=== PATIENT | female | born 1990 | race Caucasian/White ===

== ENCOUNTER 2018-02-28 08:10 | Emergency (ER) | payer OTHER, MEDICAID, SELFPAY ==
[2018-02-28 08:14] VITALS: BP 97/56; PULSE 78; RESP 12; TEMP 37.2; O2SAT 97; BMI 42.6
--- NOTE | 2018-02-28 08:31 | ED.VISSUMM ---
- ER Visit Summary Date of Service: 02/28/18 Chief Complaint: Accidental ingestion of the wrong medications History of Present Illness: The patient is a 28 F history of Down syndrome and correction of tetralogy of flow. Patient lives in a shelter. This morning was accidentally given medications that were supposed to be given to another resident. Patient herself denies any complaints. The medication she were given include levothyroxine, baby aspirin, ramipril, metoprolol, Spironolactone and Dilantin. She was given 1 pill of each. Physical Examination: Young patient in no distress. Initial blood pressure is 97/56 heart rate 78 she is afebrile. She is in no distress she is sitting up in bed. She is answering questions. She is following commands. I did see the list of her normal blood pressures and they run between the mid 90s-120 normally for a systolic blood pressure. She does not seem lightheaded or dizzy. Due to her Down syndrome she answers yes to all questions. There is a caregiver with her from the shelter. HEENT exam unremarkable. Typical Down's features. Moist mucous membranes. Neck nontender. Lungs clear to auscultation bilaterally. Heart regular rhythm no murmur rate about 80. Chest wall nontender. Well-healed sternotomy scar. Abdomen soft. Nontender. Normal bowel sounds. No peritoneal signs. Patient is moving all 4 extremities. No edema. Neurologically she is awake. She is alert. She follows commands. She has no focal motor deficits. Test Results: None Emergency Department Course and Treatment: Due to the ingestion of 2 blood pressure medications and her pressure being below 100 currently she will be placed on a cardiac surgeon. We will watch her blood pressure. She will be treated with a liter of normal saline. Patient doing well on repeat exam at 09:48 a.m. Treatment Plan: Watch patient closely today. Reevaluate blood pressures. Disposition: discharge Impression: Accidental ingestion of the wrong medications This note was generated with [employer] dictation software. It may contain incorrect words, spelling, and punctuation that were not noted in review of the chart prior to signing ED Disposition - Plan for ED Patient: Chief Complaint: Poisoning Referrals: Shaheen Veliz MD [Primary Care Provider] -
--- NOTE | 2018-02-28 08:35 | ED.DCSUM_ITS ---
- ER Visit Summary Date of Service: 02/28/18 Chief Complaint: Accidental ingestion of the wrong medications History of Present Illness: The patient is a 28 F history of Down syndrome and correction of tetralogy of flow. Patient lives in a long-term. This morning was accidentally given medications that were supposed to be given to another resident. Patient herself denies any complaints. The medication she were given include levothyroxine, baby aspirin, ramipril, metoprolol, Spironolactone and Dilantin. She was given 1 pill of each. Physical Examination: Young patient in no distress. Initial blood pressure is 97/56 heart rate 78 she is afebrile. She is in no distress she is sitting up in bed. She is answering questions. She is following commands. I did see the list of her normal blood pressures and they run between the mid 90s-120 normally for a systolic blood pressure. She does not seem lightheaded or dizzy. Due to her Down syndrome she answers yes to all questions. There is a caregiver with her from the long-term. HEENT exam unremarkable. Typical Down's features. Moist mucous membranes. Neck nontender. Lungs clear to auscultation bilaterally. Heart regular rhythm no murmur rate about 80. Chest wall nontender. Well-healed sternotomy scar. Abdomen soft. Nontender. Normal bowel sounds. No peritoneal signs. Patient is moving all 4 extremities. No edema. Neurologically she is awake. She is alert. She follows commands. She has no focal motor deficits. Test Results: None Emergency Department Course and Treatment: Due to the ingestion of 2 blood pressure medications and her pressure being below 100 currently she will be placed on a surveillance system monitor. We will watch her blood pressure. She will be treated with a liter of normal saline. Patient doing well on repeat exam at 09:48 a.m. Treatment Plan: Watch patient closely today. Reevaluate blood pressures. Disposition: discharge Impression: Accidental ingestion of the wrong medications This note was generated with [employer] dictation software. It may contain incorrect words, spelling, and punctuation that were not noted in review of the chart p rior to signing ED Disposition - Plan for ED Patient: Chief Complaint: Poisoning Referrals: Shaheen Veliz MD [Primary Care Provider] -
[2018-02-28] MEDS: 0.9% Normal Saline 1,000 ML 1000 ML IV (08:40)
[2018-02-28 08:41] VITALS: BP 114/74; PULSE 81; RESP 14; O2SAT 98
[2018-02-28 09:23] VITALS: BP 101/80; PULSE 80; RESP 17; O2SAT 97
--- NOTE | 2018-02-28 10:01 | ED.DEP ---
ED Disposition - Plan for ED Patient: Disposition: Home or Assisted Living Chief Complaint: Poisoning Referrals: Shaheen Veliz MD [Primary Care Provider] - As Needed Additional Instructions: Recheck blood pressures throughout the day. Plenty of fluids and rest.
[2018-02-28 10:05] VITALS: BP 105/74; PULSE 70; RESP 15
[2018-02-28 10:38] VITALS: BP 104/57; PULSE 67; RESP 18; O2SAT 97
== END 2018-02-28 10:40 | disposition home or self-care (01) ==
PROVIDERS: Emergency Provider Emergency Medicine; Family Provider Family Medicine; PCP Family Medicine
DX: T38.1X1A Poisoning by thyroid hormones and substitutes, accidental (unintentional), initial encounter (principal); T39.011A Poisoning by aspirin, accidental (unintentional), initial encounter; T46.4X1A Poisoning by angiotensin-converting-enzyme inhibitors, accidental (unintentional), initial encounter; T44.7X1A Poisoning by beta-adrenoreceptor antagonists, accidental (unintentional), initial encounter; T50.0X1A Poisoning by mineralocorticoids and their antagonists, accidental (unintentional), initial encounter; T42.0X1A Poisoning by hydantoin derivatives, accidental (unintentional), initial encounter; Q90.9 Down syndrome, unspecified; K21.9 Gastro-esophageal reflux disease without esophagitis; R56.9 Unspecified convulsions; Z79.899 Other long term (current) drug therapy; Y92.199 Unspecified place in other specified residential institution as the place of occurrence of the external cause
CPT/HCPCS: 96360; 99284; J7030; A4216

== ENCOUNTER → 2018-09-06 | Outpatient (CLI) | payer OTHER, MEDICAID, SELFPAY | END | disposition home or self-care (01) | LOC: LABSPEC 16:59 | PROVIDERS: Family Provider Family Medicine; PCP Family Medicine; Referring Provider Family Medicine; Visit Provider Family Medicine | DX: R39.9 Unspecified symptoms and signs involving the genitourinary system (principal) | CPT/HCPCS: 87086; 87088; 87186 ==

== ENCOUNTER → 2018-09-19 | Outpatient (CLI) | payer OTHER, MEDICAID, SELFPAY ==
[2018-09-11 14:09] VITALS: BMI 42.6
== END | disposition home or self-care (01) ==
LOC: LABSPEC 15:52
PROVIDERS: Family Provider Family Medicine; PCP Family Medicine; Referring Provider Family Medicine; Visit Provider Family Medicine
DX: N39.0 Urinary tract infection, site not specified (principal)
CPT/HCPCS: 87086; 87088

== ENCOUNTER 2018-10-13 07:22 | Day surgery (SDC) | payer OTHER, MEDICAID, SELFPAY ==
[2018-09-11 14:09] VITALS: BMI 42.6
--- NOTE | 2018-10-03 13:41 | PCM.HP.BLA ---
History and Physical Date of Admission: 10/13/18 Pre-Op History and Physical ? HPI: The patient is a 28 year old female presenting for pre-operative visit. She is scheduled for?exam under anesthesia, Wil removal, Kisha or kindly for IUD insertion, and Pap smear, for?cervical cancer screening, menstrual disorder, exam done under anesthesia due to trisomy?21 and patient??with limited cooperation and severe anxiety?with exams on?10/13/18. ??Procedure discussed along with risks, benefits and complications. ?Other alternatives discussed for management. Consent form signed??Yes.?? ? 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 ?Morbid obesity. ? ? CURRENT?MEDICATIONS No current outpatient medications on file. ? No current facility-administered medications for this visit.? ? ALLERGIES:?Patient has no allergy information on record. ? PERSONAL HISTORY:? SOCIAL?HISTORY Social History ??Socioeconomic History ?Marital status: Unknown ?Spouse name: Not on file ?Number of children: Not on file ?Years of education: Not on file ?Highest education level: Not on file ??Social Needs ?Financial resource strain: Not on file ?Food insecurity - worry: Not on file ?Food insecurity - inability: Not on file ?Transportation needs - medical: Not on file ?Transportation needs - non-medical: Not on file ??Occupational History ?Not on file ??Tobacco Use ?Smoking status: Not on file ??Substance and Sexual Activity ?Alcohol use: Not on file ?Drug use: Not on file ?Sexual activity: Not on file ??Other Topics ?Concerns: ?Not on file ??Social History Narrative ?Not on file ? FAMILY HISTORY:? FAMILY?HISTORY No family history on file. ? REVIEW OF SYMPTOMS: GENERAL: denies fevers or chills ENDOCRINOLOGY: has not been on steroids Cardiology : denies palpitations or chest pain Respiratory: denies SOB or cough Hematology: denies history of prolonged bleeding or easy bruising or VTE Allergy: Denies history of personal or family history of allergy to anesthesia ? ? PHYSICAL EXAMINATION: ? VITALS:?There were no vitals taken for this visit. ? GENERAL:??The patient is well nourished, well hydrated in no acute distress. ?, easily agitated NECK:?Supple. No lynphadenopathy, normal thyroid, no thyromegaly. LUNGS:?Clear to auscultation bilaterally. no wheezes, rhonchi or rales HEART:?Regular rate and rhythm, ?and murmer noted GENITALIA:?defered due to patient distress w/ exams ? IMPRESSION:?menstrual disorder, trisomy 21, need for cervical cancer screening, anxiety with medical procedures, contraceptive management ? PLAN:???The risks/benefits/alternatives and personal involved for the planned?Kisha?removal and Kisha or Kyleena?reinsertion, Pap smear, and examination under anesthesia?were reviewed with the patient. Her questions were answered to her satisfaction and she desires to proceed. ?Consent was signed. ?I reviewed with her postop instructions and expectations. ? ? I have reviewed and updated past medical and surgical history, medications and allergies? this history and physical was completed in my office 09/27/18
[2018-10-13 07:51] VITALS: BP 111/65; PULSE 74; RESP 18; TEMP 36.4; O2SAT 96; BMI 56.4
[2018-10-13] MEDS: Acetaminophen 500 MG Tablet 1000 MG PO (08:04)
[2018-10-13 08:05] LABS: Hematocrit 45.3 % (37-47); Hemoglobin 15.2 g/dl (12.0-15.0); Mean Corp Hgb Conc 33.6 g/gl (32-36); Mean Corpuscular Hgb 32.8 pg (27.0-32.0); Mean Corpuscular Volume 97.8 fL (81-99); Mean Platelet Vol. 9.8 fl (6.2-12.0); Platelet Count 153 K/mm3 (150-450); RBC Distribution Width CV 13.8 % (11.6-14.6); RBC Distribution Width SD 48.8 fl (35.1-43.9); Red Blood Count 4.63 M/mm3 (4.2-5.4); White Blood Count 4.2 K/mm3 (4.4-11.0)
[2018-10-13 08:08] LABS: Scan Indicated on CBC? Y/N NO
[2018-10-13] MEDS: Ketorolac 30 MG/ML Syringe IV (08:08)
[2018-10-13 08:23] LABS: Internal QC Validated? YES +Cl - CLEAR BKGD; Pregnancy, Serum, hCG Quali. NEGATIVE Negative
[2018-10-13 08:31] LABS: Anion Gap 9 (5-15); BUN 13 mg/dL (7-18); BUN/Creat Ratio 13.1 RATIO (10-20); Calcium,Total 7.8 mg/dL (8.5-10.1); Chloride 113 mmol/L (98-107); EST Glomerular Filtration Rate 71 mL/min (>60); Est Glom Filt Rate - Afr Amer 86 mL/min (>60); Estimated Creatinine Clearance 159.21 ml/min; Glucose 101 mg/dL (74-106); Potassium 3.9 mmol/L (3.5-5.1); Sodium Level 144 mmol/L (136-145)
--- NOTE | 2018-10-13 09:41 | DCINST_ITS ---
Discharge Diet: No Restrictions Discharge Activity: Return to Normal Activity, May Shower, May Take a Tub Bath - in 2 weeks. Call your doctor if your incision/area has: Continuous Slow Oozing, Sudden Increased Bleeding, Foul Smelling Discharge Call your doctor if you observe: Fever of 101 or Higher, Using more than one pad per hour, - - some spotting for up to 3 months is common Allergies/Adverse Reactions: Allergies adhesive tape Adverse Reaction (Intermediate, Verified 10/11/18 14:10) Skin redness Medications to take at Discharge Citalopram [Celexa] 40 mg PO DAILY 07/29/15 Lorazepam [Ativan] 0.5 mg PO BID 07/29/15 Pantoprazole Sodium [Protonix] 20 mg PO DAILY 07/29/15 Risperidone [Risperdal] 1 mg PO BID 07/29/15 Topiramate [Topamax] 125 mg PO BID 07/29/15 Melatonin 3 mg PO QHS PRN 02/28/18 Lorazepam [Ativan] 1 mg PO 1600 10/11/18 Primary Care Physician: Shaheen Veliz MD [Primary Care Provider] - Test Results: Test results from this visit will be discussed in further detail at your follow- up appointment, if applicable. Please Follow Up With: Pricilla Burgos MD - [phone] When: as needed only
--- NOTE | 2018-10-13 09:43 | OP.PCM_ITS ---
Report of Operation Date of Procedure: 10/13/18 Pre-Operative Diagnosis: IUD removal and reinsertion, need for pap, anxiety and inability to tolerate exams in the office Post-Operative Diagnosis: same Surgery/Procedure Performed:: Exam under anesthesia, Kisha IUD removal and Kisha IUD insertion social service liaison: None Type of Anesthesia:: MAC Special Medications: None Specimen's removed: Pap smear Drains: None Estimated Blood Loss (mL): 10 Fluids Replaced: 700 Description of Procedure: The patient was taken the operating room where she was placed in dorsolithotomy position. When MAC anesthesia was adequate, a breast exam was done. The breasts were symmetrical, no masses or nodularity noted. No axillary lymphadenopathy. Speculum was then placed in the vagina and the cervix was identified and a Pap smear collected. The uterus did not feel enlarged and there were no adnexal masses noted, but the exam was limited by habitus. The vagina showed normal rugae, physiological discharge and the IUD strings were noted. The cervix was very flat. The cervix was prepped with Betadine. The IUD strings were grasped with a ring forcep and IUD was removed easily and was confirmed to be intact. The cervix was then grasped with a single-tooth tenaculum the uterus sounded to 9 cm. The Kisha IUD was then placed in the usual sterile fashion without difficulty and the strings were trimmed to 2 cm. The instruments were all removed from the vagina. A vaginal sweep was completed by me. Grafts/Implants Used: Kisha IUD lot [id number] exp 05/06/2020 - Complications none - Admit VTE Documentation VTE Present on Admission: No VTE Mechan Device Prophylaxis: SCD's VTE Pharm Prophylaxis ordered?: No Reason prophylaxis not ordered:: Procedure Not Indicated
[2018-10-13 09:53] VITALS: BP 111/65; BP 91/67; PULSE 62; RESP 16; TEMP 36.1; O2SAT 98
[2018-10-13 10:00] VITALS: BP 111/65; BP 83/37; PULSE 60; RESP 16; O2SAT 99
[2018-10-13 10:09] VITALS: BP 111/65; BP 93/68; PULSE 59; RESP 16; O2SAT 94
[2018-10-13 10:15] VITALS: BP 111/65; BP 95/59; PULSE 62; RESP 16; TEMP 36.1; O2SAT 96
[2018-10-13 10:45] VITALS: BP 111/65
[2018-10-21 12:19] LABS: HPV Reflexed? YES, CHARGE PATIENT
== END 2018-10-13 10:46 | disposition home or self-care (01) ==
LOC: SDC 07:24 → AC 07:26
PROVIDERS: Family Provider Family Medicine; PCP Family Medicine; Referring Provider Obstetrics & Gynecology; Visit Provider Obstetrics & Gynecology
PROC: (CPT 58120; principal; 2018-10-13 08:45)
DX: Z30.432 Encounter for removal of intrauterine contraceptive device (principal); Q90.9 Down syndrome, unspecified; F41.9 Anxiety disorder, unspecified; K21.9 Gastro-esophageal reflux disease without esophagitis; F32.9 Major depressive disorder, single episode, unspecified; R56.9 Unspecified convulsions; E66.01 Morbid (severe) obesity due to excess calories; Z68.42 Body mass index [BMI] 45.0-49.9, adult; Z79.899 Other long term (current) drug therapy
CPT/HCPCS: 58300; 58301; 36415; 80048; 84703; 85027; 87624; 88175; J7120; G0145; J2405

== ENCOUNTER → 2018-12-30 | Outpatient (CLI) | payer OTHER, MEDICAID, SELFPAY ==
--- NOTE | 2018-12-30 15:20 | RAD_ITS ---
STUDY: X-RAY CHEST REASON FOR EXAM: Female, 28 years old. Follow-up pneumonia. TECHNIQUE: Frontal and lateral views of the chest. COMPARISON: None. FINDINGS: Moderate lung volumes. Bilateral poorly defined hazy density in the mid and lower lung armijo bilaterally. The appearance suggests congestion/pulmonary edema. Multifocal pneumonia is also possible. Cannot exclude trace pleural effusions. There is mild cardiac enlargement. Normal mediastinum and suresh. Normal visualized pulmonary arteries. Normal visualized aortic arch and descending thoracic aorta. Normal visualized thoracic spine. Normal visualized ribs, clavicles, and shoulders. There is no demonstrated abnormality of the visualized soft tissue structures of the upper abdomen. RAD/Chest PA and Lateral IMPRESSION: Bilateral poorly defined hazy density in the mid and lower lung armijo bilaterally. Findings consistent with congestion/pulmonary edema and/or multifocal pneumonia. Electronically Signed: Joseph Juarez MD at 16:08 EDT , Service support ,
[2018-12-30 15:24] LABS: Hematocrit 40.8 % (37-47); Hemoglobin 13.4 g/dL (12.0-15.0); Mean Corp Hgb Conc 32.8 g/dL (32-36); Mean Corpuscular Hgb 32.3 pg (27.0-32.0); Mean Corpuscular Volume 98.3 fL (81-99); Mean Platelet Vol. 10.2 fl (6.2-12.0); Platelet Count 166 K/mm3 (150-450); RBC Distribution Width CV 13.3 % (11.6-14.6); RBC Distribution Width SD 48.6 fl (35.1-43.9); Red Blood Count 4.15 M/mm3 (4.2-5.4); White Blood Count 7.7 K/mm3 (4.4-11.0)
[2018-12-30 15:42] LABS: Bacteria 0 SEEN /hpf (None Seen); Mucous, Urine 0 SEEN /hpf (<or=2+); Red Blood Cells-Urine 0 SEEN /hpf (0-5)
[2018-12-30 15:52] LABS: ALB/GLOB Ratio 0.6 RATIO (0.9-2.4); AST(SGOT) 13 U/L (15-37); Alanine Aminotransfer ALT/SGPT 15 U/L (13-56); Albumin, Serum 2.6 g/dL (3.2-5.0); Alkaline Phosphatase 90 U/L (45-117); Anion Gap 7 (5-15); BUN 16 mg/dL (7-18); BUN/Creat Ratio 14.8 RATIO (10-20); Calcium,Total 8.1 mg/dL (8.5-10.1); Chloride 111 mmol/L (98-107); Creatinine, Serum 1.08 mg/dL (0.55-1.02); EST Glomerular Filtration Rate 65 mL/min (>60); Est Glom Filt Rate - Afr Amer 78 mL/min (>60); Globulin 4.4 g/dL (2.2-4.2); Glucose 120 mg/dL (74-106); Potassium 3.7 mmol/L (3.5-5.1); Sodium Level 141 mmol/L (136-145)
[2018-12-30 16:40] LABS: Color, Urine Yellow (Yellow); Glucose, Dipstick Normal (Normal); Ketone-Dipstick Negative (Negative); Leukocyte Esterase-Dipstick 25 /ul (Negative); Nitrite-Dipstick Negative (Negative); Occult Blood-Urine 50 /ul (Negative); Protein-Dipstick Negative (Negative); Urine Bilirubin Dipstick Negative (Negative); Urine Clarity Clear (Clear); Urine Urobilinogen Normal (Normal)
[2018-12-30 17:06] LABS: Squamous Epithelial Cells - UA 0-5 SEEN /hpf (5-10); White Blood Cells 0-5 SEEN /hpf (0-5)
== END | disposition home or self-care (01) ==
LOC: LAB 14:47
PROVIDERS: Family Provider Family Medicine; PCP Family Medicine; Referring Provider Psychiatry & Neurology Neurology; Visit Provider Psychiatry & Neurology Neurology
DX: J18.9 Pneumonia, unspecified organism (principal)
CPT/HCPCS: 36415; 71046; 80053; 81001; 85027

== ENCOUNTER 2019-04-08 02:07 | Emergency (ER) | payer OTHER, MEDICAID, SELFPAY ==
[2019-04-08 02:08] VITALS: BP 144/81; PULSE 84; RESP 22; TEMP 36.5; O2SAT 98; BMI 57.8
--- NOTE | 2019-04-08 03:19 | ED.DCSUM_ITS ---
History of Present Illness Chief Complaint: Dental Narrative: Patient presenting for evaluation due to concern for possible dental pain. Patient has a history of Down syndrome. Patient apparently has been rubbing the left side of her face over the course of about the last 2 to 3 days. She was having difficulty with sleeping tonight, was up and crying and rubbing her face, so mom was concerned so brought her in for further evaluation. Patient does have a dentist appointment coming up on Wednesday. She has not had any fevers or constitutional symptoms. Patient actually was empirically started on amoxicillin yesterday for the possibility of a dental infection. Patient is not complaining of any ear pain or throat pain. No difficulty with swallowing. She was given Tylenol prior to arrival and had improvement of her pain. Past Medical History - Allergies and Home Meds Allergies/Adverse Reactions: Allergies adhesive tape Adverse Reaction (Intermediate, Verified 04/08/19 02:12) Skin redness Primary Care Physician: Rafy Oh MD [Primary Care Provider] - Past Medical History: - - Down syndrome, history of open heart surgery Smoking Status: Never smoker Review of Systems ROS: Unable to Obtain - Difficult to obtain secondary to the patient's developmental delay, but through mother is otherwise negative All systems negative except as indicated General: Denies: Chills, Fever, Sweats Eyes: Denies: Visual changes - bilaterally, Diplopia ENT: Reports: - - Dental pain Cardiovascular: Denies: Chest pain, Palpitations Respiratory: Denies: Dyspnea, Cough, Dyspnea on exertion Gastrointestinal: Denies: Abdominal pain, Nausea, Vomiting, Diarrhea, Melena, Hematochezia Genitourinary: Denies: Dysuria, Hematuria, Frequency Musculoskeletal: Denies: Back pain, Extremity Pain Skin: Denies: Rash, Wounds Neurological: Denies: Headache, Weakness, Numbness Physical Exam Vital Signs/Narrative: Vital Signs Temp Pulse Resp BP Pulse Ox 04/08/19 02:08 97.7 F L 84 22 H 144/81 H 98 Inital Vital Signs reviewed: Yes General: Well nourished, Well developed Head: Normocephalic, Atraumatic ENT: TM's clear, - - Dental exam shows reasonably good dentition. Patient does have some evidence that she grinds her teeth. No evidence of focal abscess or dental caries. No evidence of trismus. Soft sublingual space. No evidence of salivary gland swelling. Mouth/Throat: Normal inspection lips/gums, Normal oral mucosa Neck: Supple, No lymphadenopathy, Nontender, No JVD Cardiovascular: Regular rate, Regular rhythm, No murmurs Respiratory: No distress, CTA bilaterally, Chest nontender Abdomen: Soft, Nontender, Nondistended, Normal bowel sounds Extremities: Nontender, No edema Skin: Normal color, No rash Neurological: Alert Psychological: Normal affect Diagnostic/Tx/Re-eval - Medical Decision Making Patient presented due to possible dental pain. I was not able to identify a specific nidus for the patient's pain, but she does not seem to have any significant infectious etiology at this point. I did recommend that she keep h er dental follow-up and continue Tylenol and ibuprofen for pain control and finish the course of amoxicillin. ED Disposition - Plan for ED Patient: Disposition: Home or Assisted Living Diagnosis: Pain, dental Instructions: Dental Pain Referrals: Rafy Oh MD [Primary Care Provider] -
== END 2019-04-08 03:21 | disposition home or self-care (01) ==
PROVIDERS: Emergency Provider Emergency Medicine; Family Provider Family Medicine; PCP Family Medicine
DX: K08.89 Other specified disorders of teeth and supporting structures (principal); Q90.9 Down syndrome, unspecified; Z79.899 Other long term (current) drug therapy
CPT/HCPCS: 99282

== ENCOUNTER → 2019-04-21 10:31 | Outpatient (CLI) | payer OTHER, MEDICAID, SELFPAY ==
[2019-04-08 02:08] VITALS: BMI 57.8
[2019-04-21 13:03] LABS: Vitamin D,25 Hydroxy 8.5 ng/mL (29.95-100.01)
[2019-04-21 13:46] LABS: Anion Gap 5 (5-15); BUN 21 mg/dL (7-18); BUN/Creat Ratio 19.8 RATIO (10-20); Calcium,Total 8.5 mg/dL (8.5-10.1); Chloride 111 mmol/L (98-107); Cholesterol 191 mg/dL (200); Creatinine, Serum 1.06 mg/dL (0.55-1.02); EST Glomerular Filtration Rate 66 mL/min (>60); Est Glom Filt Rate - Afr Amer 80 mL/min (>60); Glucose 86 mg/dL (74-106); High Density Lipoprotein 44 mg/dL; Potassium 4.2 mmol/L (3.5-5.1); Sodium Level 142 mmol/L (136-145); Thyroid Stim Hormone (TSH) 2.52 uIU/mL (0.358-3.74); Triglycerides 279 mg/dL; Very Low Density Lipoprotein 56 mg/dL (5-40)
== END ==
PROVIDERS: PCP Family Medicine; Referring Provider Family Medicine; Visit Provider Family Medicine
DX: Z00.00 Encounter for general adult medical examination without abnormal findings (principal)
CPT/HCPCS: 36415; 80048; 80061; 82306; 84443

== ENCOUNTER 2019-04-24 13:51 | Emergency (ER) | payer OTHER, MEDICAID, SELFPAY ==
[2019-04-24 13:53] VITALS: BP 112/58; PULSE 74; RESP 16; TEMP 36.1; O2SAT 97; BMI 48.3
--- NOTE | 2019-04-24 15:18 | CT_ITS ---
STUDY: CT ABDOMEN AND PELVIS WITHOUT CONTRAST REASON FOR EXAM: Female, 29 years old. RECTAL BLEEDING X SEVERAL DAYS. Best images-patient Down syndrome RADIATION DOSAGE (If Supplied By Facility): CTDIvol = ( 19.44 ) mGy, DLP = ( 1857.40 ) mGycm TECHNIQUE: Transaxial images were obtained from the dome of the diaphragm to the symphysis pubis without oral contrast, and without intravenous contrast. Sagittal and coronal images were reconstructed. Individualized dose optimization techniques were used for this CT. COMPARISON: None. FINDINGS: The visualized lung bases are unremarkable. The visualized portions of the heart are within normal limits. Normal liver. Normal gallbladder and extrahepatic biliary system. Normal spleen. Normal pancreas. Normal bilateral adrenal glands. There is mild right pelviectasis. The stone is not definitively seen along the course of ureter. Normal left kidney. Normal visualized stomach. Normal small intestine. There is moderate stool in the colon. The appendix is visualized and appears normal. Normal abdominal aorta. Normal inferior vena cava. Normal retroperitoneum. Normal urinary bladder. There is an IUD within the uterus. Disposition appears to be in the far anterior aspect of the uterus allowing for the metallic artifact. The uterus appears septated image #100 axial views. The IUD appears to be in the mid of that septation. There is a small umbilical hernia containing fat. Normal osseous structures. CT/Abdomen/Pelvis W IV Cont ONLY IMPRESSION: There is an IUD in place. 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 The IUD appears to be fairly anteriorly located within the fundus or midline of this septation. Recommend dedicated pelvic ultrasound for further evaluation and establish location of the IUD. Nonspecific bowel gas pattern with mild to moderate constipation. There is a substantial amount of motion artifact. Mild right pelviectasis. No visualized stone along the course the right ureter. Electronically Signed: Hilda Cleveland MD at 16:45 EST Tel , Service support ,
--- NOTE | 2019-04-24 15:19 | ED.DCSUM_ITS ---
History of Present Illness Chief Complaint: GI Bleed Informant: Patient - Abdominal Pain/Flank Pain Onset: Days - 3-4 Timing: Intermittent Quality: - - blood in stool/toilet Location: - - unk if any pain; none that has been obvious Current Severity: Moderate Maximum Severity: Moderate Worsened by: Nothing Relieved by: Nothing - Nausea/Vomiting/Emesis GI Symptom: Negative for: Nausea, Vomiting - Diarrhea/Melena/Hematochezia GI Symptom: Hematochezia. Negative for: Diarrhea, Melena Associated Symptoms: Negative for: Dysuria, Frequency, Hematuria, Urgency Narrative: Family and household aide help with the history as the patient has Down syndrome and history is extremely limited from her. She has had blood in the toilet with bowel movements only for the past 3 or 4 days. No indication that she has had any other symptoms or discomfort, no syncope or fevers, never had this before, no history of any bowel issues or bowel surgeries. - Past Medical History (1) Down syndrome Status: Chronic (2) Seizure disorder Status: Chronic Past Medical History - Allergies and Home Meds Allergies/Adverse Reactions: Allergies adhesive tape Adverse Reaction (Intermediate, Verified 04/24/19 15:12) Skin redness Primary Care Physician: Rafy Oh MD [Primary Care Provider] - Surgical History: tonsillectomy, - - Cardiac surgeries Lives: With Family Smoking Status: Never smoker Review of Systems ROS: Unable to Obtain General: Denies: Fever ENT: Denies: Rhinorrhea Respiratory: Denies: Cough Gastrointestinal: Reports: Hematochezia. Denies: Vomiting Musculoskeletal: Denies: Swelling, Extremity Pain Skin: Denies: Rash Physical Exam Vital Signs/Narrative: Vital Signs Temp Pulse Resp BP Pulse Ox 04/24/19 13:53 97.0 F L 74 16 112/58 L 97 Inital Vital Signs reviewed: Yes General: Well nourished, Well developed, Obese, No Acute Distress - Smiling, nontoxic Head: Normocephalic, Atraumatic Eyes: Perrl, EOMI ENT: Moist mucous membranes, No rhinorrhea Neck: Supple, Nontender Cardiovascular: Regular rate, Regular rhythm, No murmurs Respiratory: No distress, CTA bilaterally, Chest nontender Abdomen: Soft, Nontender, Nondistended, Normal bowel sounds, No masses Rectal: Nontender, - - No visible or palpable hemorrhoids on ERIK. No gross blood, trace yellow-brown stool present, non-melanotic. No palpable masses/abscess. Perianal area normal-appearing. Back: Nontender, Normal Inspection. Negative for: CVA tenderness Extremities: Nontender, No edema Skin: Normal color, No rash Neurological: Alert, Cranial nerves II-XII grossly intact, Normal Strength, Normal Sensation, - - At baseline mental status per family Psychological: Normal affect, Normal Mood Diagnostic/Tx/Re-eval Impressions Abdomen/Pelvis CT 04/24/19 15:18 IMPRESSION: There is an IUD in place. 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 The IUD appears to be fairly anteriorly located within the fundus or midline of this septation. Recommend dedicated pelvic ultrasound for further evaluation and establish location of the IUD. Nonspecific bowel gas pattern with mild to moderate constipation. There is a substantial amount of motion artifact. Mild right pelviectasis. No visualized stone along the course the right ureter. Electronically Signed: Hilda Cleveland MD at 16:45 EST Tel , Service support , 04/24/19 15:18 Abdomen/Pelvis W IV Cont ONLY [CT] Stat Laboratory Results 04/24/19 04/24/19 12:40 12:40 WBC 5.2 RBC 4.73 Hgb 14.8 Hct 46.3 MCV 97.9 MCH 31.3 MCHC 32.0 RDW Std Deviation 45.7 H RDW Coeff of William 12.7 Plt Count 162 MPV 9.6 Immature Gran % (Auto) 0.200 Neut % (Auto) 55.7 Lymph % (Auto) 32.0 [place] % (Auto) 9.1 Eos % (Auto) 1.6 Baso % (Auto) 1.4 H Absolute Neuts (auto) 2.9 Absolute Lymphs (auto) 1.65 Nucleated RBC % 0 Sodium 140 Potassium 4.1 Chloride 111 H Carbon Dioxide 26.0 Anion Gap 3 L BUN 21 H Creatinine 1.02 Estim Creat Clear Calc 65.52 Est GFR (MDRD) Af Amer 83 Est GFR (MDRD) Non-Af 69 BUN/Creatinine Ratio 20.6 H Glucose 93 Calcium 8.4 L Total Bilirubin 0.30 AST 16 ALT 27 Alkaline Phosphatase 111 Total Protein 7.1 Albumin 3.1 L Globulin 4.0 Albumin/Globulin Ratio 0.8 L - Medical Decision Making On reevaluation patient is doing well, laughing, playing with a cell phone. Her exam is very benign. Her CT does not show any problem with her colon, but as I discussed with family, it is possible to have a normal CT and have abnormal findings on colonoscopy or sigmoidoscopy, which would be the next recommended test. I will give her a prescription for rectal Proctofoam HC for the possibility of internal hemorrhoids to use in the meantime until she can follow- up. Blood counts are stable. Do not suspect this is upper GI bleeding. Discussed with family they are comfortable with this plan. ED Disposition - Plan for ED Patient: Disposition: Home or Assisted Living Diagnosis: Rectal bleeding Instructions: RECTAL BLEED, Stable Prescriptions: Hydrocortisone/Pramoxine [Proctofoam-Hc Foam] 10 gm TN DAILY PRN #1 foam PRN Reason: Rectal Discomfort Transmission Status: Pending to [id number] Additional Instructions: Use Proctofoam as able with applicator, inserted just into the anus, for at least 1 week to see if it makes a difference, as this will treat internal hemorrhoids if present, which cannot be ruled out in the emergency department easily.
[2019-04-24] MEDS: 0.9% Normal Saline 1,000 ML 1000 ML IV (15:44)
[2019-04-24 15:54] LABS: Absolute Lymphocyte Count 1.65 X10^3/uL (0.83-4.51); Absolute Neutrophil Count 2.9 X10^3/uL (2.0-7.7); Basophil# 0.07 X10^3/uL; Basophil% 1.4 % (0-1); Eosinophil# 0.08 X10^3/uL; Eosinophils% 1.6 % (0-5); Hematocrit 46.3 % (37-47); Hemoglobin 14.8 g/dL (12.0-15.0); Lymphocyte # 1.65 X10^3/ul (4.0); Mean Corpuscular Hgb 31.3 pg (27.0-32.0); Mean Corpuscular Volume 97.9 fL (81-99); Mean Platelet Vol. 9.6 fl (6.2-12.0); Monocyte# 0.47 X10^3/uL; Monocyte% 9.1 % (0-10); NRBC Flagged by Analyzer 0 % (0-5); Neutrophil # 2.88 X10^3/uL (2.7-7.7); Neutrophil % 55.7 % (47-70); Platelet Count 162 K/mm3 (150-450); RBC Distribution Width CV 12.7 % (11.6-14.6); RBC Distribution Width SD 45.7 fl (35.1-43.9); Red Blood Count 4.73 M/mm3 (4.2-5.4); White Blood Count 5.2 K/mm3 (4.4-11.0)
[2019-04-24 16:17] LABS: ALB/GLOB Ratio 0.8 RATIO (0.9-2.4); AST(SGOT) 16 U/L (15-37); Alanine Aminotransfer ALT/SGPT 27 U/L (13-56); Albumin, Serum 3.1 g/dL (3.2-5.0); Alkaline Phosphatase 111 U/L (45-117); Anion Gap 3 (5-15); BUN 21 mg/dL (7-18); BUN/Creat Ratio 20.6 RATIO (10-20); Calcium,Total 8.4 mg/dL (8.5-10.1); Chloride 111 mmol/L (98-107); Creatinine, Serum 1.02 mg/dL (0.55-1.02); EST Glomerular Filtration Rate 69 mL/min (>60); Est Glom Filt Rate - Afr Amer 83 mL/min (>60); Estimated Creatinine Clearance 65.52 ml/min; Glucose 93 mg/dL (74-106); Potassium 4.1 mmol/L (3.5-5.1); Protein, Total 7.1 g/dL (6.4-8.2); Sodium Level 140 mmol/L (136-145)
[2019-04-24 17:28] VITALS: BP 118/74; PULSE 79; RESP 16
[2019-04-24 18:07] VITALS: BP 116/87; PULSE 77; RESP 17; O2SAT 95
[2019-05-08 16:06] LABS: Mucous, Urine 0 SEEN /hpf (<or=2+)
[2019-05-08 17:21] LABS: Color, Urine Yellow (Yellow); Glucose, Dipstick Normal (Normal); Ketone-Dipstick Negative (Negative); Leukocyte Esterase-Dipstick 25 /ul (Negative); Nitrite-Dipstick Positive (Negative); Occult Blood-Urine Negative /ul (Negative); Protein-Dipstick Negative (Negative); Specific Gravity, Urine 1.015 (1.002-1.030); Urine Bilirubin Dipstick Negative (Negative); Urine Clarity Cloudy (Clear); Urine Urobilinogen Normal (Normal)
[2019-05-08 17:52] LABS: White Blood Cells 25-50 SEEN /hpf (0-5)
[2019-05-08 17:53] LABS: Bacteria 4+ /hpf (None Seen); Red Blood Cells-Urine 0 SEEN /hpf (0-5); Squamous Epithelial Cells - UA 5-10 SEEN /hpf (5-10)
== END 2019-04-24 18:08 | disposition home or self-care (01) ==
PROVIDERS: Emergency Provider Emergency Medicine; PCP Family Medicine
DX: K62.5 Hemorrhage of anus and rectum (principal); Q90.9 Down syndrome, unspecified; G40.909 Epilepsy, unspecified, not intractable, without status epilepticus; E66.9 Obesity, unspecified; Z68.42 Body mass index [BMI] 45.0-49.9, adult
CPT/HCPCS: 74177; 80053; 81001; 85025; 87086; 87088; 87186; 96360; 99284; J7030; Q9967

== ENCOUNTER 2019-05-13 12:25 | Emergency (ER) | payer OTHER, MEDICAID, SELFPAY ==
[2019-05-13 12:25] VITALS: BP 125/64; PULSE 75; RESP 18; TEMP 36.4; O2SAT 95; BMI 52.4
--- NOTE | 2019-05-13 13:06 | ED.VIS.GEN ---
History of Present Illness Chief Complaint: Cellulitis Informant: Patient, - - Caregiver Onset: Today Context: Sudden Onset Timing: Continuous Quality: Pain and redness Location: Left elbow Current Severity: Mild Maximum Severity: Mild Worsened by: Unknown Relieved by: Nothing Associated Symptoms: No associated symptoms per caregiver Narrative: Patient is a 29-year-old female who is cognitively impaired and brought to the emergency department because of complaint of elbow pain. They noted redness. There is been no documented fever. She is had no shaking chills. She is not diabetic. She is now on no immunosuppressive meds. There is no history of rheumatic fever or heart murmur. Prior similar symptoms: No Recent Illness/Hospitalization: No - Past Medical History (1) Encounter for IUD insertion Status: Acute (2) Menorrhagia Status: Acute (3) Down syndrome Status: Chronic (4) Seizure disorder Status: Chronic Past Medical History - Allergies and Home Meds Allergies/Adverse Reactions: Allergies adhesive tape Adverse Reaction (Intermediate, Verified 05/13/19 12:27) Skin redness Primary Care Physician: Rafy Oh MD [Primary Care Provider] - Prior records reviewed: Yes Surgical History: tonsillectomy, - - Cardiac surgeries Lives: - - [facility] Smoking Status: Never smoker Alcohol: None Drugs: None Review of Systems General: Denies: Chills, Fever Cardiovascular: Denies: Chest pain, Palpitations Respiratory: Denies: Dyspnea Gastrointestinal: Denies: Nausea, Vomiting Musculoskeletal: Reports: Extremity Pain. Denies: Myalgias, Arthralgias, Neck pain, Back pain, Swelling Skin: Reports: Rash, Abrasions. Denies: Abscess, Wounds Neurological: Denies: Weakness, Parasthesia, Numbness Endocrine: Denies: Polyuria, Polydipsia Hematologic: Denies: Easy bruising, Easy bleeding Allergy: Denies: Uticaria, Swelling of the mouth, Swelling of the tongue Physical Exam Vital Signs/Narrative: Vital Signs Temp Pulse Resp BP Pulse Ox 05/13/19 12:25 97.5 F L 75 18 125/64 H 95 Inital Vital Signs reviewed: Yes General: Well nourished, Well developed, Obese, No Acute Distress Head: Normocephalic, Atraumatic Eyes: Perrl, EOMI. Negative for: Pale conjunctiva, Scleral icterus ENT: Moist mucous membranes, No rhinorrhea Neck: Supple, Nontender, No lymphadenopathy, No JVD Cardiovascular: Regular rate, Regular rhythm, No murmurs, Normal S1, Normal S2 Respiratory: No distress, CTA bilaterally, Chest nontender Rectal: Deferred Extremities: Nontender, No edema, - - There is evidence of cellulitis left elbow approximately 3 cm and diameter. There is no fluctuance or induration. There is no lymphangitis. There is no axillary lymphadenopathy.. Negative for: Tenderness Skin: Normal color, Rash Neurological: Alert, Cranial nerves II-XII grossly intact, Normal Strength, Normal Sensation, Normal DTR. Negative for: Oriented x3 Diagnostic/Tx/Re-eval - Medical Decision Making She has cellulitis of left elbow. Since her vitals are normal will treat with cephalexin and Bactrim since there is no history of antibiotic allergies. ED Disposition - Plan for ED Patient: Disposition: Home or Assisted Living Diagnosis: Cellulitis of left elbow Instructions: Cellulitis Prescriptions: Smz/Tmp Ds [Bactrim Ds] 1 tab PO BID #14 tab Transmission Status: Pending to [facility] Cephalexin [Keflex] 500 mg PO 4X/DAY #28 cap Transmission Status: Pending to [facility] Referrals: Rafy Oh MD [Primary Care Provider] - 2 Days for wound check
[2019-05-13] MEDS: Smz/Tmp Ds Tablet 1 TABLET PO (13:49)
[2019-05-13] MEDS: Cephalexin 250 MG Capsule 500 MG PO (13:49)
== END 2019-05-13 13:50 | disposition home or self-care (01) ==
PROVIDERS: Emergency Provider Emergency Medicine; PCP Family Medicine
DX: L03.114 Cellulitis of left upper limb (principal); Q90.9 Down syndrome, unspecified; G40.909 Epilepsy, unspecified, not intractable, without status epilepticus; E66.9 Obesity, unspecified; Z79.899 Other long term (current) drug therapy
CPT/HCPCS: 99283

== ENCOUNTER 2019-05-25 15:44 | Emergency (ER) | payer OTHER, MEDICAID, SELFPAY ==
[2019-05-25 15:46] VITALS: BP 130/77; PULSE 65; RESP 16; TEMP 36.2; O2SAT 98; BMI 56.8
--- NOTE | 2019-05-25 16:07 | ED.VIS.GI ---
History of Present Illness Chief Complaint: GI Bleed Informant: Patient, Family - Abdominal Pain/Flank Pain Onset: Weeks - 2+ Timing: Intermittent Quality: - - blood in toilet Location: - - rectal. no indication of pain Current Severity: Mild Maximum Severity: Mild Worsened by: - - unk Relieved by: - - unk - Nausea/Vomiting/Emesis GI Symptom: Negative for: Vomiting - Diarrhea/Melena/Hematochezia GI Symptom: Hematochezia. Negative for: Diarrhea, Melena Associated Symptoms: Negative for: Dysuria, Frequency, Urgency Narrative: Patient with Down's syndrome who is unable to provide history. Mother and nursing home staff accompany the patient to provide history. Yesterday and today they have seen blood in the toilet. Sometimes with stool and other times without. She was seen here in the ER on April 24 of this year, 1 month ago, by myself for the same thing. We prescribed Proctofoam HC. It sounds like they decided not to use it although they had it filled, their doctor told them to hold off. She does not seem to be in any pain. She had some elbow cellulitis that she was on antibiotics for in addition to a urinary infection, her antibiotics ended 1 or 2 days ago and she seemed to be better with regards to those issues. No recent fevers. Patient has given family/staff no indication about any of this, they just a saw it in the toilet. She has an IUD in her uterus. She gets pelvic exams every 3 years, but needs to be sedated for them. - Past Medical History (1) Down syndrome Status: Chronic (2) Seizure disorder Status: Chronic Past Medical History - Allergies and Home Meds Allergies/Adverse Reactions: Allergies adhesive tape Adverse Reaction (Intermediate, Verified 05/25/19 15:48) Skin redness Primary Care Physician: Rafy Oh MD [Primary Care Provider] - Surgical History: tonsillectomy, - - Cardiac surgeries Lives: - - senior living Smoking Status: Never smoker Review of Systems ROS: Unable to Obtain Physical Exam Vital Signs/Narrative: Vital Signs Temp Pulse Resp BP Pulse Ox 05/25/19 15:46 97.2 F L 65 16 130/77 H 98 Inital Vital Signs reviewed: Yes General: Well nourished, Well developed, Obese, No Acute Distress - Well-appearing Head: Normocephalic, Atraumatic Eyes: Perrl, EOMI ENT: Moist mucous membranes, No rhinorrhea Neck: Supple, Nontender Cardiovascular: Regular rate, Regular rhythm, No murmurs. Negative for: Tachycardia Respiratory: No distress, CTA bilaterally, Chest nontender Abdomen: Soft, Nontender, Nondistended, Normal bowel sounds Rectal: Nontender - No visible or palpable hemorrhoids, lesions, or abscess. There is one small skin tag posteriorly about the anus that mom thinks is chronic and unchanged. There is no evidence that this has recently had any bleeding. There is no specimen on digital rectal exam or blood. Back: Nontender, Normal Inspection. Negative for: CVA tenderness Extremities: Nontender, No edema Skin: Normal color, No Trauma, Rash - Resolving nontender erythema or ecchymosis right elbow area Neurological: Alert, Cranial nerves II-XII grossly intact, Normal Strength, Normal Sensation, Normal Gait Psychological: Normal affect, Normal Mood Diagnostic/Tx/Re-eval Laboratory Tests 05/25/19 05/25/19 Range/Units 16:14 16:14 WBC 4.5 (4.4-11.0) K/mm3 RBC 4.74 (4.2-5.4) M/mm3 Hgb 15.3 H (12.0-15.0) g/dL Hct 46.9 (37-47) % MCV 98.9 (81-99) fL MCH 32.3 H (27.0-32.0) pg MCHC 32.6 (32-36) g/dL RDW Std Deviation 47.2 H (35.1-43.9) fl RDW Coeff of William 13.0 (11.6-14.6) % Plt Count 170 (150-450) K/mm3 MPV 9.2 (6.2-12.0) fl Immature Gran % (Auto) 0.200 (0.0-0.9) % Neut % (Auto) 58.6 (47-70) % Lymph % (Auto) 30.9 (19-41) % Travis % (Auto) 7.8 (0-10) % Eos % (Auto) 1.6 (0-5) % Baso % (Auto) 0.9 (0-1) % Absolute Neuts (auto) 2.6 (2.0-7.7) X10^3/uL Absolute Lymphs (auto) 1.38 (0.83-4.51) X10^3/uL Nucleated RBC % 0 (0-5) % Sodium 141 (136-145) mmol/L Potassium 3.8 (3.5-5.1) mmol/L Chloride 113 H (98-107) mmol/L Carbon Dioxide 24.0 (21.0-32.0) mmol/L Anion Gap 4 L (5-15) BUN 19 H (7-18) mg/dL Creatinine 1.20 H (0.55-1.02) mg/dL Estim Creat Clear Calc 132.51 ml/min Est GFR (MDRD) Af Amer 69 (>60) mL/min Est GFR (MDRD) Non-Af 57 L (>60) mL/min BUN/Creatinine Ratio 15.8 (10-20) RATIO Glucose 87 (74-106) mg/dL Calcium 8.6 (8.5-10.1) mg/dL - Medical Decision Making Rectal and blood work is unremarkable. We performed a CT scan a month ago when she was here for this so imaging I do not think needs to be repeated for any reason right now. I discussed with mom and nursing home staff about the possibility of this being vaginal in etiology but since she is not having any active bleeding right now, and has history of Down's and would not cooperate for a exam, it would be difficult to tell without sedating her. Mom does not want to have her sedated and examined now and is comfortable following up for something like that. I discussed with her PCP Dr. Oh who prefers to have the patient follow-up in the office for further evaluation and discussion with family, rather than try the Proctofoam yet. I think all of this is reasonable patient is discharged in stable condition. ED Disposition - Plan for ED Patient: Disposition: Home or Assisted Living Diagnosis: Rectal bleeding Instructions: RECTAL BLEED, Stable Referrals: Rafy Oh MD [Primary Care Provider] - As soon as possible
[2019-05-25 16:24] VITALS: RESP 16
[2019-05-25 16:32] LABS: Absolute Lymphocyte Count 1.38 X10^3/uL (0.83-4.51); Absolute Neutrophil Count 2.6 X10^3/uL (2.0-7.7); Basophil# 0.04 X10^3/uL; Basophil% 0.9 % (0-1); Eosinophil# 0.07 X10^3/uL; Eosinophils% 1.6 % (0-5); Hematocrit 46.9 % (37-47); Hemoglobin 15.3 g/dL (12.0-15.0); Lymphocyte # 1.38 X10^3/ul (4.0); Lymphocyte % 30.9 % (19-41); Mean Corp Hgb Conc 32.6 g/dL (32-36); Mean Corpuscular Hgb 32.3 pg (27.0-32.0); Mean Corpuscular Volume 98.9 fL (81-99); Mean Platelet Vol. 9.2 fl (6.2-12.0); Monocyte# 0.35 X10^3/uL; Monocyte% 7.8 % (0-10); NRBC Flagged by Analyzer 0 % (0-5); Neutrophil # 2.62 X10^3/uL (2.7-7.7); Neutrophil % 58.6 % (47-70); Platelet Count 170 K/mm3 (150-450); RBC Distribution Width SD 47.2 fl (35.1-43.9); Red Blood Count 4.74 M/mm3 (4.2-5.4); White Blood Count 4.5 K/mm3 (4.4-11.0)
[2019-05-25 16:35] LABS: Anion Gap 4 (5-15); BUN 19 mg/dL (7-18); BUN/Creat Ratio 15.8 RATIO (10-20); Calcium,Total 8.6 mg/dL (8.5-10.1); Chloride 113 mmol/L (98-107); EST Glomerular Filtration Rate 57 mL/min (>60); Est Glom Filt Rate - Afr Amer 69 mL/min (>60); Estimated Creatinine Clearance 132.51 ml/min; Glucose 87 mg/dL (74-106); Potassium 3.8 mmol/L (3.5-5.1); Sodium Level 141 mmol/L (136-145)
[2019-05-25 16:51] VITALS: RESP 18
== END 2019-05-25 16:52 | disposition home or self-care (01) ==
PROVIDERS: Emergency Provider Emergency Medicine; PCP Family Medicine
DX: K62.5 Hemorrhage of anus and rectum (principal); Q90.9 Down syndrome, unspecified; G40.909 Epilepsy, unspecified, not intractable, without status epilepticus; Z79.899 Other long term (current) drug therapy; E66.9 Obesity, unspecified
CPT/HCPCS: 80048; 85025; 99282

== ENCOUNTER → 2019-06-19 13:09 | Outpatient (CLI) | payer OTHER, MEDICAID, SELFPAY ==
[2019-05-25 15:46] VITALS: BMI 56.8
== END ==
PROVIDERS: PCP Family Medicine; Referring Provider Family Medicine; Visit Provider Family Medicine
DX: N39.0 Urinary tract infection, site not specified (principal)
CPT/HCPCS: 87086; 87088; 87186

== ENCOUNTER → 2020-08-19 15:49 | Outpatient (CLI) | payer OTHER, MEDICAID, SELFPAY ==
[2020-04-21 13:13] VITALS: BMI 55.1
[2020-08-19 18:21] LABS: Vitamin D,25 Hydroxy 36.6 ng/mL
[2020-08-19 18:37] LABS: ALB/GLOB Ratio 0.7 RATIO (0.9-2.4); AST(SGOT) 19 U/L (15-37); Alanine Aminotransfer ALT/SGPT 25 U/L (13-56); Albumin, Serum 3.2 g/dL (3.2-5.0); Alkaline Phosphatase 113 U/L (45-117); Anion Gap 4 (5-15); BUN 21 mg/dL (7-18); BUN/Creat Ratio 18.8 RATIO (10-20); Calcium,Total 8.6 mg/dL (8.5-10.1); Chloride 108 mmol/L (98-107); Cholesterol 173 mg/dL (200); Creatinine, Serum 1.12 mg/dL (0.55-1.02); EST Glomerular Filtration Rate 61 mL/min (>60); Est Glom Filt Rate - Afr Amer 74 mL/min (>60); Globulin 4.3 g/dL (2.2-4.2); Glucose 90 mg/dL (74-106); High Density Lipoprotein 45 mg/dL; Potassium 4.1 mmol/L (3.5-5.1); Protein, Total 7.5 g/dL (6.4-8.2); Sodium Level 139 mmol/L (136-145); Thyroid Stim Hormone (TSH) 2.73 uIU/mL (0.358-3.74); Triglycerides 169 mg/dL; Very Low Density Lipoprotein 34 mg/dL (5-40)
== END ==
PROVIDERS: PCP Family Medicine; Visit Provider Family Medicine
DX: Z00.00 Encounter for general adult medical examination without abnormal findings (principal)
CPT/HCPCS: 36415; 80053; 80061; 82306; 84443

== ENCOUNTER 2020-10-28 15:17 | Emergency (ER) | payer OTHER, MEDICAID, SELFPAY ==
[2020-04-21 13:13] VITALS: BMI 55.1
[2020-10-28 15:18] VITALS: BP 103/68; PULSE 65; RESP 18; TEMP 37.3; O2SAT 93; BMI 57.4
[2020-10-28 16:48] VITALS: BP 108/75; PULSE 71; RESP 18; TEMP 37.1; O2SAT 96
--- NOTE | 2020-10-28 17:44 | RAD_ITS ---
INDICATION: cough and fever EXAMINATION/TECHNIQUE: X-RAY - XR Chest 1 View COMPARISON: None. FINDINGS: Bilateral interstitial and airspace opacities. The cardiomediastinal silhouette is unremarkable. No pleural effusion or pneumothorax. No acute osseous abnormalities. RAD/Chest 1 View (Portable) IMPRESSION: Bilateral interstitial and airspace opacities may represent edema and/or infection. Electronically Signed: Quan Cortez MD at 18:43 EDT Tel , Service support ,
--- NOTE | 2020-10-28 19:21 | EDS_ITS ---
HPI History of Present Illness Chief Complaint: General Illness Informant: legal guardian Narrative Narrative: 30-year-old female from skilled nursing presents with cough for 5 weeks and fever over the weekend. He is she has been experiencing some posttussive emesis today. They have been controlling fever with Tylenol. No diarrhea. No significant rhinorrhea earache or sore throat. PFSH PFS Medical History Down syndrome Fallot tetralogy GERD (gastroesophageal reflux disease) Heart disease Seizures Home Medications citalopram 40 mg PO DAILY 07/29/15 [History Last Taken 10/13/18] lorazepam 0.5 mg PO BID 07/29/15 [History Last Taken 10/13/18] risperidone 0.5 mg PO BID 07/29/15 [History Last Taken 10/13/18] topiramate 25 mg PO BID 07/29/15 [History Last Taken 10/13/18] melatonin 3 mg PO QHS PRN 02/28/18 [History Last Taken 02/27/18 5 MG] omeprazole 20 mg PO DAILY 04/08/19 [History Last Taken Unknown] multivitamin 1 tab PO DAILY 04/21/20 [History Last Taken Unknown] albuterol sulfate [Ventolin HFA] 2 puff INHALATION Q4H PRN PRN #1 inhaler 10/28/20 [Rx Last Taken Unknown] doxycycline monohydrate 100 mg PO BID #20 capsule 10/28/20 [Rx Last Taken Unknown] Allergy/AdvReac Type Severity Reaction Status Date / Time adhesive tape AdvReac Intermediate Skin Verified 04/21/20 13:14 redness Social History Smoking Status: Never smoker alcohol intake: never ROS ROS ED Constitutional Constitutional ED: Reports fever(s); Denies chills or weight loss Eyes Eyes: Denies change in vision or diplopia ENT ENT ED: Denies ear pain, rhinorrhea or sore throat Cardiovascular Cardiovascular: Denies chest pain, orthopnea, palpitations or racing heartbeat Respiratory/Chest Respiratory/Chest: Reports cough; Denies dyspnea or orthopnea Gastrointestinal Gastrointestinal: Denies abdominal pain, diarrhea, nausea or vomiting Genitourinary Genitourinary ED: Denies dysuria, hematuria or urinary frequency Musculoskeletal Musculoskeletal: Denies arthralgias or myalgias Integumentary Denies abscess or rash Neurologic Neurologic: Denies headache(s) or weakness Psychiatric Psychiatric: Denies anxiety, depression, suicidal ideation or suicidal thoughts Endocrine Endocrinology: Denies polydipsia, polyphagia or polyuria Allergic/Immunologic Allergic/Immunologic ED: Denies mouth swelling, tongue swelling or urticaria EXAM Physical Exam Narrative Exam Narrative: Patient sitting up in the bed clinically appears well Const Vital Signs: 10/28/20 15:18 10/28/20 16:48 10/28/20 16:53 Temperature 99.2 F H 98.8 F Temperature Source Temporal Oral Pulse Rate 65 71 Respiratory Rate 18 18 Respiratory Effort Normal Non-Labored Respiratory Pattern Normal Blood Pressure 103/68 108/75 Blood Pressure Mean 79 86 Pulse Ox 93 96 Oxygen Delivery Method Room Air CPAP Positive well nourished and well developed General Appearance ED: well developed HEENT Reports normocephalic, head/scalp atraumatic and moist mucous membranes Eyes PERRL and EOMs intact bilaterally Neck no lymphadenopathy, supple and no JVD Resp normal respiratory effort Auscultation: rhonchi Cardio regular rate, regular rhythm and no murmurs GI normal to inspection, nondistended, normoactive bowel sounds and non-tender Palpation: soft Back/Spine no CVA tenderness and normal ROM Extremity normal to inspection General Extremety ED: Negative for edema General Extremity: Negative for edema Neuro CN's II-XII intact bilaterally Sensorium / Orientation: alert Motor Exam: strength 5/5 throughout Psych mental status grossly normal Mood & Affect: Negative for depressed or tearful Skin no rashes or lesions noted and no wounds MDM MDM MDM Narrative Medical decision making narrative: Covid and influenza swabs were negative. Chest x-ray was obtained demonstrated bilateral airspace opacities. It is reasonable to start her on doxycycline Radiography Diagnostic Testing: Radiology Impression Chest X-Ray 10/28/20 17:44 IMPRESSION: Bilateral interstitial and airspace opacities may represent edema and/or infection. Electronically Signed: Quan Cortez MD at 18:43 EDT Tel , Service support , Discharge Plan Triage Chief Complaint: General Illness ED Provider: Chris Chavez Dx/Rx/DC Orders Clinical Impression: Pneumonia Instructions: ED Pneumonia (Adult) Prescriptions: New doxycycline monohydrate 100 MG capsule 100 mg PO BID Qty: 20 RF: 0 albuterol sulfate [Ventolin HFA] 1 INHALER inhaler 2 puff inhalation Q4H PRN PRN (Reason: Wheezing) Qty: 1 RF: 0 No Action multivitamin [One Daily Multivitamin] Tablet 1 tab PO DAILY RF: 0 risperidone 4 MG tablet 0.5 mg PO BID RF: 0 citalopram 20 MG tablet 40 mg PO DAILY RF: 0 lorazepam 0.5 MG tablet 0.5 mg PO BID RF: 0 topiramate 100 MG tablet 25 mg PO BID RF: 0 melatonin 5 MG tablet 3 mg PO QHS PRN (Reason: Sleep) RF: 0 omeprazole 20 MG capsule 20 mg PO DAILY RF: 0 Primary Care Provider: Rafy Oh Referrals: Rafy Oh MD [Primary Care Provider] - 1 Week if not improving Disposition Disposition: Home, Self Care
[2020-10-28 19:34] VITALS: BP 113/74; PULSE 64; PULSE 66; RESP 16; O2SAT 94; O2SAT 96
[2020-10-28] MEDS: Acetaminophen 500 MG Tablet 1000 MG PO (19:47)
[2020-10-28] MEDS: Doxycycline 100 MG CAPSULE PO (19:48)
== END 2020-10-28 19:51 | disposition home or self-care (01) ==
PROVIDERS: Emergency Provider Emergency Medicine; PCP Family Medicine
DX: J18.9 Pneumonia, unspecified organism (principal); Q90.9 Down syndrome, unspecified; K21.9 Gastro-esophageal reflux disease without esophagitis; R56.9 Unspecified convulsions; I51.9 Heart disease, unspecified; Z79.899 Other long term (current) drug therapy
CPT/HCPCS: 71045; 87426; 87804; 99283

== ENCOUNTER → 2020-11-21 08:47 | Outpatient (CLI) | payer OTHER, MEDICAID, SELFPAY ==
[2020-10-28 15:18] VITALS: BMI 57.4
[2020-11-21 09:12] LABS: Absolute Neutrophil Count 1.9 X10^3/uL (2.0-7.7); Basophil# 0.04 X10^3/uL; Basophil% 1.1 % (0-1); Eosinophil# 0.09 X10^3/uL; Eosinophils% 2.4 % (0-5); Hemoglobin 15.4 g/dL (12.0-15.0); Lymphocyte % 37.4 % (19-41); Mean Corp Hgb Conc 32.1 g/dL (32-36); Mean Corpuscular Hgb 31.6 pg (27.0-32.0); Mean Corpuscular Volume 98.4 fL (81-99); Mean Platelet Vol. 9.7 fl (6.2-12.0); Monocyte# 0.33 X10^3/uL; Monocyte% 8.8 % (0-10); NRBC Flagged by Analyzer 0 % (0-5); Neutrophil # 1.86 X10^3/uL (2.7-7.7); Neutrophil % 49.8 % (47-70); Platelet Count 185 K/mm3 (150-450); RBC Distribution Width CV 12.3 % (11.6-14.6); RBC Distribution Width SD 44.4 fl (35.1-43.9); Red Blood Count 4.88 M/mm3 (4.2-5.4); White Blood Count 3.7 K/mm3 (4.4-11.0)
[2020-11-21 09:48] LABS: ALB/GLOB Ratio 0.7 RATIO (0.9-2.4); AST(SGOT) 23 U/L (15-37); Alanine Aminotransfer ALT/SGPT 27 U/L (13-56); Albumin, Serum 2.8 g/dL (3.2-5.0); Alkaline Phosphatase 90 U/L (45-117); Anion Gap 5 (5-15); BUN 16 mg/dL (7-18); BUN/Creat Ratio 13.3 RATIO (10-20); Calcium,Total 8.8 mg/dL (8.5-10.1); Chloride 110 mmol/L (98-107); EST Glomerular Filtration Rate 57 mL/min (>60); Est Glom Filt Rate - Afr Amer 68 mL/min (>60); Globulin 4.2 g/dL (2.2-4.2); Glucose 133 mg/dL (74-106); Potassium 4.2 mmol/L (3.5-5.1); Sodium Level 141 mmol/L (136-145)
[2020-11-25 20:31] LABS: Topiramate 16.3 ug/mL (2.0-25.0)
== END ==
PROVIDERS: PCP Family Medicine; Referring Provider Psychiatry & Neurology Clinical Neurophysiology; Visit Provider Psychiatry & Neurology Clinical Neurophysiology
DX: G40.109 Localization-related (focal) (partial) symptomatic epilepsy and epileptic syndromes with simple partial seizures, not intractable, without status epilepticus (principal)
CPT/HCPCS: 36415; 80053; 80201; 85025

== ENCOUNTER → 2020-12-26 09:04 | Outpatient (CLI) | payer OTHER, MEDICAID, SELFPAY ==
[2020-12-26 09:06] LABS: Bacteria 0 SEEN /hpf (None Seen); Mucous, Urine 0 SEEN /hpf (<or=2+); Red Blood Cells-Urine 0 SEEN /hpf (0-5); Squamous Epithelial Cells - UA 0 SEEN /hpf (5-10)
[2020-12-26 09:57] LABS: Color, Urine Yellow (Yellow); Glucose, Dipstick Normal (Normal); Ketone-Dipstick Negative (Negative); Leukocyte Esterase-Dipstick 500 /ul (Negative); Nitrite-Dipstick Negative (Negative); Occult Blood-Urine Negative /ul (Negative); Protein-Dipstick Negative (Negative); Urine Bilirubin Dipstick Negative (Negative); Urine Clarity Sl. Cloudy (Clear); Urine Urobilinogen Normal (Normal)
[2020-12-26 10:05] LABS: Amorphous Sediment 1+; White Blood Cells 5-10 SEEN /hpf (0-5)
== END ==
PROVIDERS: PCP Family Medicine; Referring Provider Family Medicine; Visit Provider Family Medicine
DX: R30.0 Dysuria (principal)
CPT/HCPCS: 81001; 87086; 87088

== ENCOUNTER → 2020-12-27 18:20 | Outpatient (CLI) | payer OTHER, MEDICAID, SELFPAY | PROVIDERS: PCP Family Medicine; Referring Provider Physician Assistant Surgical; Visit Provider Physician Assistant Surgical | DX: Z20.822 Contact with and (suspected) exposure to COVID-19 (principal) | CPT/HCPCS: 87635; U0005; U0003 ==

== ENCOUNTER 2021-04-16 12:08 | Outpatient (CLI) | payer OTHER, MEDICAID, SELFPAY | END 2021-04-16 23:59 | disposition short-term general hospital (02) | LOC: LABSPEC 12:10 | PROVIDERS: PCP Family Medicine; Referring Provider Physician Assistant; Visit Provider Physician Assistant | DX: Z11.52 Encounter for screening for COVID-19 (principal) | CPT/HCPCS: 87635; U0003; U0005 ==

== ENCOUNTER 2021-05-05 14:08 | Outpatient (CLI) | payer OTHER, MEDICAID, SELFPAY | END 2021-05-05 23:59 | disposition short-term general hospital (02) | LOC: LABSPEC 14:09 | PROVIDERS: PCP Family Medicine; Visit Provider Physician Assistant Surgical | DX: Z20.822 Contact with and (suspected) exposure to COVID-19 (principal) | CPT/HCPCS: 87635; U0003; U0005 ==

== ENCOUNTER → 2022-01-08 | Outpatient (CLI) | payer OTHER, MEDICAID, SELFPAY ==
[2022-01-08 16:22] LABS: Mucous, Urine 0 SEEN /hpf (<or=2+)
[2022-01-08 16:33] LABS: Color, Urine Straw (Yellow); Glucose, Dipstick Normal (Normal); Ketone-Dipstick Negative (Negative); Leukocyte Esterase-Dipstick 25 /ul (Negative); Nitrite-Dipstick Negative (Negative); Occult Blood-Urine Negative /ul (Negative); Protein-Dipstick Negative (Negative); Urine Bilirubin Dipstick Negative (Negative); Urine Clarity Clear (Clear); Urine Urobilinogen Normal (Normal)
[2022-01-08 17:40] LABS: Bacteria RARE /hpf (None Seen); Red Blood Cells-Urine 0-5 SEEN /hpf (0-5); Squamous Epithelial Cells - UA 0-5 SEEN /hpf (5-10); White Blood Cells 0-5 SEEN /hpf (0-5)
== END | disposition home or self-care (01) ==
LOC: LAB 01-09 10:48
PROVIDERS: PCP Family Medicine; Visit Provider Obstetrics & Gynecology
DX: R30.0 Dysuria (principal)
CPT/HCPCS: 81001; 87086; 87088

== ENCOUNTER → 2022-10-01 | Outpatient (CLI) | payer OTHER, MEDICAID, SELFPAY ==
[2022-10-01 13:05] LABS: Anion Gap 4 (5-15); BUN 23 mg/dL (7-18); BUN/Creat Ratio 20.9 RATIO (10-20); Calcium,Total 8.2 mg/dL (8.5-10.1); Chloride 109 mmol/L (98-107); Cholesterol 180 mg/dL (200); EST Glomerular Filtration Rate 62 mL/min (>60); Est Glom Filt Rate - Afr Amer 75 mL/min (>60); Glucose 92 mg/dL (74-106); High Density Lipoprotein 47 mg/dL; Potassium 4.1 mmol/L (3.5-5.1); Sodium Level 140 mmol/L (136-145); Thyroid Stim Hormone (TSH) 2.03 uIU/mL (0.358-3.74); Triglycerides 145 mg/dL; Very Low Density Lipoprotein 29 mg/dL (5-40)
[2022-10-01 17:09] LABS: Vitamin D,25 Hydroxy 57.9 ng/mL
== END | disposition home or self-care (01) ==
LOC: MFPLAB 11:19
PROVIDERS: PCP Family Medicine; Visit Provider Family Medicine
DX: Z00.00 Encounter for general adult medical examination without abnormal findings (principal)
CPT/HCPCS: 36415; 80048; 80061; 82306; 84443

== ENCOUNTER 2023-04-22 15:28 | Emergency (ER) | payer OTHER, MEDICAID, SELFPAY ==
[2023-04-22 15:30] VITALS: BP 109/81; PULSE 74; RESP 18; TEMP 35.8; O2SAT 100
--- NOTE | 2023-04-22 16:13 | ED.RN ---
called mother, Juanjose to inform that pt is in ED.
[2023-04-22 16:26] VITALS: BMI 59.4
--- NOTE | 2023-04-22 16:40 | EX.ED.DYSGE1 ---
HPI History of Present Illness Chief Complaint: General Illness Informant: patient and legal guardian Narrative Narrative: Patient presents with decreased p.o. intake. For the last 2 or 3 days she has not been eating as much. She is still been drinking. Today did she did not eat or drink as much. But then we found out that patient was given a Coke with a straw and drank that just fine. No known pain. No known fevers or cough. There are 3 or so other residents at her fdc. They all had a viral type illness 1 or 2 weeks ago. No specific symptom but they were all under the weather. No known influenza or COVID going around. There has been no vomiting. No diarrhea. No coughing. She also may be was just a little sleepy or than normal but evidently she does sometimes fall asleep during workshop and other events normally. History and review of symptoms are significantly limited. Patient has significant Down syndrome and is generally nonverbal. But she does understand things pretty well. [facility] Medical History Down syndrome Fallot tetralogy GERD (gastroesophageal reflux disease) Heart disease Lab test negative for COVID-19 virus Seizures Home Medications citalopram 20 mg tablet 40 mg PO DAILY 07/29/15 [History Last Taken 10/13/18] lorazepam 0.5 mg tablet 0.5 mg PO BID 07/29/15 [History Last Taken 10/13/18] risperidone 4 mg tablet 0.5 mg PO BID 07/29/15 [History Last Taken 10/13/18] topiramate 100 mg tablet 150 mg PO BID 07/29/15 [History Last Taken 10/13/18] melatonin 5 mg tablet 3 mg PO QHS PRN Sleep 02/28/18 [History Last Taken 02/27/18 5 MG] omeprazole 20 mg capsule,delayed release 20 mg PO DAILY 04/08/19 [History Last Taken Unknown] multivitamin (One Daily Multivitamin tablet) 1 tab PO DAILY 04/21/20 [History Last Taken Unknown] acetaminophen 500 mg tablet (Tylenol Extra Strength) 1,000 mg (2 x 500 mg) PO Q6H PRN fever or pain #60 tabs 10/28/20 [Rx Last Taken Unknown] albuterol sulfate 90 mcg/actuation aerosol inhaler (Ventolin HFA) 2 puff inhalation Q4H PRN PRN Wheezing ##1 10/28/20 [Rx Last Taken Unknown] ondansetron HCl 4 mg tablet (Zofran) 4 mg PO Q8H PRN nausea and vomiting #9 tabs 03/08/21 [Rx Last Taken Unknown] ammonium lactate 12 % topical cream 1 applic topical QHS 04/22/23 [History Last Taken Unknown] cholecalciferol (vitamin D3) 50 mcg (2,000 unit) tablet 50 mcg PO DAILY 04/22/23 [History Last Taken Unknown] lorazepam 1 mg tablet 1 mg PO DAILY 04/22/23 [History Last Taken Unknown] paliperidone 3 mg tablet,extended release 24 hr 12 mg PO Q24H 04/22/23 [History Last Taken Unknown] trazodone 100 mg tablet 100 mg PO QHS 04/22/23 [History Last Taken Unknown] valacyclovir 1 gram tablet 2,000 mg PO BID 04/22/23 [History Last Taken Unknown] Allergy/AdvReac Type Severity Reaction Status Date / Time adhesive tape AdvReac Intermediate Skin Verified 04/22/23 15:29 redness Social History Smoking Status: Never smoker alcohol intake: never ROS ROS ED ROS Narrative Limited review of systems as the patient generally is nonverbal. Constitutional Constitutional ED: Denies chills or fever(s) ENT ENT ED: Denies rhinorrhea Respiratory/Chest Respiratory/Chest: Denies cough Gastrointestinal Gastrointestinal: Denies diarrhea or vomiting Genitourinary Genitourinary ED: Reports other Details: No reported change in urine output. Integumentary Denies rash Hematologic/Lymphatic Hematologic/Lymphatic: Denies easy bleeding, easy bruising or lymphadenopathy Allergic/Immunologic Allergic/Immunologic ED: Denies urticaria EXAM Physical Exam Narrative Exam Narrative: CONSTITUTIONAL: Patient is nontoxic in appearance. The patient looks comfortable. Work of breathing looks normal. She is smiling and pleasant. She reaches out to hold her hand. HEENT: No notable trauma. Mucous membranes are still moist. None of her teeth appear to be tender when tapped with a tongue blade. I have trouble seeing her tonsils due to anatomy. No indication of discomfort with swallowing. No sinus tenderness. EYES: No conjunctival injection. No proptosis. NECK:No JVD. No stridor. No lymphadenopathy is felt but she does have a full neck. CARDIOVASCULAR: Regular rate. Regular rhythm. No notable murmur. No JVD. She is not tachycardic. RESPIRATORY: No respiratory distress. Breathing is unlabored. No wheezes. No coughing while I am in the room. Saturations are normal at 100% on room air showing no hypoxia. GASTROINTESTINAL: Not distended. Bowel sounds are normal. No tenderness. No guarding. No rebound. No palpable mass. No bruit is heard. I can press in all areas with no indication of discomfort or change in her demeanor. GENITOURINARY: No tenderness over the bladder. No CVA tenderness on either side. MUSCULOSKELETAL: Atraumatic. No peripheral edema. No cord. No tenderness along the deep venous system. No asymmetry. No distended veins. NEUROLOGICAL: Patient is alert and appropriate. No focal deficit noted. SKIN: No noted rashes. No diaphoresis. PSYCHIATRIC: Patient is calm. Mood is appropriate. Const Vital Signs: 04/22/23 15:30 04/22/23 16:27 Temperature 96.4 F L Temperature Source Temporal Pulse Rate 74 Respiratory Rate 18 Respiratory Effort Normal Non-Labored Respiratory Pattern Normal Blood Pressure 109/81 H Blood Pressure Mean 90 Pulse Ox 100 Oxygen Delivery Method Room Air MDM MDM MDM Narrative Medical decision making narrative: Patient's CBC is normal other than a mild nonspecific elevation of the hemoglobin. White count and platelets are normal. Patient's electrolytes show no marked abnormalities. Creatinine is slightly up at 1.22. Patient's liver function test are normal. Patient's glucose is normal. Patient's COVID is negative. Patient's influenza A is negative. Patient's influenza B is negative. Patient's RSV is negative. Patient's rapid strep is negative. I think the patient can go back with her fdc. They can ensure to encourage p.o. intake. She may have a viral illness like some of the other people where she is just not eating and drinking as much. There is no indication that she is at risk at this time. I did explain that this needs to be watched closely and if she is not drinking for longer it may end up that she comes in the hospital. But at this point there is no need for admission. There is no pain or exam findings that would indicate further need for imaging. Lab Data Labs: Laboratory Results - last 24 hr 04/22/23 16:55 WBC 6.3 RBC 5.16 Hgb 16.9 H Hct 50.8 H MCV 98.4 MCH 32.8 H MCHC 33.3 RDW Std Deviation 47.6 H RDW Coeff of William 13.1 Plt Count 171 MPV 10.6 Immature Gran % (Auto) 0.300 Neut % (Auto) 54.5 Lymph % (Auto) 36.4 [place] % (Auto) 6.9 Eos % (Auto) 0.8 Baso % (Auto) 1.1 H Absolute Neuts (auto) 3.4 Absolute Lymphs (auto) 2.28 Nucleated RBC % 0 Sodium 139 Potassium 3.9 Chloride 109 H Carbon Dioxide 24.0 Anion Gap 6 BUN 16 Creatinine 1.22 H Estim Creat Clear Calc 79.51 Est GFR (MDRD) Af Amer 66 Est GFR (MDRD) Non-Af 55 L BUN/Creatinine Ratio 13.1 Glucose 98 Calcium 9.0 Total Bilirubin 0.40 AST 26 ALT 23 Alkaline Phosphatase 89 Total Protein 7.5 Albumin 3.3 Globulin 4.2 Albumin/Globulin Ratio 0.8 L Discharge Plan Triage Chief Complaint: General Illness ED Provider: Martin Mcpherson Dx/Rx/DC Orders Clinical Impression: Decreased oral intake Instructions: Dehydration Prescriptions: No Action multivitamin [One Daily Multivitamin] Tablet 1 tab PO DAILY ondansetron HCl [Zofran] 4 mg tablet 4 mg PO Q8H PRN (Reason: nausea and vomiting) Qty: 9 0RF risperidone 4 MG tablet 0.5 mg PO BID citalopram 20 MG tablet 40 mg PO DAILY lorazepam 0.5 MG tablet 0.5 mg PO BID Patient Comments: QAM & QHS topiramate 100 MG tablet 150 mg PO BID melatonin 5 MG tablet 3 mg PO QHS PRN (Reason: Sleep) omeprazole 20 MG capsule 20 mg PO DAILY albuterol sulfate [Ventolin HFA] 1 INHALER inhaler 2 puff inhalation Q4H PRN PRN (Reason: Wheezing) Qty: 1 0RF Rx Instructions: Dispense with spacer acetaminophen [Tylenol Extra Strength] 500 mg tablet 1,000 mg PO Q6H PRN (Reason: fever or pain) Qty: 60 0RF Rx Instructions: Do not exceed 4000 mg/day ammonium lactate 12 % cream 1 applic TOPICAL QHS lorazepam 1 mg tablet 1 mg PO DAILY Rx Instructions: 3pm paliperidone 3 mg tablet extended release 24hr 12 mg PO Q24H trazodone 100 mg tablet 100 mg PO QHS cholecalciferol (vitamin D3) 50 mcg (2,000 unit) tablet 50 mcg PO DAILY valacyclovir 1 gram tablet 2,000 mg PO BID Primary Care Provider: Rafy Oh Referrals: Rafy Oh MD [Primary Care Provider] - 3-5 Days if not improving Disposition Disposition: Home, Self Care Capacity Legal Print Press Operator Reflex Medical hold order details:: IF a medical hold is selected below, a suggested order for a MEDICAL HOLD will reflex upon signing the document. Next of kin: [place] law dictates a PRIORITY LIST for identifying legal decision-maker/legal next of kin in the following order (LNOK): 1st: The patient?s legal guardian, if any 2nd: The patient's spouse (if status is questionable, consult Risk Management) 3rd: The patient?s adult child(aneesh) (majority, if multiple children) 4th: The patient?s parents 5th: The patient?s adult siblings (majority, if multiple children siblings)
[2023-04-22 17:13] LABS: Absolute Lymphocyte Count 2.28 X10^3/uL (0.83-4.51); Absolute Neutrophil Count 3.4 X10^3/uL (2.0-7.7); Basophil# 0.07 X10^3/uL; Basophil% 1.1 % (0-1); Eosinophil# 0.05 X10^3/uL; Eosinophils% 0.8 % (0-5); Hematocrit 50.8 % (37-47); Hemoglobin 16.9 g/dL (12.0-15.0); Lymphocyte # 2.28 X10^3/ul (0.83-4.51); Lymphocyte % 36.4 % (19-41); Mean Corp Hgb Conc 33.3 g/dL (32-36); Mean Corpuscular Hgb 32.8 pg (27.0-32.0); Mean Corpuscular Volume 98.4 fL (81-99); Mean Platelet Vol. 10.6 fl (6.2-12.0); Monocyte# 0.43 X10^3/uL; Monocyte% 6.9 % (0-10); NRBC Flagged by Analyzer 0 % (0-5); Neutrophil # 3.41 X10^3/uL (2.7-7.7); Neutrophil % 54.5 % (47-70); Platelet Count 171 K/mm3 (150-450); RBC Distribution Width CV 13.1 % (11.6-14.6); RBC Distribution Width SD 47.6 fl (35.1-43.9); Red Blood Count 5.16 M/mm3 (4.2-5.4); White Blood Count 6.3 K/mm3 (4.4-11.0)
--- OUTSIDE RECORDS SUMMARY | 2023-04-22 17:23 | XMS RPT_ITS | CCD ---
Author Name Unknown Address [email or web address] [place] [address] Organization [facility] Care Team Providers Care Chief Of Field Operations Name Role Phone Rafy Olsen MD Primary Care Provider [phone] RAFY OLSEN Primary Care Unavailable REFERRED, SELF Referring Unavailable SAURAV FOLEY Attending Unavailable RAFY OLSEN Primary Care Unavailable SAURAV FOLEY Attending Unavailable SAURAV FOLEY Referring Unavailable Medications Current Medications Medication Drug Class(es) Dates Sig (Normalized) Sig (Original) cholecalciferol 0.05 mg oral capsule (1 source) Vitamin D Cholecalciferol (VITAMIN D) 50 MCG (1999) CAPS Take by mouth 0 Active FLUoxetine 20 mg oral capsule (1 source) Serotonin Reuptake Inhibitor FLUoxetine (PROZAC) 20 MG capsule Take by mouth 0 Active Lactate (1 source) AMMONIUM LACTATE EX Apply to affected area 0 Active levonorgestrel 0.038485 mg/hr intrauterine system (1 source) Progestin, Progestin-containin g Intrauterine Device Levonorgestrel 13.5 MG IUD by Intrauterine route 0 Active LORazepam 1 mg oral tablet (1 source) Benzodiazepine take 0.5 mg by mouth three times daily LORazepam (ATIVAN) 1 MG tablet Take 0.5 mg by mouth 3 times daily 0 Active melatonin 5 mg oral tablet (1 source) melatonin 5 MG T ABS Take 1 Tablet (5 mg) by mouth as needed 0 Active omeprazole 20 mg delayed release oral tablet (1 source) Proton Pump Inhibitor take 1 tablet by mouth once daily omeprazole (PRILOSEC OTC) 20 MG tablet Take 1 Tablet (20 mg) by mouth daily 0 Active risperiDONE 1 mg oral tablet (1 source) Atypical Antipsychotic take 1 tablet by mouth twice daily risperiDONE (RISPERDAL) 1 MG tablet Take 1 Tablet (1 mg) by mouth 2 times daily 0 Active topiramate 25 mg oral tablet (1 source) Start: 03-15-2012 take 1 tablet by mouth twice daily topiramate (TOPAMAX) 25 MG tablet Take 1 Tab by mouth 2 times daily. 60 Tab 6 03/15/2012 Active Problems Problem Classification Problem Date Documented Date Episodic/Chronic Cardiac and circulatory congenital anomalies (1 source) Tetralogy of Fallot; 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] Onset: 12-28-2013 05-15-2021 Chronic Cardiac and circulatory congenital anomalies (1 source) History of repair of tetralogy of Fallot; Translations: [Personal history of (corrected) congenital malformations of heart and circulatory system] Episodic Epilepsy; convulsions (1 source) Seizure disorder; Translations: [Epilepsy, unspecified, not intractable, without status epilepticus] Onset: 10-27-2011 10-27-2011 Chronic Heart valve disorders (2 sources) History of pulmonary valve replacement; 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] Onset: 12-28-2013 Chronic Other congenital anomalies (1 source) Anomaly of chromosome pair 21; 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, 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 Results Test Name Value Interpretation Reference Range Facil ity Encounters Encounter Date Encounter Type Care Provider Facility Start: 04-24-2022 End: 04-25-2022 ambulatory RAFY Smith [facility] Start: 04-24-2022 End: 04-24-2022 Subsequent hospital visit by physician Saurav Foley MD Work Phone: [facility] Procedures Date Procedure Procedure Detail Performing Clinician Start: 04-24-2022 Natriuretic peptide Cristofer Foley MD Work Phone: Plan of Treatment Date Care Activity Detail Author Start: 04-28-2023 End: 04-28-2023 Patient encounter procedure 04/28/2023 Office Visit [place] [address] [facility] Start: 12-04-2021 FLU (#1) FLU (#1) [facility] Start: 01-11-2013 Microscopic observat ion [Identifier] in Cervix by Cyto stain Pap Smear [facility] Start: 2008 MenB (1 of 2 - MenB 2-Dose Series Bexsero) MenB (1 of 2 - MenB 2-Dose Series Bexsero) [facility] Start: 01-11-1999 Tetanus Diphtheria a nd Pertussis Vaccines (1 - Tdap) Tetanus Diphtheria and Pertussis Vaccines (1 - Tdap) [facility] Start: 01-11-1993 MMR (1 of 1 - Standa rd series) MMR (1 of 1 - Standard series) [facility] Start: 01-11-1993 Varicella (1 of 2 - 2-dose childhood series) Varicella (1 of 2 - 2-dose childhood series) [facility] Start: 1992 COVID-19 (#1) COVID-19 (#1) [facility] Start: 1992 Hepatitis B (1 of 3 - 3-dose series) Hepatitis B (1 of 3 - 3-dose series) [facility] Payers Date Payer Category Payer Unknown [facility] [id number] 2022-Present [phone] [address] [place] [address] [id number] 2011 [place] [id number] 2011-Present [address] [place] [address] [id number] 1992 Unknown [id number] 1992 Unknown [id number] Medicaid [id number] Unknown [id number] Social History Date Type Detail Facility [facility]: [facility] Work Phone: History of tobacco use Passive smoker [facility] Start: 04-24-2022 Tobacco use and exposure Smokeless tobacco non-user [facility] Start: 04-24-2022 Alcohol intake Current non-dr order dispatcher of alcohol (finding) [facility] Start: 1990 Sex Assigned At Not on file A [facility] Evaluation note Note Date & Type Note Facility documented in this encounter [facility] Summary Purpose Family History No Family History Records Found Advance Directives No Advanced Directives Records Found Additional Source Comments Care Teams (unrecognized sec tion and content) INFORMATION SOURCE (unrecogn ized section and content) FOR RECORDS PERTAINING TO PATIENTS WHO ARE OR HAVE BEEN ENROLLED IN A CHEMICAL DEPENDENCY/SUBSTANCEABUSE PROGRAM, SOME INFORMATION MAY BE OMITTED. This clinical summary was aggregated from multiple sources. Caution should be exercised in using it in the provision of clinical care. This summary normalizes information from multiple sources, and as a consequence, information in this document may materially change the coding, format and clinical context of patient data. In addition, data may be omitted in some cases. CLINICAL DECISIONS SHOULD BE BASED ON THE PRIMARY CLINICAL RECORDS. [facility]. provides no warranty or guarantee of the accuracy or completeness of information in this document.
[2023-04-22 17:37] LABS: ALB/GLOB Ratio 0.8 RATIO (0.9-2.4); AST(SGOT) 26 U/L (15-37); Alanine Aminotransfer ALT/SGPT 23 U/L (13-56); Albumin, Serum 3.3 g/dL (3.2-5.0); Alkaline Phosphatase 89 U/L (45-117); Anion Gap 6 (5-15); BUN 16 mg/dL (7-18); BUN/Creat Ratio 13.1 RATIO (10-20); Chloride 109 mmol/L (98-107); Creatinine, Serum 1.22 mg/dL (0.55-1.02); EST Glomerular Filtration Rate 55 mL/min (>60); Est Glom Filt Rate - Afr Amer 66 mL/min (>60); Estimated Creatinine Clearance 79.51 ml/min; Globulin 4.2 g/dL (2.2-4.2); Glucose 98 mg/dL (74-106); Potassium 3.9 mmol/L (3.5-5.1); Protein, Total 7.5 g/dL (6.4-8.2); Sodium Level 139 mmol/L (136-145)
--- NOTE | 2023-04-22 18:34 | ED.RN ---
This RN called pt. mother Juanjose, to update her on discharge instructions.
== END 2023-04-22 18:41 | disposition home or self-care (01) ==
PROVIDERS: Emergency Provider Emergency Medicine; PCP Family Medicine; Visit Provider Emergency Medicine
DX: R63.8 Other symptoms and signs concerning food and fluid intake (principal); Q90.9 Down syndrome, unspecified
CPT/HCPCS: 80053; 85025; 87631; 87651; 99283; A4216

== ENCOUNTER → 2023-05-04 | Outpatient (CLI) | payer OTHER, MEDICAID, SELFPAY ==
--- NOTE | 2023-05-04 14:10 | RAD_ITS ---
STUDY: X-RAY CHEST REASON FOR EXAM: Female, 33 years old. Weight loss. TECHNIQUE: Frontal and lateral views of the chest. COMPARISON: 10/28/2020. FINDINGS: The lungs are clear and expanded. There is no demonstrated pleural abnormality. Normal size heart. Normal mediastinum and suresh. Normal visualized pulmonary arteries. Normal visualized aortic arch and descending thoracic aorta. Normal visualized thoracic spine. Normal visualized ribs, clavicles, and shoulders. Incidentally noted are sternotomy wires. No abnormality of the visualized soft tissue structures of the upper abdomen. RAD/Chest PA and Lateral IMPRESSION: No active or acute cardiopulmonary disease. Electronically Signed: Obey Taylor MD at 15:27 EST ,
--- NOTE | 2023-05-04 14:10 | RAD_ITS ---
STUDY: X-RAY - ABDOMEN/PELVIS REASON FOR EXAM: Female, 33 years old. Weight loss and pain. TECHNIQUE: Single AP view of the abdomen / pelvis on 6 images. COMPARISON: None. FINDINGS: Normal visualized lung bases. Normal bowel gas pattern with air seen to the rectosigmoid. No disproportionate dilatation of bowel. Mild amount of feces in the colon. The visualized liver, spleen and kidneys are grossly normal in size and morphology. Normal soft tissue structures. Normal visualized osseous structures. RAD/Abd Inc Decub and/or Erect IMPRESSION: No acute abnormality of the visualized lower chest, abdomen or pelvis. Electronically Signed: Obey Taylor MD at 15:57 EST ,
[2023-05-04 18:06] LABS: Absolute Lymphocyte Count 2.35 X10^3/uL (0.83-4.51); Absolute Neutrophil Count 2.5 X10^3/uL (2.0-7.7); Basophil# 0.05 X10^3/uL; Basophil% 0.9 % (0-1); Eosinophil# 0.07 X10^3/uL; Eosinophils% 1.3 % (0-5); Hematocrit 52.2 % (37-47); Hemoglobin 16.9 g/dL (12.0-15.0); Lymphocyte # 2.35 X10^3/ul (0.83-4.51); Lymphocyte % 43.5 % (19-41); Mean Corp Hgb Conc 32.4 g/dL (32-36); Mean Corpuscular Hgb 31.7 pg (27.0-32.0); Mean Corpuscular Volume 97.9 fL (81-99); Mean Platelet Vol. 10.3 fl (6.2-12.0); Monocyte# 0.38 X10^3/uL; NRBC Flagged by Analyzer 0 % (0-5); Neutrophil # 2.53 X10^3/uL (2.7-7.7); Neutrophil % 46.9 % (47-70); Platelet Count 157 K/mm3 (150-450); RBC Distribution Width CV 13.1 % (11.6-14.6); RBC Distribution Width SD 47.2 fl (35.1-43.9); Red Blood Count 5.33 M/mm3 (4.2-5.4); White Blood Count 5.4 K/mm3 (4.4-11.0)
[2023-05-04 18:35] LABS: ALB/GLOB Ratio 0.8 RATIO (0.9-2.4); AST(SGOT) 21 U/L (15-37); Alanine Aminotransfer ALT/SGPT 28 U/L (13-56); Albumin, Serum 3.3 g/dL (3.2-5.0); Alkaline Phosphatase 88 U/L (45-117); Anion Gap 5 (5-15); BUN 15 mg/dL (7-18); BUN/Creat Ratio 12.5 RATIO (10-20); Calcium,Total 8.9 mg/dL (8.5-10.1); Chloride 109 mmol/L (98-107); EST Glomerular Filtration Rate 56 mL/min (>60); Est Glom Filt Rate - Afr Amer 67 mL/min (>60); Globulin 4.3 g/dL (2.2-4.2); Glucose 94 mg/dL (74-106); Protein, Total 7.6 g/dL (6.4-8.2); Sodium Level 138 mmol/L (136-145); T4 Free Direct 0.84 ng/dL (0.76-1.46)
[2023-05-04 18:57] LABS: Vitamin B12 505 pg/mL (211-911); Vitamin D,25 Hydroxy 72.6 ng/mL
== END | disposition home or self-care (01) ==
LOC: MTLAB 14:10
PROVIDERS: PCP Family Medicine; Referring Provider Family Medicine; Visit Provider Family Medicine
DX: R53.83 Other fatigue (principal); R63.4 Abnormal weight loss
CPT/HCPCS: 36415; 71046; 74019; 80053; 82306; 82607; 84134; 84439; 84443; 85025

== ENCOUNTER → 2023-05-29 | Outpatient (CLI) | payer OTHER, MEDICAID, SELFPAY ==
--- OUTSIDE RECORDS SUMMARY | 2023-05-29 11:10 | XMS RPT_ITS | CCD ---
Author Name Unknown Address [address] [place] [address] Organization [facility] Care Team Providers Care Electrical Electronics Technician Name Role Phone Rafy Olsen MD Primary Care Provider Rafy Olsen MD Primary Care Provider REFERRED, SELF Referring Unavailable RAFY OLSEN Primary Care Unavailable SAURAV FOLEY Attending Unavailable RAFY OLSEN Primary Care Unavailable SAURAV FOLEY Referring Unavailable SAURAV FOLEY Attending Unavailable Allergies Allergy Classification Reported Allergen(s) Allergy Type Date of Onset Reaction(s) Facility (2 sources) Cyanoacrylate; Translations: [CYANOACRYLATE] Propensity to adverse reactions 05-05-2023 [facility] Medications Current Medications Medication Drug Class(es) Dates Sig (Normalized) Sig (Original) cholecalciferol 0.05 mg oral capsule (2 sources) Vitamin D Cholecalciferol (VITAMIN D) 50 MCG (1999 UT) CAPS Take by mouth 0 Active Lactate (2 sources) AMMONIUM LACTATE EX Apply to affected area 0 Active levonorgestrel 0.853063 mg/hr intrauterine system (2 sources) Progestin, Progestin-containin g Intrauterine Device Levonorgestrel 13.5 MG IUD by Intrauterine route 0 Active LORazepam 1 mg oral tablet (2 sources) Benzodiazepine take 0.5 tablet by mouth three times daily LORazepam (ATIVAN) 1 MG tablet Take 0.5 Tablets (0.5 mg) by mouth 3 times daily 0 Active melatonin 5 mg oral tablet (2 sources) melatonin 5 MG T ABS Take 1 Tablet (5 mg) by mouth as needed 0 Active omeprazole 20 mg delayed release oral tablet (2 sources) Proton Pump Inhibitor take 1 tablet by mouth once daily omeprazole (PRILOSEC OTC) 20 MG tablet Take 1 Tablet (20 mg) by mouth daily 0 Active topiramate 25 mg oral tablet (2 sources) Start: 03-15-2012 take 1 tablet by mouth twice daily topiramate (TOPAMAX) 25 MG tablet Take 1 Tab by mouth 2 times daily. 60 Tab 6 03/15/2012 Active Completed/Discontinued Medications Medication Drug Class(es) Dates Sig (Normalized) Sig (Original) FLUoxetine 20 mg oral capsule (2 sources) Serotonin Reuptake Inhibitor End: 05-05-2023 FLUoxetine (PROZAC) 20 MG capsule Take by mouth 0 05/05/2023 Discontinued risperiDONE 1 mg oral tablet (2 sources) Atypical Antipsychotic End: 05-05-2023 take 1 tablet by mouth twice daily risperiDONE (RISPERDAL) 1 MG tablet Take 1 Tablet (1 mg) by mouth 2 times daily 0 05/05/2023 Discontinued Problems Problem Classification Problem Date Documented Date Episodic/Chronic Cardiac and circulatory congenital anomalies (3 sources) Tetralogy of Fallot; 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] Onset: 12-28-2013 05-15-2021 Chronic Cardiac and circulatory congenital anomalies (2 sources) History of repair of tetralogy of Fallot; Translations: [Personal history of (corrected) congenital malformations of heart and circulatory system] Episodic Epilepsy; convulsions (2 sources) Seizure disorder; Translations: [Epilepsy, unspecified, not intractable, without status epilepticus] Onset: 10-27-2011 10-27-2011 Chronic Heart valve disorders (4 sources) History of pulmonary valve replacement; 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] Onset: 12-28-2013 Chronic Other congenital anomalies (2 sources) Anomaly of chromosome pair 21; 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, 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 Results Test Name Value Interpretation Reference Range Facil ity Encounters Encounter Date Encounter Type Care Provider Facility Start: 05-05-2023 End: 05-06-2023 ambulatory RAFY Smith OLSEN [facility] Start: 05-05-2023 End: 05-05-2023 Subsequent hospital visit by physician Saurav Foley MD Work Phone: [facility] Procedures Date Procedure Procedure Detail Performing Clinician Start: 05-05-2023 Creatinine blood Kelly Davenport MD Work Phone: Start: 04-24-2022 Natriuretic peptide Cristofer Foley MD Work Phone: Plan of Treatment Date Care Activity Detail Author Start: 05-11-2024 End: 05-11-2024 Patient encounter procedure 05/11/2024 1:00 PM EST Office Visit [address] [address] Saurav Foley MD [place], [place] [id number] [facility] Start: 04-28-2023 End: 04-28-2023 Patient encounter procedure 04/28/2023 Office Visit Cardiology Saurav Foley MD [place], [place] [id number] [facility] Start: 12-04-2022 COVID-19 (2022-05 4 season) COVID-19 ( season) [facility] Start: 12-04-2022 FLU (#1) FLU (#1) [facility] Start: 12-04-2021 FLU (#1) FLU (#1) [facility] Start: 01-11-2013 Microscopic observat ion [Identifier] in Cervix by Cyto stain Pap Smear [facility] Start: 2008 MenB (1 of 2 - MenB 2-Dose Series Bexsero) MenB (1 of 2 - MenB 2-Dose Series Bexsero) [facility] Start: 01-11-1999 Tetanus Diphtheria a nd Pertussis Vaccines (1 - Tdap) Tetanus Diphtheria and Pertussis Vaccines (1 - Tdap) [facility] Start: 01-11-1993 MMR (1 of 1 - Standa rd series) MMR (1 of 1 - Standard series) [facility] Start: 01-11-1993 Varicella (1 of 2 - 2-dose childhood series) Varicella (1 of 2 - 2-dose childhood series) [facility] Start: 1992 COVID-19 (#1) COVID-19 (#1) [facility] Start: 1992 Hepatitis B (1 of 3 - 3-dose series) Hepatitis B (1 of 3 - 3-dose series) [facility] Payers Date Payer Category Payer Unknown [facility]/AETNA [id number] 2022-Present [phone] [address] [place] [address] [id number] [place] [address] [facility] MEDICAID [id number] 2011-Present [address] [place] [address] [id number] 1992 Unknown [id number] 1992 Unknown [id number] Medicaid [id number] Unknown [id number] Social History Date Type Detail Facility Start: 04-24-2022 Tobacco smoking stat [facility] Never smoked tobacco [facility] Work Phone: History of tobacco use Passive smoker [facility] Start: 04-24-2022 Tobacco use and exposure Smokeless tobacco non-user [facility] Start: 04-24-2022 End: 05-05-2023 Alcohol intake Current non-drinker of alcohol (finding) [facility] Start: 1990 Sex Assigned At Not on file A [facility] Start: 05-05-2023 History of Social function [facility] Start: 05-05-2023 Tobacco use panel [facility] Note 05-05-2023 Nursing - Mamadou Davison RT(R)(CT) - 05/05/2023 11:00 AM EST Note Date & Type Note Facility 05-05-2023 Miscellaneous Notes Formattin g of this note might be different from the original. Patient presented today for CT Cardiac scan with IV contrast. Screening revealed need for iStat to check Creatinine/GFR prior to Contrast injection. Creat resulted High at 1.5 and GFR calculated to 40.5. Discussed with Radiologist and Blindstitch Lapel Padder who decided due to concerns for Kidney function that we would not proceed with CT today. Blindstitch Lapel Padder on site in Radiology recommends evaluation for Renal Disease prior to attempting CT Cardiac with Contrast. documented in this encounter [facility] Nurse Note 05-05-2023 Nursing - Mamadou Davison RT(R)(CT) - 05/05/2023 11:00 AM EST Note Date & Type Note Facility 05-05-2023 Nurse Note Patient presented today for CT Cardiac scan with IV contrast. Screening revealed need for iStat to check Creatinine/GFR prior to Contrast injection. Creat resulted High at 1.5 and GFR calculated to 40.5. Discussed with Radiologist and Blindstitch Lapel Padder who decided due to concerns for Kidney function that we would not proceed with CT today. Blindstitch Lapel Padder on site in Radiology recommends evaluation for Renal Disease prior to attempting CT Cardiac with Contrast. [facility] Evaluation note Note Date & Type Note Facility documented in this encounter [facility] Evaluation note Note Date & Type Note Facility documented in this encounter [facility] Summary Purpose Family History No Family History Records Found Advance Directives No Advanced Directives Records Found Additional Source Comments Care Teams (unrecognized sec tion and content) Electrical Electronics Technician Relationship Specialty Start Date End Date Rafy Olsen MD [address] [place] [address] PCP - General Family Medicine 01/05/20 Reason for Visit (unrecogniz ed section and content) Referral ID Status Reason Start Date Expiration Date V isits Requested Visits Authorized [id number] Authorized 04/09/2023 07/09/2023 1 1 INFORMATION SOURCE (unrecogn ized section and content) [...] BE BASED ON THE PRIMARY CLINICAL RECORDS. [facility] [employer] [facility]. provides no warranty or guarantee of the accuracy or completeness of information in this document.
[2023-05-29 11:17] LABS: Mucous, Urine 0 SEEN /hpf (<or=2+)
[2023-05-29 11:53] LABS: Color, Urine Yellow (Yellow); Glucose, Dipstick Normal (Normal); Ketone-Dipstick Negative (Negative); Leukocyte Esterase-Dipstick 500 /ul (Negative); Nitrite-Dipstick Positive (Negative); Occult Blood-Urine 10 /ul (Negative); Protein-Dipstick 30 mg/dl (Negative); Urine Bilirubin Dipstick Negative (Negative); Urine Clarity Sl. Cloudy (Clear); Urine Urobilinogen 4 mg/dl (Normal)
[2023-05-29 12:00] LABS: Bacteria 2+ /hpf (None Seen); Red Blood Cells-Urine 0-5 SEEN /hpf (0-5); Squamous Epithelial Cells - UA 0-5 SEEN /hpf (5-10); White Blood Cells 25-50 SEEN /hpf (0-5)
== END | disposition home or self-care (01) ==
PROVIDERS: PCP Family Medicine; Referring Provider Family Medicine; Visit Provider Family Medicine
DX: R63.4 Abnormal weight loss (principal)
CPT/HCPCS: 81001; 87077; 87086; 87088; 87186

== ENCOUNTER → 2023-06-03 | Outpatient (CLI) | payer OTHER, MEDICAID, SELFPAY ==
[2023-06-03 15:36] LABS: Absolute Lymphocyte Count 1.63 X10^3/uL (0.83-4.51); Basophil# 0.04 X10^3/uL; Basophil% 0.8 % (0-1); Eosinophil# 0.05 X10^3/uL; Hematocrit 49.5 % (37-47); Lymphocyte # 1.63 X10^3/ul (0.83-4.51); Lymphocyte % 32.3 % (19-41); Mean Corp Hgb Conc 32.3 g/dL (32-36); Mean Corpuscular Hgb 32.1 pg (27.0-32.0); Mean Corpuscular Volume 99.2 fL (81-99); Mean Platelet Vol. 10.4 fl (6.2-12.0); NRBC Flagged by Analyzer 0 % (0-5); Neutrophil # 3.01 X10^3/uL (2.7-7.7); Neutrophil % 59.7 % (47-70); Platelet Count 146 K/mm3 (150-450); RBC Distribution Width CV 13.8 % (11.6-14.6); RBC Distribution Width SD 49.8 fl (35.1-43.9); Red Blood Count 4.99 M/mm3 (4.2-5.4)
[2023-06-03 16:27] LABS: ALB/GLOB Ratio 0.8 RATIO (0.9-2.4); AST(SGOT) 14 U/L (15-37); Alanine Aminotransfer ALT/SGPT 23 U/L (13-56); Albumin, Serum 3.1 g/dL (3.2-5.0); Alkaline Phosphatase 79 U/L (45-117); Anion Gap 4 (5-15); BUN 17 mg/dL (7-18); BUN/Creat Ratio 14.4 RATIO (10-20); Calcium,Total 8.6 mg/dL (8.5-10.1); Chloride 112 mmol/L (98-107); Creatinine, Serum 1.18 mg/dL (0.55-1.02); EST Glomerular Filtration Rate 57 mL/min (>60); Est Glom Filt Rate - Afr Amer 69 mL/min (>60); Globulin 3.7 g/dL (2.2-4.2); Glucose 106 mg/dL (74-106); Potassium 3.8 mmol/L (3.5-5.1); Prealbumin 18.9 mg/dL (20.0-40.0); Protein, Total 6.8 g/dL (6.4-8.2); Sodium Level 141 mmol/L (136-145)
--- OUTSIDE RECORDS SUMMARY | 2023-06-03 21:49 | XMS RPT_ITS | CCD ---
Author Name Unknown Address [address] [place] [address] Organization [facility] Care Team Providers Care Software Engineer Web Applications Name Role Phone Rafy Olsen MD Primary Care Provider Rafy Olsen MD Primary Care Provider REFERRED, SELF Referring Unavailable RAFY OLSEN Primary Care Unavailable SAURAV FOLEY Attending Unavailable RAFY OLSEN Primary Care Unavailable SAURAV FOLEY Referring Unavailable SAURAV FOLEY Attending Unavailable Allergies Allergy Classification Reported Allergen(s) Allergy Type Date of Onset Reaction(s) Facility (2 sources) Cyanoacrylate; Translations: [CYANOACRYLATE] Propensity to adverse reactions 05-05-2023 [facility] Medications Current Medications Medication Drug Class(es) Dates Sig (Normalized) Sig (Original) cholecalciferol 0.05 mg oral capsule (2 sources) Vitamin D Cholecalciferol (VITAMIN D) 50 MCG (1999 UT) CAPS Take by mouth 0 Active Lactate (2 sources) AMMONIUM LACTATE EX Apply to affected area 0 Active levonorgestrel 0.862247 mg/hr intrauterine system (2 sources) Progestin, Progestin-containin [...] 05-05-2023 End: 05-06-2023 ambulatory RAFY Smith OLSEN [facility] Start: 05-05-2023 End: 05-05-2023 Subsequent hospital visit by physician Saurav Foley MD Work Phone: Computed Tomography Procedures Date Procedure Procedure Detail Performing Clinician Start: 05-05-2023 Creatinine blood Kelly Davenport MD Work Phone: Start: 04-24-2022 Natriuretic peptide Cristofer Foley MD Work Phone: Plan of Treatment Date Care Activity Detail Author Start: 05-11-2024 End: 05-11-2024 Patient encounter procedure 05/11/2024 1:00 PM EST Office Visit [address] [address] Saurav Foley MD [place], [place] [id number] [facility] Start: 04-28-2023 End: 04-28-2023 Patient encounter procedure 04/28/2023 Office Visit Cardiology Saurav Foley MD [place], [place] [id number] [facility] Start: 12-04-2022 COVID-19 (2022-05 4 season) COVID-19 ( season) [facility] Start: 12-04-2022 FLU (#1) FLU (#1) [facility] Start: 12-04-2021 FLU (#1) FLU (#1) [facility] Start: 01-11-2013 Microscopic observat ion [Identifier] in Cervix by Cyto stain Pap Smear [facility] Start: 2008 MenB (1 of 2 - MenB 2-Dose Series Bexsero) MenB (1 of 2 - MenB 2-Dose Series Bexsero) [facility] Start: 01-11-1999 Tetanus Diphtheria a nd Pertussis Vaccines (1 - Tdap) Tetanus Diphtheria and Pertussis Vaccines (1 - Tdap) [facility] Start: 01-11-1993 MMR (1 of 1 - Standa rd series) MMR (1 of 1 - Standard series) [facility] Start: 01-11-1993 Varicella (1 of 2 - 2-dose childhood series) Varicella (1 of 2 - 2-dose childhood series) [facility] Start: 1992 COVID-19 (#1) COVID-19 (#1) [facility] Start: 1992 Hepatitis B (1 of 3 - 3-dose series) Hepatitis B (1 of 3 - 3-dose series) [facility] Payers Date Payer Category Payer Unknown [facility] HLTH/AETNA [id number] 2022-Present [phone] [address] [place] [address] [id number] 2011 Medicaid [place] MEDICA[place] [facility] MEDICAID [id number] 2011-Present [address] [place] [address] [id number] 1992 Unknown [id number] 1992 Unknown [id number] Medicaid [id number] Unknown [id number] Social History Date Type Detail Facility Start: 04-24-2022 Tobacco smoking stat [facility] Never smoked tobacco [facility] Work Phone: History of tobacco use Passive smoker [facility] Start: 04-24-2022 Tobacco use and exposure Smokeless tobacco non-user [facility] Start: 04-24-2022 End: 05-05-2023 Alcohol intake Current non-drinker of alcohol (finding) [facility] Start: 1990 Sex Assigned At Not on file A [facility] Start: 05-05-2023 History of Social function [facility] Start: 05-05-2023 Tobacco use panel [facility] Note 05-05-2023 Nursing - Mamadou Davison [...] calculated to 40.5. Discussed with Radiologist and College President who decided due to concerns for Kidney function that we would not proceed with CT today. College President on site in Radiology recommends evaluation for Renal Disease prior to attempting CT Cardiac with Contrast. documented in this encounter [facility] Nurse Note 05-05-2023 Nursing - Mamadou Davison RT(R)(CT) - 05/05/2023 11:00 AM EST Note Date & Type Note Facility 05-05-2023 Nurse Note Patient presented today for CT Cardiac scan with IV contrast. Screening revealed need for iStat to check Creatinine/GFR prior to Contrast injection. Creat resulted High at 1.5 and GFR calculated to 40.5. Discussed with Radiologist and College President who decided due to concerns for Kidney function that we would not proceed with CT today. College President on site in Radiology recommends evaluation for Renal Disease prior to attempting CT Cardiac with Contrast. [facility] Evaluation note Note Date & Type Note Facility documented in this encounter [facility] Evaluation note Note Date & Type Note Facility documented in this encounter [facility] Summary Purpose Family History No Family History Records Found Advance Directives No Advanced Directives Records Found Additional Source Comments Care Teams (unrecognized sec tion and content) Software Engineer Web Applications Relationship Specialty Start Date End Date Rafy Olsen MD [address] [place] [address] PCP - General Family Medicine 01/05/20 Reason for Visit (unrecogniz ed section and content) Referral ID Status Reason Start Date Expiration Date V isits Requested Visits Authorized [id number] Authorized 04/09/2023 07/09/2023 1 1 INFORMATION SOURCE [...] BE BASED ON THE PRIMARY CLINICAL RECORDS. [facility] [employer] [facility]. provides no warranty or guarantee of the accuracy or completeness of information in this document.
== END | disposition home or self-care (01) ==
LOC: LAB 14:42
PROVIDERS: PCP Family Medicine; Referring Provider Family Medicine; Visit Provider Family Medicine
DX: R63.4 Abnormal weight loss (principal)
CPT/HCPCS: 36415; 80053; 84134; 85025

== ENCOUNTER → 2023-07-16 | Outpatient (CLI) | payer OTHER, MEDICAID, SELFPAY ==
[2023-07-16 16:46] LABS: Color, Urine Yellow (Yellow); Glucose, Dipstick Normal (Normal); Ketone-Dipstick Negative (Negative); Leukocyte Esterase-Dipstick 100 /ul (Negative); Nitrite-Dipstick Negative (Negative); Occult Blood-Urine 25 /ul (Negative); Protein-Dipstick Negative (Negative); Urine Bilirubin Dipstick Negative (Negative); Urine Clarity Clear (Clear); Urine Urobilinogen Normal (Normal); Urine pH 6.5 (5.0 - 8.0)
== END | disposition home or self-care (01) ==
LOC: LABSPEC 15:46
PROVIDERS: PCP Family Medicine; Referring Provider Obstetrics & Gynecology; Visit Provider Obstetrics & Gynecology
DX: R30.0 Dysuria (principal)
CPT/HCPCS: 81002; 87086; 87088

== ENCOUNTER 2023-08-12 16:08 | Outpatient (CLI) | payer OTHER, MEDICAID, SELFPAY ==
[2023-08-12 18:25] LABS: ALB/GLOB Ratio 0.8 RATIO (0.9-2.4); AST(SGOT) 12 U/L (15-37); Alanine Aminotransfer ALT/SGPT 18 U/L (13-56); Alkaline Phosphatase 85 U/L (45-117); Anion Gap 4 (5-15); BUN 24 mg/dL (7-18); BUN/Creat Ratio 20.5 RATIO (10-20); Calcium,Total 8.7 mg/dL (8.5-10.1); Chloride 113 mmol/L (98-107); Cholesterol 172 mg/dL (200); Creatinine, Serum 1.17 mg/dL (0.55-1.02); EST Glomerular Filtration Rate 57 mL/min (>60); Est Glom Filt Rate - Afr Amer 69 mL/min (>60); Globulin 3.8 g/dL (2.2-4.2); Glucose 98 mg/dL (74-106); High Density Lipoprotein 42 mg/dL; Potassium 3.9 mmol/L (3.5-5.1); Protein, Total 6.8 g/dL (6.4-8.2); Sodium Level 142 mmol/L (136-145); Triglycerides 172 mg/dL; Very Low Density Lipoprotein 34 mg/dL (5-40)
== END 2023-08-12 23:59 | disposition home or self-care (01) ==
LOC: MFPLAB 16:08
PROVIDERS: PCP Family Medicine; Visit Provider Family Medicine
DX: Q90.9 Down syndrome, unspecified (principal)
CPT/HCPCS: 36415; 80053; 80061

== ENCOUNTER 2023-10-29 08:58 | Day surgery (SDC) | payer OTHER, MEDICAID, SELFPAY ==
--- NOTE | 2023-10-13 12:49 | PCM.HP.BLA ---
History and Physical Date of Admission: 10/29/23 HPI: The patient is a 33 year old female presenting for pre-operative visit. She is scheduled for IUD removal, Kyleena IUD insertion, for menstrual control on 10/29/23. Procedure discussed along with risks, benefits and complications. Other alternatives discussed for management. Consent form signed? Yes. PAST MEDICAL HISTORY PAST MEDICAL HISTORY Diagnosis Date ? Bundle branch block ? Lazy eye ? Seizure (HCC) ? Trisomy 21 PAST SURGICAL HISTORY PAST SURGICAL HISTORY Procedure Laterality Date ? EYE SURGERY HX ? HEART CATHETERIZATION ? HEART SURGERY HX x3 ? TONSILLECTOMY & ADENOIDECTOMY <AGE 14 CURRENT MEDICATIONS Current Outpatient Medications Medication Sig Dispense Refill ? omeprazole (PRILOSEC) 20 mg capsule Take 1 capsule by mouth once daily. ? VRAYLAR 3 mg capsule Take 1 tablet by mouth once daily. ? topiramate (TOPAMAX) 25 mg tablet Take 1 tablet by mouth two times a day. takes w/ 100 mg to make 125 mg bid ? paliperidone ER (INVEGA) 3 mg 24 hr tablet Take by mouth as directed. ? QUEtiapine (SEROQUEL) 50 mg tablet ? traZODone (DESYREL) 100 mg tablet ? triamcinolone acetonide (KENALOG) 0.1 % ointment ? valACYclovir (VALTREX) 1 gram tablet ? NYAMYC powder ? cholecalciferol (VITAMIN D3) 50 mcg (2,000 unit) tablet ? sodium fluoride (SODIUM FLUORIDE 5000 PLUS) 1.1 % dental cream by DENTAL route. ? AMMONIUM LACTATE TOPICAL Apply to affected area. ? pantoprazole DR (PROTONIX) 20 mg tablet 20 mg. (Patient not taking: Reported on 06/23/2023) ? topiramate (TOPAMAX) 100 mg tablet Take 100 mg by mouth two times a day. ? LORazepam (ATIVAN) 0.5 mg tab 0.5 mg. ? LORazepam (ATIVAN) 1 mg tablet Take 0.5 mg by mouth. ? melatonin 5 mg tablet 5 mg. ? Omeprazole Magnesium (PRILOSEC OTC) 20 mg tablet Take 20 mg by mouth. No current facility-administered medications for this visit. ALLERGIES: Adhesive Tape (Rosins) PERSONAL HISTORY: SOCIAL HISTORY Social History Tobacco Use ? Smoking status: Never ? Smokeless tobacco: Never Substance Use Topics ? Alcohol use: Never ? Drug use: Never FAMILY HISTORY: FAMILY HISTORY No family history on file. REVIEW OF SYMPTOMS: GENERAL: denies fevers or chills ENDOCRINOLOGY: has not been on steroids Cardiology : denies palpitations or chest pain Respiratory: denies SOB or cough Hematology: denies history of prolonged bleeding or easy bruising or VTE Allergy: Denies history of personal or family history of allergy to anesthesia PHYSICAL EXAMINATION: VITALS: There were no vitals taken for this visit. IMPRESSION: AUB, trisomy 21 PLAN: The risks/benefits/alternatives and personal involved for the planned IUD removal and Kyleena IUD insertion were reviewed with the patient. Her questions were answered to her satisfaction and she desires to proceed. Consent was signed. I reviewed with her postop instructions and expectations. I have reviewed and updated past medical and surgical history, medications and allergies
[2023-10-29] VITALS (8 sets, daily range): BP systolic 86–120; BP diastolic 51–90; PULSE 56–64; RESP 16–18; TEMP 35.9–36.2; O2SAT 95–100; BMI 53.8
[2023-10-29 09:21] LABS: Mucous, Urine 0 SEEN /hpf (<or=2+); Red Blood Cells-Urine 0 SEEN /hpf (0-5)
[2023-10-29 09:28] LABS: Color, Urine Yellow (Yellow); Glucose, Dipstick Normal (Normal); Ketone-Dipstick Negative (Negative); Leukocyte Esterase-Dipstick 500 /ul (Negative); Nitrite-Dipstick Negative (Negative); Occult Blood-Urine 50 /ul (Negative); Protein-Dipstick 100 mg/dl (Negative); Urine Bilirubin Dipstick Negative (Negative); Urine Clarity Sl. Cloudy (Clear); Urine Urobilinogen Normal (Normal)
[2023-10-29] MEDS: Lactated Ringers 1,000 ML 15 ML IV (09:31)
[2023-10-29] MEDS: Ketorolac 30 MG/ML Syringe IV (09:33)
[2023-10-29] MEDS: Acetaminophen 500 MG Tablet 1000 MG PO (09:33)
[2023-10-29 09:40] LABS: Bacteria 1+ /hpf (None Seen); Squamous Epithelial Cells - UA 0-5 SEEN /hpf (5-10); White Blood Cells 50-100 SEEN /hpf (0-5)
[2023-10-29 09:41] LABS: Internal QC Validated? YES +Cl - CLEAR BKGD; Pregnancy, Urine Negative Negative; Record Kit Lot#,Urine Preg HCG0000772476
[2023-10-29 09:49] LABS: Hematocrit 46.4 % (37-47); Hemoglobin 15.4 g/dL (12.0-15.0); Mean Corp Hgb Conc 33.2 g/dL (32-36); Mean Corpuscular Hgb 35.7 pg (27.0-32.0); Mean Corpuscular Volume 107.7 fL (81-99); Mean Platelet Vol. 10.5 fl (6.2-12.0); Platelet Count 155 K/mm3 (150-450); RBC Distribution Width CV 13.7 % (11.6-14.6); RBC Distribution Width SD 54.4 fl (35.1-43.9); Red Blood Count 4.31 M/mm3 (4.2-5.4); White Blood Count 6.3 K/mm3 (4.4-11.0)
--- NOTE | 2023-10-29 09:49 | PCM.PRE.AN2 ---
ASA Classification* ASA Classification ASA Classification: 3 Assessment & Plan Anesthesia* Anesthesia Assessment Anesthesia Assessment: Discussed sedation and/or anesthesia options, risks, benefits, and alternatives with patient/parents/legal guardian/POA. Questions invited. The patient/parents/legal guardian/POA seems to understand and agrees to proceed with anesthesia plan. Reviewed the physical assessment, medical history, allergy history and patient home medications list prior to surgery/procedure/anesthetic and documented any changes. Performed airway and anesthesia risk assessments. Anesthesia Type Anesthesia Type: MAC History Source History Obtained from:: Patient and Chart Anesthesia Focused Assessment* Temperature: 97.1 F Pulse Rate: 64 Blood Pressure: 100/60 Respiratory Rate: 16 Pulse Ox: 100 Oxygen Delivery Method: Room Air Airway Assessment Mouth opens: 2 cm Mallampati Score: IV Teeth Condition: Missing (Missing several teeth. Rest of her teeth are tight.) Neck Range of motion (ROM): Limited ROM (Decreased extension.) Pertinent Findings EKG Pertinent Findings:: May 05, 2023. Sinus rhythm. Left ventricular hypertrophy. Right bundle branch block. Abnormal T waves may indicate ischemia in the lateral leads. See consult. ECHO Pertinent Findings:: April 24, 2022. Mild pulmonary stenosis. Mild tricuspid regurgitation. No significant change from 2020. Postsurgical repair. Consults Pertinent Findings:: May 05, 2023. Dr. Garcia no restrictions. Activity as tolerated. Focused Labs Anesthesia Preop lab: CBC WBC 5.0 K/mm3 (4.4-11.0) 06/03/23 14:51 RBC 4.99 M/mm3 (4.2-5.4) 06/03/23 14:51 Hgb 16.0 g/dL (12.0-15.0) H 06/03/23 14:51 Hct 49.5 % (37-47) H 06/03/23 14:51 Plt Count 146 K/mm3 (150-450) L 06/03/23 14:51 CHEMISTRY Potassium 3.9 mmol/L (3.5-5.1) 08/12/23 16:14 Sodium 142 mmol/L (136-145) 08/12/23 16:14 BUN 24 mg/dL (7-18) H 08/12/23 16:14 Creatinine 1.17 mg/dL (0.55-1.02) H 08/12/23 16:14 Glucose 98 mg/dL (74-106) 08/12/23 16:14 TSH 1.90 uIU/mL (0.358-3.74) 05/04/23 14:23 COAG PT 14.4 SECONDS (11.9-14.4) 08/02/12 12:44 Urine Test Negative Negative 10/29/23 09:17 Pre-Assessment Diagnosis/Proposed Procedure Planned Operative Procedure(s): Liletta IUD insertion Anesthesia History Anesthesia History - nutrition aide: Anesthesia History - nutrition aide Hx Hospitalization No 10/25/23 14:49 Any Problems With Anesthesia No 10/25/23 14:49 Cholinesterase deficiency No 10/25/23 14:49 You/Your Family Experience No 10/25/23 14:49 fever (hyperthermia) with Relationship Recent Exposure to Contagious No 10/29/23 09:25 Disease Does patient have nerve No 10/25/23 14:49 stimulator Patient instructed to have device shut off --Does patient have Pacemaker No 10/29/23 09:25 or ICD? When Was Last Pacemaker Check QUESTION #4 FULL TEXT: You/Your Family Experience fever (hyperthermia) with Anesthesia Last Oral Intake Last Oral intake: Last Oral Intake NPO since 23:00 10/29/23 09:25 Meds taken in AM with sips of Yes 10/29/23 09:25 water? Meds patient instructed to see med list 10/29/23 09:25 take am of surgery PONV PONV - nutrition aide: PONV - nutrition aide Female Yes 10/25/23 14:49 HX of Motion Sickness No 10/25/23 14:49 HX of N/V After Surgery No 10/25/23 14:49 Non-Smoker Yes 10/25/23 14:49 Duration of Surgery greater No 10/25/23 14:49 than 60 minutes Number of Risk Factors 2 10/25/23 14:49 PONV Score Moderate Risk 10/25/23 14:49 Height & Weight Height & Weight: Anesthesia: Height & Weight Height 4 ft 8 in 10/29/23 09:25 Weight: 109 kg 10/29/23 09:25 Body Mass Index (BMI) 53.8 10/29/23 09:25 Respiratory Assessment Respiratory Assessment - nutrition aide: Respiratory Tract Infection Hx - nutrition aide Hx Respiratory Tract Infection No 10/25/23 14:49 STOP Sleep Apnea STOP Sleep Apnea - nutrition aide: STOP Sleep Apnea - nutrition aide Hx Hypertension No 10/25/23 14:49 Hx Sleep Apnea Yes: NON-COMPLIANT 10/25/23 14:49 CPAP No 10/25/23 14:49 BIPAP No 10/25/23 14:49 Do you snore loudly (louder than talking or can be heard Do you often feel tired/ fatigued/ sleepy during daytime? Has anyone observed you stop breathing during sleep? STOP Results Positive 10/25/23 14:49 QUESTION #5 FULL TEXT : Do you snore loudly (louder than talking or can be heard through closed doors)? 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 Specify any problems Hx of Preganancy in last 3 No 10/25/23 14:49 Months Nurse Filling Out Transfusion VCHRISTIN 10/25/23 14:49 & Questions: Date: 10/25/23 10/25/23 14:49 Time: 14:51 10/25/23 14:49 Patient unable to answer at this time (ie. confused, unrespo /Reproduction History /Reproductive History - nutrition aide: /Reproductive Hx- nutrition aide Hx Now Gestational Age (in weeks): EDC: Hx Hx Para Hx Section SAB No 10/25/23 14:49 Active Medications Active Medications: Current Medications Generic Name Dose Route Start Last Admin Trade Name Freq PRN Reason Stop Dose Admin Acetaminophen 1,000 mg 10/29/23 10:50 10/29/23 09:33 Acetaminophen 500 Mg Tablet PO 10/29/23 10:51 1,000 mg PREOP ONE Administration Lactated Ringer's 1,000 mls @ 15 mls/hr 10/29/23 09:15 10/29/23 09:31 IV 15 mls/hr .Q48H JUANJOSE Administration Ketorolac Tromethamine 30 mg 10/29/23 10:50 10/29/23 09:33 Ketorolac 30 Mg/Ml Syringe IV 10/29/23 10:51 30 mg PREOP ONE Administration Levonorgestrel 1 each 10/29/23 10:50 Levonorgestrel Iud (Kyleena) INTRA-UTER 10/29/23 10:51 X1 ONE PFSH Medical History (Updated 10/25/23 @ 14:49 by Gloria Herrera) Gastric reflux Non-smoker Sleep apnea Shortness of breath on exertion History of echocardiogram Cardiology follow-up encounter Lab test negative for COVID-19 virus Fallot tetralogy GERD (gastroesophageal reflux disease) Down syndrome Seizures Heart disease Home Medications ?Medication ?Instructions ?Recorded ?Last Taken ?Type lorazepam 0.5 mg tablet 0.5 mg PO BID 07/29/15 10/29/23 History topiramate 100 mg tablet 150 mg PO BID 07/29/15 10/29/23 History melatonin 5 mg tablet 5 mg PO QHS Sleep 02/28/18 02/27/18 History 5 MG omeprazole 20 mg capsule,delayed 20 mg PO DAILY 04/08/19 10/29/23 History release acetaminophen 500 mg tablet 1,000 mg (2 x 500 mg) PO Q6H PRN 10/28/20 Unknown Rx (Tylenol Extra Strength) fever or pain #60 tabs ammonium lactate 12 % topical cream 1 applic topical QHS 04/22/23 Unknown History cholecalciferol (vitamin D3) 50 50 mcg PO DAILY 04/22/23 Unknown History mcg (2,000 unit) tablet lorazepam 1 mg tablet 1 mg PO DAILY 04/22/23 Unknown History paliperidone 3 mg tablet,extended 3 mg PO Q24H 04/22/23 10/29/23 History release 24 hr trazodone 100 mg tablet 100 mg PO QHS 04/22/23 Unknown History valacyclovir 1 gram tablet 2,000 mg PO BID PRN MOUTH SORE 04/22/23 Unknown History cariprazine 3 mg capsule (Vraylar) 3 mg PO DAILY 10/25/23 10/29/23 History zolpidem 5 mg tablet (Ambien) 5 mg PO QHS 10/25/23 Unknown History Allergy/AdvReac Type Severity Reaction Status Date / Time adhesive tape AdvReac Intermediate Skin Verified 10/29/23 09:24 redness Surgical History (Updated 10/25/23 @ 14:49 by Gloria Herrera) Hx of tonsillectomy Hx of eye surgery History of open heart surgery Hx of surgical procedure Social History Smoking Status: Never smoker alcohol intake: never Review of Systems (Anesthesia) ROS Narrative System reviewed and no additional complaints, except as documented.
--- NOTE | 2023-10-29 10:30 | PCM.DC ---
Discharge Instructions Diet Discharge Diet: No restrictions Activity May resume sexual activity in: 2 weeks Lifting Restrictions: none Dressing / Incision Call your doctor if your incision/area has: Sudden Increased Bleeding and Foul Smelling Discharge Call your doctor if you observe: Fever of 101 or Higher and Using more than 1 pad per hour (for 2 hrs in a row) Follow Up Care Please Follow Up With: Pricilla Burgos MD When: You do not need a postop appointment. Call [phone] to make an appointment or with any concerns. Test Results: Test results from this visit will be discussed in further detail at your follow-up appointment, if applicable. Discharge Plan Admission Primary Reason for Your Visit: IUD insertion, IUD removal, PAP smear of the cervix Attending Provider: Pricilla Burgos Primary Care Provider: Rafy Oh Instructions Print Language: [place] Discharge Orders/Prescriptions Prescriptions: No Action lorazepam 0.5 MG tablet 0.5 mg PO BID Patient Comments: QAM & QHS topiramate 100 MG tablet 150 mg PO BID melatonin 5 MG tablet 5 mg PO QHS omeprazole 20 MG capsule 20 mg PO DAILY acetaminophen [Tylenol Extra Strength] 500 mg tablet 1,000 mg PO Q6H PRN (Reason: fever or pain) Qty: 60 0RF Rx Instructions: Do not exceed 4000 mg/day ammonium lactate 12 % cream 1 applic TOPICAL QHS lorazepam 1 mg tablet 1 mg PO DAILY Rx Instructions: 3pm paliperidone 3 mg tablet extended release 24hr 3 mg PO Q24H trazodone 100 mg tablet 100 mg PO QHS cholecalciferol (vitamin D3) 50 mcg (2,000 unit) tablet 50 mcg PO DAILY valacyclovir 1 gram tablet 2,000 mg PO BID PRN (Reason: MOUTH SORE) Vraylar 3 mg capsule 3 mg PO DAILY zolpidem [Ambien] 5 mg tablet 5 mg PO QHS Rx Instructions: may repeat once if no response in 30-60 minutes Referrals / Follow Up: Rafy Oh MD [Primary Care Provider] - Disposition Disposition (needs filled in before D/C Order can be placed): Home, Self Care
[2023-10-29 10:31] LABS: Anion Gap 2 (5-15); BUN 20 mg/dL (7-18); BUN/Creat Ratio 16.9 RATIO (10-20); Calcium,Total 8.6 mg/dL (8.5-10.1); Chloride 111 mmol/L (98-107); Creatinine, Serum 1.18 mg/dL (0.55-1.02); EST Glomerular Filtration Rate 57 mL/min (>60); Est Glom Filt Rate - Afr Amer 68 mL/min (>60); Estimated Creatinine Clearance 77.32 ml/min; Glucose 98 mg/dL (74-106); Potassium 4.6 mmol/L (3.5-5.1); Sodium Level 140 mmol/L (136-145)
--- NOTE | 2023-10-29 10:31 | PCM.OPRPT ---
Problems Associated Problem List Diagnoses (1) Screening for cervical cancer: (2) Encounter for IUD removal and reinsertion: Report of Operation Date of Procedure: 10/29/23 Pre-Operative Diagnosis: IUD removal and insertion, screening for cervical cancer Post-Operative Diagnosis: same Surgery/Procedure Performed:: IUD removal, Kyleena IUD insertion Description of Surgical Findings:: Normal cervix and vagina and vulva Surgeon: Pricilla Burgos vice president of finance: None Type of Anesthesia: MAC Anesthesiologist: Hermila Judge Special Medications: none Specimen's removed: PAP smear Drains: none Estimated Blood Loss (mL): 0 Fluids Replaced: 200 Description of Procedure: The patient was taken the operating room where she was prepped and draped in dorsal lithotomy position. A small speculum was placed in the vagina and the Pap smear was performed. The IUD strings from the previous IUD were grasped and the IUD was removed intact without difficulty. A single-tooth tenaculum was placed on the posterior lip of the cervix and the Kyleena IUD was inserted in the usual fashion. The uterus sounded to 7 cm. The strings were cut to 1.5 cm. Instruments removed from the vagina and a vaginal sweep was completed by me. I performed the entire procedure. Grafts/Implants Used: Kyleena IUD insertion Procedure Start Time: 10:34 Procedure Stop Time: 10:36 Complications none Admit VTE Documentation VTE Present on Admission: No VTE Mechan Device Prophylaxis: SCD's VTE Pharm Prophylaxis ordered?: No Reason prophylaxis not ordered:: Procedure Not Indicated
[2023-10-29] MEDS: LEVONORGESTREL IUD 1 EACH INTRA-UTER (10:36)
--- NOTE | 2023-10-29 10:46 | PCM.POST.ANE ---
Anesthesia: Postop Eval I Current Vital Signs Temperature: 97 F Pulse Rate: 64 Blood Pressure: 93/57 Respiratory Rate: 18 Pulse Ox: 97 Oxygen Delivery Method: Room Air Assessment Airway patent: Yes Spontaneous unlabored respirations: Yes Mental status: Awake and Calm nausea: No Vomiting: No Anesthesia Complication: No Fluid Hydration Crystalloid volume administer (ml): 200 Total IV fluid infused: 200 Progress Note Anesthesia document: Postop Eval 1 completed: Yes
--- NOTE | 2023-10-29 13:07 | POSTOPAN2_ITS ---
Anesthesia Postop Eval I Sum Postop Eval Completion status Anesthesia document: Postop Eval 1 completed: Yes Anesthesia Postop Eval I Summary Anesthesia Postop Eval I Summary: Anesthesia Postop Eval I: Assessment Summary Airway patent Yes 10/29/23 10:47 FUNDRAISING OFFICER.BRICEOBLuis Daniel Spontaneous unlabored Yes 10/29/23 10:47 FUNDRAISING OFFICER.CÉSAR respirations Mental status Awake,Calm 10/29/23 10:47 FUNDRAISING OFFICER.CÉSAR nausea No 10/29/23 10:47 FUNDRAISING OFFICER.CÉSAR Vomiting No 10/29/23 10:47 FUNDRAISING OFFICER.CÉSAR Anesthesia Postop Eval I: Fluid Summary Crystalloid volume administer 200 10/29/23 10:47 FUNDRAISING OFFICER.CÉSAR (ml) Colloids volume administered ( ml) Blood Product volume administered (ml) Total IV fluid infused 200 10/29/23 10:47 FUNDRAISING OFFICER.CÉSAR Anesthesia Postop Eval I: Summary Notes Anesthesia Complication No 10/29/23 10:47 FUNDRAISING OFFICERKELLEY Anesthesia Complication Comment: Post-operative progress note Anesthesia: Postop Eval II Evaluation Mental status: Awake and Calm Pain Level: 0 nausea: No Vomiting: No Complications Anesthesia Complication: No
--- NOTE | 2023-10-29 13:07 | PCM.POSTANE2 ---
Anesthesia Postop Eval I Sum Postop Eval Completion status Anesthesia document: Postop Eval 1 completed: Yes Anesthesia Postop Eval I Summary Anesthesia Postop Eval I Summary: Anesthesia Postop Eval I: Assessment Summary Airway patent Yes 10/29/23 10:47 TRANSCRIPT EVALUATOR.BRICEOBLuis Daniel Spontaneous unlabored Yes 10/29/23 10:47 TRANSCRIPT EVALUATOR.CÉSAR respirations Mental status Awake,Calm 10/29/23 10:47 TRANSCRIPT EVALUATOR.CÉSAR nausea No 10/29/23 10:47 TRANSCRIPT EVALUATOR.CÉSAR Vomiting No 10/29/23 10:47 TRANSCRIPT EVALUATOR.CÉSAR Anesthesia Postop Eval I: Fluid Summary Crystalloid volume administer 200 10/29/23 10:47 TRANSCRIPT EVALUATOR.CÉSAR (ml) Colloids volume administered ( ml) Blood Product volume administered (ml) Total IV fluid infused 200 10/29/23 10:47 TRANSCRIPT EVALUATOR.CÉSAR Anesthesia Postop Eval I: Summary Notes Anesthesia Complication No 10/29/23 10:47 TRANSCRIPT EVALUATORKELLEY Anesthesia Complication Comment: Post-operative progress note Anesthesia: Postop Eval II Evaluation Mental status: Awake and Calm Pain Level: 0 nausea: No Vomiting: No Complications Anesthesia Complication: No
[2023-11-02 19:07] LABS: HPV APTIMA, High Risk Negative (Negative)
== END 2023-10-29 11:23 | disposition home or self-care (01) ==
LOC: SDC 08:58 → AC 09:00
PROVIDERS: PCP Family Medicine; Referring Provider Obstetrics & Gynecology; Visit Provider Obstetrics & Gynecology
PROC: (CPT 57410; principal; 2023-10-29 10:40)
DX: Z30.433 Encounter for removal and reinsertion of intrauterine contraceptive device (principal); Q90.9 Down syndrome, unspecified; Z79.899 Other long term (current) drug therapy
CPT/HCPCS: 58301; 58300; 80048; 81001; 81025; 85027; 87624; 88175; J7120; G0145; J2405

== ENCOUNTER → 2024-02-09 | Outpatient (CLI) | payer OTHER, MEDICAID, SELFPAY ==
[2024-02-09 18:16] LABS: ALB/GLOB Ratio 0.7 RATIO (0.9-2.4); AST(SGOT) 20 U/L (15-37); Alanine Aminotransfer ALT/SGPT 23 U/L (13-56); Albumin, Serum 3.2 g/dL (3.2-5.0); Alkaline Phosphatase 115 U/L (45-117); Anion Gap 4 (5-15); BUN 25 mg/dL (7-18); BUN/Creat Ratio 20.3 RATIO (10-20); Calcium,Total 8.3 mg/dL (8.5-10.1); Chloride 111 mmol/L (98-107); Creatinine, Serum 1.23 mg/dL (0.55-1.02); EST Glomerular Filtration Rate 54 mL/min (>60); Est Glom Filt Rate - Afr Amer 65 mL/min (>60); Globulin 4.3 g/dL (2.2-4.2); Glucose 95 mg/dL (74-106); Potassium 3.7 mmol/L (3.5-5.1); Protein, Total 7.5 g/dL (6.4-8.2); Sodium Level 140 mmol/L (136-145)
== END | disposition home or self-care (01) ==
LOC: MTLAB 16:12
PROVIDERS: PCP Family Medicine; Referring Provider Psychiatry & Neurology Clinical Neurophysiology; Visit Provider Psychiatry & Neurology Clinical Neurophysiology
DX: G40.109 Localization-related (focal) (partial) symptomatic epilepsy and epileptic syndromes with simple partial seizures, not intractable, without status epilepticus (principal)
CPT/HCPCS: 36415; 80053

== ENCOUNTER 2024-02-21 14:19 | Emergency (ER) | payer OTHER, MEDICAID, SELFPAY ==
[2024-02-21 14:20] VITALS: BP 110/63; PULSE 68; RESP 20; TEMP 36.5; O2SAT 100
[2024-02-21 15:22] LABS: Mucous, Urine 0 SEEN /hpf (<or=2+); Red Blood Cells-Urine 0 SEEN /hpf (0-5)
[2024-02-21 15:26] LABS: Color, Urine Yellow (Yellow); Glucose, Dipstick Normal (Normal); Ketone-Dipstick Negative (Negative); Leukocyte Esterase-Dipstick 100 /ul (Negative); Nitrite-Dipstick Negative (Negative); Occult Blood-Urine Negative /ul (Negative); Protein-Dipstick Negative (Negative); Specific Gravity, Urine 1.015 (1.002-1.030); Urine Bilirubin Dipstick Negative (Negative); Urine Clarity Clear (Clear); Urine Urobilinogen Normal (Normal)
--- NOTE | 2024-02-21 15:28 | EDS_ITS ---
<Statement entered by Chauncey Garcia DO - 02/21/24 21:41> Patient was seen and examined with physician assistant Rivers All components of the history and physical confirmed and agreed. History of present illness and physical exam: Patient is a 34-year-old female who presents to the emergency department with a chief complaint of blood in her urine. Patient does have a history of MRDD and is unable to provide a history. According to caregiver at bedside they noted that while at workshop she was using the bathroom and they noted that there was blood in the toilet they states that there was no stool in the toilet with his blood. She does have an IUD in place due to history of menorrhagia. They did note that she has not been sleeping well which is a chronic problem and they have been trying to adjust her medications to help her sleep. They did note that she is having some hallucinations as well. Review of systems: Constitutional: Denies any headaches, fevers or chills Cardiovascular: Denies chest pain Respiratory: Denies coughing Abdomen: Denies nausea vomiting diarrhea : Complains of blood in her urine as noted above Neurological: Denies any generalized weakness or any other gross abnormalities Skin: Denies rashes or lesions Physical exam: Agree with above MDM Patient is a 34-year-old female who presented to the emergency department chief complaint of hematuria. Patient will have a workup performed here on the differential diagnose includes but limited to UTI, electrolyte abnormality, breakthrough bleeding. Once workup is obtained reviewed she will be reevaluated. Patient's CBC reviewed and showed no evidence leukocytosis white blood count normal at 6.7, hemoglobin was 15.4, plate count normal at 155. Patient sodium normal at 142, potassium normal at 4.1, creatinine was notably 1.07. Patient's urinalysis reviewed and did not have any blood in this and there is 0-5 white cells with 1+ bacteria this will be sent for culture. Rectal exam was performed by physician assistant Rivers see note above. She was advised to follow-up with her nut process helper and her primary care physician outpatient setting. She was advised to return for worsening symptoms or concerns. Caregiver at bedside is agreeable with this plan all question concerns answered she was discharged home in stable condition. Final impression: Hematuria versus breakthrough bleeding Disposition: Patient will be discharged home in stable condition Supervising attending attestation: Chauncey Garcia D.O. HPI History of Present Illness Chief Complaint: GI Bleed Narrative Narrative: Patient presenting today with her caregiver due to concerns for blood that was found in the toilet this afternoon when patient was urinating. Patient does have a history of MRDD and is unable to provide a history. There was no stool in the toilet. She did have normal bowel movements yesterday with no hematochezia or melena. She does have an IUD in place due to a history of menorrhagia. She has had no nausea, vomiting, abdominal pain, or diarrhea. [facility] Medical History Gastric reflux Non-smoker Sleep apnea Shortness of breath on exertion History of echocardiogram Cardiology follow-up encounter Lab test negative for COVID-19 virus Fallot tetralogy GERD (gastroesophageal reflux disease) Down syndrome Seizures Heart disease Home Medications ?Medication ?Instructions ?Recorded ?Last Taken ?Type lorazepam 0.5 mg tablet 0.5 mg PO BID 07/29/15 10/29/23 History topiramate 100 mg tablet 150 mg PO BID 07/29/15 10/29/23 History melatonin 5 mg tablet 5 mg PO QHS Sleep 02/28/18 02/27/18 History 5 MG omeprazole 20 mg capsule,delayed 20 mg PO DAILY 04/08/19 10/29/23 History release acetaminophen 500 mg tablet 1,000 mg (2 x 500 mg) PO Q6H PRN 10/28/20 Unknown Rx (Tylenol Extra Strength) fever or pain #60 tabs ammonium lactate 12 % topical cream 1 applic topical QHS 04/22/23 Unknown History cholecalciferol (vitamin D3) 50 50 mcg PO DAILY 04/22/23 Unknown History mcg (2,000 unit) tablet lorazepam 1 mg tablet 1 mg PO DAILY 04/22/23 Unknown History paliperidone 3 mg tablet,extended 3 mg PO Q24H 04/22/23 10/29/23 History release 24 hr trazodone 100 mg tablet 100 mg PO QHS 04/22/23 Unknown History valacyclovir 1 gram tablet 2,000 mg PO BID PRN MOUTH SORE 04/22/23 Unknown History cariprazine 3 mg capsule (Vraylar) 3 mg PO DAILY 10/25/23 10/29/23 History zolpidem 5 mg tablet (Ambien) 5 mg PO QHS 10/25/23 Unknown History Allergy/AdvReac Type Severity Reaction Status Date / Time adhesive tape AdvReac Intermediate Skin Verified 02/21/24 14:20 redness Surgical History Hx of tonsillectomy Hx of eye surgery History of open heart surgery Hx of surgical procedure Social History Smoking Status: Never smoker alcohol intake: never ROS ROS ED Constitutional Constitutional ED: Denies chills or fever(s) Cardiovascular Cardiovascular: Denies chest pain Respiratory/Chest Respiratory/Chest: Denies cough or dyspnea Gastrointestinal Gastrointestinal: Denies abdominal pain, nausea or vomiting Genitourinary Genitourinary ED: Denies dysuria Integumentary Denies rash Neurologic Neurologic: Denies weakness EXAM Physical Exam Const Vital Signs: 02/21/24 14:20 Temperature 97.7 F L Temperature Source Temporal Pulse Rate 68 Respiratory Rate 20 H Blood Pressure 110/63 Blood Pressure Mean 78 Pulse Ox 100 Oxygen Delivery Method Room Air Positive well nourished, well developed and no apparent distress General Appearance ED: well developed HEENT Reports normocephalic and head/scalp atraumatic Mouth ED: Yes moist mucous membranes normal Eyes PERRL and EOMs intact bilaterally Neck full ROM and supple Chest Wall inspection of chest normal Resp normal respiratory effort and clear to auscultation bilaterally Cardio regular rate and regular rhythm GI soft to palpation, non-tender, non-distended and no masses GI Narrative: Rectal: No external hemorrhoids, no rectal bleeding or evidence of rectal bleeding, on ERIK there is normal sphincter tone, brown stool noted. Back/Spine normal ROM and normal to inspection Extremity normal to inspection and full ROM Neuro CN's II-XII intact bilaterally, moves all extremities, no focal motor deficits and no sensory deficits noted Sensorium / Orientation: awake and alert Psych mental status grossly normal and thought process normal Skin no rashes or lesions noted and no wounds MDM MDM MDM Narrative Medical decision making narrative: Patient presenting today with her injection wax molder due to concerns for alignment that was noticed in the toilet today while she urinated. She is well-appearing and in no acute distress. Caregiver reports that patient has had difficulty sleeping over the last few weeks, she has had several medication changes to try to resolve this, she was recently taken off of her trazodone and was put on zalepon 6 days ago and since then has had intermittent hallucinations. Her caregiver reports that this is not necessarily unusual and she has had them before but they seem to be more frequent since the medication change. Basic labs were obtained, her CBC, BMP are overall unremarkable, UA is negative for UTI. UA does show 100 leukocyte esterase and 1+ bacteria, it will be cultured. On rectal exam, there is no evidence of rectal bleeding, ERIK reveals brown- colored stool. She has been seen here in the past for concerns for rectal bleeding and had a CT scan of her abdomen pelvis at that time that was negative, the attending ED physician felt the source was likely vaginal. She has had no bleeding while here. She does have an IUD in place due to history of menorrhagia, she could have had breakthrough bleeding. I did offer to perform a pelvic exam but patient has had to be sedated in the past to have these performed. I recommended that she follow-up with her nut process helper and PCP to discuss possible medication changes. She will be discharged home in stable condition. Lab Data Attestation: I reviewed the patient's lab results. Lab results narrative: Hemoglobin 15.4 Labs: Laboratory Results - last 24 hr 02/21/24 02/21/24 15:18 15:55 WBC 6.7 RBC 4.66 Hgb 15.4 H Hct 46.9 MCV 100.6 H MCH 33.0 H MCHC 32.8 RDW Std Deviation 47.3 H RDW Coeff of William 12.8 Plt Count 155 MPV 9.8 Immature Gran % (Auto) 0.300 Neut % (Auto) 52.8 Lymph % (Auto) 34.7 [place] % (Auto) 7.1 Eos % (Auto) 4.2 Baso % (Auto) 0.9 Absolute Neuts (auto) 3.6 Absolute Lymphs (auto) 2.33 Nucleated RBC % 0 Sodium 142 Potassium 4.1 Chloride 113 H Carbon Dioxide 24.0 Anion Gap 6 BUN 15 Creatinine 1.07 H Est GFR (MDRD) Af Amer 76 Est GFR (MDRD) Non-Af 63 BUN/Creatinine Ratio 14.0 Glucose 93 Calcium 8.5 Urine Color Yellow Urine Clarity Clear Urine pH 8.0 Ur Specific [place] 1.015 Urine Protein Negative Urine Glucose (UA) Normal Urine Ketones Negative Urine Occult Blood Negative Urine Nitrite Negative Urine Bilirubin Negative Urine Urobilinogen Normal Ur Leukocyte Esterase 100 H Urine RBC 0 SEEN Urine WBC 0-5 SEEN Ur Squamous Epith Cells 0-5 SEEN Urine Bacteria 1+ Urine Mucus 0 SEEN Discharge Plan Triage Chief Complaint: GI Bleed ED Midlevel Provider: Siria Marrufo ED Provider: Chauncey Garcia Dx/Rx/DC Orders Clinical Impression: Hematuria Instructions: ED Hematuria Prescriptions: No Action lorazepam 0.5 MG tablet 0.5 mg PO BID Patient Comments: QAM & QHS topiramate 100 MG tablet 150 mg PO BID melatonin 5 MG tablet 5 mg PO QHS omeprazole 20 MG capsule 20 mg PO DAILY acetaminophen [Tylenol Extra Strength] 500 mg tablet 1,000 mg PO Q6H PRN (Reason: fever or pain) Qty: 60 0RF Rx Instructions: Do not exceed 4000 mg/day ammonium lactate 12 % cream 1 applic TOPICAL QHS lorazepam 1 mg tablet 1 mg PO DAILY Rx Instructions: 3pm paliperidone 3 mg tablet extended release 24hr 3 mg PO Q24H trazodone 100 mg tablet 100 mg PO QHS cholecalciferol (vitamin D3) 50 mcg (2,000 unit) tablet 50 mcg PO DAILY valacyclovir 1 gram tablet 2,000 mg PO BID PRN (Reason: MOUTH SORE) Vraylar 3 mg capsule 3 mg PO DAILY zolpidem [Ambien] 5 mg tablet 5 mg PO QHS Rx Instructions: may repeat once if no response in 30-60 minutes Primary Care Provider: Rafy Oh Referrals: Rafy Oh MD [Primary Care Provider] - Activity Restrictions/Additional Instructions: Follow-up with gynecology and her PCP. Return for any worsening of symptoms or other concerns. Print Language: Mongolian Disposition Disposition: Home, Self Care Discharge Date/Time: 02/21/24 16:51
[2024-02-21 16:08] LABS: Absolute Lymphocyte Count 2.33 X10^3/uL (0.83-4.51); Absolute Neutrophil Count 3.6 X10^3/uL (2.0-7.7); Basophil# 0.06 X10^3/uL; Basophil% 0.9 % (0-1); Eosinophil# 0.28 X10^3/uL; Eosinophils% 4.2 % (0-5); Hematocrit 46.9 % (37-47); Hemoglobin 15.4 g/dL (12.0-15.0); Lymphocyte # 2.33 X10^3/ul (0.83-4.51); Lymphocyte % 34.7 % (19-41); Mean Corp Hgb Conc 32.8 g/dL (32-36); Mean Corpuscular Volume 100.6 fL (81-99); Mean Platelet Vol. 9.8 fl (6.2-12.0); Monocyte# 0.48 X10^3/uL; Monocyte% 7.1 % (0-10); NRBC Flagged by Analyzer 0 % (0-5); Neutrophil # 3.55 X10^3/uL (2.7-7.7); Neutrophil % 52.8 % (47-70); Platelet Count 155 K/mm3 (150-450); RBC Distribution Width CV 12.8 % (11.6-14.6); RBC Distribution Width SD 47.3 fl (35.1-43.9); Red Blood Count 4.66 M/mm3 (4.2-5.4); White Blood Count 6.7 K/mm3 (4.4-11.0)
[2024-02-21 16:12] LABS: Squamous Epithelial Cells - UA 0-5 SEEN /hpf (5-10)
[2024-02-21 16:13] LABS: Bacteria 1+ /hpf (None Seen); White Blood Cells 0-5 SEEN /hpf (0-5)
[2024-02-21 16:25] LABS: Anion Gap 6 (5-15); BUN 15 mg/dL (7-18); Calcium,Total 8.5 mg/dL (8.5-10.1); Chloride 113 mmol/L (98-107); Creatinine, Serum 1.07 mg/dL (0.55-1.02); EST Glomerular Filtration Rate 63 mL/min (>60); Est Glom Filt Rate - Afr Amer 76 mL/min (>60); Glucose 93 mg/dL (74-106); Potassium 4.1 mmol/L (3.5-5.1); Sodium Level 142 mmol/L (136-145)
== END 2024-02-21 16:51 | disposition home or self-care (01) ==
PROVIDERS: Physician Assistant; Emergency Provider Emergency Medicine; PCP Family Medicine; Visit Provider Emergency Medicine
DX: R31.9 Hematuria, unspecified (principal); G40.909 Epilepsy, unspecified, not intractable, without status epilepticus; Q90.9 Down syndrome, unspecified; Q21.3 Tetralogy of Fallot; N92.0 Excessive and frequent menstruation with regular cycle; K21.9 Gastro-esophageal reflux disease without esophagitis; G47.30 Sleep apnea, unspecified; Z97.5 Presence of (intrauterine) contraceptive device; Z79.899 Other long term (current) drug therapy
CPT/HCPCS: 80048; 81001; 85025; 87077; 87086; 87088; 87186; 99282; A4216

== ENCOUNTER 2024-04-14 01:15 | Inpatient (IN) | payer OTHER, MEDICAID, SELFPAY ==
[2024-04-14] VITALS (18 sets, daily range): BP systolic 104–120; BP diastolic 56–107; PULSE 58–89; RESP 18–27; TEMP 36.2–37.9; O2SAT 86–95; BMI 57.7; BMI 57.0
--- NOTE | 2024-04-14 01:33 | CT_ITS ---
INDICATION: hypoxia EXAMINATION: - CTA Chest WO/W Contrast Injection A radiation dose optimization technique was used for this scan. RADIATION DOSAGE (If Supplied By Facility): CTDIvol/DLP = ( 25.73 ) / ( 506.51 ) mGy/mGycm COMPARISON: Chest radiograph 05/04/2023. FINDINGS: Contrast enhanced serial CTA axial images through the chest with coronal and sagittal reformatted series. Additional dedicated coronal MIP reformatted series provided as well. IV Contrast dosage and agent: 100 cc [id number] IV. MEDIASTINUM: No acute thoracic aortic abnormality. Distal pulmonary artery branch vessel evaluation is suboptimal secondary to timing of contrast bolus as well as respiratory motion, however, there are no obvious proximal pulmonary artery filling defects. Mediastinum is otherwise unremarkable. LUNG PARENCHYMA: Thick linear bibasilar streaky airspace disease, likely atelectasis. PLEURA: Large fat-containing right Bochdalek hernia without fat stranding. No pleural effusion. No pneumothorax. BONES: Osseous structures are unremarkable for age. UPPER ABDOMEN: Fatty liver. Mild splenomegaly measuring just over [address]/CTA Chest W/WO Contrast IMPRESSION: Thick linear bibasilar streaky airspace disease, likely atelectasis. Large fat-containing right Bochdalek hernia without fat stranding. Mild splenomegaly. Fatty liver. Distal pulmonary artery branch vessel evaluation is suboptimal secondary to timing of contrast bolus as well as respiratory motion, however, there is no obvious proximal pulmonary embolus. Electronically Signed: Mike Chavez MD at 3:41 EST ,
[2024-04-14] MEDS: Ketorolac 30 MG/ML Syringe IV (01:47)
[2024-04-14] MEDS: Ipratropium/Albuterol Sulfate 3 ML AMPUL.NEB INHALATION ×5 (01:48→19:30)
[2024-04-14] MEDS: 0.9% Normal Saline (1000mL) 1,000 ML 999 ML IV (01:48)
[2024-04-14] MEDS: Albuterol 2.5 MG/3 ML VIAL.NEB. INHALATION (01:48)
[2024-04-14 01:49] LABS: Absolute Lymphocyte Count 1.18 X10^3/uL (0.83-4.51); Absolute Neutrophil Count 7.6 X10^3/uL (2.0-7.7); Basophil# 0.05 X10^3/uL; Basophil% 0.5 % (0-1); Eosinophil# 0.01 X10^3/uL; Eosinophils% 0.1 % (0-5); Hematocrit 46.9 % (37-47); Hemoglobin 15.5 g/dL (12.0-15.0); Lymphocyte # 1.18 X10^3/ul (0.83-4.51); Lymphocyte % 12.5 % (19-41); Mean Corpuscular Hgb 32.6 pg (27.0-32.0); Mean Corpuscular Volume 98.7 fL (81-99); Monocyte# 0.63 X10^3/uL; Monocyte% 6.7 % (0-10); NRBC Flagged by Analyzer 0 % (0-5); Neutrophil # 7.56 X10^3/uL (2.7-7.7); Neutrophil % 79.8 % (47-70); Platelet Count 134 K/mm3 (150-450); RBC Distribution Width CV 12.8 % (11.6-14.6); RBC Distribution Width SD 46.8 fl (35.1-43.9); Red Blood Count 4.75 M/mm3 (4.2-5.4); White Blood Count 9.5 K/mm3 (4.4-11.0)
[2024-04-14 02:07] LABS: BNP,B-Type NATRIURETIC PEPTIDE 106.8 pg/mL (0-100)
[2024-04-14 02:08] LABS: Anion Gap 4 (5-15); BUN 23 mg/dL (7-18); BUN/Creat Ratio 12.2 RATIO (10-20); Calcium,Total 8.6 mg/dL (8.5-10.1); Chloride 109 mmol/L (98-107); Creatinine, Serum 1.88 mg/dL (0.55-1.02); EST Glomerular Filtration Rate 33 mL/min (>60); Est Glom Filt Rate - Afr Amer 40 mL/min (>60); Estimated Creatinine Clearance 50.23 ml/min; Glucose 105 mg/dL (74-106); Magnesium 1.9 mg/dL (1.6-2.6); Potassium 3.8 mmol/L (3.5-5.1); Sodium Level 140 mmol/L (136-145)
[2024-04-14 02:19] LABS: Procalcitonin 0.12 ng/mL (0.00-0.09)
[2024-04-14 02:25] LABS: Lactic Acid 1.2 mmol/L (0.4-1.9)
--- NOTE | 2024-04-14 02:39 | EDS_ITS ---
HPI History of Present Illness Chief Complaint: General Illness Informant: parent and SNF Narrative Narrative: Patient is a 34-year-old female with MRDD secondary to Down syndrome as well as previous seizure disorder and she is nonverbal. shelter staff reports that she has had congestion and cough for the past 4 to 5 days. Today [facility] and told it was viral but to keep an eye on her pulse ox. Reportedly she does not have a history of lung disorder or require supplemental oxygen and this evening her pulse ox dropped to 85%. Secondary to this she was brought in for evaluation. The patient is nonverbal and cannot offer any furt her history. shelter staff reports she is at her baseline mental status [facility] Medical History Gastric reflux Non-smoker Sleep apnea Shortness of breath on exertion History of echocardiogram Cardiology follow-up encounter Lab test negative for COVID-19 virus Fallot tetralogy GERD (gastroesophageal reflux disease) Down syndrome Seizures Heart disease Home Medications ?Medication ?Instructions ?Recorded ?Last Taken ?Type topiramate 100 mg tablet 150 mg PO BID 07/29/15 10/29/23 History melatonin 5 mg tablet 10 mg PO QHS Sleep 02/28/18 02/27/18 History 5 MG omeprazole 20 mg capsule,delayed 20 mg PO DAILY 04/08/19 10/29/23 History release acetaminophen 500 mg tablet 1,000 mg (2 x 500 mg) PO Q6H PRN 10/28/20 Unknown Rx (Tylenol Extra Strength) fever or pain #60 tabs ammonium lactate 12 % topical cream 1 applic topical QHS 04/22/23 Unknown History cholecalciferol (vitamin D3) 50 100 mcg PO DAILY 04/22/23 Unknown History mcg (2,000 unit) tablet paliperidone 3 mg tablet,extended 3 mg PO Q24H 04/22/23 10/29/23 History release 24 hr trazodone 100 mg tablet 150 mg PO QHS 04/22/23 Unknown History valacyclovir 1 gram tablet 2,000 mg PO BID PRN MOUTH SORE 04/22/23 Unknown History cariprazine 3 mg capsule (Vraylar) 3 mg PO DAILY 10/25/23 10/29/23 History clonazepam 0.5 mg tablet 0.25 mg PO BID 04/14/24 Unknown History clonazepam 0.5 mg tablet 0.5 mg PO QHS 04/14/24 Unknown History Allergy/AdvReac Type Severity Reaction Status Date / Time adhesive tape AdvReac Intermediate Skin Verified 04/14/24 01:50 redness Surgical History Hx of tonsillectomy Hx of eye surgery History of open heart surgery Hx of surgical procedure Social History Smoking Status: Never smoker alcohol intake: never ROS ROS ED Review of Systems ROS Unobtainable: due to mental status and other Details: Unable to obtain review of systems as patient is nonverbal EXAM Physical Exam Const Vital Signs: 04/14/24 01:16 04/14/24 01:23 04/14/24 01:48 Temperature 100.2 F H 100.2 F H Temperature Source Axillary Axillary Pulse Rate 86 85 89 Respiratory Rate 27 H 25 H 26 H Respiratory Effort Respiratory Pattern Tachypnea Blood Pressure 114/74 114/74 Blood Pressure Mean 87 87 Pulse Ox 86 88 Oxygen Delivery Method Room Air Nasal Cannula Oxygen Flow Rate (L/min) 4 04/14/24 01:48 04/14/24 01:54 04/14/24 02:23 Temperature 100.2 F H Temperature Source Axillary Pulse Rate 83 Respiratory Rate 19 H Respiratory Effort Labored Respiratory Pattern Tachypnea Blood Pressure 108/68 Blood Pressure Mean 81 Pulse Ox 92 91 Oxygen Delivery Method Nasal Cannula Nasal Cannula Oxygen Flow Rate (L/min) 4 4 04/14/24 03:00 04/14/24 03:15 04/14/24 03:35 Temperature 99.3 F H 99.3 F H Temperature Source Axillary Pulse Rate 81 84 80 Respiratory Rate 22 H 23 H 20 H Respiratory Effort Respiratory Pattern Blood Pressure 119/107 H 119/107 H 119/107 H Blood Pressure Mean 111 111 111 Pulse Ox 88 90 89 Oxygen Delivery Method Nasal Cannula Nasal Cannula Oxygen Flow Rate (L/min) 4 Positive well nourished, well developed and obese Constitutional Narrative: Patient is in mild respiratory distress with tachypnea and accessory muscle use General Appearance ED: well developed; Negative for pallor Nutritional Appearance: obese HEENT Reports dry mucous membranes HEENT Narrative: No tongue or lip swelling no oral lesions no airway edema or compromise Mouth ED: Yes dry mucous membranes Mouth: dry mucous membranes Eyes PERRL and EOMs intact bilaterally General Eye ED: Negative for scleral icterus Neck supple Neck Narrative: No nuchal rigidity or meningeal signs noted Resp Resp Narrative: Breath sounds are diminished throughout with diffuse inspiratory and expiratory wheezing Patient is in mild to moderate respiratory distress with tachypnea and accessory muscle use Cardio regular rate and regular rhythm Rate: other Other Details: Heart is regular rate and rhythm without murmurs rubs or gallops Radial and carotid pulses are equal and symmetric GI normal to inspection, nondistended, normoactive bowel sounds, non-tender, non- distended and no masses Auscultation: normoactive bowel sounds Palpation: soft Extremity normal to inspection Extremity Narrative: No asymmetric edema no pitting edema negative Homans' sign bilaterally Neuro CN's II-XII intact bilaterally and no sensory deficits noted Neuro Narrative: Patient is at her baseline mental status per [facility] staff without focal neurologic deficit Sensorium / Orientation: alert Motor Exam: strength 5/5 throughout Psych mental status grossly normal Skin no rashes or lesions noted and no wounds General Skin Exam: Negative for jaundice or pallor MDM MDM MDM Narrative Medical decision making narrative: Patient presented to the ER with a low-grade fever and in mild to moderate respiratory distress with tachypnea and a room air pulse ox in the low to mid 80s. Based on her congestion and fever there is concern for pneumonia versus viral symptoms such as RSV versus influenza versus COVID. Patient may also have pleural effusions acute blood loss anemia or pneumothorax. Pulmonary embolus is another possibility. Secondary to this basic blood work with a CTA of the chest was obtained. Labs showed no leukocytosis or left shift. There is no acute blood loss anemia or clinically significant electrolyte abnormality. The patient's creatinine was elevated slightly above baseline correlating with dehydration and acute kidney injury. CTA revealed atelectasis without obvious infiltrate. RSV was positive which would correlate with her symptoms. At this time however as she is hypoxic and requiring supplemental oxygen and is not safe for her to return home as she does not have this available and therefore the hospitalist was contacted and they do agree to accept the patient for further care. As the patient has a viral infection I do not feel the need to start IV antibiotics at this time Of note my review of the CT scan does show changes concerning for a pneumomediastinum. I discussed this with the hospitalist who is aware of the potential findings but it would not require any type of intervention by CT surgery if truly present and therefore he still agrees to accept the patient to the hospital for continued care History & Record Review Discussion w/independent historian: Family Lab Data Attestation: I reviewed the patient's lab results. Labs: Laboratory Results - last 24 hr 04/14/24 01:38 WBC 9.5 RBC 4.75 Hgb 15.5 H Hct 46.9 MCV 98.7 MCH 32.6 H MCHC 33.0 RDW Std Deviation 46.8 H RDW Coeff of [place] 12.8 Plt Count 134 L MPV 10.0 Immature Gran % (Auto) 0.400 Neut % (Auto) 79.8 H Lymph % (Auto) 12.5 L [place] % (Auto) 6.7 Eos % (Auto) 0.1 Baso % (Auto) 0.5 Absolute Neuts (auto) 7.6 Absolute Lymphs (auto) 1.18 Nucleated RBC % 0 Sodium 140 Potassium 3.8 Chloride 109 H Carbon Dioxide 27.0 Anion Gap 4 L BUN 23 H Creatinine 1.88 H Estim Creat Clear Calc 50.23 Est GFR (MDRD) Af Amer 40 L Est GFR (MDRD) Non-Af 33 L BUN/Creatinine Ratio 12.2 Glucose 105 Lactic Acid 1.2 Calcium 8.6 Magnesium 1.9 B-Natriuretic Peptide 106.8 H Procalcitonin 0.12 H Radiography Diagnostic Testing: Clinical Impression(s) from Imaging Studies Chest CTA 04/14/24 01:33 IMPRESSION: Thick linear bibasilar streaky airspace disease, likely atelectasis. Large fat-containing right Bochdalek hernia without fat stranding. Mild splenomegaly. Fatty liver. Distal pulmonary artery branch vessel evaluation is suboptimal secondary to timing of contrast bolus as well as respiratory motion, however, there is no obvious proximal pulmonary embolus. Electronically Signed: Mike Chavez MD at 3:41 EST , Management Discussion w/another healthcare provider: Hospitalist Discharge Plan Dx/Rx/DC Orders Clinical Impression: Acute respiratory failure with hypoxia, Down syndrome, Respiratory syncytial virus (RSV), Pyrexia Disposition Disposition: Acute Care Hospital [facility] Discharge Date/Time: 04/14/24 04:38
--- NOTE | 2024-04-14 03:57 | HP.PCM.HOS_ITS ---
HPI - General General Date of Admission: 04/14/24 Date of Service: 04/14/24 Chief Complaint: Shortness of breath with URI symptoms HPI Narrative LIA WALTERS, is a 34 F who presented to [facility] ED on 04/14/2024 with worsening shortness of breath and URI symptoms. 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 She lives in a intermediate but her mother is very involved and was present today. Her mother is a labor and delivery nurse here. On arrival to the ED patient was hypoxic to the mid 80s on room air and had a low-grade fever of 100.2 F. She was breathing 25-30 times per minute. She was found to be RSV positive. CTA chest showed streaky airspace disease suspected due to atelectasis as well as a large Bochdalek hernia, was otherwise unremarkable. Labs notable for creatinine 1.88 (baseline 1.0-1.2), otherwise unremarkable. She was given a breathing treatment with some improvement but continued to require 4 L nasal cannula to maintain oxygen saturations in the low 90s. Given this, hospitalist was contacted for admission. I saw the patient at bedside in the ED, mother and paper roller were present. Patient was sitting forward in bed but was otherwise breathing fairly comfortably. She was maintaining saturations in the low 90s on 4 L. She was mildly fatigued appearing but otherwise alert and cooperative. Her mother notes that she looks more comfortable now than she did over the past day or 2 but is still working more to breathe than she typically has to. No other acute concerns at this time. [facility] Medical History Gastric reflux Non-smoker Sleep apnea Shortness of breath on exertion History of echocardiogram Cardiology follow-up encounter Lab test negative for COVID-19 virus Fallot tetralogy GERD (gastroesophageal reflux disease) Down syndrome Seizures Heart disease Home Medications ?Medication ?Instructions ?Recorded ?Last Taken ?Type topiramate 100 mg tablet 150 mg PO BID 07/29/15 10/29/23 History melatonin 5 mg tablet 10 mg PO QHS Sleep 02/28/18 02/27/18 History 5 MG omeprazole 20 mg capsule,delayed 20 mg PO DAILY 04/08/19 10/29/23 History release acetaminophen 500 mg tablet 1,000 mg (2 x 500 mg) PO Q6H PRN 10/28/20 Unknown Rx (Tylenol Extra Strength) fever or pain #60 tabs ammonium lactate 12 % topical cream 1 applic topical QHS 04/22/23 Unknown History cholecalciferol (vitamin D3) 50 100 mcg PO DAILY 04/22/23 Unknown History mcg (2,000 unit) tablet paliperidone 3 mg tablet,extended 3 mg PO Q24H 04/22/23 10/29/23 History release 24 hr trazodone 100 mg tablet 150 mg PO QHS 04/22/23 Unknown History valacyclovir 1 gram tablet 2,000 mg PO BID PRN MOUTH SORE 04/22/23 Unknown History cariprazine 3 mg capsule (Vraylar) 3 mg PO DAILY 10/25/23 10/29/23 History clonazepam 0.5 mg tablet 0.25 mg PO BID 04/14/24 Unknown History clonazepam 0.5 mg tablet 0.5 mg PO QHS 04/14/24 Unknown History Allergy/AdvReac Type Severity Reaction Status Date / Time adhesive tape AdvReac Intermediate Skin Verified 04/14/24 01:50 redness Surgical History Hx of tonsillectomy Hx of eye surgery History of open heart surgery Hx of surgical procedure Social History Smoking Status: Never smoker alcohol intake: never ROS Review of Systems ROS Unobtainable: due to mental condition Vital Signs Vital Signs Vital Signs: 04/14/24 01:16 04/14/24 01:23 04/14/24 01:48 Temperature 100.2 F H 100.2 F H Temperature Source Axillary Axillary Pulse Rate 86 85 89 Respiratory Rate 27 H 25 H 26 H Respiratory Effort Respiratory Pattern Tachypnea Blood Pressure 114/74 114/74 Blood Pressure Mean 87 87 Pulse Ox 86 88 Oxygen Delivery Method Room Air Nasal Cannula Oxygen Flow Rate (L/min) 4 04/14/24 01:48 04/14/24 01:54 04/14/24 02:23 Temperature 100.2 F H Temperature Source Axillary Pulse Rate 83 Respiratory Rate 19 H Respiratory Effort Labored Respiratory Pattern Tachypnea Blood Pressure 108/68 Blood Pressure Mean 81 Pulse Ox 92 91 Oxygen Delivery Method Nasal Cannula Nasal Cannula Oxygen Flow Rate (L/min) 4 4 04/14/24 03:00 04/14/24 03:15 04/14/24 03:35 Temperature 99.3 F H 99.3 F H Temperature Source Axillary Pulse Rate 81 84 80 Respiratory Rate 22 H 23 H 20 H Respiratory Effort Respiratory Pattern Blood Pressure 119/107 H 119/107 H 119/107 H Blood Pressure Mean 111 111 111 Pulse Ox 88 90 89 Oxygen Delivery Method Nasal Cannula Nasal Cannula Oxygen Flow Rate (L/min) 4 Weight Weight: 116.9 kg Body Mass Index (BMI) 57.7 Physical Exam Const alert and no apparent distress Constitutional Narrative: Young female, class III obesity, Down syndrome and nonverbal at baseline, mildly fatigued appearing and sitting forward in bed to help her breathe comfortably, otherwise cooperative and in no acute distress. General Appearance: cooperative and comfortable HEENT normocephalic, head/scalp atraumatic, hearing grossly normal bilaterally and nasal mucous membranes and turbinates normal HEENT Narrative: Dry mucous membranes. Eyes PERRL, EOMs intact bilaterally and conjunctivae normal Neck full ROM Chest inspection of chest normal Resp Resp Narrative: Leaning forward consistently but otherwise breathing comfortably on 4 L nasal cannula. Moderate to severely decreased breath sounds bilaterally with significant upper airway wheezing noted. Cardio regular rate, regular rhythm, no murmurs and peripheral pulses 2+ throughout GI normal to inspection, nondistended, normoactive bowel sounds, soft to palpation, non-tender and non-distended Back/Spine normal ROM Extremity normal to inspection, full ROM and no pedal edema Skin no rashes or lesions noted Results Lab / Micro Data 04/14/24 01:38 04/14/24 01:38 Labs: Laboratory Results - last 24 hr 04/14/24 01:38: WBC 9.5, RBC 4.75, Hgb 15.5 H, Hct 46.9, MCV 98.7, MCH 32.6 H, MCHC 33.0, RDW Std Deviation 46.8 H, RDW Coeff of William 12.8, Plt Count 134 L, MPV 10.0, Immature Gran % (Auto) 0.400, Neut % (Auto) 79.8 H, Lymph % (Auto) 12.5 L, Guthrie % (Auto) 6.7, Eos % (Auto) 0.1, Baso % (Auto) 0.5, Absolute Neuts (auto) 7.6, Absolute Lymphs (auto) 1.18, Nucleated RBC % 0, Sodium 140, Potassium 3.8, Chloride 109 H, Carbon Dioxide 27.0, Anion Gap 4 L, BUN 23 H, Creatinine 1.88 H, Estim Creat Clear Calc 50.23, Est GFR (MDRD) Af Amer 40 L, Est GFR (MDRD) Non-Af 33 L, BUN/Creatinine Ratio 12.2, Glucose 105, Lactic Acid 1.2, Calcium 8.6, Magnesium 1.9, B-Natriuretic Peptide 106.8 H, Procalcitonin 0.12 H Micro: Microbiology 04/14/24 01:38 Mucosa - Nose SARS-CoV-2, Influenza & RSV (PCR) - Final RSV Imaging Radiology Impression Chest CTA 04/14/24 01:33 IMPRESSION: Thick linear bibasilar streaky airspace disease, likely atelectasis. Large fat-containing right Bochdalek hernia without fat stranding. Mild splenomegaly. Fatty liver. Distal pulmonary artery branch vessel evaluation is suboptimal secondary to timing of contrast bolus as well as respiratory motion, however, there is no obvious proximal pulmonary embolus. Electronically Signed: Mike Chavez MD at 3:41 EST , Assessment & Plan Assessment/Plan (1) Respiratory syncytial virus (RSV): (2) Hypoxia: PLAN: Plan Patient is a 34-year-old female who presented [facility] ED on 04/14/2024 with worsening shortness of breath and URI symptoms. 1. RSV infection with hypoxia ? Admit under inpatient status to [facility]. RSV positive on admit. Requiring 4 L nasal cannula to maintain oxygen saturations in the low 90s, does not wear oxygen at home. CTA chest with no significant airspace disease. Pro-Suhas normal, low concern for superimposed bacterial pneumonia. Given her significantly diminished breath sounds with wheezing bilaterally, will treat with IV steroids and scheduled DuoNebs for now. Wean supplemental oxygen as able. 2. Down syndrome with history of seizure disorder and behavioral disturbances and nonverbal at baseline ? Lives at intermediate but mother is very involved. Follows with outpatient psychiatry, last visit about 6 months ago with no significant medication changes per mother. Continue all home medications. 3. Class III obesity ? BMI 57 on admit. Complicates hospital course, care and prognosis. 4. VITALY ? Creatinine 1.88 on admit, baseline 1.0-1.2. Presume prerenal from poor p.o. intake in setting of infection. Given IV fluids on admit, follow-up a.m. BMP and monitor urine output. 5. GERD ? Continue home PPI. DVT prophylaxis: Heparin subcu CODE STATUS: Full code, verified. Verified with patient's mother on admission. Expected disposition: TBD Total clinical time spent by myself addressing the patient's medical issues, reviewing all the data, and collaborating with patient's care team: 55 minutes. Charges/Coding Visit Charges Inpatient E&M: 53482 Init Hosp L2
[2024-04-14] MEDS: MethylPREDNISolone 125 MG/2 ML Vial IV (04:22)
[2024-04-14] MEDS: Heparin Injection (Vial) 5,000 UNIT/ML VIAL 5000 UNIT SC ×3 (05:45→22:14)
[2024-04-14] MEDS: 0.9% Saline Lock 10 ML Syringe IV ×5 (05:46→22:16)
[2024-04-14] MEDS: 0.9% Normal Saline (1000mL) 1,000 ML 50 ML IV (10:20)
[2024-04-14] MEDS: Acetaminophen 325 MG Tablet 650 MG PO (10:23)
[2024-04-14] MEDS: Cholecalciferol (VIT D3) 25 MCG TABLET (1,000 UNITS) 100 MCG PO (10:23)
[2024-04-14] MEDS: clonazePAM 0.5 MG Tablet PO ×2 (10:23→22:16)
[2024-04-14] MEDS: Pantoprazole Sodium 20 MG Tablet PO (10:23)
[2024-04-14] MEDS: Topiramate 50 MG Tablet 150 MG PO ×2 (10:23→19:46)
[2024-04-14] MEDS: Nystatin Powder 15gm Bottle 1 APPLIC TOPICAL ×2 (10:23→22:13)
[2024-04-14] MEDS: CARIPRAZINE HCL 3 MG CAPSULE PO (10:43)
[2024-04-14] MEDS: PALIPERIDONE 3 MG TAB.ER.24 PO (10:43)
--- NOTE | 2024-04-14 11:15 | CASEMGMT ---
DEB was informed patient is from a half-way. DEB met with patient's mom Autumn. Introduced self and role at [facility]. Autumn said the nurse at the half-way is Cass. Cass's number is [phone]. Autumn said she would likely have the half-way transport patient back. DEB called Cass and left her a voice mail requesting a return call. Farrah Judd MSW GIORGIO
--- NOTE | 2024-04-14 11:34 | CASEMGMT ---
RN MILEY Assessment Face to Face with patient for initial transition planning/care coordination assessment. Pt has Down Syndrome and the pt's LG is at bedside and is agreeable to answering this RN MILEY questions for assessment. Care providers, pharmacy, and demographics verified. Admitting dx: RSV, VITALY LACE Strata:1 PCP: Rafy Oh Specialists: Beba Davila (Neuro), Shaheen Smith (Cardio) Preferred Pharmacy: [facility] Insurance: [facility] [place] Prescription Benefit: Yes LNOK: Autumn Harvey (LG) Living Arrangements: Pt lives in a Retirement that is a single story home with a ramp to enter ADLs/IADLs: Pt has care providers that are available 26/10 Transportation: [place] DME: [employer]. Shower chair. Pt is currently requiring additional oxygen and may qualify for home oxygen use. A verbal list of local in-network DME companies were provided to the pt at this time. Pt prefers [facility] HHC/SNF: Denies Hx Plan: Return to the Retirement once medically ready. Follow for oxygen needs. Pt LG denies further concerns at this time. Report given to [facility]TER CM. Joanne Veliz RN, CM
--- NOTE | 2024-04-14 12:15 | CASEMGMT ---
DEB received a call from Cass STACY from patient's residential. Cass said staff would need to call Nadien when patient is ready for discharge. Nadine's number is: [phone]. Patient can return to the residential if she would need O2 at discharge as long as [facility] sets it up. Should patient need home health at discharge it would need to go through [facility]. Farrah ALVARES
[2024-04-14] MEDS: clonazePAM 0.5 MG Tablet 0.25 MG PO (14:36)
--- NOTE | 2024-04-14 15:58 | PCM.HOSP.N ---
Hospitalist Note Patient evaluated at bedside, still has diffuse wheezes and was on 4 L nasal cannula saturating 92%. Continuing IV steroids and DuoNebs as well as supportive care.
--- NOTE | 2024-04-14 16:01 | CHAPLAIN ---
Type of Pastoral Visit _x__ Initial Visit ___ Follow-up Visit ___ On-call Visit ___ General Patient Visit ___ Spiritual Assessment ___ Family Conference ___ Bereavement ___ Rapid Response ___ Code Blue ___ Other (describe below) Pastoral Care Referral From ___ Patient _x__ Family ___ Nurse ___ Physician ___ Box Estimator ___ Packaging Clerk ___ Other (describe below) Sacrament/Intervention ___ Active listening ___ Anointing ___ Spiritism ___ Bereavement ___ Communion ___ Farrah exploration ___ ___ Life review _x__ Prayer ___ Reconciliation ___ Sacrament of Sick _x__ Supportive presence ___ Wedding ___ Other (describe below) Pastoral Comments patient and her mother were in the room; pt is Down's Syndrome and is able to give simple responses to questions; pt may be shy but her mother encouraged her to speak with answers to the questions; pt welcomes prayer and comforting words from this production maintenance technician; offer of support to mother; made casual talk about the movie on TV
[2024-04-15] VITALS (8 sets, daily range): BP systolic 92–121; BP diastolic 56–77; PULSE 43–59; RESP 16–18; TEMP 36.3–36.6; O2SAT 90–95
[2024-04-15 06:29] LABS: Hematocrit 42.6 % (37-47); Mean Corp Hgb Conc 32.9 g/dL (32-36); Mean Corpuscular Hgb 32.4 pg (27.0-32.0); Mean Corpuscular Volume 98.6 fL (81-99); Mean Platelet Vol. 10.7 fl (6.2-12.0); Platelet Count 142 K/mm3 (150-450); RBC Distribution Width CV 12.8 % (11.6-14.6); RBC Distribution Width SD 46.7 fl (35.1-43.9); Red Blood Count 4.32 M/mm3 (4.2-5.4); White Blood Count 11.3 K/mm3 (4.4-11.0)
[2024-04-15] MEDS: Heparin Injection (Vial) 5,000 UNIT/ML VIAL 5000 UNIT SC ×3 (06:36→20:03)
[2024-04-15] MEDS: clonazePAM 0.5 MG Tablet 0.25 MG PO ×2 (06:37→16:10)
[2024-04-15] MEDS: 0.9% Saline Lock 10 ML Syringe IV ×3 (06:37→20:03)
[2024-04-15] MEDS: Ipratropium/Albuterol Sulfate 3 ML AMPUL.NEB INHALATION ×2 (06:51→20:07)
[2024-04-15 06:55] LABS: Anion Gap 3 (5-15); BUN 21 mg/dL (7-18); BUN/Creat Ratio 19.6 RATIO (10-20); Calcium,Total 8.6 mg/dL (8.5-10.1); Chloride 113 mmol/L (98-107); Creatinine, Serum 1.07 mg/dL (0.55-1.02); EST Glomerular Filtration Rate 63 mL/min (>60); Est Glom Filt Rate - Afr Amer 76 mL/min (>60); Estimated Creatinine Clearance 87.53 ml/min; Glucose 143 mg/dL (74-106); Potassium 4.2 mmol/L (3.5-5.1); Sodium Level 138 mmol/L (136-145)
--- NOTE | 2024-04-15 07:58 | PCM.PN.HOSP ---
Reason for Visit Reason for Visit: Diagnoses Other specified viral diseases (04/14/24) Hypoxemia (04/14/24) Subjective Subjective Patient sleeping in chair, spoke with family member at bedside who reports she ate a little bit better today and is finally getting some sleep, slowly improving Objective Data Objective Data Vital Signs: Vital Signs Temp Pulse Resp BP Pulse Ox O2 Del Method O2 Flow Rate 97.8 F 50 L 18 119/76 95 Nasal Cannula 4 04/15/24 04:40 04/15/24 04:40 04/15/24 04:40 04/15/24 04:40 04/15/24 04:40 04/15/24 04:40 04/15/24 04:40 Oxygen Flow Rate (L/min) 4 Oxygen Delivery Method Nasal Cannula Weight: 115.4 kg Body Mass Index (BMI) 57.0 Intake & Output: Intake and Output for Last 24 Hours 04/13/24 04/14/24 04/15/24 23:59 23:59 23:59 Intake Total 2230 / 2230 1300 / 1300 Balance 2230 / 2230 1300 / 1300 Lab / Micro Data 04/15/24 05:45 04/15/24 05:45 Labs: Laboratory Results - last 24 hr 04/15/24 05:45: WBC 11.3 H, RBC 4.32, Hgb 14.0, Hct 42.6, MCV 98.6, MCH 32.4 H, MCHC 32.9, RDW Std Deviation 46.7 H, RDW Coeff of William 12.8, Plt Count 142 L, MPV 10.7, Sodium 138, Potassium 4.2, Chloride 113 H, Carbon Dioxide 22.0, Anion Gap 3 L, BUN 21 H, Creatinine 1.07 H, Estim Creat Clear Calc 87.53, Est GFR (MDRD) Af Amer 76, Est GFR (MDRD) Non-Af 63, BUN/Creatinine Ratio 19.6, Glucose 143 H, Calcium 8.6 Micro: Microbiology 04/14/24 01:38 Mucosa - Nose SARS-CoV-2, Influenza & RSV (PCR) - Final RSV Physical Exam Narrative General: Resting comfortably HEENT: Atraumatic Eyes: Anicteric Neck: Supple Respiratory: Scattered wheezes,, normal respiratory effort Cardiovascular: Regular rate GI: Nondistended Extremities: No significant pitting edema Musculoskeletal: Resting up in chair Neuro: Unable to participate in neuroexam due to baseline mental status Skin: No rashes appreciated Psych: Unable to cooperate effectively given baseline status Assessment & Plan Assessment/Plan (1) Respiratory syncytial virus (RSV): (2) Hypoxia: PLAN: Plan # Hypoxia secondary to RSV -Patient magdiel on 4 L however oxygen sats are up to mid 90s -Continue DuoNebs and IV steroids # History of Down syndrome and behavioral disturbances -Continue home medications -Lives at half-way with mother as large support -Continue to follow with outpatient psychiatry -Will plan to DC back to half-way once stable, possibly soon as tomorrow #Morbid obesity -BMI documented as 57 kg/m? at time of admission -Complicates treatment, prognosis, outcomes -Recommend weight loss and lifestyle changes #GERD -Continue PPI # VITALY on admission-resolved -Creatinine 1.88 on presentation with close around 1.2 -Improved with some IV fluids down to 1.07 #ROGER -Patient previously prescribed NIPPV however did not tolerate it, supposed to follow-up outpatient again to determine if they should try again #DVT ppx: Heparin subcu Ngoc Cruz MD Time spent in the patient's overall evaluation, decision-making process, review of diagnostic data, adjustment of management, discussion with other providers, nursing and ancillary staff involved in patient's care documentation, 36 Minutes Charges/Coding Visit Charges Inpatient E&M: 24614 Subs Hosp L2
[2024-04-15] MEDS: Pantoprazole Sodium 20 MG Tablet PO (08:37)
[2024-04-15] MEDS: Topiramate 50 MG Tablet 150 MG PO ×2 (08:38→20:02)
[2024-04-15] MEDS: Cholecalciferol (VIT D3) 25 MCG TABLET (1,000 UNITS) 100 MCG PO (08:39)
[2024-04-15] MEDS: CARIPRAZINE HCL 3 MG CAPSULE PO (08:40)
[2024-04-15] MEDS: PALIPERIDONE 3 MG TAB.ER.24 PO (08:41)
[2024-04-15] MEDS: Nystatin Powder 15gm Bottle 1 APPLIC TOPICAL ×2 (11:01→20:04)
[2024-04-15] MEDS: MELATONIN 10 MG TABLET PO (20:02)
[2024-04-15] MEDS: traZODone 50 MG Tablet 150 MG PO (20:02)
[2024-04-15] MEDS: clonazePAM 0.5 MG Tablet PO (20:03)
[2024-04-16] VITALS (10 sets, daily range): BP systolic 118–128; BP diastolic 73–78; PULSE 45–63; RESP 16–24; TEMP 36–36.3; O2SAT 87–97
[2024-04-16 06:40] LABS: Hematocrit 44.9 % (37-47); Hemoglobin 14.6 g/dL (12.0-15.0); Mean Corp Hgb Conc 32.5 g/dL (32-36); Mean Corpuscular Hgb 32.1 pg (27.0-32.0); Mean Corpuscular Volume 98.7 fL (81-99); Mean Platelet Vol. 10.7 fl (6.2-12.0); Platelet Count 172 K/mm3 (150-450); RBC Distribution Width CV 13.2 % (11.6-14.6); RBC Distribution Width SD 47.8 fl (35.1-43.9); Red Blood Count 4.55 M/mm3 (4.2-5.4); White Blood Count 11.7 K/mm3 (4.4-11.0)
[2024-04-16] MEDS: Ipratropium/Albuterol Sulfate 3 ML AMPUL.NEB INHALATION ×4 (06:50→19:21)
[2024-04-16 07:01] LABS: Anion Gap 4 (5-15); BUN 22 mg/dL (7-18); BUN/Creat Ratio 19.1 RATIO (10-20); Calcium,Total 8.7 mg/dL (8.5-10.1); Chloride 112 mmol/L (98-107); Creatinine, Serum 1.15 mg/dL (0.55-1.02); EST Glomerular Filtration Rate 58 mL/min (>60); Est Glom Filt Rate - Afr Amer 70 mL/min (>60); Estimated Creatinine Clearance 81.44 ml/min; Glucose 132 mg/dL (74-106); Potassium 3.9 mmol/L (3.5-5.1); Sodium Level 140 mmol/L (136-145)
[2024-04-16] MEDS: Cholecalciferol (VIT D3) 25 MCG TABLET (1,000 UNITS) 100 MCG PO (08:24)
[2024-04-16] MEDS: Topiramate 50 MG Tablet 150 MG PO ×2 (08:24→20:24)
[2024-04-16] MEDS: Pantoprazole Sodium 20 MG Tablet PO (08:25)
[2024-04-16] MEDS: clonazePAM 0.5 MG Tablet 0.25 MG PO ×2 (08:25→15:08)
[2024-04-16] MEDS: Nystatin Powder 15gm Bottle 1 APPLIC TOPICAL ×2 (08:26→20:25)
[2024-04-16] MEDS: Heparin Injection (Vial) 5,000 UNIT/ML VIAL 5000 UNIT SC ×3 (08:26→20:24)
[2024-04-16] MEDS: PALIPERIDONE 3 MG TAB.ER.24 PO (08:29)
[2024-04-16] MEDS: CARIPRAZINE HCL 3 MG CAPSULE PO (08:29)
--- NOTE | 2024-04-16 12:50 | PN.HOSP_ITS ---
Reason for Visit Reason for Visit: Diagnoses Other specified viral diseases (04/14/24) Hypoxemia (04/14/24) Subjective Subjective Pt sitting up in bed, no acute distress, respiratory status improving Objective Data Objective Data Vital Signs: Vital Signs Temp Pulse Resp BP Pulse Ox O2 Del Method O2 Flow Rate 96.0 F L 59 L 18 118/78 96 Nasal Cannula 4 04/16/24 08:18 04/16/24 11:09 04/16/24 11:09 04/16/24 08:18 04/16/24 08:18 04/16/24 08:50 04/16/24 08:50 Oxygen Flow Rate (L/min) 4 Oxygen Delivery Method Nasal Cannula Weight: 115.4 kg Body Mass Index (BMI) 57.0 Intake & Output: Intake and Output for Last 24 Hours 04/14/24 04/15/24 04/16/24 23:59 23:59 23:59 Intake Total 2230 / 2230 3040 / 3040 0 / 0 Balance 2230 / 2230 3040 / 3040 0 / 0 Lab / Micro Data 04/16/24 06:01 04/16/24 06:01 Labs: Laboratory Results - last 24 hr 04/16/24 06:01: WBC 11.7 H, RBC 4.55, Hgb 14.6, Hct 44.9, MCV 98.7, MCH 32.1 H, MCHC 32.5, RDW Std Deviation 47.8 H, RDW Coeff of William 13.2, Plt Count 172, MPV 10.7, Sodium 140, Potassium 3.9, Chloride 112 H, Carbon Dioxide 24.0, Anion Gap 4 L, BUN 22 H, Creatinine 1.15 H, Estim Creat Clear Calc 81.44, Est GFR (MDRD) Af Amer 70, Est GFR (MDRD) Non-Af 58 L, BUN/Creatinine Ratio 19.1, Glucose 132 H , Calcium 8.7 Micro: Microbiology 04/14/24 01:38 Mucosa - Nose SARS-CoV-2, Influenza & RSV (PCR) - Final RSV Physical Exam Narrative General: Resting comfortably HEENT: Atraumatic Eyes: Anicteric Neck: Supple Respiratory: Wheezes improving, normal respiratory effort Cardiovascular: Regular rate GI: Nondistended Extremities: No significant pitting edema Musculoskeletal: Sitting up in hospital bed Neuro: No overt neurological deficits Skin: No rashes appreciated Psych: Pleasant Assessment & Plan Assessment/Plan (1) Respiratory syncytial virus (RSV): (2) Hypoxia: PLAN: Plan # Hypoxia secondary to RSV -Patient magdiel on 4 L however oxygen sats are up to mid 90s -Continue DuoNebs and IV steroids -04/16: Respiratory status improving, wheezing improving, O2 requirements decreasing, suspect patient will be able to be discharged back to [facility] tomorrow will likely need short-term or 2. Additionally patient has no inhalers that she uses at home or at baseline so may benefit from nebulizers, will discuss with case management/social work in the a.m. # History of Down syndrome and behavioral disturbances -Continue home medications -Lives at [facility] with mother as large support -Continue to follow with outpatient psychiatry -Will plan to DC back to [facility] once stable, possibly soon as tomorrow -04/16: Pleasant and cooperative, continue current management Chronic medical problems/medical problems not being actively addressed on date of note: #Morbid obesity -BMI documented as 57 kg/m? at time of admission -Complicates treatment, prognosis, outcomes -Recommend weight loss and lifestyle changes #GERD -Continue PPI # VITALY on admission-resolved -Creatinine 1.88 on presentation with close around 1.2 -Improved with some IV fluids down to 1.07 #ROGER -Patient previously prescribed NIPPV however did not tolerate it, supposed to follow-up outpatient again to determine if they should try again #DVT ppx: Heparin subcu Ngoc Cruz MD Charges/Coding Visit Charges Inpatient E&M: 72399 Subs Hosp L1
[2024-04-16] MEDS: traZODone 50 MG Tablet 150 MG PO (20:23)
[2024-04-16] MEDS: clonazePAM 0.5 MG Tablet PO (20:24)
[2024-04-16] MEDS: MELATONIN 10 MG TABLET PO (20:24)
[2024-04-16] MEDS: Acetaminophen 325 MG Tablet 650 MG PO (20:25)
[2024-04-17] VITALS (8 sets, daily range): BP systolic 116–139; BP diastolic 58–85; PULSE 55–69; RESP 18–24; TEMP 36.4–36.6; O2SAT 88–95
[2024-04-17 05:22] LABS: Absolute Lymphocyte Count 1.38 X10^3/uL (0.83-4.51); Absolute Neutrophil Count 10.9 X10^3/uL (2.0-7.7); Basophil# 0.03 X10^3/uL; Basophil% 0.2 % (0-1); Eosinophil# 0.03 X10^3/uL; Eosinophils% 0.2 % (0-5); Hematocrit 43.6 % (37-47); Hemoglobin 14.1 g/dL (12.0-15.0); Lymphocyte # 1.38 X10^3/ul (0.83-4.51); Lymphocyte % 10.5 % (19-41); Mean Corp Hgb Conc 32.3 g/dL (32-36); Mean Corpuscular Hgb 31.8 pg (27.0-32.0); Mean Corpuscular Volume 98.4 fL (81-99); Mean Platelet Vol. 9.9 fl (6.2-12.0); Monocyte# 0.63 X10^3/uL; Monocyte% 4.8 % (0-10); NRBC Flagged by Analyzer 0 % (0-5); Neutrophil % 82.7 % (47-70); Platelet Count 188 K/mm3 (150-450); RBC Distribution Width CV 13.2 % (11.6-14.6); RBC Distribution Width SD 47.4 fl (35.1-43.9); Red Blood Count 4.43 M/mm3 (4.2-5.4); White Blood Count 13.2 K/mm3 (4.4-11.0)
[2024-04-17 05:31] LABS: Anion Gap 3 (5-15); BUN 25 mg/dL (7-18); BUN/Creat Ratio 23.8 RATIO (10-20); Calcium,Total 8.3 mg/dL (8.5-10.1); Chloride 113 mmol/L (98-107); Creatinine, Serum 1.05 mg/dL (0.55-1.02); EST Glomerular Filtration Rate 64 mL/min (>60); Est Glom Filt Rate - Afr Amer 78 mL/min (>60); Glucose 136 mg/dL (74-106); Potassium 4.1 mmol/L (3.5-5.1); Sodium Level 140 mmol/L (136-145)
[2024-04-17] MEDS: Heparin Injection (Vial) 5,000 UNIT/ML VIAL 5000 UNIT SC (06:47)
[2024-04-17] MEDS: clonazePAM 0.5 MG Tablet 0.25 MG PO ×2 (06:48→14:32)
[2024-04-17] MEDS: Ipratropium/Albuterol Sulfate 3 ML AMPUL.NEB INHALATION ×3 (07:01→15:19)
[2024-04-17] MEDS: PALIPERIDONE 3 MG TAB.ER.24 PO (08:23)
[2024-04-17] MEDS: CARIPRAZINE HCL 3 MG CAPSULE PO (08:23)
[2024-04-17] MEDS: Cholecalciferol (VIT D3) 25 MCG TABLET (1,000 UNITS) 100 MCG PO (08:25)
[2024-04-17] MEDS: Topiramate 50 MG Tablet 150 MG PO (08:25)
[2024-04-17] MEDS: Pantoprazole Sodium 20 MG Tablet PO (08:25)
[2024-04-17] MEDS: Nystatin Powder 15gm Bottle 1 APPLIC TOPICAL (08:26)
--- NOTE | 2024-04-17 12:32 | DCINST_ITS ---
Discharge Instructions Diet Discharge Diet: - (Resume previous diet) DC O2, CPAP, BIPAP needs RN Home O2 Qualification: Home O2 Qualification: Is the patient on home oxygen No 04/17/24 13:55 Home O2 Qualification: AT REST 1- Pulse Ox at rest 95 04/17/24 13:55 Home O2 Qualification: WITH AMBULATION 1- Pulse Ox with ambulation 91 04/17/24 13:55 1- Oxygen Flow Rate with 0 04/17/24 13:55 ambulation Home O2 Discharge instructions: No Dressing / Incision Discharge Activity: Return to Normal Activity Follow Up Care Test Results: Test results from this visit will be discussed in further detail at your follow- up appointment, if applicable. Discharge Plan Admission Admit Date/Time: 04/14/24 03:57 Primary Reason for Your Visit: Shortness of breath, RSV Attending Provider: Ngoc Cruz Primary Care Provider: Rafy Oh Consulting Providers: Malcolm Best Instructions Patient Instructions: ED RSV Bronchiolitis Additional Instructions / Restrictions: -You will be discharged on a prednisone taper: -60 mg daily x3 days -50mg daily x3 days -40mg daily x3 days -30mg daily x3 days -20mg daily x3 days -10mg daily x3 days -You will be discharged with nebulizer solution -Continue your home medications as previously prescribed -Please call your primary care provider's office upon discharge to schedule a hospital follow up within 1 week. -For any concerning signs or symptoms please call 911 or proceed to the nearest emergency department Discharge Orders/Prescriptions Prescriptions: New ipratropium-albuterol 0.5 mg-3 mg(2.5 mg base)/3 mL Solution For Nebulization 3 ml inhalation Q4HWA.RT 30 Days Qty: 180 0RF prednisone 20 mg Tablet See Taper PO BREAKFAST Qty: 32 0RF Taper: Prednisone Taper 60 mg WITH BREAKFAST for 3 Days and 0 Hour 50 mg WITH BREAKFAST for 3 Days and 0 Hour 40 mg WITH BREAKFAST for 3 Days and 0 Hour 30 mg WITH BREAKFAST for 3 Days and 0 Hour 20 mg WITH BREAKFAST for 3 Days and 0 Hour 10 mg WITH BREAKFAST for 3 Days and 0 Hour Continued topiramate 100 MG tablet 150 mg PO BID melatonin 5 MG tablet 10 mg PO QHS omeprazole 20 MG capsule 20 mg PO DAILY acetaminophen [Tylenol Extra Strength] 500 mg tablet 1,000 mg PO Q6H PRN (Reason: fever or pain) Qty: 60 0RF Rx Instructions: Do not exceed 4000 mg/day ammonium lactate 12 % cream 1 applic TOPICAL QHS paliperidone 3 mg tablet extended release 24hr 3 mg PO Q24H trazodone 100 mg tablet 150 mg PO QHS cholecalciferol (vitamin D3) 50 mcg (2,000 unit) tablet 100 mcg PO DAILY valacyclovir 1 gram tablet 2,000 mg PO BID PRN (Reason: MOUTH SORE) Vraylar 3 mg capsule 3 mg PO DAILY clonazepam 0.5 mg tablet 0.25 mg PO BID clonazepam 0.5 mg tablet 0.5 mg PO QHS Rx Instructions: administer 30 minutes before bedtime Referrals / Follow Up: Rafy Oh MD [Primary Care Provider] - Within 1 Week Disposition Disposition (needs filled in before D/C Order can be placed): DC/Tx to Another Type of HCF
--- NOTE | 2024-04-17 12:39 | DS.PCM_ITS ---
Providers Date of Admission: 04/14/24 Date of Discharge: 04/17/24 Primary Care Physician: Dr. Rafy Oh MD Reason For Visit: RSV INFECTION W/HYPOXIA, VITALY W/DEHYDRATION Diagnosis Discharge Diagnosis (1) Respiratory syncytial virus (RSV): Status: Acute Code(s): B33.8 - Other specified viral diseases (2) Hypoxia: Status: Acute Code(s): R09.02 - Hypoxemia Plan # Hypoxia secondary to RSV # History of Down syndrome and behavioral disturbances #Morbid obesity #GERD # VITALY on admission-resolved #ROGER Medications at Discharge Home Medications topiramate 100 mg tablet 150 mg PO BID 07/29/15 melatonin 5 mg tablet 10 mg PO QHS Sleep 02/28/18 omeprazole 20 mg capsule,delayed release 20 mg PO DAILY 04/08/19 acetaminophen 500 mg tablet (Tylenol Extra Strength) 1,000 mg (2 x 500 mg) PO Q6H PRN fever or pain #60 tabs 10/28/20 ammonium lactate 12 % topical cream 1 applic topical QHS 04/22/23 cholecalciferol (vitamin D3) 50 mcg (2,000 unit) tablet 100 mcg PO DAILY 04/22/23 paliperidone 3 mg tablet,extended release 24 hr 3 mg PO Q24H 04/22/23 trazodone 100 mg tablet 150 mg PO QHS 04/22/23 valacyclovir 1 gram tablet 2,000 mg PO BID PRN MOUTH SORE 04/22/23 cariprazine 3 mg capsule (Vraylar) 3 mg PO DAILY 10/25/23 clonazepam 0.5 mg tablet 0.25 mg PO BID 04/14/24 clonazepam 0.5 mg tablet 0.5 mg PO QHS 04/14/24 ipratropium 0.5 mg-albuterol 3 mg (2.5 mg base)/3 mL nebulization soln 3 ml inhalation Q4HWA.RT 30 days #180 mL 04/17/24 prednisone 20 mg tablet See Taper PO BREAKFAST #32 tabs 04/17/24 Hospital Course Summary of Care Provided Minutes Spent on Discharge: 31 Hospital Course: Patient is a 34-year-old female currently residing at a residential with a history of Down syndrome with behavioral disturbance, morbid obesity, GERD, ROGER not previously on NIPPV who [facility] her residential for shortness of breath and URI symptoms. Patient was hypoxic in mid 80s on room air and was tachypneic. She is found to be RSV positive. Additionally creatinine was 1.88 with a baseline closer to 1. She was placed on 4 L nasal cannula and hospitalist contacted for admission was placed on DuoNebs and IV steroids and slowly her O2 was weaned. Kidney function also improved. Patient overall was improved and was assessed for short-term home oxygen prior to discharge but did not require this, however was discharged with nebulizers. The patient requires a nebulizer due to RSV and is prescribed to use ipratropium/albuterol with the nebulizer. Patient discharged back to residential in stable condition with following discharge instructions: -You will be discharged on a prednisone taper: -60 mg daily x3 days -50mg daily x3 days -40mg daily x3 days -30mg daily x3 days -20mg daily x3 days -10mg daily x3 days -You will be discharged with nebulizers -Continue your home medications as previously prescribed -Please call your primary care provider's office upon discharge to schedule a hospital follow up within 1 week. -For any concerning signs or symptoms please call 911 or proceed to the nearest emergency department Physical Exam Narrative General: Alert, no apparent distress HEENT: Atraumatic Eyes: Anicteric Neck: Supple Respiratory: Normal respiratory effort, improving wheezing Cardiovascular: Regular rate and rhythm GI: Nondistended Musculoskeletal: Moving all extremities Neuro: No overt focal neurological deficits Skin: No rashes appreciated Psych: Cooperative Weight / BMI Weight Weight: 115.4 kg Body Mass Index (BMI) 57.0 ABG / Lab / Microbiology Data 04/17/24 04:51 04/17/24 04:51 Laboratory: Laboratory Results - last 24 hr 04/17/24 04:51: WBC 13.2 H, RBC 4.43, Hgb 14.1, Hct 43.6, MCV 98.4, MCH 31.8, MCHC 32.3, RDW Std Deviation 47.4 H, RDW Coeff of William 13.2, Plt Count 188, MPV 9.9, Immature Gran % (Auto) 1.600 H, Neut % (Auto) 82.7 H, Lymph % (Auto) 10.5 L , [place] % (Auto) 4.8, Eos % (Auto) 0.2, Baso % (Auto) 0.2, Absolute Neuts (auto) 10.9 H, Absolute Lymphs (auto) 1.38, Nucleated RBC % 0, Sodium 140, Potassium 4.1, Chloride 113 H, Carbon Dioxide 24.0, Anion Gap 3 L, BUN 25 H, Creatinine 1.05 H, Estim Creat Clear Calc 89.20, Est GFR (MDRD) Af Amer 78, Est GFR (MDRD) Non-Af 64, BUN/Creatinine Ratio 23.8 H, Glucose 136 H, Calcium 8.3 L Microbiology: Microbiology 04/14/24 01:38 Mucosa - Nose SARS-CoV-2, Influenza & RSV (PCR) - Final RSV D/C Instructions Discharge Diet: - (Resume previous diet) DC O2, CPAP, BIPAP Needs RN Home O2 Qualification: Home O2 Qualification: Is the patient on home oxygen No 04/17/24 13:55 Home O2 Qualification: AT REST 1- Pulse Ox at rest 95 04/17/24 13:55 Home O2 Qualification: WITH AMBULATION 1- Pulse Ox with ambulation 91 04/17/24 13:55 1- Oxygen Flow Rate with 0 04/17/24 13:55 ambulation Home O2 Discharge instructions: No Meaningful Use Info Meaningful Use Meaningful Use Diagnoses (Choose all that apply): None applicable Ischemic Stroke Statin Dosing Therapy Reference: STATIN DOSE THERAPY REFERENCE: * Patients > 75 years receive moderate or high dose statin therapy. * Patients 75 years or YOUNGER should receive HIGH intensity statin dose unless contraindicated. You will be required to document reason for non-treatment if statin daily dose does not meet guidelines. HIGH DOSE STATIN THERAPY DAILY Atorvastatin > than or = to 40 mg Rosuvastatin > than or = to 20 mg Amlodipine + Atorvastatin > than or = to 2.5/40 mg Ezetimibe + Simvastatin 10/80 mg Simvastatin 80mg Discharge Plan Admission Admit Date/Time: 04/14/24 03:57 Primary Reason for Your Visit: Shortness of breath, RSV Attending Provider: Ngoc Cruz Primary Care Provider: Rafy Oh Consulting Providers: Malcolm Best Instructions Forms: Work / School Excuse Patient Instructions: ED RSV Bronchiolitis Additional Instructions / Restrictions: -You will be discharged on a prednisone taper: -60 mg daily x3 days -50mg daily x3 days -40mg daily x3 days -30mg daily x3 days -20mg daily x3 days -10mg daily x3 days -You will be discharged with nebulizer solution -Continue your home medications as previously prescribed -Please call your primary care provider's office upon discharge to schedule a hospital follow up within 1 week. -For any concerning signs or symptoms please call 911 or proceed to the nearest emergency department Discharge Orders/Prescriptions Prescriptions: New ipratropium-albuterol 0.5 mg-3 mg(2.5 mg base)/3 mL Solution For Nebulization 3 ml inhalation Q4HWA.RT 30 Days Qty: 180 0RF prednisone 20 mg Tablet See Taper PO BREAKFAST Qty: 32 0RF Taper: Prednisone Taper 60 mg WITH BREAKFAST for 3 Days and 0 Hour 50 mg WITH BREAKFAST for 3 Days and 0 Hour 40 mg WITH BREAKFAST for 3 Days and 0 Hour 30 mg WITH BREAKFAST for 3 Days and 0 Hour 20 mg WITH BREAKFAST for 3 Days and 0 Hour 10 mg WITH BREAKFAST for 3 Days and 0 Hour Continued topiramate 100 MG tablet 150 mg PO BID melatonin 5 MG tablet 10 mg PO QHS omeprazole 20 MG capsule 20 mg PO DAILY acetaminophen [Tylenol Extra Strength] 500 mg tablet 1,000 mg PO Q6H PRN (Reason: fever or pain) Qty: 60 0RF Rx Instructions: Do not exceed 4000 mg/day ammonium lactate 12 % cream 1 applic TOPICAL QHS paliperidone 3 mg tablet extended release 24hr 3 mg PO Q24H trazodone 100 mg tablet 150 mg PO QHS cholecalciferol (vitamin D3) 50 mcg (2,000 unit) tablet 100 mcg PO DAILY valacyclovir 1 gram tablet 2,000 mg PO BID PRN (Reason: MOUTH SORE) Vraylar 3 mg capsule 3 mg PO DAILY clonazepam 0.5 mg tablet 0.25 mg PO BID clonazepam 0.5 mg tablet 0.5 mg PO QHS Rx Instructions: administer 30 minutes before bedtime Referrals / Follow Up: Rafy Oh MD [Primary Care Provider] - Within 1 Week Disposition Disposition (needs filled in before D/C Order can be placed): DC/Tx to Another Type of HCF Charges/Coding Visit Charges Inpatient E&M: 20117 Disch Hosp >30min
--- NOTE | 2024-04-17 14:05 | CASEMGMT ---
DEB called [facility] and left her a voice mail letting her know that patient is going to be discharged today. DEB spoke with patient's mom who is aware of discharge. DEB called REGIS Odell with long[facility] and left her a voice mail requesting a fax number for d/c orders. Farrah Judd MSW GIORGIO
--- NOTE | 2024-04-17 14:16 | CASEMGMT ---
RN CM notified that patient will need nebulizer at discharge. RN CM received script. RN MILEY sent referral to [facility], preferred provider, via [facility] and arranged for delivery to patient's room. RN MILEY updated SW.
--- NOTE | 2024-04-17 14:32 | PHA.DC_ITS ---
Pharmacy [place] Med Reconciliation Pharmacy Service has performed discharge medication reconciliation for this patient. Patient with Down syndrome, D/C to [facility], did not parliamentary counsel. Medications reviewed. The patient's discharge medication list was reviewed for discrepancies and discrepancies were resolved. Medications at Discharge Home Medications topiramate 100 mg tablet 150 mg PO BID 07/29/15 melatonin 5 mg tablet 10 mg PO QHS Sleep 02/28/18 omeprazole 20 mg capsule,delayed release 20 mg PO DAILY 04/08/19 acetaminophen 500 mg tablet (Tylenol Extra Strength) 1,000 mg (2 x 500 mg) PO Q6H PRN fever or pain #60 tabs 10/28/20 ammonium lactate 12 % topical cream 1 applic topical QHS 04/22/23 cholecalciferol (vitamin D3) 50 mcg (2,000 unit) tablet 100 mcg PO DAILY 04/22/23 paliperidone 3 mg tablet,extended release 24 hr 3 mg PO Q24H 04/22/23 trazodone 100 mg tablet 150 mg PO QHS 04/22/23 valacyclovir 1 gram tablet 2,000 mg PO BID PRN MOUTH SORE 04/22/23 cariprazine 3 mg capsule (Vraylar) 3 mg PO DAILY 10/25/23 clonazepam 0.5 mg tablet 0.25 mg PO BID 04/14/24 clonazepam 0.5 mg tablet 0.5 mg PO QHS 04/14/24 ipratropium 0.5 mg-albuterol 3 mg (2.5 mg base)/3 mL nebulization soln 3 ml inhalation Q4HWA.RT 30 days #180 mL 04/17/24 prednisone 20 mg tablet See Taper PO BREAKFAST #32 tabs 04/17/24
== END 2024-04-17 16:18 | disposition other institution (70) | DRG 189 ==
LOC: ED 04:16 → PCU 04:18
PROVIDERS: Admitting Provider Hospitalist; Emergency Provider Emergency Medicine; PCP Family Medicine; Visit Provider Internal Medicine
DX: J96.01 Acute respiratory failure with hypoxia (principal); Q79.0 Congenital diaphragmatic hernia; Z68.43 Body mass index [BMI] 50.0-59.9, adult; J21.0 Acute bronchiolitis due to respiratory syncytial virus; N17.9 Acute kidney failure, unspecified; J98.11 Atelectasis; G40.909 Epilepsy, unspecified, not intractable, without status epilepticus; E86.0 Dehydration; K21.9 Gastro-esophageal reflux disease without esophagitis; G47.33 Obstructive sleep apnea (adult) (pediatric); E66.813 Obesity, class 3; Q90.9 Down syndrome, unspecified; F79 Unspecified intellectual disabilities; Z79.899 Other long term (current) drug therapy
CPT/HCPCS: 36415; 71275; 80048; 83605; 83735; 83880; 84145; 85025; 85027; 87631; 94640; 99285; Q9967; A4216

== ENCOUNTER → 2024-06-01 | Outpatient (CLI) | payer OTHER, MEDICAID, SELFPAY ==
[2024-06-01 12:28] LABS: Absolute Lymphocyte Count 1.83 X10^3/uL (0.83-4.51); Absolute Neutrophil Count 2.8 X10^3/uL (2.0-7.7); Basophil# 0.03 X10^3/uL; Basophil% 0.6 % (0-1); Eosinophil# 0.06 X10^3/uL; Eosinophils% 1.1 % (0-5); Hemoglobin 15.3 g/dL (12.0-15.0); Lymphocyte # 1.83 X10^3/ul (0.83-4.51); Mean Corp Hgb Conc 31.9 g/dL (32-36); Mean Corpuscular Hgb 32.1 pg (27.0-32.0); Mean Corpuscular Volume 100.6 fL (81-99); Mean Platelet Vol. 10.7 fl (6.2-12.0); Monocyte# 0.46 X10^3/uL; Monocyte% 8.8 % (0-10); NRBC Flagged by Analyzer 0 % (0-5); Neutrophil # 2.83 X10^3/uL (2.7-7.7); Neutrophil % 54.1 % (47-70); Platelet Count 155 K/mm3 (150-450); RBC Distribution Width CV 13.4 % (11.6-14.6); RBC Distribution Width SD 49.4 fl (35.1-43.9); Red Blood Count 4.77 M/mm3 (4.2-5.4); White Blood Count 5.2 K/mm3 (4.4-11.0)
[2024-06-01 15:57] LABS: ALB/GLOB Ratio 1.3 RATIO (0.9-2.4); AST(SGOT) 23 U/L (<=31); Alanine Aminotransfer ALT/SGPT 27 U/L (<=34); Albumin, Serum 3.9 g/dL (3.5-5.0); Alkaline Phosphatase 100 U/L (35-104); Anion Gap 9 (5-15); BUN 17 mg/dL (4-19); BUN/Creat Ratio 14.5 RATIO (10-20); Carbon Dioxide 24.9 mmol/L (22.0-29.0); Chloride 107 mmol/L (96-108); Creatinine, Serum 1.2 mg/dL (0.6-1.0); EST Glomerular Filtration Rate 63 (>60); Globulin 3.1 g/dL (2.2-4.2); Glucose 93 mg/dL (70-99); Potassium 3.9 mmol/L (3.3-5.1); Sodium Level 140 mmol/L (133-145); Total Bilirubin 0.47 mg/dL (0.00-1.30)
== END | disposition home or self-care (01) ==
LOC: LABSPEC 10:48
PROVIDERS: PCP Family Medicine; Referring Provider Nurse Practitioner Psychiatric/Mental Health; Visit Provider Nurse Practitioner Psychiatric/Mental Health
DX: F29 Unspecified psychosis not due to a substance or known physiological condition (principal)
CPT/HCPCS: 80053; 85025

== ENCOUNTER → 2024-06-05 | Outpatient (CLI) | payer OTHER, MEDICAID, SELFPAY ==
[2024-06-05 16:01] LABS: Mucous, Urine 0 SEEN /hpf (<or=2+)
[2024-06-05 17:57] LABS: Color, Urine Yellow (Yellow); Glucose, Dipstick Normal (Normal); Ketone-Dipstick Negative (Negative); Leukocyte Esterase-Dipstick 500 /ul (Negative); Nitrite-Dipstick Negative (Negative); Occult Blood-Urine 150 /ul (Negative); Protein-Dipstick 30 mg/dl (Negative); Specific Gravity, Urine 1.015 (1.002-1.030); Urine Bilirubin Dipstick Negative (Negative); Urine Clarity Cloudy (Clear); Urine Urobilinogen 1 mg/dl (Normal)
[2024-06-05 18:26] LABS: Bacteria 2+ /hpf (None Seen); Red Blood Cells-Urine 0-5 SEEN /hpf (0-5); Squamous Epithelial Cells - UA 0-5 SEEN /hpf (5-10); White Blood Cells >100 SEEN /hpf (0-5)
== END | disposition home or self-care (01) ==
LOC: LABSPEC 16:00
PROVIDERS: PCP Family Medicine; Referring Provider Family Medicine; Visit Provider Family Medicine
DX: R39.9 Unspecified symptoms and signs involving the genitourinary system (principal)
CPT/HCPCS: 81001; 87077; 87086; 87088; 87186

== ENCOUNTER → 2024-07-27 | Outpatient (CLI) | payer OTHER, MEDICAID, SELFPAY ==
[2024-07-27 17:57] LABS: Absolute Neutrophil Count 3.5 X10^3/uL (2.0-7.7); Basophil# 0.05 X10^3/uL; Basophil% 0.8 % (0-1); Eosinophil# 0.07 X10^3/uL; Eosinophils% 1.1 % (0-5); Hematocrit 47.1 % (37-47); Hemoglobin 15.4 g/dL (12.0-15.0); Lymphocyte % 36.6 % (19-41); Mean Corp Hgb Conc 32.7 g/dL (32-36); Mean Corpuscular Hgb 32.3 pg (27.0-32.0); Mean Corpuscular Volume 98.7 fL (81-99); Mean Platelet Vol. 10.3 fl (6.2-12.0); Monocyte# 0.32 X10^3/uL; Monocyte% 5.1 % (0-10); NRBC Flagged by Analyzer 0 % (0-5); Neutrophil # 3.53 X10^3/uL (2.7-7.7); Neutrophil % 56.1 % (47-70); Platelet Count 128 K/mm3 (150-450); RBC Distribution Width CV 12.7 % (11.6-14.6); RBC Distribution Width SD 46.3 fl (35.1-43.9); Red Blood Count 4.77 M/mm3 (4.2-5.4); White Blood Count 6.3 K/mm3 (4.4-11.0)
[2024-07-27 18:11] LABS: Cholesterol 165 mg/dL (<=200); High Density Lipoprotein 38 mg/dL; Low Density Lipoprotein Calc. 106 mg/dL; Triglycerides 103 mg/dL; Very Low Density Lipoprotein 21 mg/dL (5-40); cholesterol:hdl ratio screen 4.34
== END | disposition home or self-care (01) ==
LOC: MFPLAB 16:43
PROVIDERS: PCP Family Medicine; Referring Provider Family Medicine; Visit Provider Family Medicine
DX: D69.6 Thrombocytopenia, unspecified (principal); E78.5 Hyperlipidemia, unspecified
CPT/HCPCS: 36415; 80061; 85025

== ENCOUNTER → 2024-08-24 | Outpatient (CLI) | payer OTHER, MEDICAID, SELFPAY ==
[2024-08-24 18:27] LABS: AST(SGOT) 17 U/L (<=31); Alanine Aminotransfer ALT/SGPT 15 U/L (<=34); Albumin, Serum 3.4 g/dL (3.5-5.0); Alkaline Phosphatase 96 U/L (35-104); Anion Gap 8 (5-15); BUN 18 mg/dL (4-19); BUN/Creat Ratio 15.6 RATIO (10-20); Calcium,Total 8.9 mg/dL (7.6-11.0); Carbon Dioxide 22.4 mmol/L (21.0-32.0); Chloride 111 mmol/L (98-108); Cholesterol 159 mg/dL (<=200); Creatinine, Serum 1.12 mg/dL (0.70-1.20); EST Glomerular Filtration Rate 67 (>60); Globulin 3.5 g/dL (2.2-4.2); Glucose 97 mg/dL (70-99); High Density Lipoprotein 38 mg/dL; Low Density Lipoprotein Calc. 99 mg/dL; Potassium 4.3 mmol/L (3.3-5.1); Protein, Total 6.9 g/dL (5.9-8.4); Sodium Level 142 mmol/L (133-145); Total Bilirubin 0.32 mg/dL (0.00-1.30); Triglycerides 107 mg/dL; Very Low Density Lipoprotein 21 mg/dL (5-40); cholesterol:hdl ratio screen 4.15
== END | disposition home or self-care (01) ==
LOC: MFPLAB 15:23
PROVIDERS: PCP Family Medicine; Referring Provider Family Medicine; Visit Provider Family Medicine
DX: Z00.00 Encounter for general adult medical examination without abnormal findings (principal)
CPT/HCPCS: 36415; 80053; 80061

== ENCOUNTER → 2024-10-05 | Outpatient (CLI) | payer OTHER, MEDICAID, SELFPAY | END | disposition home or self-care (01) | LOC: MTRAD 12:35 | PROVIDERS: PCP Family Medicine; Referring Provider Physician Assistant Surgical; Visit Provider Physician Assistant Surgical | DX: R05.9 Cough, unspecified (principal) | CPT/HCPCS: 71046 ==

== ENCOUNTER 2024-11-02 16:23 | Emergency (ER) | payer OTHER, MEDICAID, SELFPAY ==
[2024-11-02 16:23] VITALS: BP 118/80; PULSE 58; RESP 18; TEMP 36.6; O2SAT 98
--- NOTE | 2024-11-02 17:15 | EX.ED.DYSGE1 ---
HPI History of Present Illness Chief Complaint: GI Bleed Informant: other (Caregiver ) Narrative Narrative: Presents from retirement for evaluation. history of Down syndrome. Patient used the restroom and required help with wiping. Patient leaned over upon standing there noted some blood that came out of her mouth. Patient is had no cough denies injuries denies falls. No blood thinners. Caregiver brought in what she wiped with a towel appeared dark blood sputum. [facility] Medical History Gastric reflux Non-smoker Sleep apnea Shortness of breath on exertion History of echocardiogram Cardiology follow-up encounter Lab test negative for COVID-19 virus Fallot tetralogy GERD (gastroesophageal reflux disease) Down syndrome Seizures Heart disease Home Medications ?Medication ?Instructions ?Recorded ?Last Taken ?Type topiramate 100 mg tablet 150 mg PO BID 07/29/15 10/29/23 History melatonin 5 mg tablet 10 mg PO QHS Sleep 02/28/18 02/27/18 History 5 MG omeprazole 20 mg capsule,delayed 20 mg PO DAILY 04/08/19 10/29/23 History release acetaminophen 500 mg tablet 1,000 mg (2 x 500 mg) PO Q6H PRN 10/28/20 Unknown Rx (Tylenol Extra Strength) fever or pain #60 tabs ammonium lactate 12 % topical cream 1 applic topical QHS 04/22/23 Unknown History cholecalciferol (vitamin D3) 50 100 mcg PO DAILY 04/22/23 Unknown History mcg (2,000 unit) tablet cariprazine 3 mg capsule (Vraylar) 3 mg PO DAILY 10/25/23 10/29/23 History clonazepam 0.5 mg tablet 0.25 mg PO BID 04/14/24 Unknown History clonazepam 0.5 mg tablet 0.5 mg PO BID 04/14/24 Unknown History ipratropium 0.5 mg-albuterol 3 mg 3 ml inhalation Q4HWA.RT 30 days 04/17/24 Unknown Rx (2.5 mg base)/3 mL nebulization #180 mL soln ipratropium bromide 21 mcg (0.03 2 spray intranasal BID-TID PRN 10/05/24 Unknown Rx %) nasal spray postnasal drainage #30 mL clonazepam 1 mg tablet 1 mg PO QHS 07/31/25 Unknown History Allergy/AdvReac Type Severity Reaction Status Date / Time adhesive tape AdvReac Intermediate Skin Verified 11/02/24 16:25 redness Surgical History Hx of tonsillectomy Hx of eye surgery History of open heart surgery Hx of surgical procedure Social History Smoking Status: Never smoker alcohol intake: never ROS ROS ED Constitutional Constitutional ED: Denies fever(s) ENT ENT ED: Reports other Details: Blood from mouth. Cardiovascular Cardiovascular: Denies chest pain Respiratory/Chest Respiratory/Chest: Reports other; Denies cough Gastrointestinal Gastrointestinal: Denies diarrhea or vomiting Musculoskeletal Musculoskeletal: Denies none Integumentary Denies rash or wounds Neurologic Neurologic: Denies weakness EXAM Physical Exam Const Vital Signs: 11/02/24 16:23 11/02/24 19:12 11/02/24 19:40 Temperature 97.8 F 97.8 F Temperature Source Oral Pulse Rate 58 L 55 L 56 L Respiratory Rate 18 16 16 Blood Pressure 118/80 106/70 115/73 Blood Pressure Mean 92 82 87 Pulse Ox 98 100 100 Oxygen Delivery Method Room Air Room Air Positive well nourished and well developed General Appearance ED: well developed HEENT Reports TM's clear HEENT Narrative: There is no small crack on the side of her mouth no active bleeding. No tongue lacerations no buccal injuries. No posterior pharyngeal blood noted. No irritations. normocephalic and atraumatic Tympanic Membrane ED: Yes TM's clear Eyes General Eye ED: Yes normal appearance of both eyes Neck full ROM Resp normal respiratory effort and normal air movement Cardio regular rate and regular rhythm GI soft to palpation Extremity normal to inspection and full ROM Neuro oriented x3 Skin no rashes or lesions noted and no wounds MDM MDM MDM Narrative Medical decision making narrative: Interventions / MDM: Differential diagnosis: Possible hemoptysis, history of Down syndrome Diagnosis considered but do not suspect: No clinical PE concerns, no clinical signs of oral trauma. My EKG interpretation: N/A Imaging independently reviewed and interpreted by myself: 2 view chest x-ray: Poor inspiratory. External documents reviewed: N/A Test considered but not ordered:N/A ED course: Presenting with what appears to be dark blood from sputum. Possible hemoptysis. Has been no cough patient has no signs of injury inside the mouth or a small crack on the side of the mouth with no active bleeding. Labs are stable oxygen 98% on room air no respiratory distress. Low suspicion for any concerns for blood clots. Will screen with chest x-ray. Chest x-ray poor inspiratory effort. Nondiagnostic. Discussed with caregivers to monitor symptoms with strict return precautions. All questions were answered. Re-evaluation: stable Disposition discussed with patient/family/significant other: Caregiver Case discussed with consulting clinician: N/A This note was generated with [employer] dictation software. It may contain incorrect words, spelling, and punctuation that were not noted in checking the note before signing. Radiography Diagnostic Testing: Clinical Impression(s) from Imaging Studies Chest X-Ray 11/02/24 17:20 IMPRESSION: Shallow inspiration. Cardiomegaly with vascular congestion/interstitial edema, and probable small-moderate bilateral pleural effusions and/or bibasilar atelectasis. Reading Location: [id number] Discharge Plan Triage Chief Complaint: GI Bleed ED Provider: Butch Bernard Dx/Rx/DC Orders Clinical Impression: Hemoptysis, unspecified, Down syndrome Instructions: ED Hemoptysis Prescriptions: No Action ipratropium bromide 21 mcg (0.03 %) spray,non-aerosol 2 spray intranasal BID-TID PRN (Reason: postnasal drainage) Qty: 30 0RF Rx Instructions: administer into each nostril topiramate 100 MG tablet 150 mg PO BID melatonin 5 MG tablet 10 mg PO QHS omeprazole 20 MG capsule 20 mg PO DAILY acetaminophen [Tylenol Extra Strength] 500 mg tablet 1,000 mg PO Q6H PRN (Reason: fever or pain) Qty: 60 0RF Rx Instructions: Do not exceed 4000 mg/day ammonium lactate 12 % cream 1 applic TOPICAL QHS cholecalciferol (vitamin D3) 50 mcg (2,000 unit) tablet 100 mcg PO DAILY clonazepam 1 mg tablet 1 mg PO QHS Vraylar 3 mg capsule 3 mg PO DAILY clonazepam 0.5 mg tablet 0.25 mg PO BID clonazepam 0.5 mg tablet 0.5 mg PO BID Rx Instructions: administer 30 minutes before bedtime ipratropium-albuterol 0.5 mg-3 mg(2.5 mg base)/3 mL Solution For Nebulization 3 ml inhalation Q4HWA.RT 30 Days Qty: 180 0RF Primary Care Provider: Rafy Oh Referrals: Rafy Oh MD [Primary Care Provider] - 1 Week Activity Restrictions/Additional Instructions: Possible hemoptysis. There is no findings of any major bleeding in the oral airway. Chest x-ray with nothing obvious. Monitor symptoms. If reoccurs and worsens, return to the ED for reevaluation otherwise follow-up with your doctor. Print Language: Tunisian Disposition Disposition: Home, Self Care Discharge Date/Time: 11/02/24 19:45
--- NOTE | 2024-11-02 17:20 | RAD_ITS ---
PROCEDURE: CHEST PA AND LATERAL 11/02/2024 REASON FOR EXAM: ? HEMOPTYSIS TECHNIQUE: CHEST PA AND LATERAL COMPARISON: 10/05/2024 FINDINGS: Lungs/Pleura: Shallow inspiration. Small-moderate bilateral layering pleural effusions and/or atelectasis. Pulmonary vascular congestion and evidence of interstitial edema. No pneumothorax. Heart/Mediastinum: Cardiomegaly. Bones/Soft tissues: Mild degenerative changes of the spine. Large body habitus. RAD/Chest PA and Lateral IMPRESSION: Shallow inspiration. Cardiomegaly with vascular congestion/interstitial edema, and probable small-moderate bilateral pleural effusions and/or bibasilar atelectasis. Reading Location: [id number]
[2024-11-02 19:12] VITALS: BP 106/70; PULSE 55; RESP 16; O2SAT 100
[2024-11-02 19:40] VITALS: BP 115/73; PULSE 56; RESP 16; TEMP 36.6; O2SAT 100
--- NOTE | 2024-11-02 19:44 | ED.RN ---
Pt guardian called by this RN and updated on pt being discharged, no further questions at this time.
== END 2024-11-02 19:45 | disposition home or self-care (01) ==
PROVIDERS: Emergency Provider Emergency Medicine; PCP Family Medicine; Visit Provider Emergency Medicine
DX: K92.2 Gastrointestinal hemorrhage, unspecified (principal); R04.2 Hemoptysis; Q90.9 Down syndrome, unspecified; K21.9 Gastro-esophageal reflux disease without esophagitis; Z79.899 Other long term (current) drug therapy
CPT/HCPCS: 71046; 99282

== ENCOUNTER → 2024-11-09 | Outpatient (CLI) | payer OTHER, MEDICAID, SELFPAY ==
[2024-11-09 10:48] LABS: Hemoglobin 19.7 g/dL (12.0-15.0); Mean Corp Hgb Conc 32.9 g/dL (32-36); Mean Corpuscular Volume 100.5 fL (81-99); Mean Platelet Vol. 10.7 fl (6.2-12.0); Platelet Count 125 K/mm3 (150-450); RBC Distribution Width CV 13.7 % (11.6-14.6); RBC Distribution Width SD 51.1 fl (35.1-43.9); Red Blood Count 5.95 M/mm3 (4.2-5.4); White Blood Count 6.9 K/mm3 (4.4-11.0)
[2024-11-09 10:53] LABS: Hematocrit 59.8 % (37-47)
[2024-11-09 11:04] LABS: AST(SGOT) 31 U/L (<=31); Alanine Aminotransfer ALT/SGPT 18 U/L (<=34); Albumin, Serum 3.7 g/dL (3.5-5.0); Alkaline Phosphatase 113 U/L (35-104); Anion Gap 9 (5-15); BUN 26 mg/dL (4-19); BUN/Creat Ratio 23.2 RATIO (10-20); Calcium,Total 8.5 mg/dL (7.6-11.0); Carbon Dioxide 25.9 mmol/L (21.0-32.0); Chloride 107 mmol/L (98-108); Globulin 2.9 g/dL (2.2-4.2); Glucose 90 mg/dL (70-99); Potassium 4.1 mmol/L (3.3-5.1)
== END | disposition home or self-care (01) ==
LOC: LABSPEC 10:19
PROVIDERS: PCP Family Medicine; Referring Provider Nurse Practitioner Psychiatric/Mental Health; Visit Provider Nurse Practitioner Psychiatric/Mental Health
DX: F29 Unspecified psychosis not due to a substance or known physiological condition (principal)
CPT/HCPCS: 80053; 85027

== ENCOUNTER → 2025-01-09 | Outpatient (CLI) | payer OTHER, MEDICAID, SELFPAY ==
[2025-01-09 12:16] LABS: Mucous, Urine 0 SEEN /hpf (<or=2+); Red Blood Cells-Urine 0 SEEN /hpf (0-5)
[2025-01-09 15:22] LABS: Color, Urine Yellow (Yellow); Glucose, Dipstick Normal (Normal); Ketone-Dipstick Negative (Negative); Leukocyte Esterase-Dipstick Negative /ul (Negative); Nitrite-Dipstick Negative (Negative); Occult Blood-Urine 50 /ul (Negative); Protein-Dipstick 15 mg/dl (Negative); Specific Gravity, Urine 1.015 (1.002-1.030); Urine Bilirubin Dipstick Negative (Negative)
[2025-01-09 15:49] LABS: Calcium Oxalate Crystals Ur RARE /hpf (<or=2+); Squamous Epithelial Cells - UA 0-5 SEEN /hpf (5-10)
== END | disposition home or self-care (01) ==
LOC: LABSPEC 11:27
PROVIDERS: PCP Family Medicine; Visit Provider Family Medicine
DX: R39.9 Unspecified symptoms and signs involving the genitourinary system (principal)
CPT/HCPCS: 81001; 87086; 87088

== ENCOUNTER → 2025-02-16 | Outpatient (CLI) | payer OTHER, MEDICAID, SELFPAY ==
[2025-02-16 09:41] LABS: Mucous, Urine 0 SEEN /hpf (<or=2+)
[2025-02-16 10:21] LABS: Color, Urine Yellow (Yellow); Glucose, Dipstick Normal (Normal); Ketone-Dipstick Negative (Negative); Leukocyte Esterase-Dipstick 500 /ul (Negative); Nitrite-Dipstick Negative (Negative); Occult Blood-Urine 250 /ul (Negative); Protein-Dipstick 30 mg/dl (Negative); Specific Gravity, Urine 1.010 (1.002-1.030); Urine Bilirubin Dipstick Negative (Negative)
[2025-02-16 10:38] LABS: Squamous Epithelial Cells - UA 0-5 SEEN /hpf (5-10)
[2025-02-16 10:39] LABS: Red Blood Cells-Urine 5-10 SEEN /hpf (0-5)
== END | disposition home or self-care (01) ==
LOC: LABSPEC 09:38
PROVIDERS: PCP Family Medicine; Visit Provider Obstetrics & Gynecology
DX: R82.90 Unspecified abnormal findings in urine (principal)
CPT/HCPCS: 81001; 87077; 87086; 87088; 87186

== ENCOUNTER → 2025-02-21 | Outpatient (CLI) | payer OTHER, MEDICAID, SELFPAY ==
--- OUTSIDE RECORDS SUMMARY | 2025-02-21 16:54 | XMS RPT_ITS | CCD ---
Author Organization [facility] CliniSyor Care Team Providers Care Sporting Goods Sales Manager Name Role Phone Rafy Olsen MD Primary Care Provider [phone] Adriano REES, Rafy Smith Primary Care Provider Adriano REES, Rafy Smith Primary Care Provider Adriano REES, Rafy Smith Primary Care Provider RAFY OLSEN Primary Care Unavailable ADRIANO, RAFY Smith Primary Care Unavailable ELISABET AVILES Attending Unavailable RAFY OLSEN Primary Care Unavailable RAFY OLSEN Referring Unavailable RAFY OLSEN Primary Care Unavailable LEONARD GARCIA Attending Unavailable Adriano REES, Dr. Hillman Primary Care Provider [phone] Dr. Chauncey Garcia DO Attending Provider Dr. Chauncey Garcia DO Emergency Provider Dr. Rafy Olsen MD Referring Provider Angelo Scales Attending Provider Dr. Samy Espinoza DO Emergency Provider Dr. Malcolm Best DO Admit Provider Dr. Malcolm Best DO Other Provider Dr. Ngoc Cruz MD Attending Provider Dr. Ngoc Cruz MD Other Provider [facility] Guy Attending Provider [facility], Guy Referring Provider Dr. Rafy Olsen MD Attending Provider Dr. Rafy Olsen MD Primary Care Provider Dr. Rafy Olsen MD Referring Provider [phone] Adriano REES, Dr. Hillman Primary Care Provider Adriano REES, Dr. Hillman Attending Provider [phone] Adriano REES, Dr. Hillman Referring Provider Angelo Scales Attending Provider Angelo Scales Referring Provider Joana SINGLETON, Dr. Rae Emergency Provider [phone] Butch Bernard DO Attending Provider [facility] Attending Provider [facility] Referring Provider Adriano REES, Dr. Hillman Primary Care Physician Adriano REES, Dr. Hillman Referring Provider [phone] Angelo Scales Attending Physician Dr. Butch Bernard DO Attending Physician Dr. Butch Bernard DO Emergency Department Physician [facility] Attending Physician Jesu Garcia Attending Physician Guy Morrissey Attending Unavailable Olsen, Rafy Primary Care Unavailable Guy Morrissey Referring Unavailable Butch Bernard Attending Unavailable Olsen, Rafy Primary Care Unavailable Malcolm Best Admitting Unavailable Malcolm Best Attending Unavailable Malcolm Best Consulting Unavailable Olsen, Rafy Primary Care Unavailable Angelo Scales Attending Unavailable Olsen, Rafy Referring Unavailable Olsen, Rafy Primary Care Unavailable Olsen, Rafy Referring Unavailable Jesu Garcia Attending Unavailable Olsen, Rafy Primary Care Unavailable Angelo Scales Attending Unavailable Olsen, Rafy Referring Unavailable Olsen, Rafy Primary Care Unavailable Ngoc Cruz Attending Unavailable Ngoc Cruz Consulting Unavailable Olsen, Rafy Referring Unavailable Olsen, Rafy Primary Care Unavailable Olsen, Rafy Attending Unavailable Guy Morrissey Attending Unavailable Olsen, Rafy Primary Care Unavailable Guy Morrissey Referring Unavailable Olsen, Rafy Attending Unavailable Olsen, Rafy Primary Care Unavailable Beba Davila Referring Unavailable Beba Davila Attending Unavailable Olsen, Rafy Primary Care Unavailable Angelo Scales Referring Unavailable Angelo Scales Attending Unavailable Rafy Olsen Primary Care Unavailable Malcolm Best Consulting Unavailable Malcolm Best Admitting Unavailable Ngoc Cruz Attending Unavailable Adriano, Rafy Primary Care Unavailable Olsen, Rafy Referring Unavailable Olsen, Rafy Primary Care Unavailable Olsen, Rafy Attending Unavailable Olsen, Rafy Referring Unavailable Olsen, Rafy Primary Care Unavailable Olsen, Rafy Attending Unavailable Olsen, Rafy Primary Care Unavailable Chauncey Garcia Attending Unavailable Allergies Allergy Classification Reported Allergen(s) Allergy Type Date of Onset Reaction(s) Facility Adhesive Tape (1 source) Adhesive Tape Substance Allergy 8 [facility] (14 sources) Adhesive Tape; Translations: [adhesive tape] Propensity to adverse reactions 1 Skin redness [facility] (2 sources) Cyanoacrylate; Translations: [CYANOACRYLATE] Propensity to adverse reactions 4 [facility] (7 sources) Adhesive Tape; Translations: [ADHESIVE TAPE (ROSINS)] Allergy to substance 8 [facility] Medications Current Medications Medication Drug Class(es) Dates Sig (Normalized) Sig (Original) acetaminophen 500 mg oral tablet (13 sources) Start: 10-28-2020 take 2 tablets by mouth every six hours as needed for pain Acetaminophen (Tylenol Extra Strength) 500 mg tablet Active 1000 mg PO EVERY 6 HOURS as needed for fever or pain 60 0 October 28, 2020 12:00am Do not exceed 4000 mg/day Complies with drug therapy albuterol 0.833 mg/ml / ipratropium bromide 0.167 mg/ml inhalation solution (8 sources) Anticholinergic, beta2-Adrenergic Agonist Start: 04-17-2024 take 1 mL by inhalation every four hours Ipratropium-Albutero l 0.5 mg-3 mg(2.5 mg base)/3 mL Solution For Nebulization Active 3 mL INHALATION EVERY 4 HOURS WHILE AWAKE 180 30 0 April 17, 2024 1:00am Complies with drug therapy cariprazine 3 mg oral capsule (12 sources) Atypical Antipsychotic Start: 10-25-2023 take 1 capsule by mouth once daily Cariprazine (Vraylar) 3 mg capsule Active 3 mg PO DAILY October 25, 2023 12:00am Complies with drug therapy cholecalciferol 0.05 mg oral tablet (20 sources) Vitamin D Start: 04-22-2023 take 1 tablet by mouth once daily Cholecalciferol (Vitamin D3) 50 mcg (2,000 unit) tablet Active 100 ug PO DAILY April 22, 2023 1:00am Complies with drug therapy Start: 04-22-2023 cholecalcifero l (VITAMIN D3) 50 mcg (2,000 unit) tablet 06/16/2023 Active Cholecalciferol (VITAMIN D) 50 MCG (2000 UT) CAPS Take by mouth 0 Active clonazePAM 1 mg oral tablet (19 sources) Benzodiazepine Start: 11-02-2024 take 1 tablet by mouth at bedtime Clonazepam 1 mg tablet Active 1 mg PO AT BEDTIME November 02, 2024 12:00am Complies with drug therapy Start: 04-14-2024 take 0.25 mg by mout h twice daily Clonazepam 0.5 mg tablet Active 0.25 mg PO TWICE A DAY April 14, 2024 1:00am Complies with drug therapy Start: 04-14-2024 take 1 tablet by cait th twice daily 30 minutes before bedtime Clonazepam 0.5 mg tablet Active 0.5 mg PO TWICE A DAY April 14, 2024 1:00am administer 30 minutes before bedtime Complies with drug therapy ammonium lactate 120 mg/ml topical cream (20 sources) Start: 04-22-2023 Ammonium Lacta te 12 % cream Active 1 NMA TOPICAL AT BEDTIME April 22, 2023 1:00am Complies with drug therapy Start: 04-22-2023 Ammonium Lacta te Active 1 APPLIC TOPICAL AT BEDTIME April 22, 2023 1:00am Start: 04-24-2019 End: 04-21-2020 Ammonium Lactate 385 GM crea m Discontinued 1 NMA TOPICAL AT BEDTIME April 24, 2019 1:00am April 21, 2020 2:15pm Start: 04-24-2019 End: 04-21-2020 Ammonium Lactate Discontinue d 1 APPLIC TOPICAL AT BEDTIME April 24, 2019 1:00am April 21, 2020 2:15pm AMMONIUM LACTATE TOPICAL Apply to affected area. Active AMMONIUM LACTATE TOPICAL Apply to affected area. 0 Active AMMONIUM LACTATE EX Apply to affected area 0 Active Comment on above: Apply to affected ar ea. levonorgestrel 0.210098 mg/hr intrauterine system (8 sources) Progestin, Progestin-containing Intrauterine Device Start: 10-29-2023 levonorgestrel (KYLEENA) 17.5 mcg/24 hr (5 yrs) 19.5 mg IUD 1 Each by INTRAUTERINE route as directed. 1 Each 10/29/2023 Active Start: 10-13-2018 End: 10-13-2023 levonorgestrel (KISHA) 14 mc g/24 hrs (3 yrs) 13.5 mg IUD IUD 1 Each by INTRAUTERINE route as directed. 0 10/13/2018 10/13/2023 Discontinued Levonorgestrel 1 3.5 MG IUD by Intrauterine route 0 Active Comment on above: 1 Each by INTRAUTERI NE route as directed. melatonin 5 mg oral tablet (20 sources) Start: 02-28-2018 melatonin 5 mg tablet 5 mg. 02/28/2018 Active Start: 02-28-2018 take 2 tablets by mo uth at bedtime Melatonin 5 MG tablet Active 10 mg PO AT BEDTIME February 28, 2018 1:00am Sleep Complies with drug therapy Start: 02-28-2018 take 3 mg by mouth at bedtime Melatonin Active 3 MG PO AT BEDTIME February 28, 2018 1:00am Comment on above: 5 mg. nitrofurantoin, macrocrystals 25 mg / nitrofurantoin, monohydrate 75 mg oral capsule (1 source) Nitrofuran Antibacterial Start: 07-16-19 End: 07-26-19 take 1 capsule by mouth twice daily nitrofurantoin monohydrate and macrocrystal (MACROBID) 100 mg capsule Take 1 capsule by mouth two times a day for 10 days. 20 capsule 0 07/16/2023 07/26/2023 Active Comment on above: Take 1 capsule by mo uth two times a day for 10 days. nystatin 100 unt/mg topical powder (7 sources) Polyene Antifungal Start: 05-13-19 NYAMYC powder 05/13/2023 Active omeprazole 20 mg delayed release oral capsule (20 sources) Proton Pump Inhibitor Start: 04-08-19 take 1 capsule by mouth once daily Omeprazole 20 MG capsule Active 20 mg PO DAILY April 08, 2019 1:00am Complies with drug therapy Omeprazole Magne sium (PRILOSEC OTC) 20 mg tablet Take 20 mg by mouth. Active Comment on above: Take 20 mg by mouth. pantoprazole 20 mg delayed release oral tablet (7 sources) Proton Pump Inhibitor Start: [address] (PROTONIX) 20 mg tablet 20 mg. 07/29/2015 Active Comment on above: 20 mg. polymyxin b [id number] unt/ml / trimethoprim 1 mg/ml ophthalmic solution (2 sources) Dihydrofolate Reductase Inhibitor Antibacterial, Polymyxin-class Antibacterial Start: End: take 1 drop(s) into the eye(s) every four hours trimethoprim-polymyx in (POLYTRIM) 10,000 unit- 1 mg/mL ophthalmic solution Indications: Blepharitis of left upper eyelid, unspecified type Use 1 Drop in the left eye every 4 hours for 7 days. 10 mL 02/09/2024 02/16/2024 Active Start: 06-23-2023 End: 06-30-2023 take 1 drop(s) into the eye(s) every four hours trimethoprim-polymyxin (POLYTRIM) 10,000 unit- 1 mg/mL ophthalmic solution Indications: [place] eye disease of both eyes Use 1 Drop in both eyes every 4 hours for 7 days. 10 mL 0 06/23/2023 06/30/2023 Active Comment on above: Use 1 Drop in both e yes every 4 hours for 7 days. QUEtiapine 50 mg oral tablet (7 sources) Atypical Antipsychotic Start: 06-16-2023 QUEtiapine (SEROQUEL) 50 mg tablet 06/16/2023 Active sodium fluoride 0.011 mg/mg toothpaste (7 sources) sodium fluoride (SODIUM FLUORIDE 5000 PLUS) 1.1 % dental cream by DENTAL route. Active Comment on above: by DENTAL route. topiramate 100 mg oral tablet (20 sources) Start: 07-29-2015 Topiramate 100 MG tablet Active 150 mg PO TWICE A DAY July 29, 2015 12:00am Complies with drug therapy Start: 07-29-2015 take 150 mg by mouth twice robin ly Topiramate Active 150 MG PO TWICE A DAY July 29, 2015 12:00am Start: 07-29-2015 take 25 mg by mouth twice kelsea y Topiramate Active 25 MG PO TWICE A DAY July 29, 2015 12:00am Start: 03-15-2012 End: 10-13-2023 take 1 tablet by mouth twice daily topiramate (TOPAMAX) 25 mg tablet Take 1 tablet by mouth two times a day. takes w/ 100 mg to make 125 mg bid 10/13/2023 Active Start: 03-15-2012 take 1 tablet by cait th twice daily topiramate (TOPAMAX) 100 mg tablet Take 100 mg by mouth two times a day. 03/15/2012 Active Comment on above: Take 100 mg by mouth two times a day. Take 25 mg by mouth. triamcinolone acetonide 0.001 mg/mg topical ointment (7 sources) Corticosteroid Start: 06-17-2023 triamcinolone acetonide (KENALOG) 0.1 % ointment 06/17/2023 Active valACYclovir 1000 mg oral tablet (19 sources) Herpesvirus Nucleoside Analog DNA Polymerase Inhibitor, Herpes Simplex Virus Nucleoside Analog DNA Polymerase Inhibitor, Herpes Zoster Virus Nucleoside Analog DNA Polymerase Inhibitor Start: 06-17-2023 valACYclovir (VALTREX) 1 gram tablet 06/17/2023 Active Start: 04-22-2023 End: 11-02-2024 Valacyclovir 1 gram tablet Discontinued 2000 mg PO TWICE A DAY as needed for MOUTH SORE April 22, 2023 1:00am November 02, 2024 4:39pm Start: 04-22-2023 take 2000 mg by mout h twice daily Valacyclovir Active 2000 MG PO TWICE A DAY April 22, 2023 1:00am Completed/Discontinued Medications Medication Drug Class(es) Dates Sig (Normalized) Sig (Original) [id number] 200 actuat albuterol 0.09 mg/actuat metered dose inhaler (13 sources) beta2-Adrenergic Agonist Start: 10-28-2020 End: 10-25-2023 Albuterol Sulfate (Ventolin Hfa) 1 INHALER inhaler Discontinued 2 NMA INHALATION EVERY 4 HOURS NEEDED as needed for Wheezing 1 0 October 28, 2020 12:00am October 25, 2023 2:35pm Dispense with spacer Start: 10-28-2020 take 1 puff(s) by in halation every four hours as needed Albuterol Sulfate (Ventolin Hfa) 1 INHALER inhaler Active 2 PUFF INHALATION EVERY 4 HOURS NEEDED October 28, 2020 12:00am Dispense with spacer amoxicillin 875 mg / clavulanate 125 mg oral tablet (13 sources) Penicillin-class Antibacterial Start: 10-05-2024 End: 10-15-2024 Amoxicillin-Pot Clavulanate 875-125 mg tablet Discontinued 1 {tbl} PO Q12H 20 10 0 October 05, 2024 1:37pm October 14, 2024 12:00am October 15, 2024 12:07am Acute sinusitis, unspecified citalopram 20 mg oral tablet (17 sources) Serotonin Reuptake Inhibitor Start: 07-29-2015 End: 10-25-2023 take 2 tablets by mouth once daily Citalopram 20 MG tablet Discontinued 40 mg PO DAILY July 29, 2015 12:00am October 25, 2023 2:35pm Start: 07-29-2015 take 40 mg by mouth once daily Citalopram Active 40 MG PO DAILY July 29, 2015 12:00am Comment on above: Take 40 mg by mouth. dextromethorphan hydrobromide 15 mg / guaiFENesin 400 mg / pseudoephedrine hydrochloride 60 mg oral tablet (8 sources) alpha-Adrenergic Agonist, Uncompetitive U-zmolof-V-aspartate Receptor Antagonist, Sigma-1 Agonist Start: End: take 4 tablets by mouth every twenty-four hours as needed Pseudoephedrine-Dm- Guaifenesin (Capmist Dm) 60-15-400 mg tablet Discontinued 1 {tbl} PO EVERY 4-6 HOURS as needed for cold symptoms April 13, 2024 1:00am April 14, 2024 2:55am do not exceed 4 doses per 24 hrs doxycycline monohydrate 100 mg oral capsule (13 sources) Tetracycline-class Drug Start: 021 End: take 1 capsule by mouth twice daily Doxycycline Monohydrate 100 MG capsule Discontinued 100 mg PO TWICE A DAY October 28, 2020 12:00am March 08, 2021 2:36pm FLUoxetine 20 mg oral capsule (2 sources) Serotonin Reuptake Inhibitor End: FLUoxetine (PROZAC) 20 MG capsule Take by mouth 0 05/05/2023 Discontinued hydrocortisone acetate 10 mg/ml / pramoxine hydrochloride 10 mg/ml rectal foam (13 sources) Corticosteroid Start: End: Hydrocortisone-Pram oxine 10 GM foam Discontinued 10 g RC DAILY as needed for Rectal Discomfort 1 April 24, 2019 6:36pm April 21, 2020 2:15pm ipratropium bromide 0.021 mg/actuat metered dose nasal spray (9 sources) Anticholinergic Start: End: Ipratropium [place] 21 mcg (0.03 %) spray,non-aerosol Discontinued 2 NMA INTRANASAL 2 to 3 times per day as needed for postnasal drainage 30 October 05, 2024 1:16pm October 05, 2024 1:37pm administer into each nostril Ipratropium [place] 21 mcg (0.03 %) spray,non-aerosol (4 sources) Start: End: Ipratropium [place] 21 mcg (0.03 %) spray,non-aerosol Discontinued 2 NMA INTRANASAL 2 to 3 times per day as needed for postnasal drainage 30 October 05, 2024 12:00am October 05, 2024 1:16pm administer into each nostril Start: 10-05-2024 Ipratropium Br omide 21 mcg (0.03 %) spray,non-aerosol Active 2 NMA INTRANASAL 2 to 3 times per day as needed for postnasal drainage 30 October 05, 2024 12:00am administer into each nostril LORazepam 1 mg oral tablet (20 sources) Benzodiazepine Start: 04-22-2023 End: 04-14-2024 take 1 tablet by mouth once daily Lorazepam 1 mg tablet Discontinued 1 mg PO DAILY April 22, 2023 1:00am April 14, 2024 2:55am 3pm Start: 10-11-2018 End: 04-21-2020 Lorazepam 1 MG tablet Discon tinued 1 mg PO 1600 October 11, 2018 12:00am April 21, 2020 2:14pm Start: 07-29-2015 End: 04-14-2024 take 1 tablet by mouth twice daily Lorazepam 0.5 MG tablet Discontinued 0.5 mg PO TWICE A DAY July 29, 2015 12:00am April 14, 2024 2:55am LORazepam (ATIVA N) 1 mg tablet Take 0.5 mg by mouth. Active Comment on above: 0.5 mg. Take 0.5 mg by mouth . Multivitamin (One Daily Multivitamin) tablet (13 sources) Start: 04-21-2020 End: 10-25-2023 take 1 tablet by mouth once daily Multivitamin (One Daily Multivitamin) tablet Discontinued 1 {tbl} PO DAILY April 21, 2020 1:00am October 25, 2023 2:36pm Start: 04-21-2020 take 1 tablet by cait th once daily Multivitamin (One Daily Multivitamin) tablet Active 1 TABLET PO DAILY April 21, 2020 12:00am Start: 04-21-2020 take 1 tablet by cait th once daily Multivitamin (One Daily Multivitamin) tablet Active 1 TABLET PO DAILY April 21, 2020 1:00am mupirocin 0.02 mg/mg topical ointment (13 sources) RNA Synthetase Inhibitor Antibacterial Start: 04-21-2020 End: 04-28-2020 Mupirocin 2 % ointment Discontinued 1 NMA TOPICAL THREE TIMES A DAY 22 7 0 April 21, 2020 1:00am April 27, 2020 1:00am April 28, 2020 1:03am ondansetron 4 mg oral tablet (13 sources) Serotonin-3 Receptor Antagonist Start: 03-08-2021 End: 10-25-2023 take 1 tablet by mouth every eight hours as needed for nausea and vomiting Ondansetron Hcl (Zofran) 4 mg tablet Discontinued 4 mg PO Q8H as needed for nausea and vomiting 9 0 March 08, 2021 1:00am October 25, 2023 2:36pm 24 hr paliperidone 9 mg extended release oral tablet (20 sources) Atypical Antipsychotic Start: 06-16-2023 End: 10-13-2023 paliperidone ER (INVEGA) 9 mg 24 hr tablet Start: 04-22-2023 End: 11-02-2024 take 1 tablet by mouth every twenty-four hours Paliperidone 3 mg tablet extended release 24hr Discontinued 3 mg PO Q24H April 22, 2023 1:00am November 02, 2024 4:40pm Start: 04-22-2023 take 12 mg by mouth every twenty-four hours Paliperidone Active 12 MG PO Q24H April 22, 2023 1:00am Comment on above: Take by mouth as dir ected. predniSONE 20 mg oral tablet (8 sources) Start: 04-17-2024 End: 10-05-2024 Prednisone 20 mg Tablet Discontinued 0 mg PO WITH BREAKFAST Taper: Frequency: BREAKFAST Days: 3 Hours: 0 Dose: 60 Frequency: BREAKFAST Days: 3 Hours: 0 Dose: 50 Frequency: BREAKFAST Days: 3 Hours: 0 Dose: 40 Frequency: BREAKFAST Days: 3 Hours: 0 Dose: 30 Frequency: BREAKFAST Days: 3 Hours: 0 Dose: 20 Frequency: BREAKFAST Days: 3 Hours: 0 Dose: 10 32 0 April 17, 2024 1:00am October 05, 2024 12:30pm Please contact the information source for Taper Schedule details. Start: 04-17-2024 End: 10-05-2024 Prednisone 20 mg Tablet Disc ontinued 0 mg PO WITH BREAKFAST 32 0 April 17, 2024 1:00am October 05, 2024 12:30pm Please contact the information source for Taper Schedule details. risperiDONE 4 mg oral tablet (19 sources) Atypical Antipsychotic Start: 07-29-2015 End: 10-25-2023 take 0.5 mg by mouth twice daily Risperidone 4 MG tablet Discontinued 0.5 mg PO TWICE A DAY July 29, 2015 12:00am October 25, 2023 2:37pm Start: 07-29-2015 take 0.5 mg by mouth twice daily Risperidone Active 0.5 MG PO TWICE A DAY July 29, 2015 12:00am End: 10-13-2023 risperiDONE (RISPERDAL) 1 mg tablet Take 1 mg by mouth. 0 10/13/2023 Discontinued Comment on above: Take 1 mg by mouth. traZODone hydrochloride 100 mg oral tablet (19 sources) Serotonin Reuptake Inhibitor Start: 04-22-2023 End: 11-02-2024 Trazodone 100 mg tablet Discontinued 150 mg PO AT BEDTIME April 22, 2023 1:00am November 02, 2024 4:39pm Start: 04-22-2023 traZODone (FREDRICK YREL) 100 mg tablet 06/16/2023 Active zolpidem tartrate 5 mg oral tablet (8 sources) gamma-Aminobutyric Acid-ergic Agonist Start: 10-25-2023 End: 04-14-2024 Zolpidem (Ambien) 5 mg tablet Discontinued 5 mg PO AT BEDTIME October 25, 2023 12:00am April 14, 2024 2:55am may repeat once if no response in 30-60 minutes Problems Active Problems Problem Classification Problem Date Documented Da te Episodic/Chronic Cardiac and circulatory congenital anomalies (3 sources) Tetralogy of Fallot; 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] Onset: 12-28-2013 05-15-2021 Chronic Cardiac and circulatory congenital anomalies (2 sources) History of repair of tetralogy of Fallot; Translations: [Personal history of (corrected) congenital malformations of heart and circulatory system] Episodic Coagulation and hemorrhagic disorders (1 source) Thrombocytopenia, unspecified; Translations: [Thrombocytopenia, unspecified] Onset: 08-01-2024 Chronic Contraceptive and procreative management (20 sources) Contraception status; Translations: [Encounter for removal and reinsertion of intrauterine contraceptive device] Onset: 09-28-2018 10-03-2018 Episodic Disorders of teeth and jaw (13 sources) Toothache; Translations: [Other specified disorders of teeth and supporting structures] 04-09-2019 Episodic Epilepsy; convulsions (16 sources) Seizure disorder; Translations: [Epilepsy, unspecified, not intractable, without status epilepticus] Onset: 10-27-2011 10-27-2011 Chronic Fever of unknown origin (8 sources) Fever; Translations: [Fever, unspecified] 04-14-2024 Episodic Gastrointestinal hemorrhage (20 sources) Rectal hemorrhage; Translations: [Hemorrhage of anus and rectum] Onset: 11-10-2024 04-25-2019 Episodic Genitourinary symptoms and ill-defined conditions (10 sources) Blood in urine; Translations: [Hematuria, unspecified] Onset: 03-24-2024 02-29-2024 Episodic Heart valve disorders (4 sources) History of pulmonary valve replacement; 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] Onset: 12-28-2013 Chronic Immunizations and screening for infectious disease (20 sources) Contact with or exposure to other viral diseases; Translations: [Exposure to COVID-19 virus] 01-01-2021 Episodic Inflammation; infection of eye (except that caused by tuberculosis or sexually transmitteddisease) (2 sources) Conjunctivitis; Translations: [Other mucopurulent conjunctivitis, bilateral] 06-23-2023 Episodic Malaise and fatigue (3 sources) Fatigue; Translations: [Other fatigue] Onset: 01-08-2025 01-08-2025 Episodic Menstrual disorders (20 sources) Menorrhagia; Translations: [Excessive and frequent menstruation with regular cycle] Onset: 09-28-2018 10-03-2018 Chronic Other congenital anomalies (20 sources) Anomaly of chromosome pair 21; 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, unspecified] Onset: 09-28-2018 10-27-2011 Chronic Other female genital disorders (1 source) Abnormal uterine bleeding; Translations: [Abnormal uterine and vaginal bleeding, unspecified] 10-13-2023 Chronic Other lower respiratory disease (10 sources) Hypoxia; Translations: [Hypoxemia] 04-14-2024 Episodic Other lower respiratory disease (3 sources) Hemoptysis; Translations: [Hemoptysis] 11-02-2024 Episodic Other nutritional; endocrine; and metabolic disorders (12 sources) Dietary intake finding; Translations: [Other symptoms and signs concerning food and fluid intake] 04-22-2023 Episodic Other screening for suspected conditions (not mental disorders or infectious disease) (8 sources) Cancer cervix screening status; Translations: [Encounter for screening for malignant neoplasm of cervix] 10-29-2023 Episodic Pneumonia (except that caused by tuberculosis or sexually transmitted disease) (13 sources) Pneumonia; Translations: [Pneumonia, unspecified organism] 10-28-2020 Episodic Respiratory failure; insufficiency; arrest (adult) (8 sources) Acute respiratory failure; Translations: [Acute respiratory failure with hypoxia] 04-14-2024 Episodic Schizophrenia and other psychotic disorders (1 source) Unspecified psychosis not due to a substance or known physiological condition; Translations: [Unspecified psychosis not due to a substance or known physiological condition] Onset: 11-16-2024 Chronic Skin and subcutaneous tissue infections (13 sources) Cellulitis of elbow; Translations: [Cellulitis of left upper limb] 05-14-2019 Episodic Unclassified (2 sources) Urinalysis requested 01-08-2025 Unclassified (1 source) Cough, unspecified; Translations: [Cough, unspecified] Onset: 10-12-2024 Past or Other Problems Problem Classification Problem Date Documented Da te Episodic/Chronic Other lower respiratory disease (1 source) Hypoxemia; Translations: [Hypoxemia] Onset: 04-17-2024 Episodic Other upper respiratory infections (20 sources) Viral upper respiratory tract infection; Translations: [Acute upper respiratory infection, unspecified] Onset: 04-14-2024 03-08-2021 Episodic Viral infection (11 sources) Respiratory syncytial virus infection; Translations: [Other specified viral diseases] Onset: 04-17-2024 04-14-2024 Episodic Results Test Name Value Interpretation Reference Range Facility Urine Cultureon 01-11-2025 [facility] Order Date: 01/09/25 Order Info: 630-4 - [facility] Mixed Gram Positive Organisms Otho Count 11,000-25,000 MIXC Mixed contaminants. Submit a new specimen if indicated. Normal [facility] Comment on above: Performed By: #### L 500.4050, L100.0100 #### [facility] [address] [place], [address] Urinalysis, Completeon 01-09 CA OX CRYSTAL RARE Normal [facility] Comment on above: Order Comment: Order Date: 01/09/25Order Info: [id number] - UACCOLLECTOR TO SPECIFY Performed By: #### L 500.4050, L100.0100 #### [facility] [address] [place], [address] EPI,SQUAMOUS 0-5 SEEN Normal 5-10 [facility] Comment on above: Order Comment: Order Date: 01/09/25Order Info: [id number] - UACCOLLECTOR TO SPECIFY Performed By: #### L 500.4050, L100.0100 #### [facility] [address] [place], [address] WBC 0-5 SEEN Normal 0-5 [facility] Comment on above: Order Comment: Order Date: 01/09/25Order Info: [id number] - UACCOLLECTOR TO SPECIFY Performed By: #### L 500.4050, L100.0100 #### [facility] [address] [place], [address] BACTERIA 0 SEEN Normal None Seen [facility] Comment on above: Order Comment: Order Date: 01/09/25Order Info: [id number] - UACCOLLECTOR TO SPECIFY Performed By: #### L 500.4050, L100.0100 #### [facility] [address] [place], [address] Mucus Ql (Urine sed) 0 SEEN Normal [facility] Comment on above: Order Comment: Order Date: 01/09/25Order Info: [id number] - UACCOLLECTOR TO SPECIFY Performed By: #### L 500.4050, L100.0100 #### [facility] [address] [place], [address] RBC 0 SEEN Normal 0-5 [facility] Comment on above: Order Comment: Order Date: 01/09/25Order Info: [id number] - UACCOLLECTOR TO SPECIFY Performed By: #### L 500.4050, L100.0100 #### [facility] [address] [place], [address] Urgent Care Visit Reporton 1 Urgent Care Visit Report [facility] [address], [address] [place] [address] OFFICE VISIT Date of Service: 01/08/25 MR#: [id number] Acct: [id number] Name: LIA WALTERS Rep #: [id number] : 1990 Provider: JEREMY Morrison Age/Sex: 34/F Location[facility] Status: Signed Intake Vital Signs 11/02/24 16:23 01/08/25 11:58 Height 4 ft 8 in BP 110/62 Position Sitting Respiration 16 Pulse 51 L Temp 97.5 F L Temp Source Temporal Pulse Oximetry (%) 99 Oxygen Delivery Method room air Intake Visit Reasons: CONCERN FOR UTI Chief Complaint: UTI Accompanied by: Caregiver Allergies adhesive tape Adverse Reaction (Intermediate, Verified 01/08/25 12:07) Skin redness Medications ???Medication ???Instructions ???Recorded ???Confirmed ???Type topiramate 100 mg tablet 150 mg PO BID 07/29/15 01/08/25 Hi story melatonin 5 mg tablet 10 mg PO QHS Sleep 02/28/18 History omeprazole 20 mg capsule,delayed 20 mg PO DAILY 04/08/19 01/08/25 H istory release acetaminophen 500 mg tablet 1,000 mg (2 x 500 mg) PO Q6H PRN 0 10/28/20 01/08/25 Rx (Tylenol Extra Strength) fever or pain #60 tabs ammonium lactate 12 % topical cream 1 applic topical QHS 04/22/23 1 History cholecalciferol (vitamin D3) 50 100 mcg PO DAILY 04/22/23 01/08/25 History mcg (2,000 unit) tablet cariprazine 3 mg capsule (Vraylar) 3 mg PO DAILY 10/25/23 01/08/25 History clonazepam 0.5 mg tablet 0.25 mg PO BID 04/14/24 01/08/25 H istory clonazepam 0.5 mg tablet 0.5 mg PO BID 04/14/24 01/08/25 Hi story ipratropium 0.5 mg-albuterol 3 mg 3 ml inhalation Q4HWA.RT 30 days 04/17/24 01/08/25 Rx (2.5 mg base)/3 mL nebulization #180 mL soln ipratropium bromide 21 mcg (0.03 2 spray intranasal BID-TID PRN 06/2701/08/25 Rx %) nasal spray postnasal drainage #30 mL clonazepam 1 mg tablet 1 mg PO QHS 11/02/24 01/08/25 Hist ory Nurse's Note: Patient here for concerns for a UTI. Patient caregiver states that she is lethargic and is unstable on her feet. Patient also has low energy. Patient caregiver states that she has a cough and has been getting the hiccups. This has been going on since Wednesday. Patient has the hicciups now for about 15-20 mins. Patient caregiver states she seems to have slown down this summer. [facility] Medical History (Updated 01/08/25 @ 16:10 by Jesu LUNA, PA) Urinalysis requested Fatigue Gastric reflux Non-smoker Sleep apnea Shortness of breath on exertion History of echocardiogram Cardiology follow-up encounter Lab test negative for COVID-19 virus Fallot tetralogy GERD (gastroesophageal reflux disease) Down syndrome Seizures Heart disease Surgical History Hx of tonsillectomy Hx of eye surgery History of open heart surgery Hx of surgical procedure Social History Smoking Status: Never smoker alcohol intake: never HPI HPI Chief Complaint: UTI Details: LIA WALTERS, is a 34 F who presents to the office today for initial evaluation at the [facility] for - patient's caregiver states that Lia has expressed very little energy and is unstable on her feet when walking particularly over the last 3 days, and would like her screening for urinary tract infection (though no complaints of dysuria or urinary frequency or back pain or fever/chills appreciated). Patient's caregiver also states that she has an occasional cough and has been getting the hiccups, though noting overall Lia has slown down over the last several months. No complaints of fever, chills, sweats, shortness of breath/dyspnea on exertion and no changes in urine output routines as far as caregiver is aware; patient otherwise is a poor historian with history of MRDD. No sgul-kyv-inokhlw medications taken to assist. No close contacts with similar complaints as far as caregiver is aware. No other associated symptoms and no other alleviating/aggrava ting factors. ROS Const Constitutional: No other (As above) Exam Const General: cooperative, healthy appearing and no acute distress Orientation: alert and awake [facility] Head: normal to inspection Ears: external ears normal, TM's normal bilaterally and EAC's normal Nose: external nose normal, nares normal, septum normal and no nasal discharge Face and sinus: normal facial exam, sinuses nontender and face symmetric Mouth: oral mucosae normal, lip normal, oropharynx normal and moist mucous membranes Throat: posterior oropharynx normal, uvula midline and no postnasal drainage Eyes General: appearance normal, both eyes and all related structures Neck Neck: normal visual inspection, no lymphadenopathy, no meningeal signs and supple Chest Chest (more content not included)... Normal [facility] Anion gap in Serum or Plasma Ordered By: Guy Morrissey on 11-09-2024 Anion gap [Moles/Vol] 9 mmol/L 5-15 [facility] BUN/creatinine ratioOrdered By: Guy Morrissey on 11-09-2024 Urea nitrogen/Creatinine [Mass ratio] 23.2 mg/mg High 10-20 [facility] Bilirubin, totalOrdered By: Guy Morrissey on 11-09-2024 Bilirubin [Mass/Vol] 0.28 mg/dL 0.00-1.30 [facility] CBC-Complete Blood Cnt No Di ffon 11-09-2024 Hematocrit (Bld) [Volume fraction] 59.8 % High 37-47 [facility] Comment on above: Order Comment: CRITI MEAGAN VALUE CALLED TO [facility]11/09/24 1054 Judi Grossman.RESULTS READ BACK BY SAME. Performed By: #### L 500.4050, L100.0100 #### [facility] [address] [place], [place], [id number] (075) Erythrocyte distribution width (RBC) [Ratio] 13.7 % Normal 11.6-14.6 [facility] Comment on above: Order Comment: CRITI MEAGAN VALUE CALLED TO [facility]11/09/24 1054 Judi Grossman.RESULTS READ BACK BY SAME. Performed By: #### L 500.4050, L100.0100 #### [facility] [address] [place], [address] Hemoglobin (Bld) [Mass/Vol] 19.7 g/dL Invalid Interpretation Code 12.0-15.0 [facility] Comment on above: Order Comment: CRITI MEAGAN VALUE CALLED TO [facility] CEGDFI19/07/25 1054 Judi Grossman.RESULTS READ BACK BY SAME. Performed By: #### L 500.4050, L100.0100 #### [facility] [address] [place], [address] MCH (RBC) [Entitic mass] 33.1 pg High 27.0-32.0 [facility] Comment on above: Order Comment: CRITI MEAGAN VALUE CALLED TO [facility] ACCGWT22/07/25 1054 Judi Grossman.RESULTS READ BACK BY SAME. Performed By: #### L 500.4050, L100.0100 #### [facility] [address] [place], [address] MCHC (RBC) [Mass/Vol] 32.9 g/dL Normal 32-36 [facility] Comment on above: Order Comment: CRITI MEAGAN VALUE CALLED TO [facility] IONHPD70/07/25 1054 Judi Chauncey.RESULTS READ BACK BY SAME. Performed By: #### L 500.4050, L100.0100 #### [facility] [address] [place], [address] MCV (RBC) [Entitic vol] 100.5 fL High 81-99 [facility] Comment on above: Order Comment: CRITI MEAGAN VALUE CALLED TO [facility] UDSXWA74/07/25 1054 Judi Grossman.RESULTS READ BACK BY SAME. Performed By: #### L 500.4050, L100.0100 #### [facility] [address] [place], [address] Platelet mean volume (Bld) [Entitic vol] 10.7 fL Normal 6.2-12.0 [facility] Comment on above: Order Comment: CRITI MEAGAN VALUE CALLED TO [facility] TXODIQ21/07/25 1054 Judi Grossman.RESULTS READ BACK BY SAME. Performed By: #### L 500.4050, L100.0100 #### [facility] [address] [place], [address] Platelets (Bld) [#/Vol] 125 10*3/uL Low 150-450 [facility] Comment on above: Order Comment: CRITI MEAGAN VALUE CALLED TO [facility]11/09/24 1054 Judi Chauncey.RESULTS READ BACK BY SAME. Performed By: #### L 500.4050, L100.0100 #### [facility] [address] [place], [address] RBC (Bld) [#/Vol] 5.95 10*6/uL High 4.2-5.4 [facility] Comment on above: Order Comment: CRITI MEAGAN VALUE CALLED TO [facility]11/09/24 1054 Judiritchie Grossman.RESULTS READ BACK BY SAME. Performed By: #### L 500.4050, L100.0100 #### [facility] [address] [place], [address] RDW SD 51.1 fl High 35.1-43.9 [facility] Comment on above: Order Comment: CRITI MEAGAN VALUE CALLED TO [facility] HHPSHU78/07/25 1054 Judiritchie Grossman.RESULTS READ BACK BY SAME. Performed By: #### L 500.4050, L100.0100 #### [facility] [address] [place], [address] WBC (Bld) [#/Vol] 6.9 10*3/uL Normal 4.4-11.0 [facility] Comment on above: Order Comment: CRITI MEAGAN VALUE CALLED TO [facility]11/09/24 1054 Judi Grossman.RESULTS READ BACK BY SAME. Performed By: #### L 500.4050, L100.0100 #### [facility] [address] [place], [address] Carbon dioxide, total [Moles /volume] in Central venous bloodOrdered By: Guy Morrissey on 11-09-2024 CO2 [Moles/Vol] 25.9 mmol/L 21.0-32.0 [facility] Chloride assayOrdered By: Amie Morrissey on 11-09-2024 Chloride [Moles/Vol] 107 mmol/L 98-108 [facility] Comprehensive Metabolic Prof ilon 11-09-2024 Albumin [Mass/Vol] 3.7 g/dL Normal 3.5-5.0 [facility] Comment on above: Performed By: #### L 500.4050, L100.0100 #### [facility] [address] [place], [address] Albumin/Globulin [Mass ratio] 1.3 {ratio} Normal 0.9-2.4 [facility] Comment on above: Performed By: #### L 500.4050, L100.0100 #### [facility] [address] [place], [address] ALK PHOS 113 U/L High 35-104 [facility] Comment on above: Performed By: #### L 500.4050, L100.0100 #### [facility] [address] [place], [address] ALT [Catalytic activity/Vol] 18 U/L Normal <=34 [facility] Comment on above: Performed By: #### L 500.4050, L100.0100 #### [facility] [address] [place], [address] AST [Catalytic activity/Vol] 31 U/L Normal <=31 [facility] Comment on above: Performed By: #### L 500.4050, L100.0100 #### [facility] [address] [place], [address] Bilirubin [Mass/Vol] 0.28 mg/dL Normal 0.00-1.30 [facility] Comment on above: Performed By: #### L 500.4050, L100.0100 #### [facility] [address] [place], [address] BUN/CRE 23.2 RATIO High 10-20 [facility] Comment on above: Performed By: #### L 500.4050, L100.0100 #### [facility] [address] [place], [address] Calcium [Mass/Vol] 8.5 mg/dL Normal 7.6-11.0 [facility] Comment on above: Performed By: #### L 500.4050, L100.0100 #### [facility] [address] [place], [address] Chloride [Moles/Vol] 107 mmol/L Normal 98-108 [facility] Comment on above: Performed By: #### L 500.4050, L100.0100 #### [facility] [address] [place], [address] CO2 [Moles/Vol] 25.9 mmol/L Normal 21.0-32.0 [facility] Comment on above: Performed By: #### L 500.4050, L100.0100 #### [facility] [address] [place], [address] Creatinine [Mass/Vol] 1.10 mg/dL Normal 0.70-1.20 [facility] Comment on above: Performed By: #### L 500.4050, L100.0100 #### [facility] [address] [place], [address] GAP 9 Normal 5-15 [facility] Comment on above: Performed By: #### L 500.4050, L100.0100 #### [facility] [address] [place], [address] GFR/1.73 sq M.predicted among non-blacks MDRD (S/P/Bld) [Vol rate/Area] 68 mL/min/{1.73_m2} Normal >60 [facility] Comment on above: Result Comment: mL/m in/1.73m2 CKD-EPI Creatinine Equation (2020) Performed By: #### L 500.4050, L100.0100 #### [facility] [address] [place], [address] Globulin (S) [Mass/Vol] 2.9 g/dL Normal 2.2-4.2 [facility] Comment on above: Performed By: #### L 500.4050, L100.0100 #### [facility] [address] [place], [address] Glucose [Mass/Vol] 90 mg/dL Normal 70-99 [facility] Comment on above: Performed By: #### L 500.4050, L100.0100 #### [facility] [address] [place], [address] Potassium [Moles/Vol] 4.1 mmol/L Normal 3.3-5.1 [facility] Comment on above: Performed By: #### L 500.4050, L100.0100 #### [facility] [address] [place], [address] Sodium [Moles/Vol] 143 mmol/L Normal 133-145 [facility] Comment on above: Performed By: #### L 500.4050, L100.0100 #### [facility] [address] [place], [address] T PROT 6.7 g/dL Normal 5.9-8.4 [facility] Comment on above: Performed By: #### L 500.4050, L100.0100 #### [facility] [address] [place], [address] Urea nitrogen [Mass/Vol] 26 mg/dL High 4-19 [facility] Comment on above: Performed By: #### L 500.4050, L100.0100 #### [facility] [address] [place], [address] Erythrocyte distribution wid th ratioOrdered By: Guy Morrissey on 11-09-2024 Erythrocyte distribution width (RBC) [Ratio] 13.7 % 11.6-14.6 [facility] Erythrocyte distribution wid th standard deviationOrdered By: Guy Morrissey on 11-09-2024 Erythrocyte distribution width (RBC) [Ratio] 51.1 fl High 35.1-43.9 [facility] Glomerular filtration rate ( GFR) estimation/1.73 sq m using serum, plasma, or whole bOrdered By: Guy Morrissey on 11-09-2024 GFR/1.73 sq M.predicted among non-blacks MDRD (S/P/Bld) [Vol rate/Area] 68 mL/min/{1.73_m2} >60 [facility] Comment on above: mL/min/1.73m2 CKD-EP I Creatinine Equation (2020) Hematocrit Auto (Bld) [Volum e fraction]Ordered By: Guy Morrissey on 11-09-2024 Hematocrit (Bld) [Volume fraction] 59.8 % High 37-47 [facility] Hemoglobin measurementOrdere d By: Guy Morrissey on 11-09-2024 Hemoglobin (Bld) [Mass/Vol] 19.7 g/dL Critically high 12.0-15.0 [facility] - Chemistry and C hemistry - challengeOrdered By: Guy Morrissey on 11-09-2024 AST [Catalytic activity/Vol] 31 U/L <32 [facility] MCV (mean corpuscular volume ) determinationOrdered By: Guy Morrissey on 11-09-2024 MCV (RBC) [Entitic vol] 100.5 fL High 81-99 [facility] Mean corpuscular hemoglobin (MCH) determinationOrdered By: Guy Morrissey on 11-09-2024 MCH (RBC) [Entitic mass] 33.1 pg High 27.0-32.0 [facility] Mean corpuscular hemoglobin concentration (MCHC) determinationOrdered By: Guy Morrissey on 11-09-2024 MCHC (RBC) [Mass/Vol] 32.9 g/dL 32-36 [facility] Mean platelet volume determi nationOrdered By: Guy Morrissey on 11-09-2024 Platelet mean volume (Bld) [Entitic vol] 10.7 fL 6.2-12.0 [facility] Platelet countOrdered By: Amie Morrissey on 11-09-2024 Platelets (Bld) [#/Vol] 125 10*3/uL Low 150-450 [facility] Potassium measurement (mass/ volume)Ordered By: Guy Morrissey on 11-09-2024 Potassium (Unsp spec) [Mass/Vol] 4.1 mmol/L 3.3-5.1 [facility] RBC Auto (Bld) [#/Vol]Ordere d By: Guy Morrissey on 11-09-2024 RBC (Bld) [#/Vol] 5.95 10*6/uL High 4.2-5.4 [facility] Serum creatinine measurement (mass/volume)Ordered By: Guy Morrissey on 11-09-2024 Creatinine [Mass/Vol] 1.10 mg/dL 0.70-1.20 [facility] Serum globulin measurementOr dered By: Guy Morrissey on 11-09-2024 Globulin (S) [Mass/Vol] 2.9 g/dL 2.2-4.2 [facility] Serum glucose measurement (m ass/volume)Ordered By: Guy Morrissey on 11-09-2024 Glucose [Mass/Vol] 90 mg/dL 70-99 [facility] Serum or plasma alanine phillips otransferase (ALT) measurementOrdered By: Guy Morrissey on 11-09-2024 ALT [Catalytic activity/Vol] 18 U/L <35 [facility] Serum or plasma albumin vidal urement (mass/volume)Ordered By: Guy Morrissey on 11-09-2024 Albumin [Mass/Vol] 3.7 g/dL 3.5-5.0 [facility] Serum or plasma albumin/glob ulin mass ratioOrdered By: Guy Morrissey on 11-09-2024 Albumin/Globulin [Mass ratio] 1.3 {ratio} 0.9-2.4 [facility] Serum or plasma alkaline shlomo sphatase measurementOrdered By: Guy Morrissey on 11-09-2024 ALP [Catalytic activity/Vol] 113 U/L High 35-104 [facility] Serum or plasma calcium vidal urement (mass/volume)Ordered By: Guy Morrissey on 11-09-2024 Calcium [Mass/Vol] 8.5 mg/dL 7.6-11.0 [facility] Serum or plasma urea nitroge n measurement (mass/volume)Ordered By: Guy Morrissey on 11-09-2024 Urea nitrogen [Mass/Vol] 26 mg/dL High 4-19 [facility] Sodium levelOrdered By: Nithin Morrissey on 11-09-2024 Sodium [Moles/Vol] 143 mmol/L 133-145 [facility] Total proteinOrdered By: Buck Morrissey on 11-09-2024 Protein [Mass/Vol] 6.7 g/dL 5.9-8.4 [facility] White blood cell (WBC) count Ordered By: Guy Morrissey on 11-09-2024 WBC (Bld) [#/Vol] 6.9 10*3/uL 4.4-11.0 [facility] Chest PA and Lateralon 11-02 Chest PA and Lateral [facility] Imaging Services [address] [place] [address] Chest PA and Lateral MR#: [id number] Acct: [id number] Name: LIA WALTERS Rep #: [id number] : 1990 F 34 From: Raj Manrique MD PCP: Dr. Rafy Olsen MD Status: REG ER Study: Chest PA and Lateral Date of Exam: 11/02/24 Exam# [id number] Ordering Dr: Butch Bernard DO PROCEDURE: CHEST PA AND LATERAL 11/02/2024 REASON FOR EXAM: ? HEMOPTYSIS TECHNIQUE: CHEST PA AND LATERAL COMPARISON: 10/05/2024 FINDINGS: Lungs/Pleura: Shallow inspiration. Small-moderate bilateral layering pleural effusions and/or atelectasis. Pulmonary vascular congestion and evidence of interstitial edema. No pneumothorax. Heart/Mediastinum: Cardiomegaly. Bones/Soft tissues: Mild degenerative changes of the spine. Large body habitus. RAD/Chest PA and Lateral IMPRESSION: Shallow inspiration. Cardiomegaly with vascular congestion/intersti tial edema, and probable small- moderate bilateral pleural effusions and/or bibasilar atelectasis. Reading Location: [facility] CC: Dr. Rafy Olsen MD; Dr. Butch Bernard DO Harness Cutter: Signed Normal [facility] Emergency Department Summary on 11-02-2024 Emergency Department Summary [facility] Medical Records Department [address] [place] [address] Emergency Department Summary 11/02/24 MR#: [id number] Acct: [id number] Name: LIA WALTERS Rep #: [id number] : 1990 34 From: Butch Franklin PCP: Dr. Rafy Olsen MD Status:DEP ER Location: ED HPI History of Present Illness Chief Complaint: GI Bleed Informant: other (Caregiver ) Narrative Narrative: Presents from nursing home for evaluation. history of Down syndrome. Patient used the restroom and required help with wiping. Patient leaned over upon standing there noted some blood that came out of her mouth. Patient is had no cough denies injuries denies falls. No blood thinners. Caregiver brought in what she wiped with a towel appeared dark blood sputum. [facility] Medical History Gastric reflux Non-smoker Sleep apnea Shortness of breath on exertion History of echocardiogram Cardiology follow-up encounter Lab test negative for COVID-19 virus Fallot tetralogy GERD (gastroesophageal reflux disease) Down syndrome Seizures Heart disease Home Medications ???Medication ???Instructions ???Recorded ???Last Taken ???Type topiramate 100 mg tablet 150 mg PO BID 07/29/15 10/29/23 Hi story melatonin 5 mg tablet 10 mg PO QHS Sleep 02/28/18 History 5 MG omeprazole 20 mg capsule,delayed 20 mg PO DAILY 04/08/19 10/29/23 H istory release acetaminophen 500 mg tablet 1,000 mg (2 x 500 mg) PO Q6H PRN 0 10/28/20 Unknown Rx (Tylenol Extra Strength) fever or pain #60 tabs ammonium lactate 12 % topical cream 1 applic topical QHS 04/22/23 U nknown History cholecalciferol (vitamin D3) 50 100 mcg PO DAILY 04/22/23 Unknown History mcg (2,000 unit) tablet cariprazine 3 mg capsule (Vraylar) 3 mg PO DAILY 10/25/23 10/29/23 History clonazepam 0.5 mg tablet 0.25 mg PO BID 04/14/24 Unknown Hi story clonazepam 0.5 mg tablet 0.5 mg PO BID 04/14/24 Unknown His tory ipratropium 0.5 mg-albuterol 3 mg 3 ml inhalation Q4HWA.RT 30 days 04/17/24 Unknown Rx (2.5 mg base)/3 mL nebulization #180 mL soln ipratropium bromide 21 mcg (0.03 2 spray intranasal BID-TID PRN 06/27 Unknown Rx %) nasal spray postnasal drainage #30 mL clonazepam 1 mg tablet 1 mg PO QHS 11/02/24 Unknown Histo ry Allergy/AdvReac Type Severity Reaction Status Date / Time adhesive tape AdvReac Intermediate Skin Verified 11/02/24 16:25 redness Surgical History Hx of tonsillectomy Hx of eye surgery History of open heart surgery Hx of surgical procedure Social History Smoking Status: Never smoker alcohol intake: never ROS ROS ED Constitutional Constitutional ED: Denies fever(s) ENT ENT ED: Reports other Details: Blood from mouth. Cardiovascular Cardiovascular: Denies chest pain Respiratory/Chest Respiratory/Chest: Reports other; Denies cough Gastrointestinal Gastrointestinal: Denies diarrhea or vomiting Musculoskeletal Musculoskeletal: Denies none Integumentary Denies rash or wounds Neurologic Neurologic: Denies weakness EXAM Physical Exam Const Vital Signs: 11/02/24 16:23 11/02/24 19:12 11/02/24 19:40 Temperature 97.8 F 97.8 F Temperature Source Oral Pulse Rate 58 L 55 L 56 L Respiratory Rate 18 16 16 Blood Pressure 118/80 106/70 115/73 Blood Pressure Mean 92 82 87 Pulse Ox 98 100 100 Oxygen Delivery Method Room Air Room Air Positive well nourished and well developed General Appearance ED: well developed HEENT Reports TM's clear HEENT Narrative: There is no small crack on the side of her mouth no active bleeding. No tongue lacerations no buccal injuries. No posterior pharyngeal blood noted. No irritations. normocephalic and atraumatic Tympanic Membrane ED: Yes TM's clear Eyes General Eye ED: Yes normal appearance of both eyes Neck full ROM Resp normal respiratory effort and normal air movement Cardio regular rate and regular rhythm GI soft to palpation Extremity normal to inspection and full ROM Neuro oriented x3 Skin no rashes or lesions noted and no wounds MDM MDM MDM Narrative Medical decision making narrative: Interventions / MDM: Differential diagnosis: Possible hemoptysis, history of Down syndrome Diagnosis considered but do not suspect: No clinical PE concerns, no clinical signs of oral trauma. My EKG interpretation: N/A Imaging independently reviewed and interpreted by myself: 2 view chest x-ray: Poor inspiratory. External documents reviewed: N/A Test considered but not ordered:N/A ED course: Presenting with what appears to be dark blood from sputum. Possible hemoptysis. Has b (more content not included)... Normal [facility] Chest PA and Lateralon 10-05 Chest PA and Lateral [facility] Imaging Services [address] [place] [address] Chest PA and Lateral MR#: [id number] Acct: [id number] Name: LIA WALTERS Rep #: [id number] : 1990 F 34 From: Magdi Maharaj MD PCP: Dr. Rafy Olsen MD Status: REG CLI Study: Chest PA and Lateral Date of Exam: 10/05/24 Exam# [id number] Ordering Dr: Angelo Hidalgo PROCEDURE: CHEST PA AND LATERAL 10/05/2024 REASON FOR EXAM: COUGH TECHNIQUE: CHEST PA AND LATERAL COMPARISON: None FINDINGS: Hardware: None Heart: Borderline cardiomegaly Mediastinum: The mediastinal contour is unremarkable. Lungs: Lungs are expanded with superimposed interstitial edema in both lung armijo and small bilateral pleural effusions noted on the lateral film. Findings suggest pulmonary vascular congestion/early CHF. Follow-up recommended to ensure resolution Bones: The bones are unremarkable. RAD/Chest PA and Lateral IMPRESSION: Diffuse interstitial edema with small bilateral pleural effusions suggesting pulmonary vascular congestion/early CHF. Follow-up recommended to ensure resolution Borderline cardiomegaly Reading Location: [id number] CC: JEREMY Zafar; Dr. Rafy Olsen MD Harness Cutter: Signed Normal [facility] Urgent Care Visit Reporton 0 10-05-2024 Urgent Care Visit Report [facility] [address], [address] [place] [address] OFFICE VISIT Date of Service: 10/05/24 MR#: [id number] Acct: [id number] Name: LIA WALTERS Rep #: [id number] : 1990 Provider: JEREMY Zafar Age/Sex: 34/F Location: [facility] Status: Signed Intake Vital Signs 04/14/24 12:49 10/05/24 12:24 Height 4 ft 8 in BP 106/58 L Blood Pressure Location Lt brachial Position Sitting Respiration 20 H Pulse 50 L Pulse Source NIBP Temp 98.7 F Temp Source Oral Pulse Oximetry (%) 94 Oxygen Delivery Method room air Intake Visit Reasons: CONGESTION, COUGH Chief Complaint: cough, congestion Senior Animal Trainer Required: No Is patient in pain?: No Allergies adhesive tape Adverse Reaction (Intermediate, Verified 10/05/24 12:30) Skin redness Medications ???Medication ???Instructions ???Recorded ???Confirmed ???Type topiramate 100 mg tablet 150 mg PO BID 07/29/15 04/14/24 Hi story melatonin 5 mg tablet 10 mg PO QHS Sleep 02/28/18 History omeprazole 20 mg capsule,delayed 20 mg PO DAILY 04/08/19 04/14/24 H istory release acetaminophen 500 mg tablet 1,000 mg (2 x 500 mg) PO Q6H PRN 0 10/28/20 04/14/24 Rx (Tylenol Extra Strength) fever or pain #60 tabs ammonium lactate 12 % topical cream 1 applic topical QHS 04/22/23 0 04/14/24 History cholecalciferol (vitamin D3) 50 100 mcg PO DAILY 04/22/23 04/14/24 History mcg (2,000 unit) tablet paliperidone 3 mg tablet,extended 3 mg PO Q24H 04/22/23 04/14/24 Hi story release 24 hr trazodone 100 mg tablet 150 mg PO QHS 04/22/23 04/14/24 Hi story valacyclovir 1 gram tablet 2,000 mg PO BID PRN MOUTH SORE 04/14/24 History cariprazine 3 mg capsule (Vraylar) 3 mg PO DAILY 10/25/23 04/14/24 History clonazepam 0.5 mg tablet 0.25 mg PO BID 04/14/24 04/14/24 H istory clonazepam 0.5 mg tablet 0.5 mg PO QHS 04/14/24 04/14/24 Hi story ipratropium 0.5 mg-albuterol 3 mg 3 ml inhalation Q4HWA.RT 30 days 04/17/24 Rx (2.5 mg base)/3 mL nebulization #180 mL soln amoxicillin 875 mg-potassium 1 tab PO Q12H 10 days #20 tabs 06/2710/05/24 Rx clavulanate 125 mg tablet ipratropium bromide 21 mcg (0.03 2 spray intranasal BID-TID PRN 06/2710/05/24 Rx %) nasal spray postnasal drainage #30 mL Is last menstrual period known: No Post menopausal: No Patient : No Have you fallen in the past year?: No Nurse's Note: cough, congestion x 5 days worsening. caregiver denies ST, fever. caregiver believes pt getting mucus up but pt is swallowing this. PFSH Medical History Gastric reflux Non-smoker Sleep apnea Shortness of breath on exertion History of echocardiogram Cardiology follow-up encounter Lab test negative for COVID-19 virus Fallot tetralogy GERD (gastroesophageal reflux disease) Down syndrome Seizures Heart disease Surgical History Hx of tonsillectomy Hx of eye surgery History of open heart surgery Hx of surgical procedure Social History Smoking Status: Never smoker alcohol intake: never HPI HPI Chief Complaint: cough, congestion Details: LIA WALTERS, is a 34 F who presents to the office today for complaint of cough and congestion as well as sinus drainage for the past 5 days. Caregiver states that she has had increasing drainage and acts like she has a headache at this time. No fever or sweats. No vomiting or diarrhea. No shortness of breath. No other associated symptoms or alleviating/aggrava ting factors. ROS Const Constitutional: No other (as above) Exam Const General: cooperative and healthy appearing [facility] Head: normal to inspection Ears: hearing grossly normal bilaterally, TM's normal bilaterally and EAC's normal Nose: nasal discharge purulent Face and sinus: sinus tenderness frontal and maxillary Mouth: oral mucosae normal Throat: abnormal tonsil bilaterally erythema and hypertrophy 1+ and postnasal drainage Resp Effort Inspection: normal respiratory effort Auscultation: Bilateral: Clear to Auscultation Cardio Rate: regular rate Rhythm: regular rhythm Neuro General: patient alert Psych Appearance: grossly normal Mental Status: mental status grossly normal Coding Level of Care Code Off vis,est,level 4 Diagnoses Acute sinusitis J01.90 Assessment and Plan Assessment and Plan (1) Acute sinusitis: Status: Acute Plan: 3 view chest x-ray read and interpreted by myself find no acute cardiopulmonary disease. Augmentin and Atrovent as prescribed today. Encouraged to get plenty of rest, drink lots of clear liquids, and use Tylenol or Ibuprofen (u (more content not included)... Normal [facility] Anion gap in Serum or Plasma Ordered By: Rafy Olsen on 08-24-2024 Anion gap [Moles/Vol] 8 mmol/L 5-15 [facility] BUN/creatinine ratioOrdered By: Rafy Olsen on 08-24-2024 Urea nitrogen/Creatinine [Mass ratio] 15.6 mg/mg 10-20 [facility] Bilirubin, totalOrdered By: Rafy Olsen on 08-24-2024 Bilirubin [Mass/Vol] 0.32 mg/dL 0.00-1.30 [facility] Calculated very low density lipoprotein (VLDL) cholesterol measurementOrdered By: Rafy Olsen on 08-24-2024 Calculated very low density lipoprotein (VLDL) cholesterol measurement 21 mg/dL 5-40 [facility] Carbon dioxide, total [Moles /volume] in Central venous bloodOrdered By: Rafy Olsen on 08-24-2024 CO2 [Moles/Vol] 22.4 mmol/L 21.0-32.0 [facility] Chloride assayOrdered By: Jeremy Olsen on 08-24-2024 Chloride [Moles/Vol] 111 mmol/L High 98-108 [facility] Comprehensive Metabolic Prof ilon 08-24-2024 Albumin [Mass/Vol] 3.4 g/dL Low 3.5-5.0 [facility] Comment on above: Performed By: #### L 500.4100, L100.0100 #### [facility] [address] [place], [address] Albumin/Globulin [Mass ratio] 1.0 {ratio} Normal 0.9-2.4 [facility] Comment on above: Performed By: #### L 500.4100, L100.0100 #### [facility] [address] [place], [address] ALK PHOS 96 U/L Normal 35-104 [facility] Comment on above: Performed By: #### L 500.4100, L100.0100 #### [facility] [address] [place], [address] ALT [Catalytic activity/Vol] 15 U/L Normal <=34 [facility] Comment on above: Performed By: #### L 500.4100, L100.0100 #### [facility] [address] [place], [address] AST [Catalytic activity/Vol] 17 U/L Normal <=31 [facility] Comment on above: Performed By: #### L 500.4100, L100.0100 #### [facility] [address] [place], [address] Bilirubin [Mass/Vol] 0.32 mg/dL Normal 0.00-1.30 [facility] Comment on above: Performed By: #### L 500.4100, L100.0100 #### [facility] [address] [place], [address] BUN/CRE 15.6 RATIO Normal 10-20 [facility] Comment on above: Performed By: #### L 500.4100, L100.0100 #### [facility] [address] [place], [address] Calcium [Mass/Vol] 8.9 mg/dL Normal 7.6-11.0 [facility] Comment on above: Performed By: #### L 500.4100, L100.0100 #### [facility] [address] [place], [address] Chloride [Moles/Vol] 111 mmol/L High 98-108 [facility] Comment on above: Performed By: #### L 500.4100, L100.0100 #### [facility] [address] [place], [address] CO2 [Moles/Vol] 22.4 mmol/L Normal 21.0-32.0 [facility] Comment on above: Performed By: #### L 500.4100, L100.0100 #### [facility] [address] [place], [address] Creatinine [Mass/Vol] 1.12 mg/dL Normal 0.70-1.20 [facility] Comment on above: Performed By: #### L 500.4100, L100.0100 #### [facility] [address] [place], [address] GAP 8 Normal 5-15 [facility] Comment on above: Performed By: #### L 500.4100, L100.0100 #### [facility] [address] [place], [address] GFR/1.73 sq M.predicted among non-blacks MDRD (S/P/Bld) [Vol rate/Area] 67 mL/min/{1.73_m2} Normal >60 [facility] Comment on above: Result Comment: mL/m in/1.73m2 CKD-EPI Creatinine Equation (2020) Performed By: #### L 500.4100, L100.0100 #### [facility] [address] [place], [address] Globulin (S) [Mass/Vol] 3.5 g/dL Normal 2.2-4.2 [facility] Comment on above: Performed By: #### L 500.4100, L100.0100 #### [facility] [address] [place], [address] Glucose [Mass/Vol] 97 mg/dL Normal 70-99 [facility] Comment on above: Performed By: #### L 500.4100, L100.0100 #### [facility] [address] [place], [address] Potassium [Moles/Vol] 4.3 mmol/L Normal 3.3-5.1 [facility] Comment on above: Performed By: #### L 500.4100, L100.0100 #### [facility] [address] [place], [address] Sodium [Moles/Vol] 142 mmol/L Normal 133-145 [facility] Comment on above: Performed By: #### L 500.4100, L100.0100 #### [facility] [address] [place], [address] T PROT 6.9 g/dL Normal 5.9-8.4 [facility] Comment on above: Performed By: #### L 500.4100, L100.0100 #### [facility] [address] [place], [address] Urea nitrogen [Mass/Vol] 18 mg/dL Normal 4-19 [facility] Comment on above: Performed By: #### L 500.4100, L100.0100 #### [facility] [address] [place], [address] Glomerular filtration rate ( GFR) estimation/1.73 sq m using serum, plasma, or whole bOrdered By: Rafy Olsen on 08-24-2024 GFR/1.73 sq M.predicted among non-blacks MDRD (S/P/Bld) [Vol rate/Area] 67 mL/min/{1.73_m2} >60 [facility] Comment on above: mL/min/1.73m2 CKD-EP I Creatinine Equation (2020) LDL calc ser/plasOrdered By: Rafy Olsen on 08-24-2024 Cholesterol in LDL [Mass/Vol] 99 mg/dL [facility] Comment on above: Tqtuldnsxm=718-389 m g/dL & Higher Ffiv=367 mg/dL or greater Laboratory - Chemistry and C hemistry - challengeOrdered By: Rafy Olsen on 08-24-2024 AST [Catalytic activity/Vol] 17 U/L <32 [facility] Lipid Profileon 08-24-2024 CHOL:HDL 4.15 Normal [facility] Comment on above: Performed By: #### L 500.4100, L100.0100 #### [facility] [address] [place], [address] Cholesterol [Mass/Vol] 159 mg/dL Normal <=200 [facility] Comment on above: Result Comment: Chol esterol level, Desirable <200 mg/dL Borderline high cholesterol 200-239 mg/dL High cholesterol >=240 mg/dL Recommendations of the NCEP Adult Treatment Panel for the following risk-cutoff thresholds for the [place] population. Performed By: #### L 500.4100, L100.0100 #### [facility] [address] [place], [address] Cholesterol in HDL [Mass/Vol] 38 mg/dL Low [facility] Comment on above: Result Comment: [place] on[place] Cholesterol Education Program (NCEP) guidelines: <40 mg/dL: Low HDL-cholesterol (major risk factor for CHD) >= 60 mg/dL: High HDL-cholesterol (negative risk factor for CHD) HDL-cholesterol is affected by a number of factors, e.g. smoking, exercise, hormones, sex and age. Performed By: #### L 500.4100, L100.0100 #### [facility] [address] [place], [address] Cholesterol in LDL [Mass/Vol] 99 mg/dL Normal [facility] Comment on above: Result Comment: Bord dvujwn=704-497 mg/dL Higher Dghd=208 mg/dL or greater Performed By: #### L 500.4100, L100.0100 #### [facility] [address] [place], [address] Cholesterol in VLDL [Mass/Vol] 21 mg/dL Normal 5-40 [facility] Comment on above: Performed By: #### L 500.4100, L100.0100 #### [facility] [address] [place], [address] Triglyceride [Mass/Vol] 107 mg/dL Normal [facility] Comment on above: Result Comment: The drugs N-Acetylcysteine and Metamizole may falsely depress this assay. Normal range: <150 mg/dL Borderline High: 150-199 mg/dL High: 200-499 mg/dL Very High: >500 mg/dL Performed By: #### L 500.4100, L100.0100 #### [facility] [address] [place], [place], [address] Potassium measurement (mass/ volume)Ordered By: Rafy Olsen on 08-24-2024 Potassium (Unsp spec) [Mass/Vol] 4.3 mmol/L 3.3-5.1 [facility] Screening total cholesterol/ high density lipoprotein (HDL) cholesterol ratioOrdered By: Rafy Olsen on 08-24-2024 Cholesterol.total/Cholest clark in HDL [Mass ratio] 4.15 {ratio} [facility] Serum creatinine measurement (mass/volume)Ordered By: Rafy Olsen on 08-24-2024 Creatinine [Mass/Vol] 1.12 mg/dL 0.70-1.20 [facility] Serum globulin measurementOr dered By: Rafy Olsen on 08-24-2024 Globulin (S) [Mass/Vol] 3.5 g/dL 2.2-4.2 [facility] Serum glucose measurement (m ass/volume)Ordered By: Rafy Olsen on 08-24-2024 Glucose [Mass/Vol] 97 mg/dL 70-99 [facility] Serum or plasma alanine phillips otransferase (ALT) measurementOrdered By: Rafy Olsen on 08-24-2024 ALT [Catalytic activity/Vol] 15 U/L <35 [facility] Serum or plasma albumin vidal urement (mass/volume)Ordered By: Rafy Olsen on 08-24-2024 Albumin [Mass/Vol] 3.4 g/dL Low 3.5-5.0 [facility] Serum or plasma albumin/glob ulin mass ratioOrdered By: Rafy Olsen on 08-24-2024 Albumin/Globulin [Mass ratio] 1.0 {ratio} 0.9-2.4 [facility] Serum or plasma alkaline shlomo sphatase measurementOrdered By: Rafy Olsen on 08-24-2024 ALP [Catalytic activity/Vol] 96 U/L 35-104 [facility] Serum or plasma calcium vidal urement (mass/volume)Ordered By: Rafy Olsen on 08-24-2024 Calcium [Mass/Vol] 8.9 mg/dL 7.6-11.0 [facility] Serum or plasma cholesterol in HDL measurement (mass/volume)Ordered By: Rafy Olsen on 08-24-2024 Cholesterol in HDL [Mass/Vol] 38 mg/dL Low >40 [facility] Comment on above: National Cholesterol Education Program (NCEP) guidelines:<40 mg/dL: Low HDL-cholesterol (major risk factor for CHD)>= 60 mg/dL: High HDL-cholesterol (negative risk factor for CHD)HDL-cholesterol is affected by a number of factors, e.g. smoking, exercise, hormones, sex and age. Serum or plasma cholesterol measurement (mass/volume)Ordered By: Rafy Olsen on 08-24-2024 Cholesterol [Mass/Vol] 159 mg/dL <201 [facility] Comment on above: Cholesterol level, D esirable <200 mg/dLBorderline high cholesterol 200-239 mg/dLHigh cholesterol >=240 mg/dLRecommendations of the NCEP Adult Treatment Panel for the following risk-cutoff thresholds for the [place] population. Serum or plasma urea nitroge n measurement (mass/volume)Ordered By: Rafy Olsen on 08-24-2024 Urea nitrogen [Mass/Vol] 18 mg/dL 4-19 [facility] Sodium levelOrdered By: Rafy Olsen on 08-24-2024 Sodium [Moles/Vol] 142 mmol/L 133-145 [facility] Total proteinOrdered By: Nurys Olsen on 08-24-2024 Protein [Mass/Vol] 6.9 g/dL 5.9-8.4 [facility] Triglycerides measurementOrd ered By: Rafy Olsen on 08-24-2024 Triglyceride [Mass/Vol] 107 mg/dL <199 [facility] Comment on above: The drugs N-Acetylcy steine and Metamizole may falsely depress this assay. Normal range: <150 mg/dLBorderline High: 150-199 mg/dLHigh: 200-499 mg/dLVery High: >500 mg/dL Absolute lymphocyte countOrd ered By: Rafy Olsen on 07-27-2024 Lymphocytes Auto (Unsp spec) [#/Vol] 2.30 10*3/uL 0.83-4.51 [facility] Absolute neutrophil countOrd ered By: Rafy Olsen on 07-27-2024 Neutrophils (Bld) [#/Vol] 3.5 10*3/uL 2.0-7.7 [facility] Automated lymphocyte count a s percentage of total leukocytesOrdered By: Rafy Olsen on 07-27-2024 Lymphocytes/100 WBC Auto (Unsp spec) 36.6 % 19-41 [facility] Basophil percentageOrdered B y: Rafy Olsen on 07-27-2024 Basophils/100 WBC (Bld) 0.8 % 0-1 [facility] CBC W/Diff, Automatedon 07-05 Absolute Lymph 2.30 X10 3/uL Normal 0.83-4.51 [facility] Comment on above: Performed By: #### L 500.4100, L100.0100 #### [facility] [address] [place], [address] Absolute Neut 3.5 X10 3/uL Normal 2.0-7.7 [facility] Comment on above: Performed By: #### L 500.4100, L100.0100 #### [facility] [address] [place], [address] Basophils/100 WBC (Bld) 0.8 % Normal 0-1 [facility] Comment on above: Performed By: #### L 500.4100, L100.0100 #### [facility] [address] [place], [address] Eosinophils/100 WBC (Bld) 1.1 % Normal 0-5 [facility] Comment on above: Performed By: #### L 500.4100, L100.0100 #### [facility] [address] [place], [address] Erythrocyte distribution width (RBC) [Ratio] 12.7 % Normal 11.6-14.6 [facility] Comment on above: Performed By: #### L 500.4100, L100.0100 #### [facility] [address] [place], [address] Hematocrit (Bld) [Volume fraction] 47.1 % High 37-47 [facility] Comment on above: Performed By: #### L 500.4100, L100.0100 #### [facility] [address] [place], [address] Hemoglobin (Bld) [Mass/Vol] 15.4 g/dL High 12.0-15.0 [facility] Comment on above: Performed By: #### L 500.4100, L100.0100 #### [facility] [address] [place], [address] IG% 0.300 Normal 0.0-0.9 [facility] Comment on above: Result Comment: IG% - Immature Granulocytes (promyelocytes, myelocytes and metamyelocytes) > 1% indicates that a LEFT SHIFT is Present. Performed By: #### L 500.4100, L100.0100 #### [facility] [address] [place], [address] Lymphocytes/100 WBC (Bld) 36.6 % Normal 19-41 [facility] Comment on above: Performed By: #### L 500.4100, L100.0100 #### [facility] [address] [place], [address] MCH (RBC) [Entitic mass] 32.3 pg High 27.0-32.0 [facility] Comment on above: Performed By: #### L 500.4100, L100.0100 #### [facility] [address] [place], [address] MCHC (RBC) [Mass/Vol] 32.7 g/dL Normal 32-36 [facility] Comment on above: Performed By: #### L 500.4100, L100.0100 #### [facility] [address] [place], [address] MCV (RBC) [Entitic vol] 98.7 fL Normal 81-99 [facility] Comment on above: Performed By: #### L 500.4100, L100.0100 #### [facility] [address] [place], [address] Monocytes/100 WBC (Bld) 5.1 % Normal 0-10 [facility] Comment on above: Performed By: #### L 500.4100, L100.0100 #### [facility] [address] [place], [address] Neutrophils/100 WBC (Bld) 56.1 % Normal 47-70 [facility] Comment on above: Performed By: #### L 500.4100, L100.0100 #### [facility] [address] [place], [address] Nucleated RBC (Bld) [#/Vol] 0 10*3/uL Normal 0-5 [facility] Comment on above: Performed By: #### L 500.4100, L100.0100 #### [facility] [address] [place], [address] Platelet mean volume (Bld) [Entitic vol] 10.3 fL Normal 6.2-12.0 [facility] Comment on above: Performed By: #### L 500.4100, L100.0100 #### [facility] [address] [place], [address] Platelets (Bld) [#/Vol] 128 10*3/uL Low 150-450 [facility] Comment on above: Performed By: #### L 500.4100, L100.0100 #### [facility] [address] [place], [address] RBC (Bld) [#/Vol] 4.77 10*6/uL Normal 4.2-5.4 [facility] Comment on above: Performed By: #### L 500.4100, L100.0100 #### [facility] [address] [place], [address] RDW SD 46.3 fl High 35.1-43.9 [facility] Comment on above: Performed By: #### L 500.4100, L100.0100 #### [facility] [address] [place], [address] WBC (Bld) [#/Vol] 6.3 10*3/uL Normal 4.4-11.0 [facility] Comment on above: Performed By: #### L 500.4100, L100.0100 #### [facility] [address] [place], [address] Calculated very low density lipoprotein (VLDL) cholesterol measurementOrdered By: Rafy Olsen on 07-27-2024 Calculated very low density lipoprotein (VLDL) cholesterol measurement 21 mg/dL 5-40 [facility] Eosinophil percentageOrdered By: Rafy Olsen on 07-27-2024 Eosinophils/100 WBC (Bld) 1.1 % 0-5 [facility] Erythrocyte distribution wid th ratioOrdered By: Rafy Olsen on 07-27-2024 Erythrocyte distribution width (RBC) [Ratio] 12.7 % 11.6-14.6 [facility] Erythrocyte distribution wid th standard deviationOrdered By: Rafy Olsen on 07-27-2024 Erythrocyte distribution width (RBC) [Ratio] 46.3 fl High 35.1-43.9 [facility] Hematocrit Auto (Bld) [Volum e fraction]Ordered By: Rafy Olsen on 07-27-2024 Hematocrit (Bld) [Volume fraction] 47.1 % High 37-47 [facility] Hemoglobin measurementOrdere d By: Rafy Olsen on 07-27-2024 Hemoglobin (Bld) [Mass/Vol] 15.4 g/dL High 12.0-15.0 [facility] Immature granulocytes/100 WB C Auto (Bld)Ordered By: Rafy Olsen on 07-27-2024 Immature granulocytes/100 WBC (Bld) 0.300 % 0.0-0.9 [facility] Comment on above: IG% - Immature Granu locytes (promyelocytes, myelocytes and metamyelocytes) > 1% indicates that a LEFT SHIFT is Present. LDL calc ser/plasOrdered By: Rafy Olsen on 07-27-2024 Cholesterol in LDL [Mass/Vol] 106 mg/dL [facility] Comment on above: Gzisglhmuq=770-904 m g/dL & Higher Yodr=762 mg/dL or greater Lipid Profileon 07-27-2024 CHOL:HDL 4.34 Normal [facility] Comment on above: Performed By: #### L 500.4100, L100.0100 #### [facility] [address] [place], [place], [id number] [phone] Cholesterol [Mass/Vol] 165 mg/dL Normal <=200 [facility] Comment on above: Result Comment: Chol esterol level, Desirable <200 mg/dL Borderline high cholesterol 200-239 mg/dL High cholesterol >=240 mg/dL Recommendations of the NCEP Adult Treatment Panel for the following risk-cutoff thresholds for the [place] population. Performed By: #### L 500.4100, L100.0100 #### [facility] [address] [place], [address] Cholesterol in HDL [Mass/Vol] 38 mg/dL Low [facility] Comment on above: Result Comment: [place] Cholesterol Education Program (NCEP) guidelines: <40 mg/dL: Low HDL-cholesterol (major risk factor for CHD) >= 60 mg/dL: High HDL-cholesterol (negative risk factor for CHD) HDL-cholesterol is affected by a number of factors, e.g. smoking, exercise, hormones, sex and age. Performed By: #### L 500.4100, L100.0100 #### [facility] [address] [place], [address] Cholesterol in LDL [Mass/Vol] 106 mg/dL Normal [facility] Comment on above: Result Comment: Bord tzhhqo=519-295 mg/dL Higher Vfni=723 mg/dL or greater Performed By: #### L 500.4100, L100.0100 #### [facility] [address] [place], [address] Cholesterol in VLDL [Mass/Vol] 21 mg/dL Normal 5-40 [facility] Comment on above: Performed By: #### L 500.4100, L100.0100 #### [facility] [address] [place], [address] Triglyceride [Mass/Vol] 103 mg/dL Normal [facility] Comment on above: Result Comment: The drugs N-Acetylcysteine and Metamizole may falsely depress this assay. Normal range: <150 mg/dL Borderline High: 150-199 mg/dL High: 200-499 mg/dL Very High: >500 mg/dL Performed By: #### L 500.4100, L100.0100 #### [facility] [address] [place], [address] MCV (mean corpuscular volume ) determinationOrdered By: Rafy Olsen on 07-27-2024 MCV (RBC) [Entitic vol] 98.7 fL 81-99 [facility] Mean corpuscular hemoglobin (MCH) determinationOrdered By: Rafy Olsen on 07-27-2024 MCH (RBC) [Entitic mass] 32.3 pg High 27.0-32.0 [facility] Mean corpuscular hemoglobin concentration (MCHC) determinationOrdered By: Rafy Olsen on 07-27-2024 MCHC (RBC) [Mass/Vol] 32.7 g/dL 32-36 [facility] Mean platelet volume determi nationOrdered By: Rafy Olsen on 07-27-2024 Platelet mean volume (Bld) [Entitic vol] 10.3 fL 6.2-12.0 [facility] Monocyte percentageOrdered B y: Rafy Olsen on 07-27-2024 Monocytes/100 WBC (Bld) 5.1 % 0-10 [facility] Neutrophil percentageOrdered By: Rafy Olsen on 07-27-2024 Neutrophils/100 WBC (Bld) 56.1 % 47-70 [facility] Nucleated red blood cell per centageOrdered By: Rafy Olsen on 07-27-2024 Nucleated RBC/100 WBC (Bld) [Ratio] 0 % 0-5 [facility] Platelet countOrdered By: Jeremy Olsen on 07-27-2024 Platelets (Bld) [#/Vol] 128 10*3/uL Low 150-450 [facility] RBC Auto (Bld) [#/Vol]Ordere d By: Rafy Olsen on 07-27-2024 RBC (Bld) [#/Vol] 4.77 10*6/uL 4.2-5.4 [facility] Screening total cholesterol/ high density lipoprotein (HDL) cholesterol ratioOrdered By: Rafy Olsen on 07-27-2024 Cholesterol.total/Cholest clark in HDL [Mass ratio] 4.34 {ratio} [facility] Serum or plasma cholesterol in HDL measurement (mass/volume)Ordered By: Rafy Olsen on 07-27-2024 Cholesterol in HDL [Mass/Vol] 38 mg/dL Low >40 [facility] Comment on above: National Cholesterol Education Program (NCEP) guidelines:<40 mg/dL: Low HDL-cholesterol (major risk factor for CHD)>= 60 mg/dL: High HDL-cholesterol (negative risk factor for CHD)HDL-cholesterol is affected by a number of factors, e.g. smoking, exercise, hormones, sex and age. Serum or plasma cholesterol measurement (mass/volume)Ordered By: Rafy Olsen on 07-27-2024 Cholesterol [Mass/Vol] 165 mg/dL <201 [facility] Comment on above: Cholesterol level, D esirable <200 mg/dLBorderline high cholesterol 200-239 mg/dLHigh cholesterol >=240 mg/dLRecommendations of the NCEP Adult Treatment Panel for the following risk-cutoff thresholds for the [place] population. Triglycerides measurementOrd ered By: Rafy Olsen on 07-27-2024 Triglyceride [Mass/Vol] 103 mg/dL <199 [facility] Comment on above: The drugs N-Acetylcy steine and Metamizole may falsely depress this assay. Normal range: <150 mg/dLBorderline High: 150-199 mg/dLHigh: 200-499 mg/dLVery High: >500 mg/dL White blood cell (WBC) count Ordered By: Rafy Olsen on 07-27-2024 WBC (Bld) [#/Vol] 6.3 10*3/uL 4.4-11.0 [facility] Urine Cultureon 06-07-2024 [facility] Order Date: 06/05/24 Order Info: 630-4 - CUUR Proteus mirabilis Otho Count >100,000 Proteus mirabilis: REACTION Ampicillin Islt CORNELIO <=2 Ampicillin+Sulbac Islt CORNELIO <=2 S Cefepime Islt CORNELIO <=0.12 S cefTRIAXone Islt CORNELIO <=0.25 S Ciprofloxacin Islt CORNELIO <=0.06 S Gentamicin Islt CORNELIO <=1 S levoFLOXacin Islt CORNELIO <=0.12 S Meropenem Islt CORNELIO <=0.25 S Pip+Tazo Islt CORNELIO <=4 S TMP SMX Islt CORNELIO <=20 S Normal [facility] Comment on above: Performed By: #### L 500.4050, L100.0100 #### [facility] [address] [place] [address], [address] Bilirubin Test strip Ql (U)O rdered By: Rafy Olsen on 06-05-2024 Bilirubin Ql (U) Negative Negative [facility] Epithelial cells.squamous LM Ql (Urine sed)Ordered By: Rafy Olsen on 06-05-2024 Epithelial cells.squamous LM.HPF (Urine sed) [#/Area] 0 /[HPF] 5-10 [facility] Glucose Ql (U)Ordered By: Jeremy Olsen on 06-05-2024 Urine Glucose (UA) Normal mg/dl Normal [facility] Ketones Test strip Ql (U)Ord ered By: Rafy Olsen on 06-05-2024 Ketones Ql (U) Negative Negative [facility] Microscopic analysis of urin e for red blood cells (RBC)Ordered By: Rafy Olsen on 06-05-2024 Microscopic analysis of urine for red blood cells (RBC) 0-5 SEEN /hpf 0-5 [facility] Urine RBC 0-5 SEEN /hpf 0-5 [facility] Mucus LM Ql (Urine sed)Order ed By: Rafy Olsen on 06-05-2024 Mucus Ql (Urine sed) 0 SEEN /hpf [facility] Nitrite Test strip Ql (U)Ord ered By: Rafy Olsen on 06-05-2024 Nitrite Ql (U) Negative Negative [facility] Protein Test strip Ql (U)Ord ered By: Rafy Olsen on 06-05-2024 Protein Ql (U) 30 mg/dl High Negative [facility] Squamous epithelial cells de tection in urine sediment by light microscopyOrdered By: Rafy Olsen on 06-05-2024 Epithelial cells.squamous LM Ql (Urine sed) 0-5 SEEN /hpf 5-10 [facility] Urinalysis, Completeon 06-05 BACTERIA 2+ /hpf Normal None Seen [facility] Comment on above: Order Comment: Order Date: 06/05/24Order Info: [id number] - UACCOLLECTOR TO SPECIFY Performed By: #### L 500.4050, L100.0100 #### [facility] [address] [place], [place], [id number] EPI,SQUAMOUS 0-5 SEEN Normal 5-10 [facility] Comment on above: Order Comment: Order Date: 06/05/24Order Info: [id number] - UACCOLLECTOR TO SPECIFY Performed By: #### L 500.4050, L100.0100 #### [facility] [address] [place], [address] RBC 0-5 SEEN Normal 0-5 [facility] Comment on above: Order Comment: Order Date: 06/05/24Order Info: [id number] - UACCOLLECTOR TO SPECIFY Performed By: #### L 500.4050, L100.0100 #### [facility] [address] [place], [address] WBC >100 SEEN Normal 0-5 [facility] Comment on above: Order Comment: Order Date: 06/05/24Order Info: [id number] - UACCOLLECTOR TO SPECIFY Performed By: #### L 500.4050, L100.0100 #### [facility] [address] [place], [address] Mucus Ql (Urine sed) 0 SEEN Normal [facility] Comment on above: Order Comment: Order Date: 06/05/24Order Info: [id number] - UACCOLLECTOR TO SPECIFY Performed By: #### L 500.4050, L100.0100 #### [facility] [address] [place], [address] Urine blood detectionOrdered By: Rafy Olsen on 06-05-2024 Urine Occult Blood 150 /ul High Negative [facility] Urine clarityOrdered By: Nurys Olsen on 06-05-2024 Clarity (U) Cloudy Clear [facility] Urine color determinationOrd ered By: Rafy Olsen on 06-05-2024 Color (U) Yellow Yellow [facility] Urine cultureOrdered By: Nurys Olsen on 06-05-2024 Bacteria identified Cx Nom (U) Proteus mirabilis Abnormal [facility] Urine glucose detectionOrder ed By: Rafy Olsen on 06-05-2024 Glucose Ql (U) Normal mg/dl Normal [facility] Urine leukocyte esterase det ection by dipstickOrdered By: Rafy Olsen on 06-05-2024 Leukocyte esterase Test strip Ql (U) 500 /ul High Negative [facility] Urine pHOrdered By: Rafy feng on 06-05-2024 pH (U) 6.0 [pH] 5.0 - 8.0 [facility] Urine sediment bacteria coun t by microscopy (number/high power field)Ordered By: Rafy Olsen on 06-05-2024 Bacteria LM.HPF (Urine sed) [#/Area] 2 /[HPF] None Seen [facility] Urine specific gravity measu rementOrdered By: Rafy Olsen on 06-05-2024 Specific gravity (U) [Rel density] 1.015 1.002-1.030 [facility] Urine urobilinogen measureme ntOrdered By: Rafy Olsen on 06-05-2024 Urobilinogen Ql (U) 1 mg/dl High Normal [facility] Urobilinogen Ql (U)Ordered B y: Rafy Olsen on 06-05-2024 Urobilinogen (U) [Mass/Vol] 1 mg/dL High Normal [facility] White blood cell countOrdere d By: Rafy Olsen on 06-05-2024 Urine WBC >100 SEEN /hpf 0-5 [facility] White blood cell count >100 SEEN /hpf 0-5 [facility] Absolute lymphocyte countOrd ered By: Guy Morrissey on 06-01-2024 Lymphocytes Auto (Unsp spec) [#/Vol] 1.83 10*3/uL 0.83-4.51 [facility] Absolute neutrophil countOrd ered By: Guy Morrissey on 06-01-2024 Neutrophils (Bld) [#/Vol] 2.8 10*3/uL 2.0-7.7 [facility] Automated lymphocyte count a s percentage of total leukocytesOrdered By: Guy Morrissey on 06-01-2024 Lymphocytes/100 WBC Auto (Unsp spec) 35.0 % 19-41 [facility] BUN/creatinine ratioOrdered By: Guy Morrissey on 06-01-2024 Urea nitrogen/Creatinine [Mass ratio] 14.5 mg/mg 10-20 [facility] Basophil percentageOrdered B y: Guy Morrissey on 06-01-2024 Basophils/100 WBC (Bld) 0.6 % 0-1 [facility] Bilirubin, totalOrdered By: Guy Morrissey on 06-01-2024 Bilirubin [Mass/Vol] 0.47 mg/dL 0.00-1.30 [facility] CBC W/Diff, Automatedon 05-07 Absolute Lymph 1.83 X10 3/uL Normal 0.83-4.51 [facility] Comment on above: Performed By: #### L 500.4050, L100.0100 #### [facility] [address] [place], [address] Absolute Neut 2.8 X10 3/uL Normal 2.0-7.7 [facility] Comment on above: Performed By: #### L 500.4050, L100.0100 #### [facility] [address] [place], [address] Basophils/100 WBC (Bld) 0.6 % Normal 0-1 [facility] Comment on above: Performed By: #### L 500.4050, L100.0100 #### [facility] [address] [place], [address] Eosinophils/100 WBC (Bld) 1.1 % Normal 0-5 [facility] Comment on above: Performed By: #### L 500.4050, L100.0100 #### [facility] [address] [place], [address] Erythrocyte distribution width (RBC) [Ratio] 13.4 % Normal 11.6-14.6 [facility] Comment on above: Performed By: #### L 500.4050, L100.0100 #### [facility] [address] [place], [address] Hematocrit (Bld) [Volume fraction] 48.0 % High 37-47 [facility] Comment on above: Performed By: #### L 500.4050, L100.0100 #### [facility] [address] [place], [address] Hemoglobin (Bld) [Mass/Vol] 15.3 g/dL High 12.0-15.0 [facility] Comment on above: Performed By: #### L 500.4050, L100.0100 #### [facility] [address] [place], [address] IG% 0.400 Normal 0.0-0.9 [facility] Comment on above: Result Comment: IG% - Immature Granulocytes (promyelocytes, myelocytes and metamyelocytes) > 1% indicates that a LEFT SHIFT is Present. Performed By: #### L 500.4050, L100.0100 #### [facility] [address] [place], [address] Lymphocytes/100 WBC (Bld) 35.0 % Normal 19-41 [facility] Comment on above: Performed By: #### L 500.4050, L100.0100 #### [facility] [address] [place], [address] MCH (RBC) [Entitic mass] 32.1 pg High 27.0-32.0 [facility] Comment on above: Performed By: #### L 500.4050, L100.0100 #### [facility] [address] [place], [address] MCHC (RBC) [Mass/Vol] 31.9 g/dL Low 32-36 [facility] Comment on above: Performed By: #### L 500.4050, L100.0100 #### [facility] [address] [place], [address] MCV (RBC) [Entitic vol] 100.6 fL High 81-99 [facility] Comment on above: Performed By: #### L 500.4050, L100.0100 #### [facility] [address] [place], [address] Monocytes/100 WBC (Bld) 8.8 % Normal 0-10 [facility] Comment on above: Performed By: #### L 500.4050, L100.0100 #### [facility] [address] [place], [address] Neutrophils/100 WBC (Bld) 54.1 % Normal 47-70 [facility] Comment on above: Performed By: #### L 500.4050, L100.0100 #### [facility] [address] [place], [address] Nucleated RBC (Bld) [#/Vol] 0 10*3/uL Normal 0-5 [facility] Comment on above: Performed By: #### L 500.4050, L100.0100 #### [facility] [address] [place], [address] Platelet mean volume (Bld) [Entitic vol] 10.7 fL Normal 6.2-12.0 [facility] Comment on above: Performed By: #### L 500.4050, L100.0100 #### [facility] [address] [place], [address] Platelets (Bld) [#/Vol] 155 10*3/uL Normal 150-450 [facility] Comment on above: Performed By: #### L 500.4050, L100.0100 #### [facility] [address] [place], [address] RBC (Bld) [#/Vol] 4.77 10*6/uL Normal 4.2-5.4 [facility] Comment on above: Performed By: #### L 500.4050, L100.0100 #### [facility] [address] [place], [address] RDW SD 49.4 fl High 35.1-43.9 [facility] Comment on above: Performed By: #### L 500.4050, L100.0100 #### [facility] [address] [place], [address] WBC (Bld) [#/Vol] 5.2 10*3/uL Normal 4.4-11.0 [facility] Comment on above: Performed By: #### L 500.4050, L100.0100 #### [facility] [address] [place], [address] Carbon dioxide measurementOr dered By: Guy Morrissey on 06-01-2024 CO2 [Moles/Vol] 24.9 mmol/L 22.0-29.0 [facility] Chloride measurementOrdered By: Guy Morrissey on 06-01-2024 Chloride [Moles/Vol] 107 mmol/L 96-108 [facility] Comprehensive Metabolic Prof ilon 06-01-2024 Albumin [Mass/Vol] 3.9 g/dL Normal 3.5-5.0 [facility] Comment on above: Performed By: #### L 500.4050, L100.0100 #### [facility] [address] [place], [address] Albumin/Globulin [Mass ratio] 1.3 {ratio} Normal 0.9-2.4 [facility] Comment on above: Performed By: #### L 500.4050, L100.0100 #### [facility] [address] [place], [address] ALK PHOS 100 U/L Normal 35-104 [facility] Comment on above: Performed By: #### L 500.4050, L100.0100 #### [facility] [address] [place], [address] ALT [Catalytic activity/Vol] 27 U/L Normal <=34 [facility] Comment on above: Performed By: #### L 500.4050, L100.0100 #### [facility] [address] [place], [address] Anion gap [Moles/Vol] 9 mmol/L Normal 5-15 [facility] Comment on above: Performed By: #### L 500.4050, L100.0100 #### [facility] [address] [place], [address] AST [Catalytic activity/Vol] 23 U/L Normal <=31 [facility] Comment on above: Performed By: #### L 500.4050, L100.0100 #### [facility] [address] [place], [address] Bilirubin [Mass/Vol] 0.47 mg/dL Normal 0.00-1.30 [facility] Comment on above: Performed By: #### L 500.4050, L100.0100 #### [facility] [address] [place], [address] BUN/CRE 14.5 RATIO Normal 10-20 [facility] Comment on above: Performed By: #### L 500.4050, L100.0100 #### [facility] [address] [place], [address] Calcium [Mass/Vol] 9.0 mg/dL Normal 7.6-11.0 [facility] Comment on above: Performed By: #### L 500.4050, L100.0100 #### [facility] [address] [place], [address] Chloride [Moles/Vol] 107 mmol/L Normal 96-108 [facility] Comment on above: Performed By: #### L 500.4050, L100.0100 #### [facility] [address] [place], [address] CO2 [Moles/Vol] 24.9 mmol/L Normal 22.0-29.0 [facility] Comment on above: Performed By: #### L 500.4050, L100.0100 #### [facility] [address] [place], [address] Creatinine [Mass/Vol] 1.2 mg/dL High 0.6-1.0 [facility] Comment on above: Performed By: #### L 500.4050, L100.0100 #### [facility] [address] [place], [address] GFR/1.73 sq M.predicted among non-blacks MDRD (S/P/Bld) [Vol rate/Area] 63 mL/min/{1.73_m2} Normal >60 [facility] Comment on above: Result Comment: mL/m in/1.73m2 CKD-EPI Creatinine Equation (2020) Performed By: #### L 500.4050, L100.0100 #### [facility] [address] [place], [address] Globulin (S) [Mass/Vol] 3.1 g/dL Normal 2.2-4.2 [facility] Comment on above: Performed By: #### L 500.4050, L100.0100 #### [facility] [address] [place], [address] Glucose [Mass/Vol] 93 mg/dL Normal 70-99 [facility] Comment on above: Performed By: #### L 500.4050, L100.0100 #### [facility] [address] [place], [address] Potassium [Moles/Vol] 3.9 mmol/L Normal 3.3-5.1 [facility] Comment on above: Performed By: #### L 500.4050, L100.0100 #### [facility] [address] [place], [address] Sodium [Moles/Vol] 140 mmol/L Normal 133-145 [facility] Comment on above: Performed By: #### L 500.4050, L100.0100 #### [facility] [address] [place], [address] T PROT 7.0 g/dL Normal 5.9-8.4 [facility] Comment on above: Performed By: #### L 500.4050, L100.0100 #### [facility] [address] [place], [address] Urea nitrogen [Mass/Vol] 17 mg/dL Normal 4-19 [facility] Comment on above: Performed By: #### L 500.4050, L100.0100 #### [facility] [address] [place], [address] Creatinine [Moles/Vol]Ordere d By: Guyrad Morrissey on 06-01-2024 Creatinine [Mass/Vol] 1.2 mg/dL High 0.6-1.0 [facility] Eosinophil percentageOrdered By: Guy Morrissey on 06-01-2024 Eosinophils/100 WBC (Bld) 1.1 % 0-5 [facility] Erythrocyte distribution wid th ratioOrdered By: Guy Morrissey on 06-01-2024 Erythrocyte distribution width (RBC) [Ratio] 13.4 % 11.6-14.6 [facility] Erythrocyte distribution wid th standard deviationOrdered By: Guy Morrissey on 06-01-2024 Erythrocyte distribution width (RBC) [Entitic vol] 49.4 fL High 35.1-43.9 [facility] Erythrocyte distribution width (RBC) [Ratio] 49.4 fl High 35.1-43.9 [facility] GFR/1.73 sq M.predicted kateryna g non-blacks MDRD (S/P/Bld) [Vol rate/Area]Ordered By: Guy Morrissey on 06-01-2024 Estimated GFR (MDRD) Non-Af Amer 63 >60 [facility] Comment on above: mL/min/1.73m2 CKD-EP I Creatinine Equation (2020) Glomerular filtration rate ( GFR) estimation/1.73 sq m using serum, plasma, or whole bOrdered By: Guy Morrissey on 06-01-2024 GFR/1.73 sq M.predicted among non-blacks MDRD (S/P/Bld) [Vol rate/Area] 63 mL/min/{1.73_m2} >60 [facility] Comment on above: mL/min/1.73m2 CKD-EP I Creatinine Equation (2020) Hematocrit Auto (Bld) [Volum e fraction]Ordered By: Guy Morrissey on 06-01-2024 Hematocrit (Bld) [Volume fraction] 48.0 % High 37-47 [facility] Hemoglobin measurementOrdere d By: Guy Morrissey on 06-01-2024 Hemoglobin (Bld) [Mass/Vol] 15.3 g/dL High 12.0-15.0 [facility] Immature granulocytes/100 WB C Auto (Bld)Ordered By: Guy Morrissey on 06-01-2024 Immature granulocytes/100 WBC (Bld) 0.400 % 0.0-0.9 [facility] Comment on above: IG% - Immature Granu locytes (promyelocytes, myelocytes and metamyelocytes) > 1% indicates that a LEFT SHIFT is Present. Laboratory - Chemistry and C hemistry - challengeOrdered By: Guy Morrissey on 06-01-2024 AST [Catalytic activity/Vol] 23 U/L <32 [facility] Lymphocytes Auto (Unsp spec) [#/Vol]Ordered By: Guy Morrissey on 06-01-2024 Lymphocytes (Bld) [#/Vol] 1.83 10*3/uL 0.83-4.5 1 [facility] Lymphocytes/100 WBC Auto (Un sp spec)Ordered By: Guy Morrissey on 06-01-2024 Lymphocytes/100 WBC (Bld) 35.0 % 19-41 [facility] MCV (mean corpuscular volume ) determinationOrdered By: Guy Morrissey on 06-01-2024 MCV (RBC) [Entitic vol] 100.6 fL High 81-99 [facility] Mean corpuscular hemoglobin (MCH) determinationOrdered By: Guy Morrissey on 06-01-2024 MCH (RBC) [Entitic mass] 32.1 pg High 27.0-32.0 [facility] Mean corpuscular hemoglobin concentration (MCHC) determinationOrdered By: Guy Morrissey on 06-01-2024 MCHC (RBC) [Mass/Vol] 31.9 g/dL Low 32-36 [facility] Mean platelet volume determi nationOrdered By: Guy Morrissey on 06-01-2024 Platelet mean volume (Bld) [Entitic vol] 10.7 fL 6.2-12.0 [facility] Monocyte percentageOrdered B y: Guy Morrissey on 06-01-2024 Monocytes/100 WBC (Bld) 8.8 % 0-10 [facility] Neutrophil percentageOrdered By: Guy Morrissey on 06-01-2024 Neutrophils/100 WBC (Bld) 54.1 % 47-70 [facility] Nucleated red blood cell per centageOrdered By: Guy Morrissey on 06-01-2024 Nucleated RBC/100 WBC (Bld) [Ratio] 0 % 0-5 [facility] Platelet countOrdered By: Amie Morrissey on 06-01-2024 Platelets (Bld) [#/Vol] 155 10*3/uL 150-450 [facility] [facility] RBC Auto (Bld) [#/Vol]Ordere d By: Guy Morrissey on 06-01-2024 RBC (Bld) [#/Vol] 4.77 10*6/uL 4.2-5.4 [facility] Serum globulin measurementOr dered By: Guy Morrissey on 06-01-2024 Globulin (S) [Mass/Vol] 3.1 g/dL 2.2-4.2 [facility] Serum glucose measurement (m ass/volume)Ordered By: Guy Morrissey on 06-01-2024 Glucose [Mass/Vol] 93 mg/dL 70-99 [facility] Serum or plasma alanine phillips otransferase (ALT) measurementOrdered By: Guy Morrissey on 06-01-2024 ALT [Catalytic activity/Vol] 27 U/L <35 [facility] Serum or plasma albumin vidal urement (mass/volume)Ordered By: Guy Morrissey on 06-01-2024 Albumin [Mass/Vol] 3.9 g/dL 3.5-5.0 [facility] Serum or plasma albumin/glob ulin mass ratioOrdered By: Guy Morrissey on 06-01-2024 Albumin/Globulin [Mass ratio] 1.3 {ratio} 0.9-2.4 [facility] Serum or plasma alkaline shlomo sphatase measurementOrdered By: Guy Morrissey on 06-01-2024 ALP [Catalytic activity/Vol] 100 U/L 35-104 [facility] Serum or plasma anion gap de termination (moles/volume)Ordered By: Guy Morrissey on 06-01-2024 Anion gap [Moles/Vol] 9 mmol/L 5-15 [facility] Serum or plasma calcium vidal urement (mass/volume)Ordered By: Guy Morrissey on 06-01-2024 Calcium [Mass/Vol] 9.0 mg/dL 7.6-11.0 [facility] Serum or plasma creatinine m easurement (moles/volume)Ordered By: Guy Morrissey on 06-01-2024 Creatinine [Moles/Vol] 1.2 mg/dL High 0.6-1.0 [facility] Serum or plasma potassium me asurementOrdered By: Guy Morrissey on 06-01-2024 Potassium [Moles/Vol] 3.9 mmol/L 3.3-5.1 [facility] Serum or plasma sodium measu rement (moles/volume)Ordered By: Guy Morrissey on 06-01-2024 Sodium [Moles/Vol] 140 mmol/L 133-145 [facility] Serum or plasma urea nitroge n measurement (mass/volume)Ordered By: Guy Morrissey on 06-01-2024 Urea nitrogen [Mass/Vol] 17 mg/dL 4-19 [facility] Total proteinOrdered By: Buck Morrissey on 06-01-2024 Protein [Mass/Vol] 7.0 g/dL 5.9-8.4 [facility] White blood cell (WBC) count Ordered By: Guy Morrissey on 06-01-2024 WBC (Bld) [#/Vol] 5.2 10*3/uL 4.4-11.0 [facility] Progress Noteon 05-11-2024 [employer] Developer Authentication Interface Message Text Lia Walters is a here for follow-up of Chief Complaint Patient presents with Follow Up ToF, 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 She has a history of Down syndrome. 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 She had surgical repair. 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 She returns for routine cardiac follow-up. She is having no new complaints. She lives in a nursing home with frequent visits to her parents. She is involved in a day program. She is fairly sedentary. She was hospitalized recently for RSV and hypoxemia. She required supplemental oxygen. She appears to have recovered fully from that. Patient presented 05/05/[address] Cardiac scan with IV contrast. Creat resulted High at 1.5 and GFR calculated to 40.5. CT scan was cancelled. She is accompanied by her mother. Follow Up Cardiac Review of System Cardiovascular: Patient's ECG reviewed. Patient has a murmur. Patient has no chest pain, cyanosis, dizziness, edema, palpitations or syncope. Patient has no dyspnea. She has no diaphoresis. She has no hypertension. Patient's exercise tolerance is good. Patient has a history of congenital heart defect. She has an atrioventricular canal defect and tetralogy of Fallot. It is surgically repaired. Review of Systems Constitutional: Positive for weight gain. Negative for chills, decreased appetite, diaphoresis and fever. Respiratory: Positive for snoring. Negative for cough and shortness of breath. Cardiovascular: Negative for palpitations, syncope and cyanosis. Gastrointestinal: Negative for diarrhea, nausea and vomiting. Neurological: Negative for dizziness. Psychiatric/Behavio ral: Negative for depression. The patient is not nervous/anxious. Interval and Past Medical History Past Medical History: Diagnosis Date Delay in development Down syndrome GERD (gastroesophageal reflux disease) Heart disease 3 open heart surgeries Heart murmur Seizures Sleep apnea Past Surgical History: Procedure Laterality Date ADENOIDECTOMY EYE SURGERY OTHER SURGICAL HISTORY Replacing palmonic PULMONIC VALVE REPLACEMENT 1999, 2002 TETRALOGY OF FALLOT REPAIR 1993 TONSILLECTOMY Social History Socioeconomic History Marital status: Single Spouse name: None Number of children: 0 Years of education: None Highest education level: None Occupational History Occupation: Workshop Tobacco Use Smoking status: Passive Smoke Exposure - Never Smoker Smokeless tobacco: Never Used Substance and Sexual Activity Alcohol use: No Drug use: No Sexual activity: Not Currently Lifestyle Physical activity: Days per week: None Minutes per session: None Social History Narrative Lives in a Long Term. Family is involved. Lia goes to her family home on many weekends. Medications: Current Outpatient Medications: melatonin 10 MG TABS tablet, Take by mouth, Disp: , Rfl: traZODone HCl (DESYREL) 150 MG TABS, Take by mouth, Disp: , Rfl: clonazePAM (KLONOPIN) 0.5 MG disintegrating tablet, Take by mouth 2 times daily as needed, Disp: , Rfl: CLONAZEPAM PO, Take 1 mg by mouth daily, Disp: , Rfl: Cariprazine HCl (VRAYLAR) 3 MG CAPS, Take by mouth daily, Disp: , Rfl: Topiramate (TOPAMAX PO), Take 150 mg by mouth 2 times daily, Disp: , Rfl: Cholecalciferol (VITAMIN D-3 PO), Take 4,000 Units by mouth daily, Disp: , Rfl: paliperidone (INVEGA) 3 MG ER tablet, Take by mouth, Disp: , Rfl: AMMONIUM LACTATE EX, Apply to affected area, Disp: , Rfl: Levonorgestrel 13.5 MG IUD, by Intrauterine route, Disp: , Rfl: omeprazole (PRILOSEC OTC) 20 MG tablet, Take 1 Tablet (20 mg) by mouth daily, Disp: , Rfl: Paliperidone (INVEGA) 9 MG TB24, Take by mouth (Patient not taking: Reported on 05/11/2024), Disp: , Rfl: traZODone HCl (DESYREL) 100 MG tablet, Take by mouth (Patient not taking: Reported on 05/11/2024), Disp: , Rfl: melatonin 5 MG TABS, Take 1 Tablet (5 mg) by mouth as needed (Patient not taking: Reported on 05/11/2024), Disp: , Rfl: Allergies: Allergies Allergen Reactions Skin Adhesives [Cyanoacrylate] Hives Physical Exam: Vitals: 05/11/24 1343 BP: 102/47 Pulse: 62 Resp: 16 Height: (!) 142 cm Weight - Scale: (!) 116.6 kg Body mass index is 57.82 kg/m . Vitals reviewed. Constitutional: She appears well-developed. No distress. Marked obesity. Typical stigmata of Down's syndrome HENT: Head: Normocephalic and atraumatic. Eyes: Conjunctivae are normal. Neck: No JVD present. Cardiovascular: Normal rate and regular rhythm. No extrasystoles are present. Exam reveals no gallop, no friction rub, no aortic ejection click, no midsystolic click and no pulmonic click. Murmur heard. Systolic murmur is present with a grade of 2/6. No diastolic murmur is present. Pulses: (more content not included)... Normal [facility] Absolute neutrophil countOrd ered By: Ngoc Cruz on 04-17-2024 Neutrophils (Bld) [#/Vol] 10.9 10*3/uL High 2.0-7.7 [facility] Basic Metabolic Profile (BMP )on 04-17-2024 BUN/CRE 23.8 RATIO High 10-20 [facility] Comment on above: Performed By: #### L 500.4100, L100.0100 #### [facility] [address] [place], [address] CA,Total 8.3 mg/dL Low 8.5-10.1 [facility] Comment on above: Performed By: #### L 500.4100, L100.0100 #### [facility] [address] [place], [address] Chloride [Moles/Vol] 113 mmol/L High 98-107 [facility] Comment on above: Performed By: #### L 500.4100, L100.0100 #### [facility] [address] [place], [address] CO2 [Moles/Vol] 24.0 mmol/L Normal 21.0-32.0 [facility] Comment on above: Performed By: #### L 500.4100, L100.0100 #### [facility] [address] [place], [address] Creatinine [Mass/Vol] 1.05 mg/dL High 0.55-1.02 [facility] Comment on above: Result Comment: The validity of the calculated GFR GFRAA in patients over 70 years has not been determined. Clinical correlation is essential. Performed By: #### L 500.4100, L100.0100 #### [facility] [address] [place], [address] ECRCL 89.20 ml/min Normal [facility] Comment on above: Performed By: #### L 500.4100, L100.0100 #### [facility] [address] [place], [address] EST GFR - AA 78 mL/min Normal >60 [facility] Comment on above: Result Comment: Afri can Nepalese GFR Calc Performed By: #### L 500.4100, L100.0100 #### [facility] [address] [place], [address] GAP 3 Low 5-15 [facility] Comment on above: Performed By: #### L 500.4100, L100.0100 #### [facility] [address] [place], [address] GFR/1.73 sq M.predicted among non-blacks MDRD (S/P/Bld) [Vol rate/Area] 64 mL/min/{1.73_m2} Normal >60 [facility] Comment on above: Result Comment: Non- GFR Calc Performed By: #### L 500.4100, L100.0100 #### [facility] [address] [place], [address] Glucose [Mass/Vol] 136 mg/dL High 74-106 [facility] Comment on above: Result Comment: Fast ing Glucose result greater than or equal to 126 mg/dL suggests DIABETES MELLITUS per A.D.A. criteria. Performed By: #### L 500.4100, L100.0100 #### [facility] [address] [place], [address] Potassium [Moles/Vol] 4.1 mmol/L Normal 3.5-5.1 [facility] Comment on above: Performed By: #### L 500.4100, L100.0100 #### [facility] [address] [place], [address] Sodium [Moles/Vol] 140 mmol/L Normal 136-145 [facility] Comment on above: Performed By: #### L 500.4100, L100.0100 #### [facility] [address] [place] [place], [address] Urea nitrogen [Mass/Vol] 25 mg/dL High 7-18 [facility] Comment on above: Performed By: #### L 500.4100, L100.0100 #### [facility] [address] [place], [address] Basophil percentageOrdered B y: Ngoc Cruz on 04-17-2024 Basophils/100 WBC (Bld) 0.2 % 0-1 [facility] Blood urea nitrogen (BUN)/cr eatinine ratioOrdered By: Ngoc Cruz on 04-17-2024 Urea nitrogen/Creatinine [Mass ratio] 23.8 mg/mg High 10-20 [facility] CBC W/Diff, Automatedon 04-05 Absolute Lymph 1.38 X10 3/uL Normal 0.83-4.51 [facility] Comment on above: Performed By: #### L 500.4100, L100.0100 #### [facility] [address] [place], [address] Absolute Neut 10.9 X10 3/uL High 2.0-7.7 [facility] Comment on above: Performed By: #### L 500.4100, L100.0100 #### [facility] [address] [place], [address] Basophils/100 WBC (Bld) 0.2 % Normal 0-1 [facility] Comment on above: Performed By: #### L 500.4100, L100.0100 #### [facility] [address] [place], [address] Eosinophils/100 WBC (Bld) 0.2 % Normal 0-5 [facility] Comment on above: Performed By: #### L 500.4100, L100.0100 #### [facility] [address] [place], [address] Erythrocyte distribution width (RBC) [Ratio] 13.2 % Normal 11.6-14.6 [facility] Comment on above: Performed By: #### L 500.4100, L100.0100 #### [facility] [address] [place], [address] Hematocrit (Bld) [Volume fraction] 43.6 % Normal 37-47 [facility] Comment on above: Performed By: #### L 500.4100, L100.0100 #### [facility] [address] [place], [address] Hemoglobin (Bld) [Mass/Vol] 14.1 g/dL Normal 12.0-15.0 [facility] Comment on above: Performed By: #### L 500.4100, L100.0100 #### [facility] [address] [place], [address] IG% 1.600 High 0.0-0.9 [facility] Comment on above: Result Comment: IG% - Immature Granulocytes (promyelocytes, myelocytes and metamyelocytes) > 1% indicates that a LEFT SHIFT is Present. Performed By: #### L 500.4100, L100.0100 #### [facility] [address] [place], [address] Lymphocytes/100 WBC (Bld) 10.5 % Low 19-41 [facility] Comment on above: Performed By: #### L 500.4100, L100.0100 #### [facility] [address] [place], [address] MCH (RBC) [Entitic mass] 31.8 pg Normal 27.0-32.0 [facility] Comment on above: Performed By: #### L 500.4100, L100.0100 #### [facility] [address] [place], [address] MCHC (RBC) [Mass/Vol] 32.3 g/dL Normal 32-36 [facility] Comment on above: Performed By: #### L 500.4100, L100.0100 #### [facility] [address] [place], [address] MCV (RBC) [Entitic vol] 98.4 fL Normal 81-99 [facility] Comment on above: Performed By: #### L 500.4100, L100.0100 #### [facility] [address] [place], [address] Monocytes/100 WBC (Bld) 4.8 % Normal 0-10 [facility] Comment on above: Performed By: #### L 500.4100, L100.0100 #### [facility] [address] [place], [address] Neutrophils/100 WBC (Bld) 82.7 % High 47-70 [facility] Comment on above: Performed By: #### L 500.4100, L100.0100 #### [facility] [address] [place], [address] Nucleated RBC (Bld) [#/Vol] 0 10*3/uL Normal 0-5 [facility] Comment on above: Performed By: #### L 500.4100, L100.0100 #### [facility] [address] [place], [address] Platelet mean volume (Bld) [Entitic vol] 9.9 fL Normal 6.2-12.0 [facility] Comment on above: Performed By: #### L 500.4100, L100.0100 #### [facility] [address] [place], [address] Platelets (Bld) [#/Vol] 188 10*3/uL Normal 150-450 [facility] Comment on above: Performed By: #### L 500.4100, L100.0100 #### [facility] [address] [place], [address] RBC (Bld) [#/Vol] 4.43 10*6/uL Normal 4.2-5.4 [facility] Comment on above: Performed By: #### L 500.4100, L100.0100 #### [facility] [address] [place], [address] RDW SD 47.4 fl High 35.1-43.9 [facility] Comment on above: Performed By: #### L 500.4100, L100.0100 #### [facility] [address] [place], [address] WBC (Bld) [#/Vol] 13.2 10*3/uL High 4.4-11.0 [facility] Comment on above: Performed By: #### L 500.4100, L100.0100 #### [facility] [address] [place], [address] Carbon dioxide measurementOr dered By: Ngoc Cruz on 04-17-2024 CO2 [Moles/Vol] 24.0 mmol/L 21.0-32.0 [facility] Chloride measurementOrdered By: Ngoc Cruz on 04-17-2024 Chloride [Moles/Vol] 113 mmol/L High 98-107 [facility] Discharge Instructionon 04-05 Discharge Instruction [facility] Medical Records Department [address] [place] [address] Instructions for Home/Discharge Instructions 04/17/24 1232 MR#: [id number] Acct: [id number] Name: ILA WALTERS Rep #: [id number] : 1990 34 From: Ngoc Cruz MD PCP: Dr. Rafy Olsen MD Status:ADM IN Discharge Instructions Diet Discharge Diet: - (Resume previous diet) DC O2, CPAP, BIPAP needs RN Home O2 Qualification: Home O2 Qualification: Is the patient on home oxygen No 04/17/24 13:55 Home O2 Qualification: AT REST 1- Pulse Ox at rest 95 04/17/24 13:55 Home O2 Qualification: WITH AMBULATION 1- Pulse Ox with ambulation 91 04/17/24 13:55 1- Oxygen Flow Rate with 0 04/17/24 13:55 ambulation Home O2 Discharge instructions: No Dressing / Incision Discharge Activity: Return to Normal Activity Follow Up Care Test Results: Test results from this visit will be discussed in further detail at your follow-up appointment, if applicable. Discharge Plan Admission Admit Date/Time: 04/14/24 03:57 Primary Reason for Your Visit: Shortness of breath, RSV Attending Provider: Ngoc Cruz Primary Care Provider: Rafy Olsen Consulting Providers: Malcolm Best Instructions Patient Instructions: ED RSV Bronchiolitis Additional Instructions / Restrictions: -You will be discharged on a prednisone taper: -60 mg daily x3 days -50mg daily x3 days -40mg daily x3 days -30mg daily x3 days -20mg daily x3 days -10mg daily x3 days -You will be discharged with nebulizer solution -Continue your home medications as previously prescribed -Please call your primary care provider's office upon discharge to schedule a hospital follow up within 1 week. -For any concerning signs or symptoms please call 911 or proceed to the nearest emergency department Discharge Orders/Prescription s Prescriptions: New ipratropium-albuter ol 0.5 mg-3 mg(2.5 mg base)/3 mL Solution For Nebulization 3 ml inhalation Q4HWA.RT 30 Days Qty: 180 0RF prednisone 20 mg Tablet See Taper PO BREAKFAST Qty: 32 0RF Taper: Prednisone Taper 60 mg WITH BREAKFAST for 3 Days and 0 Hour 50 mg WITH BREAKFAST for 3 Days and 0 Hour 40 mg WITH BREAKFAST for 3 Days and 0 Hour 30 mg WITH BREAKFAST for 3 Days and 0 Hour 20 mg WITH BREAKFAST for 3 Days and 0 Hour 10 mg WITH BREAKFAST for 3 Days and 0 Hour Continued topiramate 100 MG tablet 150 mg PO BID melatonin 5 MG tablet 10 mg PO QHS omeprazole 20 MG capsule 20 mg PO DAILY acetaminophen [Tylenol Extra Strength] 500 mg tablet 1,000 mg PO Q6H PRN (Reason: fever or pain) Qty: 60 0RF Rx Instructions: Do not exceed 4000 mg/day ammonium lactate 12 % cream 1 applic TOPICAL QHS paliperidone 3 mg tablet extended release 24hr 3 mg PO Q24H trazodone 100 mg tablet 150 mg PO QHS cholecalciferol (vitamin D3) 50 mcg (2,000 unit) tablet 100 mcg PO DAILY valacyclovir 1 gram tablet 2,000 mg PO BID PRN (Reason: MOUTH SORE) Vraylar 3 mg capsule 3 mg PO DAILY clonazepam 0.5 mg tablet 0.25 mg PO BID clonazepam 0.5 mg tablet 0.5 mg PO QHS Rx Instructions: administer 30 minutes before bedtime Referrals / Follow Up: Rafy Olsen MD [Primary Care Provider] - Within 1 Week Disposition Disposition (needs filled in before D/C Order can be placed): DC/Tx to Another Type of HCF 04/17/24 1405 Ngoc Cruz MD CC: Dr. Malcolm Best DO; Dr. Rafy Olsen MD Signed ADDENDUM by Dr. Ngoc Cruz MD on 04/17/24 at 1525 Return to work 04/18/24 04/17/24 1525 Ngoc Cruz MD cc: Dr. Malcolm Best DO; Dr. Rafy Olsen MD * Signed Normal [facility] Eosinophil percentageOrdered By: Ngoc Cruz on 04-17-2024 Eosinophils/100 WBC (Bld) 0.2 % 0-5 [facility] Erythrocyte distribution wid th ratioOrdered By: Ngoc Cruz on 04-17-2024 Erythrocyte distribution width (RBC) [Ratio] 13.2 % 11.6-14.6 [facility] Erythrocyte distribution wid th standard deviationOrdered By: Ngoc Cruz on 04-17-2024 Erythrocyte distribution width (RBC) [Entitic vol] 47.4 fL High 35.1-43.9 [facility] Estimated glomerular filtrat ion rate (GFR) AmericanOrdered By: Ngoc Cruz on 04-17-2024 Estimated GFR (MDRD) Amer 78 mL/min >60 [facility] Comment on above: GFR Calc Estimation of creatinine tania aranceOrdered By: Ngoc Cruz on 04-17-2024 Estimated Creatinine Clearance Calc 89.20 ml/min [facility] Glomerular filtration rate ( GFR) estimationOrdered By: Ngoc Cruz on 04-17-2024 Estimated GFR (MDRD) Non-Af Amer 64 mL/min >60 [facility] Comment on above: Non- GFR Calc Glucose measurementOrdered B y: Ngoc Cruz on 04-17-2024 Glucose [Mass/Vol] 136 mg/dL High 74-106 [facility] Comment on above: Fasting Glucose resu lt greater than or equal to 126 mg/dL suggests DIABETES MELLITUS per A.D.A. criteria. Hematocrit Auto (Bld) [Volum e fraction]Ordered By: Nogc Cruz on 04-17-2024 Hematocrit (Bld) [Volume fraction] 43.6 % 37-47 [facility] Hemoglobin measurementOrdere d By: Ngoc Cruz on 04-17-2024 Hemoglobin (Bld) [Mass/Vol] 14.1 g/dL 12.0-15.0 [facility] Immature granulocytes/100 WB C Auto (Bld)Ordered By: Ngoc Cruz on 04-17-2024 Immature granulocytes/100 WBC (Bld) 1.600 % High 0.0-0.9 [facility] Comment on above: IG% - Immature Granu locytes (promyelocytes, myelocytes and metamyelocytes) > 1% indicates that a LEFT SHIFT is Present. Lymphocytes Auto (Unsp spec) [#/Vol]Ordered By: Ngoc Cruz on 04-17-2024 Lymphocytes (Bld) [#/Vol] 1.38 10*3/uL 0.83-4.5 1 [facility] Lymphocytes/100 WBC Auto (Un sp spec)Ordered By: Ngoc Cruz on 04-17-2024 Lymphocytes/100 WBC (Bld) 10.5 % Low 19-41 [facility] MCV (mean corpuscular volume ) determinationOrdered By: Ngoc Cruz on 04-17-2024 MCV (RBC) [Entitic vol] 98.4 fL 81-99 [facility] Mean corpuscular hemoglobin (MCH) determinationOrdered By: Ngoc Cruz on 04-17-2024 MCH (RBC) [Entitic mass] 31.8 pg 27.0-32.0 [facility] Mean corpuscular hemoglobin concentration (MCHC) determinationOrdered By: Ngoc Cruz on 04-17-2024 MCHC (RBC) [Mass/Vol] 32.3 g/dL 32-36 [facility] Mean platelet volume determi nationOrdered By: Ngoc Cruz on 04-17-2024 Platelet mean volume (Bld) [Entitic vol] 9.9 fL 6.2-12.0 [facility] Monocyte percentageOrdered B y: Ngoc Cruz on 04-17-2024 Monocytes/100 WBC (Bld) 4.8 % 0-10 [facility] Neutrophil percentageOrdered By: Ngoc Cruz on 04-17-2024 Neutrophils/100 WBC (Bld) 82.7 % High 47-70 [facility] Nucleated red blood cell per centageOrdered By: Ngoc Cruz on 04-17-2024 Nucleated RBC/100 WBC (Bld) [Ratio] 0 % 0-5 [facility] Platelet countOrdered By: Jeremy Cruz on 04-17-2024 Platelets (Bld) [#/Vol] 188 10*3/uL 150-450 [facility] Potassium measurementOrdered By: Ngoc Cruz on 04-17-2024 Potassium [Moles/Vol] 4.1 mmol/L 3.5-5.1 [facility] RBC Auto (Bld) [#/Vol]Ordere d By: Ngoc Cruz on 04-17-2024 RBC (Bld) [#/Vol] 4.43 10*6/uL 4.2-5.4 [facility] Serum anion gap measurementO rdered By: Ngoc Cruz on 04-17-2024 Anion gap [Moles/Vol] 3 mmol/L Low 5-15 [facility] Serum or plasma calcium vidal urement (mass/volume)Ordered By: Ngoc Cruz on 04-17-2024 Calcium [Mass/Vol] 8.3 mg/dL Low 8.5-10.1 [facility] Serum or plasma creatinine m easurement (mass/volume)Ordered By: Ngoc Cruz on 04-17-2024 Creatinine [Mass/Vol] 1.05 mg/dL High 0.55-1.02 [facility] Comment on above: The validity of the calculated GFR & GFRAA in patients over 70 years has not been determined. Clinical correlation is essential. Serum or plasma urea nitroge n measurement (mass/volume)Ordered By: Ngoc Cruz on 04-17-2024 Urea nitrogen [Mass/Vol] 25 mg/dL High 7-18 [facility] Sodium levelOrdered By: Monica Cruz on 04-17-2024 Sodium [Moles/Vol] 140 mmol/L 136-145 [facility] White blood cell (WBC) count Ordered By: Ngoc rCuz on 04-17-2024 WBC (Bld) [#/Vol] 13.2 10*3/uL High 4.4-11.0 [facility] Basic Metabolic Profile (BMP )on 04-16-2024 BUN/CRE 19.1 RATIO Normal 10-20 [facility] Comment on above: Performed By: #### L 501.5200, L503.6005, L500.2500, L509.7000, L100.0100, L503.6620 #### [facility] [address] [place], [address] CA,Total 8.7 mg/dL Normal 8.5-10.1 [facility] Comment on above: Performed By: #### L 501.5200, L503.6005, L500.2500, L509.7000, L100.0100, L503.6620 #### [facility] [address] [place], [address] Chloride [Moles/Vol] 112 mmol/L High 98-107 [facility] Comment on above: Performed By: #### L 501.5200, L503.6005, L500.2500, L509.7000, L100.0100, L503.6620 #### [facility] [address] [place], [address] CO2 [Moles/Vol] 24.0 mmol/L Normal 21.0-32.0 [facility] Comment on above: Performed By: #### L 501.5200, L503.6005, L500.2500, L509.7000, L100.0100, L503.6620 #### [facility] [address] [place], [address] Creatinine [Mass/Vol] 1.15 mg/dL High 0.55-1.02 [facility] Comment on above: Result Comment: The validity of the calculated GFR GFRAA in patients over 70 years has not been determined. Clinical correlation is essential. Performed By: #### L 501.5200, L503.6005, L500.2500, L509.7000, L100.0100, L503.6620 #### [facility] [address] [place], [address] ECRCL 81.44 ml/min Normal [facility] Comment on above: Performed By: #### L 501.5200, L503.6005, L500.2500, L509.7000, L100.0100, L503.6620 #### [facility] [address] [place], [address] EST GFR - AA 70 mL/min Normal >60 [facility] Comment on above: Result Comment: Afri can Nepalese GFR Calc Performed By: #### L 501.5200, L503.6005, L500.2500, L509.7000, L100.0100, L503.6620 #### [facility] [address] [place], [address] GAP 4 Low 5-15 [facility] Comment on above: Performed By: #### L 501.5200, L503.6005, L500.2500, L509.7000, L100.0100, L503.6620 #### [facility] [address] [place], [address] GFR/1.73 sq M.predicted among non-blacks MDRD (S/P/Bld) [Vol rate/Area] 58 mL/min/{1.73_m2} Low >60 [facility] Comment on above: Result Comment: Non- GFR Calc Performed By: #### L 501.5200, L503.6005, L500.2500, L509.7000, L100.0100, L503.6620 #### [facility] [address] [place], [address] Glucose [Mass/Vol] 132 mg/dL High 74-106 [facility] Comment on above: Result Comment: Fast ing Glucose result greater than or equal to 126 mg/dL suggests DIABETES MELLITUS per A.D.A. criteria. Performed By: #### L 501.5200, L503.6005, L500.2500, L509.7000, L100.0100, L503.6620 #### [facility] [address] [place], [address] Potassium [Moles/Vol] 3.9 mmol/L Normal 3.5-5.1 [facility] Comment on above: Performed By: #### L 501.5200, L503.6005, L500.2500, L509.7000, L100.0100, L503.6620 #### [facility] [address] [place], [address] Sodium [Moles/Vol] 140 mmol/L Normal 136-145 [facility] Comment on above: Performed By: #### L 501.5200, L503.6005, L500.2500, L509.7000, L100.0100, L503.6620 #### [facility] [address] [place], [address] Urea nitrogen [Mass/Vol] 22 mg/dL High 7-18 [facility] Comment on above: Performed By: #### L 501.5200, L503.6005, L500.2500, L509.7000, L100.0100, L503.6620 #### [facility] [address] [place], [address] CBC-Complete Blood Cnt No Di ffon 04-16-2024 Erythrocyte distribution width (RBC) [Ratio] 13.2 % Normal 11.6-14.6 [facility] Comment on above: Performed By: #### L 501.5200, L503.6005, L500.2500, L509.7000, L100.0100, L503.6620 #### [facility] [address] [place], [address] Hematocrit (Bld) [Volume fraction] 44.9 % Normal 37-47 [facility] Comment on above: Performed By: #### L 501.5200, L503.6005, L500.2500, L509.7000, L100.0100, L503.6620 #### [facility] [address] [place], [address] Hemoglobin (Bld) [Mass/Vol] 14.6 g/dL Normal 12.0-15.0 [facility] Comment on above: Performed By: #### L 501.5200, L503.6005, L500.2500, L509.7000, L100.0100, L503.6620 #### [facility] [address] [place], [address] MCH (RBC) [Entitic mass] 32.1 pg High 27.0-32.0 [facility] Comment on above: Performed By: #### L 501.5200, L503.6005, L500.2500, L509.7000, L100.0100, L503.6620 #### [facility] [address] [place], [address] MCHC (RBC) [Mass/Vol] 32.5 g/dL Normal 32-36 [facility] Comment on above: Performed By: #### L 501.5200, L503.6005, L500.2500, L509.7000, L100.0100, L503.6620 #### [facility] [address] [place], [address] MCV (RBC) [Entitic vol] 98.7 fL Normal 81-99 [facility] Comment on above: Performed By: #### L 501.5200, L503.6005, L500.2500, L509.7000, L100.0100, L503.6620 #### [facility] [address] [place], [address] Platelet mean volume (Bld) [Entitic vol] 10.7 fL Normal 6.2-12.0 [facility] Comment on above: Performed By: #### L 501.5200, L503.6005, L500.2500, L509.7000, L100.0100, L503.6620 #### [facility] [address] [place], [address] Platelets (Bld) [#/Vol] 172 10*3/uL Normal 150-450 [facility] Comment on above: Performed By: #### L 501.5200, L503.6005, L500.2500, L509.7000, L100.0100, L503.6620 #### [facility] [address] [place], [address] RBC (Bld) [#/Vol] 4.55 10*6/uL Normal 4.2-5.4 [facility] Comment on above: Performed By: #### L 501.5200, L503.6005, L500.2500, L509.7000, L100.0100, L503.6620 #### [facility] [address] [place], [address] RDW SD 47.8 fl High 35.1-43.9 [facility] Comment on above: Performed By: #### L 501.5200, L503.6005, L500.2500, L509.7000, L100.0100, L503.6620 #### [facility] [address] [place], [address] WBC (Bld) [#/Vol] 11.7 10*3/uL High 4.4-11.0 [facility] Comment on above: Performed By: #### L 501.5200, L503.6005, L500.2500, L509.7000, L100.0100, L503.6620 #### [facility] [address] [place], [address] Basic Metabolic Profile (BMP )on 04-15-2024 BUN/CRE 19.6 RATIO Normal 10-20 [facility] Comment on above: Performed By: #### L 500.4100, L100.0100 #### [facility] [address] [place], [address] CA,Total 8.6 mg/dL Normal 8.5-10.1 [facility] Comment on above: Performed By: #### L 500.4100, L100.0100 #### [facility] [address] [place], [address] Chloride [Moles/Vol] 113 mmol/L High 98-107 [facility] Comment on above: Performed By: #### L 500.4100, L100.0100 #### [facility] [address] [place], [address] CO2 [Moles/Vol] 22.0 mmol/L Normal 21.0-32.0 [facility] Comment on above: Performed By: #### L 500.4100, L100.0100 #### [facility] [address] [place], [address] Creatinine [Mass/Vol] 1.07 mg/dL High 0.55-1.02 [facility] Comment on above: Result Comment: The validity of the calculated GFR GFRAA in patients over 70 years has not been determined. Clinical correlation is essential. Performed By: #### L 500.4100, L100.0100 #### [facility] [address] [place], [address] ECRCL 87.53 ml/min Normal [facility] Comment on above: Performed By: #### L 500.4100, L100.0100 #### [facility] [address] [place], [address] EST GFR - AA 76 mL/min Normal >60 [facility] Comment on above: Result Comment: Afri can Nepalese GFR Calc Performed By: #### L 500.4100, L100.0100 #### [facility] [address] [place], [address] GAP 3 Low 5-15 [facility] Comment on above: Performed By: #### L 500.4100, L100.0100 #### [facility] [address] [place], [address] GFR/1.73 sq M.predicted among non-blacks MDRD (S/P/Bld) [Vol rate/Area] 63 mL/min/{1.73_m2} Normal >60 [facility] Comment on above: Result Comment: Non- GFR Calc Performed By: #### L 500.4100, L100.0100 #### [facility] [address] [place], [address] Glucose [Mass/Vol] 143 mg/dL High 74-106 [facility] Comment on above: Result Comment: Fast ing Glucose result greater than or equal to 126 mg/dL suggests DIABETES MELLITUS per A.D.A. criteria. Performed By: #### L 500.4100, L100.0100 #### [facility] [address] [place], [address] Potassium [Moles/Vol] 4.2 mmol/L Normal 3.5-5.1 [facility] Comment on above: Performed By: #### L 500.4100, L100.0100 #### [facility] [address] [place], [address] Sodium [Moles/Vol] 138 mmol/L Normal 136-145 [facility] Comment on above: Performed By: #### L 500.4100, L100.0100 #### [facility] [address] [place], [address] Urea nitrogen [Mass/Vol] 21 mg/dL High 7-18 [facility] Comment on above: Performed By: #### L 500.4100, L100.0100 #### [facility] [address] [place], [address] CBC-Complete Blood Cnt No Di ffon 04-15-2024 Erythrocyte distribution width (RBC) [Ratio] 12.8 % Normal 11.6-14.6 [facility] Comment on above: Performed By: #### L 500.4100, L100.0100 #### [facility] [address] [place], [address] Hematocrit (Bld) [Volume fraction] 42.6 % Normal 37-47 [facility] Comment on above: Performed By: #### L 500.4100, L100.0100 #### [facility] [address] [place], [address] Hemoglobin (Bld) [Mass/Vol] 14.0 g/dL Normal 12.0-15.0 [facility] Comment on above: Performed By: #### L 500.4100, L100.0100 #### [facility] [address] [place], [address] MCH (RBC) [Entitic mass] 32.4 pg High 27.0-32.0 [facility] Comment on above: Performed By: #### L 500.4100, L100.0100 #### [facility] [address] [place], [address] MCHC (RBC) [Mass/Vol] 32.9 g/dL Normal 32-36 [facility] Comment on above: Performed By: #### L 500.4100, L100.0100 #### [facility] [address] [place], [address] MCV (RBC) [Entitic vol] 98.6 fL Normal 81-99 [facility] Comment on above: Performed By: #### L 500.4100, L100.0100 #### [facility] [address] [place], [address] Platelet mean volume (Bld) [Entitic vol] 10.7 fL Normal 6.2-12.0 [facility] Comment on above: Performed By: #### L 500.4100, L100.0100 #### [facility] [address] [place], [address] Platelets (Bld) [#/Vol] 142 10*3/uL Low 150-450 [facility] Comment on above: Performed By: #### L 500.4100, L100.0100 #### [facility] [address] [place], [address] RBC (Bld) [#/Vol] 4.32 10*6/uL Normal 4.2-5.4 [facility] Comment on above: Performed By: #### L 500.4100, L100.0100 #### [facility] [address] [place], [address] RDW SD 46.7 fl High 35.1-43.9 [facility] Comment on above: Performed By: #### L 500.4100, L100.0100 #### [facility] [address] [place], [address] WBC (Bld) [#/Vol] 11.3 10*3/uL High 4.4-11.0 [facility] Comment on above: Performed By: #### L 500.4100, L100.0100 #### [facility] [address] [place], [address] BNP (brain natriuretic pepti de measurement)Ordered By: Samy Espinoza on 04-14-2024 Natriuretic peptide B (Bld) [Mass/Vol] 106.8 pg/mL High 0-100 [facility] BNP,B-Type NATRIURETIC PEPTI Andrae 04-14-2024 Natriuretic peptide B (Bld) [Mass/Vol] 106.8 pg/mL High 0-100 [facility] Comment on above: Performed By: #### L 501.5200, L503.6005, L500.2500, L509.7000, L100.0100, L503.6620 #### [facility] [address] [place], [address] Basic Metabolic Profile (BMP )on 04-14-2024 BUN/CRE 12.2 RATIO Normal 10-20 [facility] Comment on above: Performed By: #### L 501.5200, L503.6005, L500.2500, L509.7000, L100.0100, L503.6620 #### [facility] [address] [place], [address] CA,Total 8.6 mg/dL Normal 8.5-10.1 [facility] Comment on above: Performed By: #### L 501.5200, L503.6005, L500.2500, L509.7000, L100.0100, L503.6620 #### [facility] [address] [place], [address] Chloride [Moles/Vol] 109 mmol/L High 98-107 [facility] Comment on above: Performed By: #### L 501.5200, L503.6005, L500.2500, L509.7000, L100.0100, L503.6620 #### [facility] [address] [place], [address] CO2 [Moles/Vol] 27.0 mmol/L Normal 21.0-32.0 [facility] Comment on above: Performed By: #### L 501.5200, L503.6005, L500.2500, L509.7000, L100.0100, L503.6620 #### [facility] [address] [place], [address] Creatinine [Mass/Vol] 1.88 mg/dL High 0.55-1.02 [facility] Comment on above: Result Comment: The validity of the calculated GFR GFRAA in patients over 70 years has not been determined. Clinical correlation is essential. Performed By: #### L 501.5200, L503.6005, L500.2500, L509.7000, L100.0100, L503.6620 #### [facility] [address] [place], [address] ECRCL 50.23 ml/min Normal [facility] Comment on above: Performed By: #### L 501.5200, L503.6005, L500.2500, L509.7000, L100.0100, L503.6620 #### [facility] [address] [place], [address] EST GFR - AA 40 mL/min Low >60 [facility] Comment on above: Result Comment: Afri can Nepalese GFR Calc Performed By: #### L 501.5200, L503.6005, L500.2500, L509.7000, L100.0100, L503.6620 #### [facility] [address] [place], [address] GAP 4 Low 5-15 [facility] Comment on above: Performed By: #### L 501.5200, L503.6005, L500.2500, L509.7000, L100.0100, L503.6620 #### [facility] [address] [place], [address] GFR/1.73 sq M.predicted among non-blacks MDRD (S/P/Bld) [Vol rate/Area] 33 mL/min/{1.73_m2} Low >60 [facility] Comment on above: Result Comment: Non- GFR Calc Performed By: #### L 501.5200, L503.6005, L500.2500, L509.7000, L100.0100, L503.6620 #### [facility] [address] [place], [address] Glucose [Mass/Vol] 105 mg/dL Normal 74-106 [facility] Comment on above: Result Comment: Fast ing Glucose result from 100 to 125 mg/dL suggests IMPAIRED HOMEOSTASIS per A.D.A. criteria. Performed By: #### L 501.5200, L503.6005, L500.2500, L509.7000, L100.0100, L503.6620 #### [facility] [address] [place], [address] Potassium [Moles/Vol] 3.8 mmol/L Normal 3.5-5.1 [facility] Comment on above: Performed By: #### L 501.5200, L503.6005, L500.2500, L509.7000, L100.0100, L503.6620 #### [facility] [address] [place], [address] Sodium [Moles/Vol] 140 mmol/L Normal 136-145 [facility] Comment on above: Performed By: #### L 501.5200, L503.6005, L500.2500, L509.7000, L100.0100, L503.6620 #### [facility] [address] [place], [address] Urea nitrogen [Mass/Vol] 23 mg/dL High 7-18 [facility] Comment on above: Performed By: #### L 501.5200, L503.6005, L500.2500, L509.7000, L100.0100, L503.6620 #### [facility] [address] [place], [address] CBC W/Diff, Automatedon 01-1 0-2024 Absolute Lymph 1.18 X10 3/uL Normal 0.83-4.51 [facility] Comment on above: Performed By: #### L 501.5200, L503.6005, L500.2500, L509.7000, L100.0100, L503.6620 #### [facility] [address] [place], [address] Absolute Neut 7.6 X10 3/uL Normal 2.0-7.7 [facility] Comment on above: Performed By: #### L 501.5200, L503.6005, L500.2500, L509.7000, L100.0100, L503.6620 #### [facility] [address] [place], [address] Basophils/100 WBC (Bld) 0.5 % Normal 0-1 [facility] Comment on above: Performed By: #### L 501.5200, L503.6005, L500.2500, L509.7000, L100.0100, L503.6620 #### [facility] [address] [place], [address] Eosinophils/100 WBC (Bld) 0.1 % Normal 0-5 [facility] Comment on above: Performed By: #### L 501.5200, L503.6005, L500.2500, L509.7000, L100.0100, L503.6620 #### [facility] [address] [place], [address] Erythrocyte distribution width (RBC) [Ratio] 12.8 % Normal 11.6-14.6 [facility] Comment on above: Performed By: #### L 501.5200, L503.6005, L500.2500, L509.7000, L100.0100, L503.6620 #### [facility] [address] [place], [address] Hematocrit (Bld) [Volume fraction] 46.9 % Normal 37-47 [facility] Comment on above: Performed By: #### L 501.5200, L503.6005, L500.2500, L509.7000, L100.0100, L503.6620 #### [facility] [address] [place], [address] Hemoglobin (Bld) [Mass/Vol] 15.5 g/dL High 12.0-15.0 [facility] Comment on above: Performed By: #### L 501.5200, L503.6005, L500.2500, L509.7000, L100.0100, L503.6620 #### [facility] [address] [facility] [place], [address] IG% 0.400 Normal 0.0-0.9 [facility] Comment on above: Result Comment: IG% - Immature Granulocytes (promyelocytes, myelocytes and metamyelocytes) > 1% indicates that a LEFT SHIFT is Present. Performed By: #### L 501.5200, L503.6005, L500.2500, L509.7000, L100.0100, L503.6620 #### [facility] [address] [place] [place], [address] Lymphocytes/100 WBC (Bld) 12.5 % Low 19-41 [facility] Comment on above: Performed By: #### L 501.5200, L503.6005, L500.2500, L509.7000, L100.0100, L503.6620 #### [facility] [address] [place], [address] MCH (RBC) [Entitic mass] 32.6 pg High 27.0-32.0 [facility] Comment on above: Performed By: #### L 501.5200, L503.6005, L500.2500, L509.7000, L100.0100, L503.6620 #### [facility] [address] [place], [address] MCHC (RBC) [Mass/Vol] 33.0 g/dL Normal 32-36 [facility] Comment on above: Performed By: #### L 501.5200, L503.6005, L500.2500, L509.7000, L100.0100, L503.6620 #### [facility] [address] [place], [address] MCV (RBC) [Entitic vol] 98.7 fL Normal 81-99 [facility] Comment on above: Performed By: #### L 501.5200, L503.6005, L500.2500, L509.7000, L100.0100, L503.6620 #### [facility] [address] [place], [address] Monocytes/100 WBC (Bld) 6.7 % Normal 0-10 [facility] Comment on above: Performed By: #### L 501.5200, L503.6005, L500.2500, L509.7000, L100.0100, L503.6620 #### [facility] [address] [place], [address] Neutrophils/100 WBC (Bld) 79.8 % High 47-70 [facility] Comment on above: Performed By: #### L 501.5200, L503.6005, L500.2500, L509.7000, L100.0100, L503.6620 #### [facility] [address] [place], [address] Nucleated RBC (Bld) [#/Vol] 0 10*3/uL Normal 0-5 [facility] Comment on above: Performed By: #### L 501.5200, L503.6005, L500.2500, L509.7000, L100.0100, L503.6620 #### [facility] [address] [place], [address] Platelet mean volume (Bld) [Entitic vol] 10.0 fL Normal 6.2-12.0 [facility] Comment on above: Performed By: #### L 501.5200, L503.6005, L500.2500, L509.7000, L100.0100, L503.6620 #### [facility] [address] [place], [address] Platelets (Bld) [#/Vol] 134 10*3/uL Low 150-450 [facility] Comment on above: Performed By: #### L 501.5200, L503.6005, L500.2500, L509.7000, L100.0100, L503.6620 #### [facility] [address] [place], [address] RBC (Bld) [#/Vol] 4.75 10*6/uL Normal 4.2-5.4 [facility] Comment on above: Performed By: #### L 501.5200, L503.6005, L500.2500, L509.7000, L100.0100, L503.6620 #### [facility] [address] [place], [address] RDW SD 46.8 fl High 35.1-43.9 [facility] Comment on above: Performed By: #### L 501.5200, L503.6005, L500.2500, L509.7000, L100.0100, L503.6620 #### [facility] [address] [place], [address] WBC (Bld) [#/Vol] 9.5 10*3/uL Normal 4.4-11.0 [facility] Comment on above: Performed By: #### L 501.5200, L503.6005, L500.2500, L509.7000, L100.0100, L503.6620 #### [facility] [address] [place], [address] CTA Chest W/WO Contraston CTA Chest W/WO Contrast [facility] [address] [place] [address] CTA Chest W/WO Contrast MR#: [id number] Acct: [id number] Name: LIA WALTERS Rep #: [id number] : 1990 F 34 From: Mike Chavez MD PCP: Dr. Rayf Olsen MD Status: REG ER Study: CTA Chest W/WO Contrast Date of Exam: 04/14/24 Exam# [id number] Ordering Dr: Samy Espinoza DO -[id number] INDICATION: hypoxia EXAMINATION: - CTA Chest WO/W Contrast Injection A radiation dose optimization technique was used for this scan. RADIATION DOSAGE (If Supplied By Facility): CTDIvol/DLP = ( 25.73 ) / ( 506.51 ) mGy/mGycm COMPARISON: Chest radiograph 05/04/2023. FINDINGS: Contrast enhanced serial CTA axial images through the chest with coronal and sagittal reformatted series. Additional dedicated coronal MIP reformatted series provided as well. IV Contrast dosage and agent: 100 cc [id number] IV. MEDIASTINUM: No acute thoracic aortic abnormality. Distal pulmonary artery branch vessel evaluation is suboptimal secondary to timing of contrast bolus as well as respiratory motion, however, there are no obvious proximal pulmonary artery filling defects. Mediastinum is otherwise unremarkable. LUNG PARENCHYMA: Thick linear bibasilar streaky airspace disease, likely atelectasis. PLEURA: Large fat-containing right Bochdalek hernia without fat stranding. No pleural effusion. No pneumothorax. BONES: Osseous structures are unremarkable for age. UPPER ABDOMEN: Fatty liver. Mild splenomegaly measuring just over [address]/CTA Chest W/WO Contrast IMPRESSION: Thick linear bibasilar streaky airspace disease, likely atelectasis. Large fat-containing right Bochdalek hernia without fat stranding. Mild splenomegaly. Fatty liver. Distal pulmonary artery branch vessel evaluation is suboptimal secondary to timing of contrast bolus as well as respiratory motion, however, there is no obvious proximal pulmonary embolus. Electronically Signed: Mike Chavez MD at 3:41 EST , CC: Dr. Rafy Olsen MD; Samy Espinoza DO Harness Cutter: Signed Normal [facility] Emergency Department Summary on 04-14-2024 Emergency Department Summary [facility] Medical Records Department [address] [place] [address] Emergency Department Summary 04/14/24 MR#: [id number] Acct: [id number] Name: LIA WALTERS Rep #: [id number] : 1990 34 From: Samy Espinoza DO PCP: Dr. 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 [facility] staff reports that she has had congestion and cough for the past 4 to 5 days. Today [facility] and told it was viral but to keep an eye on her pulse ox. Reportedly she does not have a history of lung disorder or require supplemental oxygen and this evening her pulse ox dropped to 85%. Secondary to this she was brought in for evaluation. The patient is nonverbal and cannot offer any further history. [facility]itentiary staff reports she is at her baseline mental status [facility] Medical History Gastric reflux Non-smoker Sleep apnea Shortness of breath on exertion History of echocardiogram Cardiology follow-up encounter Lab test negative for COVID-19 virus Fallot tetralogy GERD (gastroesophageal reflux disease) Down syndrome Seizures Heart disease Home Medications ???Medication ???Instructions ???Recorded ???Last Taken ???Type topiramate 100 mg tablet 150 mg PO BID 07/29/15 10/29/23 History melatonin 5 mg tablet 10 mg PO QHS Sleep 02/28/18 02/27/18 History 5 MG omeprazole 20 mg capsule,delayed 20 mg PO DAILY 04/08/19 10/29/23 History release acetaminophen 500 mg tablet 1,000 mg (2 x 500 mg) PO Q6H PRN 10/28/20 Unknown Rx (Tylenol Extra Strength) fever or pain #60 tabs ammonium lactate 12 % topical cream 1 applic topical QHS 04/22/23 Unknown History cholecalciferol (vitamin D3) 50 100 mcg PO DAILY 04/22/23 Unknown History mcg (2,000 unit) tablet paliperidone 3 mg tablet,extended 3 mg PO Q24H 04/22/23 10/29/23 History release 24 hr trazodone 100 mg tablet 150 mg PO QHS 04/22/23 Unknown History valacyclovir 1 gram tablet 2,000 mg PO BID PRN MOUTH SORE 04/22/23 Unknown History cariprazine 3 mg capsule (Vraylar) 3 mg PO DAILY 10/25/23 10/29/23 History clonazepam 0.5 mg tablet 0.25 mg PO BID 04/14/24 Unknown History clonazepam 0.5 mg tablet 0.5 mg PO QHS 04/14/24 Unknown History Allergy/AdvReac Type Severity Reaction Status Date / Time adhesive tape AdvReac Intermediate Skin Verified 04/14/24 01:50 redness Surgical History Hx of tonsillectomy Hx of eye surgery History of open heart surgery Hx of surgical procedure Social History Smoking Status: Never smoker alcohol intake: never ROS ROS ED Review of Systems ROS Unobtainable: due to mental status and other Details: Unable to obtain review of systems as patient is nonverbal EXAM Physical Exam Const Vital Signs: 04/14/24 01:16 04/14/24 01:23 04/14/24 01:48 Temperature 100.2 F H 100.2 F H Temperature Source Axillary Axillary Pulse Rate 86 85 89 Respiratory Rate 27 H 25 H 26 H Respiratory Effort Respiratory Pattern Tachypnea Blood Pressure 114/74 114/74 Blood Pressure Mean 87 87 Pulse Ox 86 88 Oxygen Delivery Method Room Air Nasal Cannula Oxygen Flow Rate (L/min) 4 04/14/24 01:48 04/14/24 01:54 04/14/24 02:23 Temperature 100.2 F H Temperature Source Axillary Pulse Rate 83 Respiratory Rate 19 H Respiratory Effort Labored Respiratory Pattern Tachypnea Blood Pressure 108/68 Blood Pressure Mean 81 Pulse Ox 92 91 Oxygen Delivery Method Nasal Cannula Nasal Cannula Oxygen Flow Rate (L/min) 4 4 04/14/24 03:00 04/14/24 03:15 04/14/24 03:35 Temperature 99.3 F H 99.3 F H Temperature Source Axillary Pulse Rate 81 84 80 Respiratory Rate 22 H 23 H 20 H Respiratory Effort Respiratory Pattern Blood Pressure 119/107 H 119/107 H 119/107 H Blood Pressure Mean 111 111 111 Pulse Ox 88 90 89 Oxygen Delivery Method Nasal Cannula Nasal Cannula Oxygen Flow Rate (L/min) 4 Positive well nourished, well developed and obese Constitutional Narrative: Patient is in mild respiratory distress with tachypnea and accessory muscle use General Appearance ED: well developed; Negative for pallor Nutritional Appearance: obese HEENT Reports dry mucous membranes HEENT Narrative: No tongue or lip swelling no oral lesions no airway edema or compromise Mouth ED: Yes dry mucous membranes Mouth: dry mucous membranes Eyes PER (more content not included)... Normal [facility] H AND P Exam - [facility] 04-14-2024 H&P Exam - Hospitalist [facility] Medical Records Department [address] [place] [id number] H P Exam - Hospitalist 04/14/24 0357 MR#: [id number] Acct: [id number] Name: LIA WALTERS Rep #: [id number] : 1990 34 From: Malcolm Best DO PCP: Dr. Rafy Olsen MD Status:ADM IN Location: [place] [id number] HPI - General General Date of Admission: 04/14/24 Date of Service: 04/14/24 Chief Complaint: Shortness of breath with URI symptoms HPI Narrative LIA WALTERS, is a 34 F who presented to [facility] ED on 04/14/2024 with worsening shortness of breath and URI symptoms. 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 She lives in a nursing home but her mother is very involved and was present today. Her mother is a labor and delivery nurse here. On arrival to the ED patient was hypoxic to the mid 80s on room air and had a low-grade fever of 100.2 F. She was breathing 25-30 times per minute. She was found to be RSV positive. CTA chest showed streaky airspace disease suspected due to atelectasis as well as a large Bochdalek hernia, was otherwise unremarkable. Labs notable for creatinine 1.88 (baseline 1.0-1.2), otherwise unremarkable. She was given a breathing treatment with some improvement but continued to require 4 L nasal cannula to maintain oxygen saturations in the low 90s. Given this, hospitalist was contacted for admission. I saw the patient at bedside in the ED, mother and horse race starter were present. Patient was sitting forward in bed but was otherwise breathing fairly comfortably. She was maintaining saturations in the low 90s on 4 L. She was mildly fatigued appearing but otherwise alert and cooperative. Her mother notes that she looks more comfortable now than she did over the past day or 2 but is still working more to breathe than she typically has to. No other acute concerns at this time. [facility] Medical History Gastric reflux Non-smoker Sleep apnea Shortness of breath on exertion History of echocardiogram Cardiology follow-up encounter Lab test negative for COVID-19 virus Fallot tetralogy GERD (gastroesophageal reflux disease) Down syndrome Seizures Heart disease Home Medications ???Medication ???Instructions ???Recorded ???Last Taken ???Type topiramate 100 mg tablet 150 mg PO BID 07/29/15 10/29/23 History melatonin 5 mg tablet 10 mg PO QHS Sleep 02/28/18 02/27/18 History 5 MG omeprazole 20 mg capsule,delayed 20 mg PO DAILY 04/08/19 10/29/23 History release acetaminophen 500 mg tablet 1,000 mg (2 x 500 mg) PO Q6H PRN 10/28/20 Unknown Rx (Tylenol Extra Strength) fever or pain #60 tabs ammonium lactate 12 % topical cream 1 applic topical QHS 04/22/23 Unknown History cholecalciferol (vitamin D3) 50 100 mcg PO DAILY 04/22/23 Unknown History mcg (2,000 unit) tablet paliperidone 3 mg tablet,extended 3 mg PO Q24H 04/22/23 10/29/23 History release 24 hr trazodone 100 mg tablet 150 mg PO QHS 04/22/23 Unknown History valacyclovir 1 gram tablet 2,000 mg PO BID PRN MOUTH SORE 04/22/23 Unknown History cariprazine 3 mg capsule (Vraylar) 3 mg PO DAILY 10/25/23 10/29/23 History clonazepam 0.5 mg tablet 0.25 mg PO BID 04/14/24 Unknown History clonazepam 0.5 mg tablet 0.5 mg PO QHS 04/14/24 Unknown History Allergy/AdvReac Type Severity Reaction Status Date / Time adhesive tape AdvReac Intermediate Skin Verified 04/14/24 01:50 redness Surgical History Hx of tonsillectomy Hx of eye surgery History of open heart surgery Hx of surgical procedure Social History Smoking Status: Never smoker alcohol intake: never ROS Review of Systems ROS Unobtainable: due to mental condition Vital Signs Vital Signs Vital Signs: 04/14/24 01:16 04/14/24 01:23 04/14/24 01:48 Temperature 100.2 F H 100.2 F H Temperature Source Axillary Axillary Pulse Rate 86 85 89 Respiratory Rate 27 H 25 H 26 H Respiratory Effort Respiratory Pattern Tachypnea Blood Pressure 114/74 114/74 Blood Pressure Mean 87 87 Pulse Ox 86 88 Oxygen Delivery Method Room Air Nasal Cannula Oxygen Flow Rate (L/min) 4 04/14/24 01:48 04/14/24 01:54 04/14/24 02:23 Temperature 100.2 F H Temperature Source Axillary Pulse Rate 83 Respiratory Rate 19 H Respiratory Effort Labored Respiratory Pattern Tachypnea Blood Pressure 108/68 Blood Pressure Mean 81 Pulse Ox 92 91 Oxygen Delivery Method Nasal Cannula Nasal Cannula Oxygen Flow Rate (L/min) 4 4 04/14/24 03:00 04/14/24 03:15 04/14/24 03:35 Temperature 99.3 F H 99.3 F H Temperat (more content not included)... Normal [facility] Influenza virus A and B and SARS-CoV-2 (COVID-19) and Respiratory syncytial virus RNAOrdered By: Samy Espinoza on 04-14-2024 SARS-CoV-2 (COVID-19) RNA YUMIKO+probe Ql (Unsp spec) RSV Abnormal [facility] Lactic Acidon 04-14-2024 Lactate [Moles/Vol] 1.2 mmol/L Normal 0.4-1.9 [facility] Comment on above: Order Comment: Y Performed By: #### L 501.5200, L503.6005, L500.2500, L509.7000, L100.0100, L503.6620 #### [facility] [address] [place], [address] Lactic acid measurementOrder ed By: Samy Esipnoza on 04-14-2024 Lactate [Moles/Vol] 1.2 mmol/L 0.4-2.0 [facility] M100.678on 04-14-2024 M100.678 Pending SARS-CoV-2 (COVID 19) Negative INFLUENZA A Negative INFLUENZA B Negative RSV PCR A Positive A RSV Normal [facility] Comment on above: Performed By: #### L 500.4050, L100.0100 #### [facility] [address] [place], [address] Magnesiumon 04-14-2024 Magnesium [Mass/Vol] 1.9 mg/dL Normal 1.6-2.6 [facility] Comment on above: Performed By: #### L 501.5200, L503.6005, L500.2500, L509.7000, L100.0100, L503.6620 #### [facility] [address] [place], [address] Magnesium measurementOrdered By: Samy Espinoza on 04-14-2024 Magnesium [Mass/Vol] 1.9 mg/dL 1.6-2.6 [facility] Procalcitoninon 04-14-2024 Procalcitonin 0.12 ng/mL High 0.00-0.09 [facility] Comment on above: Result Comment: A procalcitonin (PCT) level above 2.0 ng/mL on the first day of ICU admission is associated with a high risk for progression to severe sepsis and/or septic shock. A PCT level below 0.5 ng/mL on the first day of ICU admission is associated with a low risk for progression to severe and/or septic shock. Note: Concentrations <0.5 ng/mL do not exclude an infection on account of localized infections (without systemic signs) which can be associated with such low concentrations, or a systemic infection in its initial stages (<6 hours). Furthermore, increased procalcitonin can occur without infection. PCT concentrations between 0.5 and 2.0 ng/mL should be interpreted taking into account the patient's history. It is recommended to retest PCT within 6-24 hours if any concentrations <2 ng/mL are obtained. Performed By: #### L 501.5200, L503.6005, L500.2500, L509.7000, L100.0100, L503.6620 #### [facility] [address] [place], [address] Procalcitonin [Mass/Vol]Orde red By: Samy Espinoza on 04-14-2024 Procalcitonin 0.12 ng/mL High 0.00-0.09 [facility] Comment on above: A procalcitonin (PCT ) level above 2.0 ng/mL on the first day of ICU admission is associated with a high risk for progression to severe sepsis and/or septic shock. A PCT level below 0.5 ng/mL on the first day of ICU admission is associated with a low risk for progression to severe and/or septic shock. Note: Concentrations <0.5 ng/mL do not exclude an infection on account of localized infections (without systemic signs) which can be associated with such low concentrations, or a systemic infection in its initial stages (<6 hours). Furthermore, increased procalcitonin can occur without infection. PCT concentrations between 0.5 and 2.0 ng/mL should be interpreted taking into account the patient's history. It is recommended to retest PCT within 6-24 hours if any concentrations <2 ng/mL are obtained. No Panel Informationon 04-13 Influenza Types A,B Rapid (Clinic) Negative [facility] POC SARS CoV-2 Antigen Negative [facility] Urgent Care Visit Reporton 0 04-13-2024 Urgent Care Visit Report [facility] [address], [address] [place] [address] OFFICE VISIT Date of Service: 04/13/24 MR#: [id number] Acct: [id number] Name: LIA WALTERS Rep #: [id number] : 1990 Provider: JEREMY Zafar Age/Sex: 34/F Location: [facility] Status: Signed Intake Vital Signs 02/21/24 14:20 04/13/24 13:41 Height 4 ft 8 in 4 ft 8 in Weight: 253 lb 2 oz BMI 56.7 BP 110/60 Position Sitting Pulse 57 L Pulse Oximetry (%) 90 Oxygen Delivery Method room air Intake Visit Reasons: COUGH, FLU LIKE SYMPTOMS Accompanied by: Caregiver Allergies adhesive tape Adverse Reaction (Intermediate, Verified 04/13/24 13:42) Skin redness Medications ???Medication ???Instructions ???Recorded ???Confirmed ???Type lorazepam 0.5 mg tablet 0.5 mg PO BID 07/29/15 04/13/24 History topiramate 100 mg tablet 150 mg PO BID 07/29/15 04/13/24 History melatonin 5 mg tablet 5 mg PO QHS Sleep 02/28/18 04/13/24 History omeprazole 20 mg capsule,delayed 20 mg PO DAILY 04/08/19 04/13/24 History release acetaminophen 500 mg tablet 1,000 mg (2 x 500 mg) PO Q6H PRN 10/28/20 04/13/24 Rx (Tylenol Extra Strength) fever or pain #60 tabs ammonium lactate 12 % topical cream 1 applic topical QHS 04/22/23 04/13/24 History cholecalciferol (vitamin D3) 50 50 mcg PO DAILY 04/22/23 04/13/24 History mcg (2,000 unit) tablet lorazepam 1 mg tablet 1 mg PO DAILY 04/22/23 04/13/24 History paliperidone 3 mg tablet,extended 3 mg PO Q24H 04/22/23 04/13/24 History release 24 hr trazodone 100 mg tablet 100 mg PO QHS 04/22/23 04/13/24 History valacyclovir 1 gram tablet 2,000 mg PO BID PRN MOUTH SORE 04/22/23 04/13/24 History cariprazine 3 mg capsule (Vraylar) 3 mg PO DAILY 10/25/23 04/13/24 History zolpidem 5 mg tablet (Ambien) 5 mg PO QHS 10/25/23 04/13/24 History Nurse's Note: Patient has cough RN , red watery eyes for 2 weeks. [facility] Medical History Gastric reflux Non-smoker Sleep apnea Shortness of breath on exertion History of echocardiogram Cardiology follow-up encounter Lab test negative for COVID-19 virus Fallot tetralogy GERD (gastroesophageal reflux disease) Down syndrome Seizures Heart disease Surgical History Hx of tonsillectomy Hx of eye surgery History of open heart surgery Hx of surgical procedure Social History Smoking Status: Never smoker alcohol intake: never HPI HPI Details: LIA WALTERS, is a 34 F who presents to the office today for complaint of cough, congestion and fatigue for the past 3 days. Caregiver who is with the patient states that this has worsened over the past 3 days. Caregiver states no fever however has felt warm. No vomiting or diarrhea. No hemoptysis, shortness of breath or difficulty breathing. No other associated symptoms or alleviating/aggrava ting factors. ROS Const Constitutional: No other (as above) Exam Const General: cooperative HENMT Head: normal to inspection and atraumatic Ears: hearing grossly normal bilaterally Nose: nasal discharge clear Face and sinus: normal facial exam Mouth: oral mucosae normal Throat: abnormal tonsil bilaterally hypertrophy 1+ Resp Effort Inspection: normal respiratory effort and no audible wheezes Auscultation: Bilateral: Clear to Auscultation Cardio Palpation: normal PMI Rate: regular rate Rhythm: regular rhythm Results POC SARS AG POC SARS AG Negative Last Edit by Lashell Ryna MA on 04/13/24 13:51 POC FLU A B Office Flu A B Negative FLU A B Last Edit by Lashell Ryan MA on 04/13/24 13:51 Coding Level of Care Code Off vis,est,level 3 Diagnoses Viral URI with cough J06.9 Assessment and Plan Assessment and Plan (1) Viral URI with cough: Status: Acute Orders: Orders POC FLU A B Today R05.9 - Cough, unspecified POC Rapid SARS Antigen Today Plan Patient tested negative for influenza and COVID in the office today. Encouraged to get plenty of rest, drink lots of clear liquids, and use Tylenol or Ibuprofen (unless contraindicated) for fever and comfort. Caregiver also educated on other symptomatic management techniques. To be seen in 7-10 days if no improvement; sooner if worsening of symptoms. Caregiver advised of potential red flags and when appropriate to report to the ED. Caregiver verbalized understanding and agreement with all the above. 04/13/24 1358 Date Angelo Lopez Signature: Date (if applicable) CC: Normal [facility] Urine Cultureon 02-23-2024 URC Proteus mirabilis Otho Count 11,000-25,000 Proteus mirabilis: REACTION Ampicillin Islt CORNELIO <=2 Ampicillin+Sulbac Islt CORNELIO <=2 S ceFAZolin Islt CORNELIO <=4 S Cefepime Islt CORNELIO <=0.12 S cefTRIAXone Islt CORNELIO <=0.25 S Ciprofloxacin Islt CORNELIO <=0.25 S Gentamicin Islt CORNELIO <=1 S Imipenem Islt CORNELIO 1 S levoFLOXacin Islt CORNELIO <=0.12 S Nitrofurantoin Islt CORNELIO R Pip+Tazo Islt CORNELIO <=4 S Tobramycin Islt CORNELIO <=1 S TMP SMX Islt CORNELIO <=20 S Normal [facility] Comment on above: Performed By: #### L 500.4050, L100.0100 #### [facility] [address] [place], [address] Absolute neutrophil countOrd ered By: Siria Marrufo on 02-21-2024 Neutrophils (Bld) [#/Vol] 3.6 10*3/uL 2.0-7.7 [facility] Basic Metabolic Profile (BMP )on 02-21-2024 BUN/CRE 14.0 RATIO Normal 10-20 [facility] Comment on above: Performed By: #### L 500.4100, L100.0100 #### [facility] [address] [place], [address] CA,Total 8.5 mg/dL Normal 8.5-10.1 [facility] Comment on above: Performed By: #### L 500.4100, L100.0100 #### [facility] [address] [place], [address] Chloride [Moles/Vol] 113 mmol/L High 98-107 [facility] Comment on above: Performed By: #### L 500.4100, L100.0100 #### [facility] [address] [place], [address] CO2 [Moles/Vol] 24.0 mmol/L Normal 21.0-32.0 [facility] Comment on above: Performed By: #### L 500.4100, L100.0100 #### [facility] [address] [place], [address] Creatinine [Mass/Vol] 1.07 mg/dL High 0.55-1.02 [facility] Comment on above: Result Comment: The validity of the calculated GFR GFRAA in patients over 70 years has not been determined. Clinical correlation is essential. Performed By: #### L 500.4100, L100.0100 #### [facility] [address] [place], [address] EST GFR - AA 76 mL/min Normal >60 [facility] Comment on above: Result Comment: Afri can Nepalese GFR Calc Performed By: #### L 500.4100, L100.0100 #### [facility] [address] [place], [address] GAP 6 Normal 5-15 [facility] Comment on above: Performed By: #### L 500.4100, L100.0100 #### [facility] [address] [place], [address] GFR/1.73 sq M.predicted among non-blacks MDRD (S/P/Bld) [Vol rate/Area] 63 mL/min/{1.73_m2} Normal >60 [facility] Comment on above: Result Comment: Non- GFR Calc Performed By: #### L 500.4100, L100.0100 #### [facility] [address] [place], [address] Glucose [Mass/Vol] 93 mg/dL Normal 74-106 [facility] Comment on above: Performed By: #### L 500.4100, L100.0100 #### [facility] [address] [place], [address] Potassium [Moles/Vol] 4.1 mmol/L Normal 3.5-5.1 [facility] Comment on above: Performed By: #### L 500.4100, L100.0100 #### [facility] [address] [place], [address] Sodium [Moles/Vol] 142 mmol/L Normal 136-145 [facility] Comment on above: Performed By: #### L 500.4100, L100.0100 #### [facility] [address] [place], [address] Urea nitrogen [Mass/Vol] 15 mg/dL Normal 7-18 [facility] Comment on above: Performed By: #### L 500.4100, L100.0100 #### [facility] [address] [place], [address] Basophil percentageOrdered B y: Siria Marrufo on 02-21-2024 Basophils/100 WBC (Bld) 0.9 % 0-1 [facility] Bilirubin Test strip Ql (U)O rdered By: Siria Marrufo on 02-21-2024 Bilirubin Ql (U) Negative Negative [facility] Blood urea nitrogen (BUN)/cr eatinine ratioOrdered By: Siria Marrufo on 02-21-2024 Urea nitrogen/Creatinine [Mass ratio] 14.0 mg/mg 10- [facility] CBC W/Diff, Automatedon 02-03 Absolute Lymph 2.33 X10 3/uL Normal 0.83-4.51 [facility] Comment on above: Performed By: #### L 500.4100, L100.0100 #### [facility] [address] [place], [address] Absolute Neut 3.6 X10 3/uL Normal 2.0-7.7 [facility] Comment on above: Performed By: #### L 500.4100, L100.0100 #### [facility] [address] [place], [address] Basophils/100 WBC (Bld) 0.9 % Normal 0-1 [facility] Comment on above: Performed By: #### L 500.4100, L100.0100 #### [facility] [address] [place], [address] Eosinophils/100 WBC (Bld) 4.2 % Normal 0-5 [facility] Comment on above: Performed By: #### L 500.4100, L100.0100 #### [facility] [address] [place], [address] Erythrocyte distribution width (RBC) [Ratio] 12.8 % Normal 11.6-14.6 [facility] Comment on above: Performed By: #### L 500.4100, L100.0100 #### [facility] [address] [place], [address] Hematocrit (Bld) [Volume fraction] 46.9 % Normal 37-47 [facility] Comment on above: Performed By: #### L 500.4100, L100.0100 #### [facility] [address] [place], [address] Hemoglobin (Bld) [Mass/Vol] 15.4 g/dL High 12.0-15.0 [facility] Comment on above: Performed By: #### L 500.4100, L100.0100 #### [facility] [address] [place], [address] IG% 0.300 Normal 0.0-0.9 [facility] Comment on above: Result Comment: IG% - Immature Granulocytes (promyelocytes, myelocytes and metamyelocytes) > 1% indicates that a LEFT SHIFT is Present. Performed By: #### L 500.4100, L100.0100 #### [facility] [address] [place], [address] Lymphocytes/100 WBC (Bld) 34.7 % Normal 19-41 [facility] Comment on above: Performed By: #### L 500.4100, L100.0100 #### [facility] [address] [place], [address] MCH (RBC) [Entitic mass] 33.0 pg High 27.0-32.0 [facility] Comment on above: Performed By: #### L 500.4100, L100.0100 #### [facility] [address] [place], [address] MCHC (RBC) [Mass/Vol] 32.8 g/dL Normal 32-36 [facility] Comment on above: Performed By: #### L 500.4100, L100.0100 #### [facility] [address] [place], [address] MCV (RBC) [Entitic vol] 100.6 fL High 81-99 [facility] Comment on above: Performed By: #### L 500.4100, L100.0100 #### [facility] [address] [place], [address] Monocytes/100 WBC (Bld) 7.1 % Normal 0-10 [facility] Comment on above: Performed By: #### L 500.4100, L100.0100 #### [facility] [address] [place], [address] Neutrophils/100 WBC (Bld) 52.8 % Normal 47-70 [facility] Comment on above: Performed By: #### L 500.4100, L100.0100 #### [facility] [address] [place], [address] Nucleated RBC (Bld) [#/Vol] 0 10*3/uL Normal 0-5 [facility] Comment on above: Performed By: #### L 500.4100, L100.0100 #### [facility] [address] [place], [address] Platelet mean volume (Bld) [Entitic vol] 9.8 fL Normal 6.2-12.0 [facility] Comment on above: Performed By: #### L 500.4100, L100.0100 #### [facility] [address] [place], [address] Platelets (Bld) [#/Vol] 155 10*3/uL Normal 150-450 [facility] Comment on above: Performed By: #### L 500.4100, L100.0100 #### [facility] [address] [place], [address] RBC (Bld) [#/Vol] 4.66 10*6/uL Normal 4.2-5.4 [facility] Comment on above: Performed By: #### L 500.4100, L100.0100 #### [facility] [address] [place], [address] RDW SD 47.3 fl High 35.1-43.9 [facility] Comment on above: Performed By: #### L 500.4100, L100.0100 #### [facility] [address] [place], [address] WBC (Bld) [#/Vol] 6.7 10*3/uL Normal 4.4-11.0 [facility] Comment on above: Performed By: #### L 500.4100, L100.0100 #### [facility] [address] [place], [address] Carbon dioxide measurementOr dered By: Siria Marrufo on 02-21-2024 CO2 [Moles/Vol] 24.0 mmol/L 21.0-32.0 [facility] Chloride measurementOrdered By: Siria Marrufo on 02-21-2024 Chloride [Moles/Vol] 113 mmol/L High 98-107 [facility] Emergency Department Summary on 02-21-2024 Emergency Department Summary [facility] Medical Records Department [address] [place] [address] Emergency Department Summary 02/21/24 MR#: [id number] Acct: [id number] Name: LIA WALTERS Rep #: [id number] : 1990 34 From: Siria LUNA PCP: Dr. Rafy Olsen MD Status:DEP ER Location: ED Patient was seen and examined with physician trust manager assistant Tita All components of the history and physical confirmed and agreed. History of present illness and physical exam: Patient is a 34-year-old female who presents to the emergency department with a chief complaint of blood in her urine. Patient does have a history of MRDD and is unable to provide a history. According to caregiver at bedside they noted that while at workshop she was using the bathroom and they noted that there was blood in the toilet they states that there was no stool in the toilet with his blood. She does have an IUD in place due to history of menorrhagia. They did note that she has not been sleeping well which is a chronic problem and they have been trying to adjust her medications to help her sleep. They did note that she is having some hallucinations as well. Review of systems: Constitutional: Denies any headaches, fevers or chills Cardiovascular: Denies chest pain Respiratory: Denies coughing Abdomen: Denies nausea vomiting diarrhea : Complains of blood in her urine as noted above Neurological: Denies any generalized weakness or any other gross abnormalities Skin: Denies rashes or lesions Physical exam: Agree with above MDM Patient is a 34-year-old female who presented to the emergency department chief complaint of hematuria. Patient will have a workup performed here on the differential diagnose includes but limited to UTI, electrolyte abnormality, breakthrough bleeding. Once workup is obtained reviewed she will be reevaluated. Patient's CBC reviewed and showed no evidence leukocytosis white blood count normal at 6.7, hemoglobin was 15.4, plate count normal at 155. Patient sodium normal at 142, potassium normal at 4.1, creatinine was notably 1.07. Patient's urinalysis reviewed and did not have any blood in this and there is 0-5 white cells with 1+ bacteria this will be sent for culture. Rectal exam was performed by physician trust manager assistant Tita see note above. She was advised to follow-up with her cdc associate and her primary care physician outpatient setting. She was advised to return for worsening symptoms or concerns. Caregiver at bedside is agreeable with this plan all question concerns answered she was discharged home in stable condition. Final impression: Hematuria versus breakthrough bleeding Disposition: Patient will be discharged home in stable condition Supervising attending attestation: Chauncey PHELPS History of Present Illness Chief Complaint: GI Bleed Narrative Narrative: Patient presenting today with her caregiver due to concerns for blood that was found in the toilet this afternoon when patient was urinating. Patient does have a history of MRDD and is unable to provide a history. There was no stool in the toilet. She did have normal bowel movements yesterday with no hematochezia or melena. She does have an IUD in place due to a history of menorrhagia. She has had no nausea, vomiting, abdominal pain, or diarrhea. [facility] Medical History Gastric reflux Non-smoker Sleep apnea Shortness of breath on exertion History of echocardiogram Cardiology follow-up encounter Lab test negative for COVID-19 virus Fallot tetralogy GERD (gastroesophageal reflux disease) Down syndrome Seizures Heart disease Home Medications ???Medication ???Instructions ???Recorded ???Last Taken ???Type lorazepam 0.5 mg tablet 0.5 mg PO BID 07/29/15 10/29/23 History topiramate 100 mg tablet 150 mg PO BID 07/29/15 10/29/23 History melatonin 5 mg tablet 5 mg PO QHS Sleep 02/28/18 02/27/18 History 5 MG omeprazole 20 mg capsule,delayed 20 mg PO DAILY 04/08/19 10/29/23 History release acetaminophen 500 mg tablet 1,000 mg (2 x 500 mg) PO Q6H PRN 10/28/20 Unknown Rx (Tylenol Extra Strength) fever or pain #60 tabs ammonium lactate 12 % topical cream 1 applic topical QHS 04/22/23 Unknown History cholecalciferol (vitamin D3) 50 50 mcg PO DAILY 04/22/23 Unknown History mcg (2,000 unit) tablet lorazepam 1 mg tablet 1 mg PO DAILY 04/22/23 Unknown History paliperidone 3 mg tablet,extended 3 mg PO Q24H 04/22/23 10/29/23 History release 24 hr trazodone 100 mg tablet 100 mg PO QHS 04/22/23 Unknown History valacyclovir 1 gram tablet 2,000 mg PO BID PRN MOUTH SORE 04/22/23 Unknown History cariprazine 3 mg capsule (Vraylar) 3 mg PO DAILY 10/25/23 10/29/23 History zolpidem 5 mg tablet (Ambien) 5 mg PO QHS 10/25/23 Unknown (more content not included)... Normal [facility] Eosinophil percentageOrdered By: Siria Marrufo on 02-21-2024 Eosinophils/100 WBC (Bld) 4.2 % 0-5 [facility] Epithelial cells.squamous LM Ql (Urine sed)Ordered By: Siria Marrufo on 02-21-2024 Epithelial cells.squamous LM.HPF (Urine sed) [#/Area] 0 /[HPF] 5-10 [facility] Erythrocyte distribution wid th ratioOrdered By: Siria Marrufo on 02-21-2024 Erythrocyte distribution width (RBC) [Ratio] 12.8 % 11.6-14.6 [facility] Erythrocyte distribution wid th standard deviationOrdered By: Siria Marrufo on 02-21-2024 Erythrocyte distribution width (RBC) [Entitic vol] 47.3 fL High 35.1-43.9 [facility] Estimated glomerular filtrat ion rate (GFR) AmericanOrdered By: Siria Marrufo on 02-21-2024 Estimated GFR (MDRD) Amer 76 mL/min >60 [facility] Comment on above: GFR Calc Glomerular filtration rate ( GFR) estimationOrdered By: Siria Marrufo on 02-21-2024 Estimated GFR (MDRD) Non-Af Amer 63 mL/min >60 [facility] Comment on above: Non- GFR Calc Glucose Ql (U)Ordered By: Stephanie Marrufo on 02-21-2024 Urine Glucose (UA) Normal mg/dl Normal [facility] Glucose measurementOrdered B y: Siria Marrufo on 02-21-2024 Glucose [Mass/Vol] 93 mg/dL 74-106 [facility] Hematocrit Auto (Bld) [Volum e fraction]Ordered By: Siria Marrufo on 02-21-2024 Hematocrit (Bld) [Volume fraction] 46.9 % 37-47 [facility] Hemoglobin measurementOrdere d By: Siria Marrufo on 02-21-2024 Hemoglobin (Bld) [Mass/Vol] 15.4 g/dL High 12.0-15.0 [facility] Immature granulocytes/100 WB C Auto (Bld)Ordered By: Siria Marrufo on 02-21-2024 Immature granulocytes/100 WBC (Bld) 0.300 % 0.0-0.9 [facility] Comment on above: IG% - Immature Granu locytes (promyelocytes, myelocytes and metamyelocytes) > 1% indicates that a LEFT SHIFT is Present. Ketones Test strip Ql (U)Ord ered By: Siria Marrufo on 02-21-2024 Ketones Ql (U) Negative Negative [facility] Lymphocytes Auto (Unsp spec) [#/Vol]Ordered By: Siria Marrufo on 02-21-2024 Lymphocytes (Bld) [#/Vol] 2.33 10*3/uL 0.83-4.5 1 [facility] Lymphocytes/100 WBC Auto (Un sp spec)Ordered By: Siria Marrufo on 02-21-2024 Lymphocytes/100 WBC (Bld) 34.7 % 19-41 [facility] MCV (mean corpuscular volume ) determinationOrdered By: Siria Marrufo on 02-21-2024 MCV (RBC) [Entitic vol] 100.6 fL High 81-99 [facility] Mean corpuscular hemoglobin (MCH) determinationOrdered By: Siria Marrufo on 02-21-2024 MCH (RBC) [Entitic mass] 33.0 pg High 27.0-32.0 [facility] Mean corpuscular hemoglobin concentration (MCHC) determinationOrdered By: Siria Marrufo on 02-21-2024 MCHC (RBC) [Mass/Vol] 32.8 g/dL 32-36 [facility] Mean platelet volume determi nationOrdered By: Siria Marrufo on 02-21-2024 Platelet mean volume (Bld) [Entitic vol] 9.8 fL 6.2-12.0 [facility] Microscopic analysis of urin e for red blood cells (RBC)Ordered By: Siria Marrufo on 02-21-2024 Urine RBC 0 SEEN /hpf 0-5 [facility] Monocyte percentageOrdered B y: Siria Marrufo on 02-21-2024 Monocytes/100 WBC (Bld) 7.1 % 0-10 [facility] Mucus LM Ql (Urine sed)Order ed By: Siria Marrufo on 02-21-2024 Mucus Ql (Urine sed) 0 SEEN /hpf [facility] Neutrophil percentageOrdered By: Siria Marrufo on 02-21-2024 Neutrophils/100 WBC (Bld) 52.8 % 47-70 [facility] Nitrite Test strip Ql (U)Ord ered By: Siria Marrufo on 02-21-2024 Nitrite Ql (U) Negative Negative [facility] Nucleated red blood cell per centageOrdered By: Siria Marrufo on 02-21-2024 Nucleated RBC/100 WBC (Bld) [Ratio] 0 % 0-5 [facility] Platelet countOrdered By: Stephanie Marrufo on 02-21-2024 Platelets (Bld) [#/Vol] 155 10*3/uL 150-450 [facility] Potassium measurementOrdered By: Siria Marrufo on 02-21-2024 Potassium [Moles/Vol] 4.1 mmol/L 3.5-5.1 [facility] Protein Test strip Ql (U)Ord ered By: Siria Marrufo on 02-21-2024 Protein Ql (U) Negative Negative [facility] RBC Auto (Bld) [#/Vol]Ordere d By: Siria Marrufo on 02-21-2024 RBC (Bld) [#/Vol] 4.66 10*6/uL 4.2-5.4 [facility] Serum anion gap measurementO rdered By: Siria Marrufo on 02-21-2024 Anion gap [Moles/Vol] 6 mmol/L 5- [facility] Serum or plasma calcium vidal urement (mass/volume)Ordered By: Siria Marrufo on 02-21-2024 Calcium [Mass/Vol] 8.5 mg/dL 8.5-10.1 [facility] Serum or plasma creatinine m easurement (mass/volume)Ordered By: Siria Marrufo on 02-21-2024 Creatinine [Mass/Vol] 1.07 mg/dL High 0.55-1.02 [facility] Comment on above: The validity of the calculated GFR & GFRAA in patients over 70 years has not been determined. Clinical correlation is essential. Serum or plasma urea nitroge n measurement (mass/volume)Ordered By: Siria Marrufo on 02-21-2024 Urea nitrogen [Mass/Vol] 15 mg/dL 10-20 [facility] Sodium levelOrdered By: Gurinder Marrufo on 02-21-2024 Sodium [Moles/Vol] 142 mmol/L 136-145 [facility] Urinalysis, Completeon 02-20 BACTERIA 1+ /hpf Normal None Seen [facility] Comment on above: Order Comment: INESSA CTOR TO SPECIFY Performed By: #### L 500.4100, L100.0100 #### [facility] [address] [place], [address] WBC 0-5 SEEN Normal 0-5 [facility] Comment on above: Order Comment: COLLE CTOR TO SPECIFY Performed By: #### L 500.4100, L100.0100 #### [facility] [address] [place], [address] EPI,SQUAMOUS 0-5 SEEN Normal 5-10 [facility] Comment on above: Order Comment: INESSA CTOR TO SPECIFY Performed By: #### L 500.4100, L100.0100 #### [facility] [address] [place], [address] BILIRUBIN URINE Negative Normal Negative [facility] Comment on above: Order Comment: INESSA CTOR TO SPECIFY Performed By: #### L 500.4100, L100.0100 #### [facility] [address] [place], [address] Clarity (U) Clear Normal Clear [facility] Comment on above: Order Comment: INESSA CTOR TO SPECIFY Performed By: #### L 500.4100, L100.0100 #### [facility] [address] [place], [address] Color (U) Yellow Normal Yellow [facility] Comment on above: Order Comment: INESSA CTOR TO SPECIFY Performed By: #### L 500.4100, L100.0100 #### [facility] [address] [place], [address] GLUCOSE, UR Normal Normal Normal [facility] Comment on above: Order Comment: COLLE CTOR TO SPECIFY Performed By: #### L 500.4100, L100.0100 #### [facility] [address] [place], [address] KETONE UR Negative Normal Negative [facility] Comment on above: Order Comment: COLLE CTOR TO SPECIFY Performed By: #### L 500.4100, L100.0100 #### [facility] [address] [place], [address] LEUK ESTERASE 100 /ul Abnormal Negative [facility] Comment on above: Order Comment: COLLE CTOR TO SPECIFY Performed By: #### L 500.4100, L100.0100 #### [facility] [address] [place], [address] Nitrite Ql (U) Negative Normal Negative [facility] Comment on above: Order Comment: COLLE CTOR TO SPECIFY Performed By: #### L 500.4100, L100.0100 #### [facility] [address] [place], [address] OCCULT BLOOD-UR Negative Normal Negative [facility] Comment on above: Order Comment: COLLE CTOR TO SPECIFY Performed By: #### L 500.4100, L100.0100 #### [facility] [address] [place], [address] pH UR 8.0 Normal 5.0 - 8.0 [facility] Comment on above: Order Comment: COLLE CTOR TO SPECIFY Performed By: #### L 500.4100, L100.0100 #### [facility] [address] [place], [address] PROT DIPSTX Negative Normal Negative [facility] Comment on above: Order Comment: INESSA CTOR TO SPECIFY Performed By: #### L 500.4100, L100.0100 #### [facility] [address] [place], [address] SP.GR. DIPSTX 1.015 Normal 1.002-1.030 [facility] Comment on above: Order Comment: INESSA CTOR TO SPECIFY Performed By: #### L 500.4100, L100.0100 #### [facility] [address] [place], [address] UROBILI Normal Normal Normal [facility] Comment on above: Order Comment: INESSA CTOR TO SPECIFY Performed By: #### L 500.4100, L100.0100 #### [facility] [address] [place], [address] Mucus Ql (Urine sed) 0 SEEN Normal [facility] Comment on above: Order Comment: INESSA CTOR TO SPECIFY Performed By: #### L 500.4100, L100.0100 #### [facility] [address] [place], [address] RBC 0 SEEN Normal 0-5 [facility] Comment on above: Order Comment: INESSA CTOR TO SPECIFY Performed By: #### L 500.4100, L100.0100 #### [facility] [address] [place], [address] Urine blood detectionOrdered By: Siria Marrufo on 02-21-2024 Urine Occult Blood Negative Negative [facility] Urine clarityOrdered By: Devonte Marrufo on 02-21-2024 Clarity (U) Clear Clear [facility] Urine color determinationOrd ered By: Siria Marrufo on 02-21-2024 Color (U) Yellow Yellow [facility] Urine cultureOrdered By: Devonte Marrufo on 02-21-2024 Bacteria identified Cx Nom (U) Proteus mirabilis Abnormal [facility] Urine leukocyte esterase det ection by dipstickOrdered By: Siria Marrufo on 02-21-2024 Leukocyte esterase Test strip Ql (U) 100 /ul High Negative [facility] Urine pHOrdered By: Pamela Marrufo on 02-21-2024 pH (U) 8.0 [pH] 5.0 - 8.0 [facility] Urine sediment bacteria coun t by microscopy (number/high power field)Ordered By: Siria Marrufo on 02-21-2024 Bacteria LM.HPF (Urine sed) [#/Area] 1 /[HPF] None Seen [facility] Urine specific gravity measu rementOrdered By: Siria Marrufo on 02-21-2024 Specific gravity (U) [Rel density] 1.015 1.002-1.030 [facility] Urobilinogen Ql (U)Ordered B y: Siria Marrufo on 02-21-2024 Urine Urobilinogen Normal mg/dl Normal [facility] White blood cell (WBC) count Ordered By: Siria Marrufo on 02-21-2024 WBC (Bld) [#/Vol] 6.7 10*3/uL 4.4-11.0 [facility] White blood cell countOrdere d By: Siria Yaron on 02-21-2024 Urine WBC 0-5 SEEN /hpf 0-5 [facility] CNOVon 02-09-2024 CNOV Office Visit (UCWSTR) ---- LIA WALTERS ([id number]) 1990 F Date Time Provider Department 02/09/24 4:45 PM [facility] During your visit today, we recorded the following information about you: Temperature Pulse Respiration Blood pressure 97.8 degrees 60/minute 18/minute 118/76 Weight 114.6 kg Félix Stacy APRN.GRAPHIC ARTS TECHNICIAN 02/09/2024 5:03 PM Signed Subjective Came into work this morning around 9 am and had a little bit of eye discomfort and seemed to get worse at the day went on. Caregiver noticed eyes watering. Says the left eye bothers her more. She does has a slight cough. Denies any other symptoms at this time. Does have a runny nose as well. The history is provided by the patient. No collar band creaser was used. Eye Problem Review of Systems Constitutional: Negative. Skin: Negative. Objective Physical Exam Constitutional: Appearance: Normal appearance. HENT: Right Ear: Hearing, tympanic membrane, ear canal and external ear normal. Left Ear: Hearing, tympanic membrane, ear canal and external ear normal. Eyes: General: Right eye: No foreign body, discharge or hordeolum. Left eye: No foreign body, discharge or hordeolum. Comments: Redness and swelling noted in the area marked above. Some eye lid debride noted as well. Cardiovascular: Rate and Rhythm: Normal rate and regular rhythm. Heart sounds: Normal heart sounds. Pulmonary: Effort: Pulmonary effort is normal. Breath sounds: Normal breath sounds. Neurological: Mental Status: She is alert. PAST MEDICAL HISTORY Diagnosis Date Bundle branch block Lazy eye Seizure (HCC) Trisomy 21 PAST SURGICAL HISTORY Procedure Laterality Date EYE SURGERY HX HEART CATHETERIZATION HEART SURGERY HX x3 TONSILLECTOMY AND ADENOIDECTOMY ALLERGIES Adhesive Tape (Rosins) MEDICATIONS levonorgestrel (KYLEENA) 17.5 mcg/24 hr (5 yrs) 19.5 mg IUD 1 Each by INTRAUTERINE route as directed. VRAYLAR 3 mg capsule Take 1 tablet by mouth once daily. omeprazole (PRILOSEC) 20 mg capsule Take 1 capsule by mouth once daily. topiramate (TOPAMAX) 25 mg tablet Take 1 tablet by mouth two times a day. takes w/ 100 mg to make 125 mg bid paliperidone ER (INVEGA) 3 mg 24 hr tablet Take by mouth as directed. QUEtiapine (SEROQUEL) 50 mg tablet traZODone (DESYREL) 100 mg tablet triamcinolone acetonide (KENALOG) 0.1 % ointment valACYclovir (VALTREX) 1 gram tablet NYAMYC powder cholecalciferol (VITAMIN D3) 50 mcg (2,000 unit) tablet sodium fluoride (SODIUM FLUORIDE 5000 PLUS) 1.1 % dental cream by DENTAL route. AMMONIUM LACTATE TOPICAL Apply to affected area. topiramate (TOPAMAX) 100 mg tablet Take 100 mg by mouth two times a day. LORazepam (ATIVAN) 0.5 mg tab 0.5 mg. LORazepam (ATIVAN) 1 mg tablet Take 0.5 mg by mouth. melatonin 5 mg tablet 5 mg. Omeprazole Magnesium (PRILOSEC OTC) 20 mg tablet Take 20 mg by mouth. trimethoprim-polymy holley (POLYTRIM) 10,000 unit- 1 mg/mL ophthalmic solution Use 1 Drop in the left eye every 4 hours for [address] (PROTONIX) 20 mg tablet 20 mg. (Patient not taking: Reported on 02/09/2024) No family history on file. Social History Tobacco Use Smoking status: Never Smokeless tobacco: Never Substance Use Topics Alcohol use: Never Drug use: Never ASSESSMENT/PLAN: 1. Blepharitis of left upper eyelid, unspecified type - ICD9: 373.00, ICD10: H01.004 - POLYMYXIN B SULFATE 10,000 UNIT-TRIMETHOPRIM 1 MG/ML EYE DROPS Educated about proper use of medication and supportive therapy. Caregiver was agreeable to this care plan and will follow up if anything changes. Félix Stacy APRN.GRAPHIC ARTS TECHNICIAN Allergies As of Date: 02/09/2024 Noted Allergy Reaction ADHESIVE TAPE (ROSINS) 02/28/2018 2 - Rash Date Reviewed: 02/09/2024 Reviewed by: Shelly Skinner LPN - Fully Assessed Reason for Visit: Eye Problem [43] Cmt: Left eye red and irritated x 1 day Primary Visit Diagnosis:Blepharit is of left upper eyelid, unspecified type [H01.004] Other Visit Diagnosis:URI, acute [J06.9] Order(s):trimethopr im-polymyxin (POLYTRIM) 10,000 unit- 1 mg/mL ophthalmic solutionUse 1 Drop in the left eye every 4 hours for 7 days.Disp: 10 mLRfl: 0 Prescriptions as of 02/09/2024 - trimethoprim-polymy holley (POLYTRIM) 10,000 unit- 1 mg/mL ophthalmic solution Use 1 Drop in the left eye every 4 hours for 7 days. - levonorgestrel (KYLEENA) 17.5 mcg/24 hr (5 yrs) 19.5 mg IUD 1 Each by INTRAUTERINE route as directed. - VRAYLAR 3 mg capsule Take 1 tablet by mouth once daily. - omeprazole (PRILOSEC) 20 mg capsule Take 1 capsule by mouth once daily. - topiramate (TOPAMAX) 25 mg tablet Take 1 tablet by mouth two times a day. takes w/ 100 mg to make 125 mg bid - paliperidone ER (INVEGA) 3 mg 24 hr tablet Take by mouth as directed. - QUEtiapine (SEROQUEL) 50 mg tablet - traZODone (DESYREL) 100 mg tablet - (more content not included)... Normal [facility] 02-09-2024 Albumin [Mass/Vol] 3.2 g/dL Normal 3.2-5.0 [facility] Comment on above: Performed By: #### L 500.4100, L100.0100 #### [facility] [address] [place], [address] Albumin/Globulin [Mass ratio] 0.7 {ratio} Low 0.9-2.4 [facility] Comment on above: Performed By: #### L 500.4100, L100.0100 #### [facility] [address] [place], [address] ALK P 115 U/L Normal 45-117 [facility] Comment on above: Performed By: #### L 500.4100, L100.0100 #### [facility] [address] [place], [address] ALT [Catalytic activity/Vol] 23 U/L Normal 13-56 [facility] Comment on above: Performed By: #### L 500.4100, L100.0100 #### [facility] [address] [place], [address] AST [Catalytic activity/Vol] 20 U/L Normal 15-37 [facility] Comment on above: Performed By: #### L 500.4100, L100.0100 #### [facility] [address] [place], [address] Bilirubin [Mass/Vol] 0.40 mg/dL Normal 0.20-1.00 [facility] Comment on above: Result Comment: For patients on eltrombopag therapy, use of Dimension [place] TBIL is not recommended. Performed By: #### L 500.4100, L100.0100 #### [facility] [address] [place], [address] BUN/CRE 20.3 RATIO High 10-20 [facility] Comment on above: Performed By: #### L 500.4100, L100.0100 #### [facility] [address] [place], [address] CA,Total 8.3 mg/dL Low 8.5-10.1 [facility] Comment on above: Performed By: #### L 500.4100, L100.0100 #### [facility] [address] [place], [address] Chloride [Moles/Vol] 111 mmol/L High 98-107 [facility] Comment on above: Performed By: #### L 500.4100, L100.0100 #### [facility] [address] [place], [place], [address] CO2 [Moles/Vol] 25.0 mmol/L Normal 21.0-32.0 [facility] Comment on above: Performed By: #### L 500.4100, L100.0100 #### [facility] [address] [place], [address] Creatinine [Mass/Vol] 1.23 mg/dL High 0.55-1.02 [facility] Comment on above: Result Comment: The validity of the calculated GFR GFRAA in patients over 70 years has not been determined. Clinical correlation is essential. Performed By: #### L 500.4100, L100.0100 #### [facility] [address] [place], [address] EST GFR - AA 65 mL/min Normal >60 [facility] Comment on above: Result Comment: Afri can Nepalese GFR Calc Performed By: #### L 500.4100, L100.0100 #### [facility] [address] [place], [address] GAP 4 Low 5-15 [facility] Comment on above: Performed By: #### L 500.4100, L100.0100 #### [facility] [address] [place], [address] GFR/1.73 sq M.predicted among non-blacks MDRD (S/P/Bld) [Vol rate/Area] 54 mL/min/{1.73_m2} Low >60 [facility] Comment on above: Result Comment: Non- GFR Calc Performed By: #### L 500.4100, L100.0100 #### [facility] [address] [place], [address] Globulin (S) [Mass/Vol] 4.3 g/dL High 2.2-4.2 [facility] Comment on above: Performed By: #### L 500.4100, L100.0100 #### [facility] [address] [place], [address] Glucose [Mass/Vol] 95 mg/dL Normal 74-106 [facility] Comment on above: Performed By: #### L 500.4100, L100.0100 #### [facility] [address] [place], [address] Potassium [Moles/Vol] 3.7 mmol/L Normal 3.5-5.1 [facility] Comment on above: Performed By: #### L 500.4100, L100.0100 #### [facility] [address] [place], [address] Sodium [Moles/Vol] 140 mmol/L Normal 136-145 [facility] Comment on above: Performed By: #### L 500.4100, L100.0100 #### [facility] [address] [place], [address] T PROT 7.5 g/dL Normal 6.4-8.2 [facility] Comment on above: Performed By: #### L 500.4100, L100.0100 #### [facility] [address] [place], [address] Urea nitrogen [Mass/Vol] 25 mg/dL High 7- [facility] Comment on above: Performed By: #### L 500.4100, L100.0100 #### [facility] [address] [place], [place], [address] CNOPon 10-29-2023 CNOP Operative Note (Enc) (OBGYWM) ---- Encounter Status:Closed [facility]OBGYWM[facility] ---- LIA WALTERS ([id number]) 1990 F Date Time Provider Department 10/13/23 ELISABET AVILESGY During your visit today, we recorded the following information about you: Curt Roman RN 10/13/2023 2:18 PM Signed Most recent Echo/Cardiology note faxed to PAT. Curt Roman RN Allergies As of Date: 10/13/2023 Noted Allergy Reaction ADHESIVE TAPE (ROSINS) 02/28/2018 2 - Rash Date Reviewed: 06/23/2023 Reviewed by: Deb Forbes MA - Fully Assessed Prescriptions as of 10/13/2023 - VRAYLAR 3 mg capsule Take 1 tablet by mouth once daily. - omeprazole (PRILOSEC) 20 mg capsule Take 1 capsule by mouth once daily. - topiramate (TOPAMAX) 25 mg tablet Take 1 tablet by mouth two times a day. takes w/ 100 mg to make 125 mg bid - paliperidone ER (INVEGA) 3 mg 24 hr tablet Take by mouth as directed. - QUEtiapine (SEROQUEL) 50 mg tablet - traZODone (DESYREL) 100 mg tablet - triamcinolone acetonide (KENALOG) 0.1 % ointment - valACYclovir (VALTREX) 1 gram tablet - NYAMYC powder - cholecalciferol (VITAMIN D3) 50 mcg (2,000 unit) tablet - sodium fluoride (SODIUM FLUORIDE 5000 PLUS) 1.1 % dental cream by DENTAL route. - AMMONIUM LACTATE TOPICAL Apply to affected area. - pantoprazole DR (PROTONIX) 20 mg tablet 20 mg. - topiramate (TOPAMAX) 100 mg tablet Take 100 mg by mouth two times a day. - LORazepam (ATIVAN) 0.5 mg tab 0.5 mg. - LORazepam (ATIVAN) 1 mg tablet Take 0.5 mg by mouth. - melatonin 5 mg tablet 5 mg. - Omeprazole Magnesium (PRILOSEC OTC) 20 mg tablet Take 20 mg by mouth. Problem List As Of Date 10/13/2023 Noted Resolved Trisomy 21 [Q90.9] 09/28/2018 Disorder of menstrual bleeding [N92.6] 09/28/2018 Encounter for other contraceptive management [Z*09/28/2018 Encounter Status:Closed by CURT ROMAN on 10/13/23 Normal [facility] HISTORY PHYSICALon HISTORY PHYSICAL HNO ID: [id number] Author: ELISABET AVILES MD Service: ? Author Type: Physician Type: H&P Filed: 10/13/2023 12:49 Note Text: Pre-Op History and Physical HPI: The patient is a 33 year old female presenting for pre-operative visit. She is scheduled for IUD removal, Kyleena IUD insertion, for menstrual control on 10/29/23. Procedure discussed along with risks, benefits and complications. Other alternatives discussed for management. Consent form signed? Yes. PAST MEDICAL HISTORY Diagnosis Date Bundle branch block Lazy eye Seizure (HCC) Trisomy 21 PAST SURGICAL HISTORY Procedure Laterality Date EYE SURGERY HX HEART CATHETERIZATION HEART SURGERY HX x3 TONSILLECTOMY AND ADENOIDECTOMY Current Outpatient Medications Medication Sig Dispense Refill omeprazole (PRILOSEC) 20 mg capsule Take 1 capsule by mouth once daily. VRAYLAR 3 mg capsule Take 1 tablet by mouth once daily. topiramate (TOPAMAX) 25 mg tablet Take 1 tablet by mouth two times a day. takes w/ 100 mg to make 125 mg bid paliperidone ER (INVEGA) 3 mg 24 hr tablet Take by mouth as directed. QUEtiapine (SEROQUEL) 50 mg tablet traZODone (DESYREL) 100 mg tablet triamcinolone acetonide (KENALOG) 0.1 % ointment valACYclovir (VALTREX) 1 gram tablet NYAMYC powder cholecalciferol (VITAMIN D3) 50 mcg (2,000 unit) tablet sodium fluoride (SODIUM FLUORIDE 5000 PLUS) 1.1 % dental cream by DENTAL route. AMMONIUM LACTATE TOPICAL Apply to affected area. pantoprazole DR (PROTONIX) 20 mg tablet 20 mg. (Patient not taking: Reported on 06/23/2023) topiramate (TOPAMAX) 100 mg tablet Take 100 mg by mouth two times a day. LORazepam (ATIVAN) 0.5 mg tab 0.5 mg. LORazepam (ATIVAN) 1 mg tablet Take 0.5 mg by mouth. melatonin 5 mg tablet 5 mg. Omeprazole Magnesium (PRILOSEC OTC) 20 mg tablet Take 20 mg by mouth. No current facility-administer ed medications for this visit. ALLERGIES: Adhesive Tape (Rosins) PERSONAL HISTORY: Social History Tobacco Use Smoking status: Never Smokeless tobacco: Never Substance Use Topics Alcohol use: Never Drug use: Never FAMILY HISTORY: No family history on file. REVIEW OF SYMPTOMS: GENERAL: denies fevers or chills ENDOCRINOLOGY: has not been on steroids Cardiology : denies palpitations or chest pain Respiratory: denies SOB or cough Hematology: denies history of prolonged bleeding or easy bruising or VTE Allergy: Denies history of personal or family history of allergy to anesthesia PHYSICAL EXAMINATION: VITALS: There were no vitals taken for this visit. IMPRESSION: AUB, trisomy 21 PLAN: The risks/benefits/alte rnatives and personal involved for the planned IUD removal and Kyleena IUD insertion were reviewed with the patient. Her questions were answered to her satisfaction and she desires to proceed. Consent was signed. I reviewed with her postop instructions and expectations. I have reviewed and updated past medical and surgical history, medications and allergies Elisabet Aviles M.D. [facility] 09-22-2023 CNPN Telephone (OBGYWM) ---- LIA WALTERS ([id number]) 1990 F Date Time Provider Department 09/22/23 ELISABET AVILES OBGYWM During your visit today, we recorded the following information about you: Elisabet Aviles MD 09/22/2023 2:38 PM Signed Patient's mother Taylor contacted the office due to Lia's menses restarting. This is a quality of life issue for her and she has a Ksiha that has controlled menses in the past. They would like to have this replaced in the operating room. Can do virtual preop if works better. WIll need to check w/ anesthesia if ok to do at [facility]. Did do at [facility] in the past. Would try to place Liletta or Kyleena as would have longer rage of amenorrhea for her. We can add in whenever works for Taylor ([facility] [place]) MD Latia Willingham Annalee, LPN 10/05/2023 10:50 AM Addendum Attempted to call mother, voicemail is full. Next available date at [facility] Is11/12/23. Patient will need a pre-operative appointment-can be virtual. Allergies As of Date: 09/22/2023 Noted Allergy Reaction ADHESIVE TAPE (ROSINS) 02/28/2018 2 - Rash Date Reviewed: 06/23/2023 Reviewed by: Deb Forbes MA - Fully Assessed Reason for Visit: Medication Problem [65] Prescriptions as of 10/06/2023 - paliperidone ER (INVEGA) 3 mg 24 hr tablet Take by mouth as directed. - paliperidone ER (INVEGA) 9 mg 24 hr tablet - QUEtiapine (SEROQUEL) 50 mg tablet - traZODone (DESYREL) 100 mg tablet - triamcinolone acetonide (KENALOG) 0.1 % ointment - valACYclovir (VALTREX) 1 gram tablet - NYAMYC powder - cholecalciferol (VITAMIN D3) 50 mcg (2,000 unit) tablet - sodium fluoride (SODIUM FLUORIDE 5000 PLUS) 1.1 % dental cream by DENTAL route. - AMMONIUM LACTATE TOPICAL Apply to affected area. - levonorgestrel (KISHA) 14 mcg/24 hrs (3 yrs) 13.5 mg IUD IUD 1 Each by INTRAUTERINE route as directed. - risperiDONE (RISPERDAL) 1 mg tablet Take 1 mg by mouth. - citalopram (CELEXA) 20 mg tablet Take 40 mg by mouth. - pantoprazole DR (PROTONIX) 20 mg tablet 20 mg. - topiramate (TOPAMAX) 100 mg tablet Take 100 mg by mouth two times a day. - topiramate (TOPAMAX) 25 mg tablet Take 25 mg by mouth. - LORazepam (ATIVAN) 0.5 mg tab 0.5 mg. - LORazepam (ATIVAN) 1 mg tablet Take 0.5 mg by mouth. - melatonin 5 mg tablet 5 mg. - Omeprazole Magnesium (PRILOSEC OTC) 20 mg tablet Take 20 mg by mouth. Problem List As Of Date 09/22/2023 Noted Resolved Trisomy 21 [Q90.9] 09/28/2018 Disorder of menstrual bleeding [N92.6] 09/28/2018 Encounter for other contraceptive management [Z*09/28/2018 Encounter Status:Closed by ELISABET AVILES on 10/06/23 Normal [facility] Bilirubin Test strip Ql (U)O rdered By: Elisabet Aviles on 07-16-2023 Bilirubin Ql (U) Negative Negative [facility] Culture, urineOrdered By: Nedra Aviles on 07-16-2023 Bacteria identified Cx Nom (U) Mixed Gram Pos & Gram Neg Org [facility] Ketones Test strip Ql (U)Ord ered By: Elisabet Aviles on 07-16-2023 Ketones Ql (U) Negative Negative [facility] Nitrite Test strip Ql (U)Ord ered By: Elisabet Aviles on 07-16-2023 Nitrite Ql (U) Negative Negative [facility] Protein Test strip Ql (U)Ord ered By: Elisabet Aviles on 07-16-2023 Protein Ql (U) Negative Negative [facility] Urine blood detectionOrdered By: Elisabet Aviles on 07-16-2023 RBC Ql (U) 25 /ul Negative [facility] Urine clarityOrdered By: Millie Aviles on 07-16-2023 Clarity (U) Clear Clear [facility] Urine color determinationOrd ered By: Elisabet Aviles on 07-16-2023 Color (U) Yellow Yellow [facility] Urine glucose detectionOrder ed By: Elisabet Aviles on 07-16-2023 Glucose Ql (U) Normal mg/dl Normal [facility] Urine leukocyte esterase det ection by dipstickOrdered By: Elisabet Aviles on 07-16-2023 Leukocyte esterase Test strip Ql (U) 100 /ul Negative [facility] Urine pHOrdered By: Elisabet Aviles on 07-16-2023 pH (U) 6.5 [pH] 5.0 - 8.0 [facility] Urine specific gravity measu rementOrdered By: Elisabet Aviles on 07-16-2023 Specific gravity (U) [Rel density] 1.010 1.002-1.030 [facility] Urine urobilinogen measureme ntOrdered By: Elisabet Aviles on 07-16-2023 Urobilinogen Ql (U) Normal mg/dl Normal [facility] CNOVon 06-23-2023 CNOV Office Visit (UCWSTR) ---- LIA WALTERS ([id number]) 1990 F Date Time Provider Department 06/23/23 11:15 AM FÉLIX STACY UCWSTR During your visit today, we recorded the following information about you: Temperature Pulse Respiration Blood pressure 96 degrees 75/minute 18/minute 128/78 Weight 111.2 kg KeFélix APRN.[facility] 06/23/2023 11:40 AM Signed CC: Patient presents with: Eye Problem: Possible pink eye in the right started this morning HPI: Lia Walters is a 33 year old female who presents to the office with complaint of eye redness and drainage since this morning. Symptoms are staying the same. Associated symptoms includes eye matted shut. Denies nausea, vomiting , and diarrhea. Treatments tried include nothing so far. with no relief of symptoms. Sick contacts: unknown. History of asthma, frequent episodes of bronchitis, chronic bronchitis, bronchiectasis or COPD: No Smoker: No Seasonal/environmen xavi allergies: No The ROS is otherwise negative. The patient's pmh, medications, allergies, and past visits are reviewed. PHYSICAL EXAM: BP 128/78 Pulse 75 Temp (!) 35.6 ?C (96 ?F) Resp 18 Wt 111.2 kg (245 lb 2.4 oz) SpO2 93% BMI 53.05 kg/m? General appearance: alert, cooperative, pleasant, in no acute distress Head: Normocephalic Eyes: EOM's intact, conjunctiva pink and moist, no icterus, sclera injected PAST MEDICAL HISTORY Diagnosis Date Bundle branch block Lazy eye Seizure (HCC) Trisomy 21 PAST SURGICAL HISTORY Procedure Laterality Date EYE SURGERY HX HEART CATHETERIZATION HEART SURGERY HX x3 TONSILLECTOMY AND ADENOIDECTOMY ALLERGIES Adhesive Tape (Rosins) MEDICATIONS paliperidone ER (INVEGA) 3 mg 24 hr tablet Take by mouth as directed. paliperidone ER (INVEGA) 9 mg 24 hr tablet QUEtiapine (SEROQUEL) 50 mg tablet traZODone (DESYREL) 100 mg tablet triamcinolone acetonide (KENALOG) 0.1 % ointment valACYclovir (VALTREX) 1 gram tablet NYAMYC powder cholecalciferol (VITAMIN D3) 50 mcg (2,000 unit) tablet sodium fluoride (SODIUM FLUORIDE 5000 PLUS) 1.1 % dental cream by DENTAL route. AMMONIUM LACTATE TOPICAL Apply to affected area. topiramate (TOPAMAX) 100 mg tablet Take 100 mg by mouth two times a day. LORazepam (ATIVAN) 0.5 mg tab 0.5 mg. LORazepam (ATIVAN) 1 mg tablet Take 0.5 mg by mouth. melatonin 5 mg tablet 5 mg. Omeprazole Magnesium (PRILOSEC OTC) 20 mg tablet Take 20 mg by mouth. trimethoprim-polymy holley (POLYTRIM) 10,000 unit- 1 mg/mL ophthalmic solution Use 1 Drop in both eyes every 4 hours for 7 days. levonorgestrel (KISHA) 14 mcg/24 hrs (3 yrs) 13.5 mg IUD IUD 1 Each by INTRAUTERINE route as directed. (Patient not taking: Reported on 06/23/2023) risperiDONE (RISPERDAL) 1 mg tablet Take 1 mg by mouth. (Patient not taking: Reported on 06/23/2023) citalopram (CELEXA) 20 mg tablet Take 40 mg by mouth. (Patient not taking: Reported on 06/23/2023) pantoprazole DR (PROTONIX) 20 mg tablet 20 mg. (Patient not taking: Reported on 06/23/2023) topiramate (TOPAMAX) 25 mg tablet Take 25 mg by mouth. (Patient not taking: Reported on 06/23/2023) No family history on file. Social History Tobacco Use Smoking status: Never Smokeless tobacco: Never Substance Use Topics Alcohol use: Never Drug use: Never ASSESSMENT/PLAN: 1. [place] eye disease of both eyes - ICD9: 372.03, ICD10: H10.023 - POLYMYXIN B SULFATE 10,000 UNIT-TRIMETHOPRIM 1 MG/ML EYE DROPS Prescription instructions reviewed with patient caregiver as applicable. Potential red flag symptoms discussed with the patient. Reviewed appropriate action plan to take if red flag symptoms occur. Patient caregiver agreeable to treatment plan. Félix Stacy APRN.[employer] Allergies As of Date: 06/23/2023 Noted Allergy Reaction ADHESIVE TAPE (ROSINS) 02/28/2018 2 - Rash Date Reviewed: 06/23/2023 Reviewed by: Dbe Forbes MA - Fully Assessed Reason for Visit: Eye Problem [43] Cmt: Possible pink eye in the right started this morning Primary Visit Diagnosis:[place] eye disease of both eyes [H10.023] Order(s):trimethopr im-polymyxin (POLYTRIM) 10,000 unit- 1 mg/mL ophthalmic solutionUse 1 Drop in both eyes every 4 hours for 7 days.Disp: 10 mLRfl: 0 Prescriptions as of 06/23/2023 - paliperidone ER (INVEGA) 3 mg 24 hr tablet Take by mouth as directed. - paliperidone ER (INVEGA) 9 mg 24 hr tablet - QUEtiapine (SEROQUEL) 50 mg tablet - traZODone (DESYREL) 100 mg tablet - triamcinolone acetonide (KENALOG) 0.1 % ointment - valACYclovir (VALTREX) 1 gram tablet - NYAMYC powder - cholecalciferol (VITAMIN D3) 50 mcg (2,000 unit) tablet - sodium fluoride (SODIUM FLUORIDE 5000 PLUS) 1.1 % dental cream by DENTAL route. - AMMONIUM LACTATE TOPICAL Apply to affected area. - trimethoprim-polymy holley (POLYTRIM) 10,000 unit- 1 mg/mL ophthalmic solution Use 1 Drop in both eyes every 4 (more content not included)... Normal [facility] Absolute lymphocyte countOrd ered By: Rafy Olsen on 06-03-2023 Lymphocytes Auto (Unsp spec) [#/Vol] 1.63 10*3/uL 0.83-4.51 [facility] Automated lymphocyte count a s percentage of total leukocytesOrdered By: Rafy Olsen on 06-03-2023 Lymphocytes/100 WBC Auto (Unsp spec) 32.3 % 19-41 [facility] Basophil percentageOrdered B y: Rafy Olsen on 06-03-2023 Basophils/100 WBC (Bld) 0.8 % 0-1 [facility] Bilirubin [Mass/Vol] 0.40 mg/dL 0.20-1.00 [facility] Comment on above: For patients on eltr ombopag therapy, use of Dimension [place] TBIL is not recommended. Chloride [Moles/Vol] 112 mmol/L 98-107 [facility] Eosinophils/100 WBC (Bld) 1.0 % 0-5 [facility] Glucose [Mass/Vol] 106 mg/dL 74-106 [facility] Comment on above: Fasting Glucose resu lt from 100 to 125 mg/dL suggests IMPAIRED HOMEOSTASIS per A.D.A. criteria. Hemoglobin (Bld) [Mass/Vol] 16.0 g/dL 12.0-15.0 [facility] Monocytes/100 WBC (Bld) 6.0 % 0-10 [facility] Neutrophils (Bld) [#/Vol] 3.0 10*3/uL 2.0-7.7 [facility] Neutrophils/100 WBC (Bld) 59.7 % 47-70 [facility] Potassium [Moles/Vol] 3.8 mmol/L 3.5-5.1 [facility] Protein [Mass/Vol] 6.8 g/dL 6.4-8.2 [facility] Sodium [Moles/Vol] 141 mmol/L 136-145 [facility] WBC (Bld) [#/Vol] 5.0 10*3/uL 4.4-11.0 [facility] Determination of erythrocyte mean corpuscular volume (MCV)Ordered By: Rafy Olsen on 06-03-2023 MCV (RBC) [Entitic vol] 99.2 fL 81-99 [facility] Erythrocyte distribution wid th ratioOrdered By: Rafy Olsen on 06-03-2023 Erythrocyte distribution width (RBC) [Ratio] 13.8 % 11.6-14.6 [facility] Erythrocyte distribution wid th standard deviationOrdered By: Rafy Olsen on 06-03-2023 Erythrocyte distribution width (RBC) [Entitic vol] 49.8 fL 35.1-43.9 [facility] Hematocrit Auto (Bld) [Volum e fraction]Ordered By: Rafy Olsen on 06-03-2023 Hematocrit (Bld) [Volume fraction] 49.5 % 37-47 [facility] Immature granulocytes/100 WB C Auto (Bld)Ordered By: Rafy Olsen on 06-03-2023 Immature granulocytes/100 WBC (Bld) 0.200 % 0.0-0.9 [facility] Comment on above: IG% - Immature Granu locytes (promyelocytes, myelocytes and metamyelocytes) > 1% indicates that a LEFT SHIFT is Present. Laboratory - Chemistry and C hemistry - challengeOrdered By: Rafy Olsen on 06-03-2023 Albumin/Globulin [Mass ratio] 0.8 {ratio} 0.9-2.4 [facility] ALP [Catalytic activity/Vol] 79 U/L 45-117 [facility] ALT [Catalytic activity/Vol] 23 U/L 13-56 [facility] CO2 [Moles/Vol] 25.0 mmol/L 21.0-32.0 [facility] Globulin (S) [Mass/Vol] 3.7 g/dL 2.2-4.2 [facility] Urea nitrogen/Creatinine [Mass ratio] 14.4 mg/mg 10-20 [facility] Laboratory - Hematology and Cell countsOrdered By: Rafy Olsen on 06-03-2023 MCH (RBC) [Entitic mass] 32.1 pg 27.0-32.0 [facility] MCHC (RBC) [Mass/Vol] 32.3 g/dL 32-36 [facility] Nucleated RBC/100 WBC (Bld) [Ratio] 0 % 0-5 [facility] Platelet mean volume (Bld) [Entitic vol] 10.4 fL 6.2-12.0 [facility] Platelets (Bld) [#/Vol] 146 10*3/uL 150-450 [facility] No Panel InformationOrdered By: Rafy Olsen on 06-03-2023 Estimated GFR (MDRD) Amer 69 mL/min >60 [facility] Comment on above: GFR Calc Estimated GFR (MDRD) Non-Af Amer 57 mL/min >60 [facility] Comment on above: Non- GFR Calc RBC Auto (Bld) [#/Vol]Ordere d By: Rafy Olsen on 06-03-2023 RBC (Bld) [#/Vol] 4.99 10*6/uL 4.2-5.4 [facility] Serum or plasma calcium vidal urement (mass/volume)Ordered By: Rafy Olsen on 06-03-2023 Calcium [Mass/Vol] 8.6 mg/dL 8.5-10.1 [facility] Serum or plasma creatinine m easurement (mass/volume)Ordered By: Rafy Olsen on 06-03-2023 Creatinine [Mass/Vol] 1.18 mg/dL 0.55-1.02 [facility] Comment on above: The validity of the calculated GFR & GFRAA in patients over 70 years has not been determined. Clinical correlation is essential. Serum or plasma transthyreti n measurement (mass/volume)Ordered By: Rafy Olsen on 06-03-2023 Prealbumin [Mass/Vol] 18.9 mg/dL 20.0-40.0 [facility] Serum or plasma urea nitroge n measurement (mass/volume)Ordered By: Rafy Olsen on 06-03-2023 Urea nitrogen [Mass/Vol] 17 mg/dL 7-18 [facility] Thin prep Papanicolaou smear with manual screeningOrdered By: Rafy Olsen on 06-03-2023 Thin prep Papanicolaou smear with manual screening 3.1 g/dL 3.2-5.0 [facility] Thin prep Papanicolaou smear with manual screening 14 U/L 15-37 [facility] Thin prep Papanicolaou smear with manual screening 4 5-15 [facility] Basophil percentageOrdered B y: Rafy Olsen on 05-28-2023 Basophil percentage 25-50 SEEN /hpf 0-5 [facility] Bilirubin Test strip Ql (U)O rdered By: Rafy Olsen on 05-28-2023 Bilirubin Ql (U) Negative Negative [facility] Culture, urineOrdered By: Jeremy Olsen on 05-28-2023 Bacteria identified Cx Nom (U) Escherichia coli [facility] Bacteria identified Cx Nom (U) Escherichia coli [facility] Ketones Test strip Ql (U)Ord ered By: Rafy Olsen on 05-28-2023 Ketones Ql (U) Negative Negative [facility] Mucus LM Ql (Urine sed)Order ed By: Rafy Olsen on 05-28-2023 Mucus Ql (Urine sed) 0 SEEN /hpf [facility] Nitrite Test strip Ql (U)Ord ered By: Rafy Olsen on 05-28-2023 Nitrite Ql (U) Positive Negative [facility] No Panel InformationOrdered By: Rafy Olsen on 05-28-2023 Urine RBC 0-5 SEEN /hpf 0-5 [facility] Protein Test strip Ql (U)Ord ered By: Rafy Olsen on 05-28-2023 Protein Ql (U) 30 mg/dl Negative [facility] Squamous epithelial cells de tection in urine sediment by light microscopyOrdered By: Rafy Olsen on 05-28-2023 Epithelial cells.squamous LM Ql (Urine sed) 0-5 SEEN /hpf 5-10 [facility] Urine blood detectionOrdered By: Rafy Olsen on 05-28-2023 RBC Ql (U) 10 /ul Negative [facility] Urine clarityOrdered By: Nurys Olsen on 05-28-2023 Clarity (U) Sl. Cloudy Clear [facility] Urine color determinationOrd ered By: Rafy Olsen on 05-28-2023 Color (U) Yellow Yellow [facility] Urine glucose detectionOrder ed By: Rafy Olsen on 05-28-2023 Glucose Ql (U) Normal mg/dl Normal [facility] Urine leukocyte esterase det ection by dipstickOrdered By: Rafy Olsen on 05-28-2023 Leukocyte esterase Test strip Ql (U) 500 /ul Negative [facility] Urine pHOrdered By: Rafy feng on 05-28-2023 pH (U) 8.0 [pH] 5.0 - 8.0 [facility] Urine sediment bacteria coun t by microscopy (number/high power field)Ordered By: Rafy Olsen on 05-28-2023 Bacteria LM.HPF (Urine sed) [#/Area] 2 /[HPF] None Seen [facility] Urine specific gravity measu rementOrdered By: Rafy Olsen on 05-28-2023 Specific gravity (U) [Rel density] 1.010 1.002-1.030 [facility] Urine urobilinogen measureme ntOrdered By: Rafy Olsen on 05-28-2023 Urobilinogen Ql (U) 4 mg/dl Normal [facility] POCT iSTATOrdered By: Janette Barraza on 05-05-2023 BUN [facility] Creatinine [Mass/Vol] 1.5 mg/dL Abnormal [facility] Interpretation and review of laboratory results Abnormal [facility] Absolute lymphocyte countOrd ered By: Leonard Lewis on 05-04-2023 Lymphocytes Auto (Unsp spec) [#/Vol] 2.35 10*3/uL 0.83-4.51 [facility] Automated lymphocyte count a s percentage of total leukocytesOrdered By: Leonard Lewis on 05-04-2023 Lymphocytes/100 WBC Auto (Unsp spec) 43.5 % 19-41 [facility] Basophil percentageOrdered B y: Leonard Lewis on 05-04-2023 Basophils/100 WBC (Bld) 0.9 % 0-1 [facility] Bilirubin [Mass/Vol] 0.40 mg/dL 0.20-1.00 [facility] Comment on above: For patients on eltr ombopag therapy, use of Dimension [place] TBIL is not recommended. Chloride [Moles/Vol] 109 mmol/L 98-107 [facility] Eosinophils/100 WBC (Bld) 1.3 % 0-5 [facility] Glucose [Mass/Vol] 94 mg/dL 74-106 [facility] Hemoglobin (Bld) [Mass/Vol] 16.9 g/dL 12.0-15.0 [facility] Monocytes/100 WBC (Bld) 7.0 % 0-10 [facility] Neutrophils (Bld) [#/Vol] 2.5 10*3/uL 2.0-7.7 [facility] Neutrophils/100 WBC (Bld) 46.9 % 47-70 [facility] Potassium [Moles/Vol] 4.0 mmol/L 3.5-5.1 [facility] Protein [Mass/Vol] 7.6 g/dL 6.4-8.2 [facility] Sodium [Moles/Vol] 138 mmol/L 136-145 [facility] WBC (Bld) [#/Vol] 5.4 10*3/uL 4.4-11.0 [facility] Determination of erythrocyte mean corpuscular volume (MCV)Ordered By: Leonard Lewis on 05-04-2023 MCV (RBC) [Entitic vol] 97.9 fL 81-99 [facility] Erythrocyte distribution wid th ratioOrdered By: Leonard Lewis on 05-04-2023 Erythrocyte distribution width (RBC) [Ratio] 13.1 % 11.6-14.6 [facility] Erythrocyte distribution wid th standard deviationOrdered By: Leonard Lewis on 05-04-2023 Erythrocyte distribution width (RBC) [Entitic vol] 47.2 fL 35.1-43.9 [facility] Hematocrit Auto (Bld) [Volum e fraction]Ordered By: Leonard Lewis on 05-04-2023 Hematocrit (Bld) [Volume fraction] 52.2 % 37-47 [facility] Immature granulocytes/100 WB C Auto (Bld)Ordered By: Leonard Lewis on 05-04-2023 Immature granulocytes/100 WBC (Bld) 0.400 % 0.0-0.9 [facility] Comment on above: IG% - Immature Granu locytes (promyelocytes, myelocytes and metamyelocytes) > 1% indicates that a LEFT SHIFT is Present. Laboratory - Chemistry and C hemistry - challengeOrdered By: Leonard Lewis on 05-04-2023 Albumin/Globulin [Mass ratio] 0.8 {ratio} 0.9-2.4 [facility] ALP [Catalytic activity/Vol] 88 U/L 45-117 [facility] ALT [Catalytic activity/Vol] 28 U/L 13-56 [facility] CO2 [Moles/Vol] 24.0 mmol/L 21.0-32.0 [facility] Cobalamin (Vitamin B12) [Mass/Vol] 505 pg/mL 211-911 [facility] Globulin (S) [Mass/Vol] 4.3 g/dL 2.2-4.2 [facility] Urea nitrogen/Creatinine [Mass ratio] 12.5 mg/mg 10-20 [facility] Laboratory - Hematology and Cell countsOrdered By: Leonard Lewis on 05-04-2023 MCH (RBC) [Entitic mass] 31.7 pg 27.0-32.0 [facility] MCHC (RBC) [Mass/Vol] 32.4 g/dL 32-36 [facility] Nucleated RBC/100 WBC (Bld) [Ratio] 0 % 0-5 [facility] Platelets (Bld) [#/Vol] 157 10*3/uL 150-450 [facility] No Panel InformationOrdered By: Leonard Lewis on 05-04-2023 Estimated GFR (MDRD) Amer 67 mL/min >60 [facility] Comment on above: GFR Calc Estimated GFR (MDRD) Non-Af Amer 56 mL/min >60 [facility] Comment on above: Non- GFR Calc Vitamin D 25-Hydroxy 72.6 ng/mL [facility] Comment on above: Vitamin D 25(OH) Sta tus Range Deficiency <20 ng/mL (50nmol/L) Insufficiency 20 - 30 ng/mL (50 - 75 nmol/L) Sufficiency 30 - 100 ng/mL (75 - 250 nmol/L) Toxicity >100 ng/mL (>250 nmol/L) Platelet mean volume Ari-Ec ker (Bld) [Entitic vol]Ordered By: Leonard Lewis on 05-04-2023 Platelet mean volume (Bld) [Entitic vol] 10.3 fL 6.2-12.0 [facility] RBC Auto (Bld) [#/Vol]Ordere d By: Leonard Lewis on 05-04-2023 RBC (Bld) [#/Vol] 5.33 10*6/uL 4.2-5.4 [facility] Serum or plasma calcium vidal urement (mass/volume)Ordered By: Leonard Lewis on 05-04-2023 Calcium [Mass/Vol] 8.9 mg/dL 8.5-10.1 [facility] Serum or plasma creatinine m easurement (mass/volume)Ordered By: Leonard Lewis on 05-04-2023 Creatinine [Mass/Vol] 1.20 mg/dL 0.55-1.02 [facility] Comment on above: The validity of the calculated GFR & GFRAA in patients over 70 years has not been determined. Clinical correlation is essential. Serum or plasma thyroid stim ulating hormone (TSH) measurement (units/volume)Ordered By: Leonard Lweis on 05-04-2023 TSH Qn 1.90 uIU/mL 0.358-3.74 [facility] Serum or plasma transthyreti n measurement (mass/volume)Ordered By: Leonard Lewis on 05-04-2023 Prealbumin [Mass/Vol] 21.0 mg/dL 20.0-40.0 [facility] Serum or plasma urea nitroge n measurement (mass/volume)Ordered By: Leonard Lewis on 05-04-2023 Urea nitrogen [Mass/Vol] 15 mg/dL 7-18 [facility] Thin prep Papanicolaou smear with manual screeningOrdered By: Leonard Lewis on 05-04-2023 Thin prep Papanicolaou smear with manual screening 3.3 g/dL 3.2-5.0 [facility] Thin prep Papanicolaou smear with manual screening 21 U/L 15-37 [facility] Thin prep Papanicolaou smear with manual screening 5 5-15 [facility] Thin prep Papanicolaou smear with manual screening 0.84 ng/dL 0.76-1.46 [facility] Absolute lymphocyte countOrd ered By: Martin Mcpherson on 04-22-2023 Lymphocytes Auto (Unsp spec) [#/Vol] 2.28 10*3/uL 0.83-4.51 [facility] Automated lymphocyte count a s percentage of total leukocytesOrdered By: Martin Mcpherson on 04-22-2023 Lymphocytes/100 WBC Auto (Unsp spec) 36.4 % 19-41 [facility] Basophil percentageOrdered B y: Martin Mcpherson on 04-22-2023 Basophils/100 WBC (Bld) 1.1 % 0-1 [facility] Bilirubin [Mass/Vol] 0.40 mg/dL 0.20-1.00 [facility] Comment on above: For patients on eltr ombopag therapy, use of Dimension [place] TBIL is not recommended. Chloride [Moles/Vol] 109 mmol/L 98-107 [facility] Eosinophils/100 WBC (Bld) 0.8 % 0-5 [facility] Glucose [Mass/Vol] 98 mg/dL 74-106 [facility] Hemoglobin (Bld) [Mass/Vol] 16.9 g/dL 12.0-15.0 [facility] Monocytes/100 WBC (Bld) 6.9 % 0-10 [facility] Neutrophils (Bld) [#/Vol] 3.4 10*3/uL 2.0-7.7 [facility] Neutrophils/100 WBC (Bld) 54.5 % 47-70 [facility] Potassium [Moles/Vol] 3.9 mmol/L 3.5-5.1 [facility] Protein [Mass/Vol] 7.5 g/dL 6.4-8.2 [facility] Sodium [Moles/Vol] 139 mmol/L 136-145 [facility] WBC (Bld) [#/Vol] 6.3 10*3/uL 4.4-11.0 [facility] Determination of erythrocyte mean corpuscular volume (MCV)Ordered By: Martin Mcpherson on 04-22-2023 MCV (RBC) [Entitic vol] 98.4 fL 81-99 [facility] Erythrocyte distribution wid th ratioOrdered By: Martin Mcpherson on 04-22-2023 Erythrocyte distribution width (RBC) [Ratio] 13.1 % 11.6-14.6 [facility] Erythrocyte distribution wid th standard deviationOrdered By: Martin Mcpherson on 04-22-2023 Erythrocyte distribution width (RBC) [Entitic vol] 47.6 fL 35.1-43.9 [facility] Hematocrit Auto (Bld) [Volum e fraction]Ordered By: Martin Mcpherson on 04-22-2023 Hematocrit (Bld) [Volume fraction] 50.8 % 37-47 [facility] Immature granulocytes/100 WB C Auto (Bld)Ordered By: Martin Mcpherson on 04-22-2023 Immature granulocytes/100 WBC (Bld) 0.300 % 0.0-0.9 [facility] Comment on above: IG% - Immature Granu locytes (promyelocytes, myelocytes and metamyelocytes) > 1% indicates that a LEFT SHIFT is Present. Laboratory - Chemistry and C hemistry - challengeOrdered By: Martin Mcpherson on 04-22-2023 Albumin/Globulin [Mass ratio] 0.8 {ratio} 0.9-2.4 [facility] ALP [Catalytic activity/Vol] 89 U/L 45-117 [facility] ALT [Catalytic activity/Vol] 23 U/L 13-56 [facility] CO2 [Moles/Vol] 24.0 mmol/L 21.0-32.0 [facility] Globulin (S) [Mass/Vol] 4.2 g/dL 2.2-4.2 [facility] Urea nitrogen/Creatinine [Mass ratio] 13.1 mg/mg 10-20 [facility] Laboratory - Hematology and Cell countsOrdered By: Martin Mcpherson on 04-22-2023 MCH (RBC) [Entitic mass] 32.8 pg 27.0-32.0 [facility] MCHC (RBC) [Mass/Vol] 33.3 g/dL 32-36 [facility] Nucleated RBC/100 WBC (Bld) [Ratio] 0 % 0-5 [facility] Platelets (Bld) [#/Vol] 171 10*3/uL 150-450 [facility] Laboratory - Microbiology an d Antimicrobial susceptibilityOrdered By: Martin Mcpherson on 04-22-2023 SARS-CoV-2 (COVID-19) RNA YUMIKO+probe Ql (Unsp spec) [facility] No Panel InformationOrdered By: Martin Mcpherson on 04-22-2023 Estimated Creatinine Clearance Calc 79.51 ml/min [facility] Estimated GFR (MDRD) Amer 66 mL/min >60 [facility] Comment on above: GFR Calc Estimated GFR (MDRD) Non-Af Amer 55 mL/min >60 [facility] Comment on above: Non- GFR Calc Platelet mean volume Ari-Ec ker (Bld) [Entitic vol]Ordered By: Martin Mcpherson on 04-22-2023 Platelet mean volume (Bld) [Entitic vol] 10.6 fL 6.2-12.0 [facility] RBC Auto (Bld) [#/Vol]Ordere d By: Martin Mcpherson on 04-22-2023 RBC (Bld) [#/Vol] 5.16 10*6/uL 4.2-5.4 [facility] Serum or plasma calcium vidal urement (mass/volume)Ordered By: Martin Mcpherson on 04-22-2023 Calcium [Mass/Vol] 9.0 mg/dL 8.5-10.1 [facility] Serum or plasma creatinine m easurement (mass/volume)Ordered By: Martin Mcpherson on 04-22-2023 Creatinine [Mass/Vol] 1.22 mg/dL 0.55-1.02 [facility] Comment on above: The validity of the calculated GFR & GFRAA in patients over 70 years has not been determined. Clinical correlation is essential. Serum or plasma urea nitroge n measurement (mass/volume)Ordered By: Martin Mcpherson on 04-22-2023 Urea nitrogen [Mass/Vol] 16 mg/dL 7-18 [facility] Thin prep Papanicolaou smear with manual screeningOrdered By: Maritn Mcpherson on 04-22-2023 Thin prep Papanicolaou smear with manual screening 3.3 g/dL 3.2-5.0 [facility] Thin prep Papanicolaou smear with manual screening 26 U/L 15-37 [facility] Thin prep Papanicolaou smear with manual screening 6 5-15 [facility] N-terminal pro B-type Natriu retic Peptideon 04-24-2022 Interpretation and review of laboratory results Abnormal [facility] Natriuretic peptide B (Bld) [Mass/Vol] 138 pg/mL High 0.0 - 125.0 pg/mL [facility] Release to patient->Automatic [facility] LAB [facility] Basophil percentageon 2021 Basophil percentage 0-5 SEEN /hpf 0-5 [facility] Work Phone: Bilirubin Test strip Ql (U)o n 01-08-2022 Bilirubin Ql (U) Negative Negative [facility] Work Phone: Ketones Test strip Ql (U)on 01-08-2022 Ketones Ql (U) Negative Negative [facility] Work Phone: Mucus LM Ql (Urine sed)on Mucus Ql (Urine sed) 0 SEEN /hpf [facility] Work Phone: Nitrite Test strip Ql (U)on 01-08-2022 Nitrite Ql (U) Negative Negative [facility] Work Phone: Protein Test strip Ql (U)on 01-08-2022 Protein Ql (U) Negative Negative [facility] Work Phone: Squamous epithelial cells de tection in urine sediment by light microscopyon 01-08-2022 Epithelial cells.squamous LM Ql (Urine sed) 0-5 SEEN /hpf 5-10 [facility] Work Phone: Urine blood detectionon RBC Ql (U) Negative Negative [facility] Work Phone: RBC Ql (U) 0-5 SEEN /hpf 0-5 [facility] Work Phone: Urine clarityon 01-08-2022 Clarity (U) Clear Clear [facility] Work Phone: Urine color determinationon 01-08-2022 Color (U) Straw Yellow [facility] Work Phone: Urine glucose detectionon Glucose Ql (U) Normal mg/dl Normal [facility] Work Phone: Urine leukocyte esterase det ection by dipstickon 01-08-2022 Leukocyte esterase Test strip Ql (U) 25 /ul Negative [facility] Work Phone: Urine pHon 01-08-2022 pH (U) 7.0 [pH] 5.0 - 8.0 [facility] Work Phone: Urine sediment bacteria coun t by microscopy (number/high power field)on 01-08-2022 Bacteria LM.HPF (Urine sed) [#/Area] RARE /hpf None Seen [facility] Work Phone: Urine specific gravity measu rementon 01-08-2022 Specific gravity (U) [Rel density] 1.010 1.002-1.030 [facility] Work Phone: Urobilinogen Auto test strip Ql (U)on 01-08-2022 Urobilinogen Ql (U) Normal mg/dl Normal [facility] Work Phone: Culture, urine Bacteria identified Cx Nom (U) Mixed Gram Pos & Gram Neg Org [facility] Work Phone: Vital Signs Date Time Vital Sign Value Performing Clinician Facility 01-08-2025 11:58-0400 Body temperature 97.5 [degF] Dr. Rafy Olsen MD Work Phone: [facility] 01-08-2025 11:58-0400 Diastolic blood pressure 62 mm[Hg] Dr. Rafy Olsen MD Work Phone: [facility] 01-08-2025 11:58-0400 Heart rate 51 /min Dr. Rafy Olsen MD Work Phone: [facility] 01-08-2025 11:58-0400 Respiratory rate 16 /min Dr. Rafy Olsen MD Work Phone: [facility] 01-08-2025 11:58-0400 SaO2% (BldA) [Mass fraction] 99 % Dr. Rafy Olsen MD Work Phone: [facility] 01-08-2025 11:58-0400 Systolic blood pressure 110 mm[Hg] Dr. Rafy Olsen MD Work Phone: [facility] 11-02-2024 19:40-0400 Body temperature 97.8 [degF] Dr. Rafy Olsen MD Work Phone: [facility] 11-02-2024 19:40-0400 Diastolic blood pressure 73 mm[Hg] Dr. Rafy Olsen MD Work Phone: [facility] 11-02-2024 19:40-0400 Heart rate 56 /min Dr. Rafy Olsen MD Work Phone: 1(775)498-735372 [place] [address] 11-02-2024 19:40-0400 Respiratory rate 16 /min Dr. Rafy Olsen MD Work Phone: [facility] 11-02-2024 19:40-0400 SaO2% (BldA) [Mass fraction] 100 % Dr. Rafy Olsen MD Work Phone: [facility] 11-02-2024 19:40-0400 Systolic blood pressure 115 mm[Hg] Dr. Rafy Olsen MD Work Phone: 1(087)811-203272 [place] [address] 11-02-2024 16:23-0400 Body height 142.[address] Rafy Olsen MD Work Phone: [facility] 10-05-2024 12:24-0400 Body temperature 98.7 [degF] Dr. Rafy Olsen MD Work Phone: [facility] 10-05-2024 12:24-0400 Diastolic blood pressure 58 mm[Hg] Dr. Rafy Olsen MD Work Phone: [facility] 10-05-2024 12:24-0400 Heart rate 50 /min Dr. Rafy Olsen MD Work Phone: [facility] 10-05-2024 12:24-0400 Respiratory rate 20 /min Dr. Rafy Olsen MD Work Phone: [facility] 10-05-2024 12:24-0400 SaO2% (BldA) [Mass fraction] 94 % Dr. Rafy Olsen MD Work Phone: 4(718)927-881272 [place] [address] 10-05-2024 12:24-0400 Systolic blood pressure 106 mm[Hg] Dr. Rafy Olsen MD Work Phone: 7(054)719-993233 [place] [address] 04-17-2024 15:19-0500 Heart rate 69 /min Dr. Rafy Olsen MD Work Phone: 2(125)658-051733 [place] [address] 04-17-2024 15:19-0500 Respiratory rate 24 /min Dr. Rafy Olsen MD Work Phone: 3(453)952-424633 [place] [address] 04-17-2024 14:26-0500 Body temperature 97.7 [degF] Dr. Rafy Olsen MD Work Phone: 1(012)403-873133 [place] [address] 04-17-2024 14:26-0500 Diastolic blood pressure 76 mm[Hg] Dr. Rafy Olsen MD Work Phone: 7(762)050-109933 [place] [address] 04-17-2024 14:26-0500 SaO2% (BldA) [Mass fraction] 92 % Dr. Rafy Olsen MD Work Phone: 4(442)506-114433 [place] [address] 04-17-2024 14:26-0500 Systolic blood pressure 139 mm[Hg] Dr. Rafy Olsen MD Work Phone: 5(210)656-322633 [place] [address] 04-17-2024 10:33-0500 Inhaled oxygen flow rate 2 L/min Dr. Rafy Olsen MD Work Phone: 9(105)606-059833 [place] [address] 04-14-2024 12:49-0500 Body height 142.[address] Rafy Olsen MD Work Phone: 2(172)463-569233 [place] [address] 04-14-2024 12:49-0500 Body weight 115.[address] Rafy Olsen MD Work Phone: 5(162)556-951333 [place] [address] 04-14-2024 04:44-0500 Body mass index (BMI) [Ratio] 57 kg/m2 Dr. Rafy Olsen MD Work Phone: 0(073)455-700333 [place] [address] 04-13-2024 13:41-0500 Body mass index (BMI) [Ratio] 56.7 kg/m2 Dr. Rafy Olsen MD Work Phone: 1(785)635-241972 [place] [address] 04-13-2024 13:41-0500 Body weight 114.[address] Rafy Olsen MD Work Phone: 3(693)821-652233 [place] [address] 04-13-2024 13:41-0500 Diastolic blood pressure 60 mm[Hg] Dr. Rafy Olsen MD Work Phone: 2(139)305-325233 [place] [address] 04-13-2024 13:41-0500 Heart rate 57 /min Dr. Rafy Olsen MD Work Phone: 7(778)361-646133 [place] [address] 04-13-2024 13:41-0500 SaO2% (BldA) [Mass fraction] 90 % Dr. Rafy Olsen MD Work Phone: 6(176)094-997633 [place] [address] 04-13-2024 13:41-0500 Systolic blood pressure 110 mm[Hg] Dr. Rafy Olsen MD Work Phone: 7(468)416-121833 [place] [address] 02-21-2024 14:20-0500 Body temperature 97.7 [degF] Dr. Rafy Olsen MD Work Phone: 3(114)092-580833 [place] [address] 02-21-2024 14:20-0500 Diastolic blood pressure 63 mm[Hg] Dr. Rafy Olsen MD Work Phone: 1(082)521-798133 [place] [address] 02-21-2024 14:20-0500 Heart rate 68 /min Dr. Rafy Olsen MD Work Phone: 2(565)408-694833 [place] [address] 02-21-2024 14:20-0500 Respiratory rate 20 /min Dr. Rafy Olsen MD Work Phone: 7(484)792-180172 [place] [address] 02-21-2024 14:20-0500 SaO2% (BldA) [Mass fraction] 100 % Dr. Rafy Olsen MD Work Phone: 9(479)800-617933 [place] [address] 02-21-2024 14:20-0500 Systolic blood pressure 110 mm[Hg] Dr. Rafy Olsen MD Work Phone: 6(861)571-798633 [place] [address] 02-09-2024 16:53-0500 Body mass index (BMI) [Ratio] 54.67 kg/m2 Cassidy Maravilla ALGEBRA TUTOR.GRAPHIC [employer]S TECHNICIAN Work Phone: [facility] 02-09-2024 16:53-0500 Body temperature 97.81 [degF] Cassidy Maravilla ALGEBRA TUTOR.GRAPHIC ARTS TECHNICIAN Work Phone: [facility] 02-09-2024 16:53-0500 Body weight 114.6 kg Cassidy Maravilla ALGEBRA TUTOR.GRAPHIC ARTS TECHNICIAN Work Phone: [facility] 02-09-2024 16:53-0500 Diastolic blood pressure 76 mm[Hg] Cassidy Maravilla ALGEBRA TUTOR.GRAPHIC ARTS TECHNICIAN Work Phone: [facility] 02-09-2024 16:53-0500 Heart rate 60 /min Cassidy Maravilla ALGEBRA TUTOR.GRAPHIC ARTS TECHNICIAN Work Phone: [facility] 02-09-2024 16:53-0500 Respiratory rate 18 /min Cassidy Maravilla ALGEBRA TUTOR.GRAPHIC ARTS TECHNICIAN Work Phone: [facility] 02-09-2024 16:53-0500 SaO2% (BldA) [Mass fraction] 98 % Cassidy Maravilla ALGEBRA TUTOR.GRAPHIC ARTS TECHNICIAN Work Phone: [facility] 02-09-2024 16:53-0500 Systolic blood pressure 118 mm[Hg] Cassidy Maravilla ALGEBRA TUTOR.GRAPHIC ARTS TECHNICIAN Work Phone: [facility] 06-23-2023 11:17-0400 Body temperature 96.01 [degF] Félix Stacy ALGEBRA TUTOR.GRAPHIC ARTS TECHNICIAN Work Phone: [facility] 06-23-2023 11:17-0400 Body weight 111.2 kg Félix Stacy ALGEBRA TUTOR.GRAPHIC ARTS TECHNICIAN Work Phone: [facility] 06-23-2023 11:17-0400 Diastolic blood pressure 78 mm[Hg] Félix Ke ALGEBRA TUTOR.GRAPHIC ARTS TECHNICIAN Work Phone: [facility] 06-23-2023 11:17-0400 Heart rate 75 /min Félix Stacy ALGEBRA TUTOR.GRAPHIC ARTS TECHNICIAN Work Phone: [facility] 06-23-2023 11:17-0400 Respiratory rate 18 /min Félix Stacy APRN.GRAPHIC ARTS TECHNICIAN Work Phone: [facility] 06-23-2023 11:17-0400 SaO2% (BldA) [Mass fraction] 93 % Félix Stacy APRN.GRAPHIC ARTS TECHNICIAN Work Phone: [facility] 06-23-2023 11:17-0400 Systolic blood pressure 128 mm[Hg] Félix Stacy APRN.GRAPHIC ARTS TECHNICIAN Work Phone: [facility] 04-22-2023 16:26-0500 Body mass index (BMI) [Ratio] 59.4 kg/m2 [facility] 04-22-2023 16:26-0500 Body weight 120.2 kg [facility] 04-22-2023 15:30-0500 Body height 142.24 cm [facility] 04-22-2023 15:30-0500 Body temperature 96.4 [degF] [facility] 04-22-2023 15:30-0500 Diastolic blood pressure 81 mm[Hg] [facility] 04-22-2023 15:30-0500 Heart rate 74 /min [facility] 04-22-2023 15:30-0500 Respiratory rate 18 /min [facility] 04-22-2023 15:30-0500 SaO2% (BldA) [Mass fraction] 100 % [facility] 04-22-2023 15:30-0500 Systolic blood pressure 109 mm[Hg] [facility] Encounters Encounter Date Encounter Type Care Provider Facility Start: 01-08-2025 End: 01-08-2025 Patient encounter procedure Jeus Baker [facility] Work Phone: Start: 01-08-2025 End: 01-09-[address] Rafy Olsen MD Work Phone: [facility] Start: 11-09-2024 End: 11-09-[address] Rafy Olsen MD Work Phone: -Laboratory Specimen Start: 11-09-2024 End: 11-09-2024 Patient encounter procedure Guy BRUNNER -Laboratory Specimen Work Phone: Start: 11-09-2024 End: 11-09-2024 ambulatory Guy Morrissey Facility:[facility] Start: 11-02-2024 End: 11-02-2024 Emergency department patient visit Dr. Rafy Olsen MD Work Phone: -Emergency Department Work Phone: Start: 10-05-2024 End: 10-05-2024 Patient encounter procedure Angelo LUNA [facility] Work Phone: Start: 10-05-2024 End: 10-05-[address] Rafy Olsen MD Work Phone: [facility] Start: 10-05-2024 End: 10-05-2024 ambulatory Angelo LUNA Facility:[facility] Start: 08-29-2024 Encounter for genera l adult medical examination without abnormal findings Rafy [facility] Start: 08-24-2024 End: 08-24-[address] Rafy Olsen MD Work Phone: [facility] Work Phone: Start: 08-24-2024 End: 08-24-[address] Rafy Olsen MD -Laboratory [facility] Start: 08-24-2024 End: 08-24-2024 ambulatory Rafy Olsen Facility:[facility] Start: 07-27-2024 End: 07-27-[address] Rafy Olsen MD -Laboratory [facility] Start: 07-27-2024 End: 07-27-2024 ambulatory Rafy Olsen Facility:[facility] Start: 06-05-2024 End: 06-05-[address] Rafy Olsen MD Work Phone: [facility] Work Phone: Start: 06-05-2024 End: 06-05-[address] Rafy Olsen MD -Laboratory, Specimen Work Phone: Start: 06-05-2024 End: 06-05-2024 ambulatory Rafy Olsen Facility:[facility] Start: 06-01-2024 End: 06-01-[address] Rafy Olsen MD Work Phone: [facility] Work Phone: Start: 06-01-2024 End: 06-01-2024 Patient encounter procedure Guy Morrissey [facility] -Laboratory, Specimen Work Phone: Start: 06-01-2024 End: 06-01-2024 ambulatory Guy Morrissey Facility:[facility] Start: 05-11-2024 End: 05-11-2024 ambulatory RAFY OLSEN [facility] Start: 04-17-2024 Non-patient / Non-visit Dr. Ngoc haas MD -[facility] Work Phone: Start: 04-16-2024 Non-patient / Non-visit Dr. Ngoc haas MD -[facility] Work Phone: Start: 04-15-2024 Non-patient / Non-visit Dr. Ngoc haas MD -[facility] Work Phone: Start: 04-14-2024 ambulatory [address] [facility] ility:[facility] Start: 04-14-2024 End: 04-17-2024 Evaluation and management of inpatient Dr. Ngoc Cruz MD -Pro[facility] Care Unit Work Phone: Start: 04-13-2024 End: 04-13-2024 Patient encounter procedure Angelo Hidalgo PA -[facility] Work Phone: Start: 04-13-2024 End: 04-13-2024 ambulatory Angelo LUNA Facility[facility] Start: 02-21-2024 End: 02-21-2024 Emergency department patient visit Dr. Chauncey Garcia DO -Emergency Department Work Phone: Start: 02-09-2024 End: 02-09-2024 ambulatory RAFY OLSEN Facility:[facility] Start: 02-09-2024 End: 02-09-2024 Patient encounter procedure Cassidy Maravilla ALGEBRA TUTOR.GRAPHIC ARTS TECHNICIAN Work Phone: [facility] Comment on above: Blepharitis of left upper eyelid, unspecified type (Primary Dx); URI, acute Start: 02-09-2024 End: 02-09-2024 ambulatory Beba Davila Facility:[facility] Start: 10-29-2023 ambulatory Elisabet buenrostro MD Work Phone: OB/Gynecology Start: 10-29-2023 Patient encounter procedure Elisabet Aviles MD Work Phone: OB/Gynecology Start: 10-13-2023 Telephone encounter Elisabet Aviles MD Work Phone: OB/Gynecology Start: 10-13-2023 End: 10-13-2023 ambulatory Elisabet Aviles MD Work Phone: OB/Gynecology Comment on above: Abnormal uterine ble eding (AUB) (Primary Dx) Start: 10-13-2023 End: 10-13-2023 Telemedicine consultation with patient Elisabet Aviles MD Work Phone: OB/Gynecology Start: 09-22-2023 Telephone encounter Elisabet Aviles MD Work Phone: OB/Gynecology Comment on above: Medication Problem Start: 07-16-2023 End: 07-16-2023 Patient encounter procedure [facility], [facility] Work Phone: Start: 07-16-2023 End: 07-16-2023 Orders Only Elisabet Aviles MD Work Phone: OB/Gynecology Start: 06-23-2023 End: 06-23-2023 ambulatory RAFY OLSEN Facility:[facility] Start: 06-23-2023 End: 06-23-2023 Patient encounter procedure Félix Stacy APRN.CNP Work Phone: [facility] Comment on above: [place] eye disease of both eyes (Primary Dx) Start: 06-03-2023 End: 06-03-2023 ambulatory [facility] Work Phone: Start: 06-03-2023 End: 06-03-2023 Patient encounter procedure [facility] Work Phone: Start: 05-29-2023 End: 02-24-2024 ambulatory [facility] Work Phone: Start: 05-29-2023 End: 05-29-2023 Patient encounter procedure [facility] Work Phone: Start: 05-05-2023 End: 05-05-2023 Subsequent hospital visit by physician Saurav Garcia MD Work Phone: Computed Tomography Comment on above: Congenital heart dis ease; S/P TOF (tetralogy of Fallot) repair; S/P pulmonary valve replacement Start: 05-04-2023 End: 05-04-2023 Patient encounter procedure [facility], [place] Work Phone: Start: 04-22-2023 End: 04-22-2023 Emergency department patient visit [facility] Work Phone: Start: 04-24-2022 End: 04-24-2022 Subsequent hospital visit by physician Saurav Garcia MD Work Phone: [facility] Comment on above: S/P TOF (tetralogy o f Fallot) repair; S/P pulmonary valve replacement Start: 01-08-2022 End: 01-08-2022 ambulatory [facility] Work Phone: Start: 01-08-2022 End: 01-08-2022 Patient encounter procedure [facility] Procedures Date Procedure Procedure Detail Performing Clinician Start: 11-02-2024 X-ray of chest, PA a nd lateral views Dr. Rafy Olsen MD Work Phone: Start: 10-05-2024 X-ray of chest, PA a nd lateral views Dr. Rafy Olsen MD Work Phone: Start: 06-05-2024 Urnls dip stick/tabl et reagent auto microscopy Dr. Rafy Olsen MD Work Phone: Start: 06-05-[address] Rafy Olsen MD Work Phone: Start: 04-14-2024 SARS-CoV-2, Influenz a & RSV (PCR) Dr. Rafy Olsen MD Work Phone: Start: 04-14-2024 CT angiography of ch est with contrast Dr. Rafy Olsen MD Work Phone: Start: 02-21-[address] Rafy Olsen MD Work Phone: Start: 07-16-2023 Urine culture Start: 05-28-2023 Urine culture Start: 05-05-2023 Creatinine blood Kelly Davenport MD Work Phone: Start: 05-04-2023 Plain chest X-ray Start: 05-04-2023 Diagnostic radiograp hy of abdomen, decubitus and erect Start: 04-22-2023 SARS-CoV-2, Influenz a & RSV (PCR) Start: 04-24-2022 Natriuretic peptide Cristofer Garcia MD Work Phone: Urine culture Plan of Treatment Date Care Activity Detail Author Start: 01-08-2025 [facility] Start: 11-02-2024 [facility] Start: 05-11-2024 End: 05-11-2024 Patient encounter procedure 05/11/2024 1:00 PM EST Office Visit [address] [id number] Saurav Garcia MD [place], [place] [id number] [facility] Start: 04-17-2024 Referral to service [facility] Start: 04-17-2024 Patient discharge [facility] Start: 04-14-2024 Respiratory secretio n precautions [facility] Start: 04-14-2024 Seizure precautions [facility] Start: 04-14-2024 Following clinical p athway protocol [facility] Start: 04-14-2024 Ambulation without limitation [facility] Start: 04-14-2024 Assessment of risk o f venous thromboembolism [facility] Start: 04-14-2024 Inhalation therapy procedure [facility] Start: 04-14-2024 Insertion of cathete r into peripheral vein [facility] Start: 04-14-2024 Oxygen therapy [facility] Start: 04-14-2024 Providing care accor ding to standard [facility] Start: 04-14-2024 Referral to service [facility] Start: 04-14-2024 [facility] Start: 04-14-2024 Hospital admission, emergency, from emergency room, medical nature [facility] Start: 04-14-2024 Admission procedure [facility] Start: 04-14-2024 [facility] Start: 02-21-2024 [facility] Start: 12-05-2023 Covid-19 Vaccine () Covid-19 Vaccine () [facility] Start: 12-05-2023 Influenza vaccination [facility] Start: 10-14-2023 Screening for malign ant neoplasm of cervix Pap Testing [facility] Start: 10-13-2023 End: 10-13-2023 Admission to same day surgery center 10/13/2023 10:10 AM EDT [facility] OB/Gynecology [address] [place] [address] Elisabet Aviles MD [address] [place] [address] surgery 10/28 OB/Gynecology Comment on above: surgery 10/28 Start: 04-28-2023 End: 04-28-2023 Patient encounter procedure 04/28/2023 Office Visit Cardiology [place] [address] [facility] Start: 04-22-2023 [facility] Start: 04-05-2023 Behavioral Health Screening Behavioral Health Screening [facility] Start: 04-05-2023 Depression Assessment Depression Ass essment [facility] Start: 12-04-2022 COVID-19 (2022-05 4 season) COVID-19 () [facility] Start: 12-04-2022 Covid-19 Vaccine () Covid-19 Vaccine () [facility] Start: 12-04-2022 FLU (#1) FLU (#1) [facility] Start: 12-04-2022 Influenza vaccination Influenz a Vaccine (#1) [facility] Start: 01-11-2022 Screening for malign ant neoplasm of cervix HPV Testing [facility] Start: 12-04-2021 FLU (#1) FLU (#1) [facility] Start: 10-13-2021 Screening for malign ant neoplasm of cervix Cervical Cancer Screening [facility] Start: 01-11-2013 Microscopic observat ion [Identifier] in Cervix by Cyto stain Pap Smear [facility] Start: 01-11-2011 Hepatitis B Vaccine (1 of 3 - 19+ 3-dose series) Hepatitis B Vaccine (1 of 3 - 19+ 3-dose series) [facility] Start: 01-11-2011 Urine microalbumin profile DTa P,Tdap,Td Vaccine (1 - Tdap) [facility] Start: 01-11-2010 Anxiety Screening Anxiety Screening [facility] Start: 01-11-2010 Depression Screening Depression Scre ening [facility] Start: 01-11-2010 Hepatitis C screening Hepatitis C Sc reening [facility] Start: 01-11-2010 HIV screening HIV Screening [facility] Start: 2008 MenB (1 of 2 - MenB 2-Dose Series Bexsero) MenB (1 of 2 - MenB 2-Dose Series Bexsero) [facility] Start: 01-11-1999 Tetanus Diphtheria a nd Pertussis Vaccines (1 - Tdap) Tetanus Diphtheria and Pertussis Vaccines (1 - Tdap) [facility] Start: 01-11-1993 MMR (1 of 1 - Standa rd series) MMR (1 of 1 - Standard series) [facility] Start: 01-11-1993 Varicella (1 of 2 - 2-dose childhood series) Varicella (1 of 2 - 2-dose childhood series) [facility] Start: 1992 COVID-19 (#1) COVID-19 (#1) [facility] Start: 1992 Hepatitis B (1 of 3 - 3-dose series) Hepatitis B (1 of 3 - 3-dose series) [facility] Patient Education [facility] Work Phone: Patient referral [facility] Work Phone: Immunizations Immunization Date Immunization Notes Care Provider Naman ferraro 01-30-2022 influenza, injectabl e, quadrivalent, preservative free Dr. Rafy Olsen MD Work Phone: [facility] 01-30-2022 influenza virus vaccine, unspecified formulation Félix Stacy APRN.GRAPHIC ARTS TECHNICIAN Work Phone: [facility] 05-15-2020 Covid (Moderna) Dr. Rafy feng MD Work Phone: [facility] 05-06-2020 Covid (Moderna) Dr. Rafy feng MD Work Phone: [facility] 04-18-2020 Covid (Moderna) Dr. Rafy feng MD Work Phone: [facility] 04-05-2020 Covid (Moderna) Dr. Rafy feng MD Work Phone: [facility] 01-27-2020 Influenza, injectabl e, Madin Lisa Canine Kidney, preservative free, quadrivalent Dr. Rafy Olsen MD Work Phone: [facility] 01-19-2019 influenza, injectabl e, quadrivalent, preservative free Dr. Rafy Olsen MD Work Phone: [facility] 01-21-2016 influenza, seasonal, injectable, preservative free Dr. Rafy Olsen MD Work Phone: [facility] Payers Date Payer Category Payer Self-pay [id number] 2023 [facility] Health [facility] [employer] [id number] 2023-Present [phone] [address] [place] [id number] PPO [id number] 2023 Unknown [id number] 2019 Unknown [id number] 2019 Unknown [id number] 2018 Medicaid [id number] 2011 Medicaid [id number] 1992 Unknown [id number] [id number] 79 Unknown [id number] 2.16.840.1.729137.3.579.2.4 62 Unknown [id number] 2.16.840.1.360402.3.579.2.4 62 Unknown [id number] 2.16.840.1.637400.3.579.2.4 62 Unknown [id number] 2.16.840.1.661954.3.579.2.4 62 Unknown [id number] 2.16.840.1.558635.3.579.2.4 62 Unknown [id number] 2.16.840.1.346139.3.579.2.4 62 Unknown [id number] 2.16.840.1.165328.3.579.2.4 62 Unknown [id number] 2.16.840.1.120939.3.579.2.4 62 Unknown [id number] 2.16.840.1.511746.3.579.2.4 62 Unknown [id number] 2.16.840.1.842484.3.579.2.4 62 Unknown [id number] 2.16.840.1.590396.3.579.2.4 62 Unknown [id number] 2.16.840.1.895781.3.579.2.4 62 Unknown [id number] 2.16.840.1.242173.3.579.2.4 62 Unknown [id number] 2.16.840.1.227377.3.579.2.4 62 Unknown [id number] 2.16.840.1.658199.3.579.2.4 62 Unknown [id number] 2.16.840.1.439927.3.579.2.4 62 Unknown [id number] 2.16.840.1.951817.3.579.2.4 62 Unknown [id number] 2.16.840.1.323394.3.579.2.4 62 Social History Date Type Detail Facility Start: 03-08-2021 End: 04-22-2023 Tobacco smoking status AKIS Unknown if ever smoked [facility] Start: 05-13-2019 None [facility] Start: 05-25-2019 - [facility] Start: 10-11-2018 Non-smoker [facility] Start: 1990 Sex Assigned At Female [facility] Start: 04-24-2022 End: 11-02-2024 Tobacco smoking status AKIS Never smoked tobacco [facility] Work Phone: History of tobacco use Passive smoker [facility] Start: 04-24-2022 End: 06-23-2023 Tobacco use and exposure Smokeless tobacco non-user [facility] Start: 04-24-2022 End: 05-05-2023 Alcohol intake Current non-drinker of alcohol (finding) [facility] Start: 1990 Sex Assigned At Not on file [facility] Start: 05-05-2023 End: 10-13-2023 History of Social function [facility] Start: 05-05-2023 End: 10-13-2023 Tobacco use panel [facility] Start: 06-23-2023 End: 02-09-2024 Alcohol intake Lifetime non-drinker (finding) [facility] How often to you hav e a drink containing alcohol? Never [facility] Average Number of Drinks Not on file [facility] Start: 10-05-2023 Gender identity Identifies as female gender (finding) [facility] Start: 10-05-2023 Sexual orientation Heterosexual (fin ding) [facility] Start: 06-14-2024 End: 06-16-2024 Sex Female (finding) [facility] NEGATED: Highlighted row Not [facility] Medical Equipment Procedure Code Equipment Code Equipment Origin al Text Equipment Identifier Dates Dilation and curettage KISHA INTRA-UTERINE DEVICE FDA Start: 10-13-2018 Dilation and curettage KISHA INTRA-UTERINE DEVICE FDA Start: 10-13-2018 Dilation and curettage KISHA INTRA-UTERINE DEVICE FDA Start: 10-13-2018 Dilation and curettage KISHA INTRA-UTERINE DEVICE FDA Start: 10-13-2018 Dilation and curettage KISHA INTRA-UTERINE DEVICE FDA Start: 10-13-2018 Dilation and curettage KISHA INTRA-UTERINE DEVICE FDA Start: 10-13-2018 Dilation and curettage KISHA INTRA-UTERINE DEVICE FDA Start: 10-13-2018 Dilation and curettage KISHA INTRA-UTERINE DEVICE FDA Start: 10-13-2018 Dilation and curettage KISHA INTRA-UTERINE DEVICE FDA Start: 10-13-2018 Dilation and curettage KISHA INTRA-UTERINE DEVICE FDA Start: 10-13-2018 Dilation and curettage KISHA INTRA-UTERINE DEVICE FDA Start: 10-13-2018 Dilation and curettage KISHA INTRA-UTERINE DEVICE FDA Start: 10-13-2018 Dilation and curettage KISHA INTRA-UTERINE DEVICE FDA Start: 10-13-2018 Goals Date Patient Goal Desired Activity /State Functional Status Date Assessment Result Facility 04-17-2024 Functional status Activity Abili ty Standby Assist [facility] Work Phone: 04-16-2024 Functional status Ambulates [facility] Work Phone: Mental Status Date Assessment Result Facility 04-17-2024 Cognitive function Voice/Name [facility] Work Phone: 04-22-2023 Cognitive function Level Of Cons ciousness Awake;Alert;Appropriate;Follow s Commands [facility] Work Phone: Clinical Notes 04-22-2023 to 01-08-2025 Note Date & Type Note Facility 01-08-2025 Progress note [facility] 11-02-2024 Radiology Diagnostic study note [facility] Imaging Services [address] [place] [address] Chest PA and Lateral MR#: [id number] Acct: [id number] Name: LIA WALTERS Rep #: [id number] : 1990 F 34 From: Antoine Manrique MD PCP: Dr. Rafy Olsen MD Status: REG E R Study:Chest PA and Lateral Date of Exam: 11/02/24 Exam# [id number] Ordering Dr: Butch Bernard DO PROCEDURE: CHEST PA AND LATERAL 11/02/2024 REASON FOR EXAM: ? HEMOPTYSIS TECHNIQUE: CHEST PA AND LATERAL COMPARISON: 10/05/2024 FINDINGS: Lungs/Pleura: Shallow inspiration. Small-moderate bilateral layering pleural effusions and/or atelectasis. Pulmonary vascular congestion and evidence of interstitial edema. No pneumothorax. Heart/Mediastinum: Cardiomegaly. Bones/Soft tissues: Mild degenerative changes of the spine. Large body habitus. RAD/Chest PA and Lateral IMPRESSION: Shallow inspiration. Cardiomegaly with vascular congestion/interstitial edema, and probable small-moderate bilateral pleural effusions and/or bibasilar atelectasis. Reading Location: [id number] CC: Dr. Rafy Olsen MD; Dr. Butch Bernard DO ~ Harness Cutter: Signed [facility] 10-05-2024 Evaluation note Diagnosis Onset Date Resolution Acute sinusitis acute October 05, 2024 12:20pm [facility] Work Phone: 1(919) 235-808907-03-2025 Evaluation note* Diagnosis Onset Date Resolution Status Admit Date Acute sinusitis acute October 05, 2024 12:20pm Fatigue acute January 08, 025 11:56am Urinalysis requested acute Jano 2024 11:56am [facility] Work Phone: 1(659) 891-996707-03-2025 Progress [facility] [address], [address] [place] [address] OFFICE VISIT Date of Service: 10/05/24 MR#: [id number] Acct: [id number] Name: LIA WALTERS Rep #: [id number] : 1990 Provider: JEREMY Napier Age/Sex: 34/F Location: [facility] Status: Signed Intake Vital Signs 04/14/24 12:49 10/05/24 12:24 Height 4 ft 8 in BP 106/58 L Blood Pressure Location Lt brachial Position Sitting Respiration 20 H Pulse 50 L Pulse Source NIBP Temp 98.7 F Temp Source Oral Pulse Oximetry (%) 94 Oxygen Delivery Method room air Intake Visit Reasons: CONGESTION, COUGH Chief Complaint: cough, congestion Senior Animal Trainer Required: No Is patient in pain?: No Allergies adhesive tape Adverse Reaction (Intermediate, Verified 10/05/24 12:30) Skin redness Medications ?Medication ?Instructions ?Recorded ?Confirmed ?Type topiramate 100 mg tablet 150 mg PO BID 07/29/1504/14 History melatonin 5 mg tablet 10 mg PO QHS Sleep 02/28/18 04/14/24 History omeprazole 20 mg capsule,delayed 20 mg PO DAILY 04/14/24 History release acetaminophen 500 mg tablet 1,000 mg (2 x 500 mg) PO Q 6H PRN 10/28/20 04/14/24 Rx (Tylenol Extra Strength) fever or pain #60 tabs ammonium lactate 12 % topical cream 1 applic topical Q HS 04/22/23 04/14/24 History cholecalciferol (vitamin D3) 50 100 mcg PO DAILY 04/2204/14/24 History mcg (2,000 unit) tablet paliperidone 3 mg tablet,extended 3 mg PO Q24H 4 04/14/24 History release 24 hr trazodone 100 mg tablet 150 mg PO QHS 04/22/2304/14 History valacyclovir 1 gram tablet 2,000 mg PO BID PRN MOUTH S ORE 04/22/23 04/14/24 History cariprazine 3 mg capsule (Vraylar) 3 mg PO DAILY 10/2404/14/24 History clonazepam 0.5 mg tablet 0.25 mg PO BID 04/14/2404/05 History clonazepam 0.5 mg tablet 0.5 mg PO QHS 04/14/2404/14 History ipratropium 0.5 mg-albuterol 3 mg 3 ml inhalation Q4HW A.RT 30 days 04/17/24 Rx (2.5 mg base)/3 mL nebulization #180 mL soln amoxicillin 875 mg-potassium 1 tab PO Q12H 10 days #20 tabs 10/05/24 10/05/24 Rx clavulanate 125 mg tablet ipratropium bromide 21 mcg (0.03 2 spray intranasal BI D-TID PRN 10/05/24 10/05/24 Rx %) nasal spray postnasal drainage #30 mL Is last menstrual period known: No Post menopausal: No Patient : No Have you fallen in the past year?: No Nurse's Note: cough, congestion x 5 days worsening. caregiver denies ST, fever. caregiver believes pt getting mucus up but pt is swallowing this. PFSH Medical History Gastric reflux Non-smoker Sleep apnea Shortness of breath on exertion History of echocardiogram Cardiology follow-up encounter Lab test negative for COVID-19 virus Fallot tetralogy GERD (gastroesophageal reflux disease) Down syndrome Seizures Heart disease Surgical History Hx of tonsillectomy Hx of eye surgery History of open heart surgery Hx of surgical procedure Social History Smoking Status: Never smoker alcohol intake: never HPI HPI Chief Complaint: cough, congestion Details: LIA WALTERS, is a 34 F who presents to the office today for complaint of coughand congestion as well as sinus drainage for the past 5 days. Caregiver states that she has had increasing drainage andacts like she has a headache at this time. No fever or sweats. No vomiting or diarrhea. No shortness of breath. No other associated symptoms or alleviating/aggravating factors. ROS Const Constitutional: No other (as above) Exam Const General: cooperative and healthy appearing [facility] Head: normal to inspection Ears: hearing grossly normal bilaterally, TM's normal bilaterally and EAC's normal Nose: nasal discharge purulent Face and sinus: sinus tenderness frontal and maxillary Mouth: oral mucosae normal Throat: abnormal tonsil bilaterally erythema and hypertrophy 1+ and postnasal drainage Resp Effort & Inspection: normal respiratory effort Auscultation: Bilateral: Clear to Auscultation Cardio Rate: regular rate Rhythm: regular rhythm Neuro General: patient alert Psych Appearance: grossly normal Mental Status: mental status grossly normal Coding Level of Care Code Off vis,est,level 4 Diagnoses Acute sinusitis J01.90 Assessment and Plan Assessment and Plan (1) Acute sinusitis: Status: Acute Plan: 3 view chest x-ray read and interpreted by myself find no acute cardiopulmonary disease. Augmentin and Atrovent as prescribed today. Encouraged to get plenty of rest, drink lots of clear liquids, and use Tylenol or Ibuprofen (unless contraindicated) for fever and comfort. Caregiver also educated on other symptomatic management techniques. To be seen in 7-10 days if no improvement; sooner if worsening of symptoms. Caregiver advised of potential red flags and when appropriate to reportto the ED. Caregiver verbalized understanding and agreement with all the above. Orders: Orders Chest PA and Lateral Today R05.9 - Cough, unspecified Medications: New amoxicillin-pot clavulanate 875-125 mg 1 TAB PO Q12H 10 days 20 tabs 0RF J01.90 - Acute sinusitis, unspecified ipratropium bromide administer into each nostril 2 sprays intranasal BID-TID PRN 30 mL 0RF postnasal drainage Clinical Quality Measures Falls Risk Screening/Assistive Devices Have you fallen in the past year?: No 10/05/24 1303 A JEREMY> Date _ Angelo LUNA Cosigner Signature: Date (if applicable) CC: ~ [facility]07-03-2025 Radiology Diagnostic study note [facility] Imaging Services [address] [place] [address] Chest PA and Lateral MR#: [id number] Acct: [id number] Name: LIA WALTERS Rep #: [id number] : 1990 F 34 From: Tavon Maharaj MD PCP: Dr. Rafy Olsen MD Status: REG C LI Study:Chest PA and Lateral Date of Exam: 10/05/24 Exam# [id number] Ordering Dr: Chance Hidalgo PA PROCEDURE: CHEST PA AND LATERAL 10/05/2024 REASON FOR EXAM: COUGH TECHNIQUE: CHEST PA AND LATERAL COMPARISON: None FINDINGS: Hardware: None Heart: Borderline cardiomegaly Mediastinum: The mediastinal contour is unremarkable. Lungs: Lungs are expanded with superimposed interstitial edema in both lung armijo and small bilateral pleural effusions noted on the lateral film. Findings suggest pulmonary vascular congestion/early CHF. Follow-up recommended to ensure resolution Bones: The bones are unremarkable. RAD/Chest PA and Lateral IMPRESSION: Diffuse interstitial edema with small bilateral pleural effusions suggesting pulmonary vascular congestion/early CHF. Follow-up recommended to ensure resolution Borderline cardiomegaly Reading Location: [id number] CC: JEREMY Zafar; Dr. Rafy Olsen MD ~ Harness Cutter: Signed [facility]07-03-2025 Progress note Author Angelo Hidalgo [facility] Note Date/Time October 05, 2024 1:03p m [facility] [address], [address] [place] [address] OFFICE VISIT Date of Service: 10/05/24 MR#: [id number] Acct: [id number] Name: LIA WALTERS Rep #: [id number] : 1990 Provider: JEREMY Napier Age/Sex: 34/F Location: [facility] Status: Signed Intake Vital Signs 04/14/24 12:49 10/05/24 12:24 Height 4 ft 8 in BP 106/58 L Blood Pressure Location Lt brachial Position Sitting Respiration 20 H Pulse 50 L Pulse Source NIBP Temp 98.7 F Temp Source Oral Pulse Oximetry (%) 94 Oxygen Delivery Method room air Intake Visit Reasons: CONGESTION, COUGH Chief Complaint: cough, congestion Senior Animal Trainer Required: No Is patient in pain?: No Allergies adhesive tape Adverse Reaction (Intermediate, Verified 10/05/24 12:30) Skin redness Medications ?Medication ?Instructions ?Recorded ?Confirmed ?Type topiramate 100 mg tablet 150 mg PO BID 07/29/1504/14 History melatonin 5 mg tablet 10 mg PO QHS Sleep 02/28/18 04/14/24 History omeprazole 20 mg capsule,delayed 20 mg PO DAILY 04/14/24 History release acetaminophen 500 mg tablet 1,000 mg (2 x 500 mg) PO Q 6H PRN 10/28/20 04/14/24 Rx (Tylenol Extra Strength) fever or pain #60 tabs ammonium lactate 12 % topical cream 1 applic topical Q HS 04/22/23 04/14/24 History cholecalciferol (vitamin D3) 50 100 mcg PO DAILY 04/2204/14/24 History mcg (2,000 unit) tablet paliperidone 3 mg tablet,extended 3 mg PO Q24H 4 04/14/24 History release 24 hr trazodone 100 mg tablet 150 mg PO QHS 04/22/2304/14 History valacyclovir 1 gram tablet 2,000 mg PO BID PRN MOUTH S ORE 04/22/23 04/14/24 History cariprazine 3 mg capsule (Vraylar) 3 mg PO DAILY 10/2404/14/24 History clonazepam 0.5 mg tablet 0.25 mg PO BID 04/14/2404/05 History clonazepam 0.5 mg tablet 0.5 mg PO QHS 04/14/2404/14 History ipratropium 0.5 mg-albuterol 3 mg 3 ml inhalation Q4HW A.RT 30 days 04/17/24 Rx (2.5 mg base)/3 mL nebulization #180 mL soln amoxicillin 875 mg-potassium 1 tab PO Q12H 10 days #20 tabs 10/05/24 10/05/24 Rx clavulanate 125 mg tablet ipratropium bromide 21 mcg (0.03 2 spray intranasal BI D-TID PRN 10/05/24 10/05/24 Rx %) nasal spray postnasal drainage #30 mL Is last menstrual period known: No Post menopausal: No Patient : No Have you fallen in the past year?: No Nurse's Note: cough, congestion x 5 days worsening. caregiver denies ST, fever. caregiver believes pt getting mucus up but pt is swallowing this. PFSH Medical History Gastric reflux Non-smoker Sleep apnea Shortness of breath on exertion History of echocardiogram Cardiology follow-up encounter Lab test negative for COVID-19 virus Fallot tetralogy GERD (gastroesophageal reflux disease) Down syndrome Seizures Heart disease Surgical History Hx of tonsillectomy Hx of eye surgery History of open heart surgery Hx of surgical procedure Social History Smoking Status: Never smoker alcohol intake: never HPI HPI Chief Complaint: cough, congestion Details: LIA WALTERS, is a 34 F who presents to the office today for complaint of coughand congestion as well as sinus drainage for the past 5 days. Caregiver states that she has had increasing drainage and acts like she has a headache at this time. No fever or sweats. No vomiting or diarrhea. No shortness of breath. No other associated symptoms or alleviating/aggravating factors. ROS Const Constitutional: No other (as above) Exam Const General: cooperative and healthy appearing [facility] Head: normal to inspection Ears: hearing grossly normal bilaterally, TM's normal bilaterally and EAC's normal Nose: nasal discharge purulent Face and sinus: sinus tenderness frontal and maxillary Mouth: oral mucosae normal Throat: abnormal tonsil bilaterally erythema and hypertrophy 1+ and postnasal drainage Resp Effort & Inspection: normal respiratory effort Auscultation: Bilateral: Clear to Auscultation Cardio Rate: regular rate Rhythm: regular rhythm Neuro General: patient alert Psych Appearance: grossly normal Mental Status: mental status grossly normal Coding Level of Care Code Off vis,est,level 4 Diagnoses Acute sinusitis J01.90 Assessment and Plan Assessment and Plan (1) Acute sinusitis: Status: Acute Plan: 3 view chest x-ray read and interpreted by myself find no acute cardiopulmonary disease. Augmentin and Atrovent as prescribed today. Encouraged to get plenty of rest, drink lots of clear liquids, and use Tylenol or Ibuprofen (unless contraindicated) for fever and comfort. Caregiver also educated on other symptomatic management techniques. To be seen in 7-10 days if no improvement; sooner if worsening of symptoms. Caregiver advised of potential red flags and when appropriate to report to the ED. Caregiver verbalized understanding and agreement with all the above. Orders: Orders Chest PA and Lateral Today R05.9 - Cough, unspecified Medications: New amoxicillin-pot clavulanate 875-125 mg 1 TAB PO Q12H 10 days 20 tabs 0RF J01.90 - Acute sinusitis, unspecified ipratropium bromide administer into each nostril 2 sprays intranasal BID-TID PRN 30 mL 0RF postnasal drainage Clinical Quality Measures Falls Risk Screening/Assistive Devices Have you fallen in the past year?: No 10/05/24 8570 <Electronically signed by Angelo LUNA> Date _ Angelo Bowling Signature: Date (if applicable) CC: ~ [facility] Work Phone: 1(525) 641-120401-13-2025 [facility] Medical Records Department [address] [place] [id number] Discharge Summary 04/17/24 1239 MR#: [id number] Acct: [id number] Name: LIA WALTERS Rep #: [id number] : 1990 34 From: Ngoc Cruz MD PCP: Dr. Rafy Olsen MD Status:DIS [id number] Prov[facility] Date of Admission: 04/14/24 Date of Discharge: 04/17/24 Primary Care Physician: Dr. Rafy Olsen MD Reason For Visit: RSV INFECTION W/HYPOXIA, VITALY W/DEHYDRATION Diagnosis Discharge Diagnosis (1) Respiratory syncytial virus (RSV): Status: Acute Code(s): B33.8 - Other specified viral diseases (2) Hypoxia: Status: Acute Code(s): R09.02 - Hypoxemia Plan # Hypoxia secondary to RSV # History of Down syndrome and behavioral disturbances #Morbid obesity #GERD # VITALY on admission-resolved #ROGER Medications at Discharge Home Medications topiramate 100 mg tablet 150 mg PO BID 07/29/15 melatonin 5 mg tablet 10 mg PO QHS Sleep 02/28/18 omeprazole 20 mg capsule,delayed release 20 mg PO DAILY 04/08/19 acetaminophen 500 mg tablet (Tylenol Extra Strength) 1,000 mg (2 x 500 mg) PO Q6H PRN fever or pain #60 tabs 10/28/20 ammonium lactate 12 % topical cream 1 applic topical QHS 04/22/23 cholecalciferol (vitamin D3) 50 mcg (2,000 unit) tablet 100 mcg PO DAILY 04/22/23 paliperidone 3 mg tablet,extended release 24 hr 3 mg PO Q24H 04/22/23 trazodone 100 mg tablet 150 mg PO QHS 04/22/23 valacyclovir 1 gram tablet 2,000 mg PO BID PRN MOUTH SORE 04/22/23 cariprazine 3 mg capsule (Vraylar) 3 mg PO DAILY 10/25/23 clonazepam 0.5 mg tablet 0.25 mg PO BID 04/14/24 clonazepam 0.5 mg tablet 0.5 mg PO QHS 04/14/24 ipratropium 0.5 mg-albuterol 3 mg (2.5 mg base)/3 mL nebulization soln 3 ml inhalation Q4HWA.RT 30 days #180 mL 04/17/24 prednisone 20 mg tablet See Taper PO BREAKFAST #32 tabs 04/17/24 Hospital Course Summary of Care Provided Minutes Spent on Discharge: 31 Hospital Course: Patient is a 34-year-old female currently residing at a nursing home with a history of Down syndrome with behavioral disturbance, morbid obesity, GERD, ROGER not previously on NIPPV who presented [facility] ED 04/14/2024 from her nursing home for shortness of breath and URI symptoms. Patient was hypoxic in mid 80s on room air and was tachypneic. She is found to be RSV positive. Additionally creatinine was 1.88 with a baseline closer to 1. She was placed on 4 L nasal cannula and hospitalist contacted for admission was placed on DuoNebs and IV steroids and slowly her O2 was weaned. Kidney function also improved. Patient overall was improved and was assessed for short- term home oxygen prior to discharge but did not require this, however was discharged with nebulizers. The patient requires a nebulizer due to RSV and is prescribed to use ipratropium/albuterol with the nebulizer. Patient discharged back to nursing home in stable condition with following discharge instructions: -You will be discharged on a prednisone taper: -60 mg daily x3 days -50mg daily x3 days -40mg daily x3 days -30mg daily x3 days -20mg daily x3 days -10mg daily x3 days -You will be discharged with nebulizers -Continue your home medications as previously prescribed -Please call your primary care provider's office upon discharge to schedule a hospital follow up within 1 week. -For any concerning signs or symptoms please call 911 or proceed to the nearest emergency department Physical Exam Narrative General: Alert, no apparent distress HEENT: Atraumatic Eyes: Anicteric Neck: Supple Respiratory: Normal respiratory effort, improving wheezing Cardiovascular: Regular rate and rhythm GI: Nondistended Musculoskeletal: Moving all extremities Neuro: No overt focal neurological deficits Skin: No rashes appreciated Psych: Cooperative Weight / BMI Weight Weight: 115.4 kg Body Mass Index (BMI) 57.0 ABG / Lab / Microbiology Data 04/17/24 04:51 04/17/24 04:51 Laboratory: Laboratory Results - last 24 hr 04/17/24 04:51: WBC 13.2 H, RBC 4.43, Hgb 14.1, Hct 43.6, MCV 98.4, MCH 31.8, MCHC 32.3, RDW Std Deviation 47.4 H, RDW Coeff of William 13.2, Plt Count 188, MPV 9.9, Immature Gran % (Auto) 1.600 H, N eut % (Auto) 82.7 H, Lymph % (Auto) 10.5 L, Refugio % (Auto) 4.8, Eos % (Auto) 0.2, Baso % (Auto) 0.2, Absolute Neuts (auto) 10.9 H, Absolute Lymphs (auto) 1.38, Nucleated RBC % 0, Sodium 140, Potassium 4.1, Chloride 113 H, Carbon Dioxide 24.0, Anion Gap 3 L, BUN 25 H, Creatinine 1.05 H, Estim Creat Clear Calc 89.20, Est GFR (MDRD) Af Amer 78, Est GFR (MDRD) Non-Af 64, BUN/Creatinine Ratio 23.8 H, Glucose 136 H, Calcium 8.3 L Microbiology: Microbiology 04/14/24 01:38 Mucosa - Nose SARS-CoV-2, Influenza RSV (PCR) - Final RSV D/C Instructions Discharge Diet: - (Resume previous diet) DC O (more content not included)...[facility]01-09-2025 Evaluation note* Diagnosis Onset Date Resolution Status Admit Date Viral URI with cough acute Jame reg2024 1:22pm Hypoxia acute April 14, 2024 3:57am Respiratory syncytial virus (RSV) acute April 14 3:57am [facility] Work Phone: 1(859) 369-962811-06-2024 NoteHNO ID: [id number] Author: FÉLIX STACY APRN.GRAPHIC [employer]S TECHNICIAN Service: ? Author Type: Nurse Practitioner Type: Progress Notes Filed: 02/09/2024 17:03 Note Text: Subjective Came into work this morning around 9 am and had a little bit of eye discomfort and seemed to get worse at the day went on. Caregiver noticed eyes watering. Says the left eye bothers her more. She does has a slight cough. Denies any other symptoms at this time. Does have a runny nose as well. The history is provided by the patient. No collar band creaser was used. Eye Problem Review of Systems Constitutional: Negative. Skin: Negative. Objective Physical Exam Constitutional: Appearance: Normal appearance. HENT: Right Ear: Hearing, tympanic membrane, ear canal and external ear normal. Left Ear: Hearing, tympanic membrane, ear canal and external ear normal. Eyes: General: Right eye: No foreign body, discharge or hordeolum. Left eye: No foreign body, discharge or hordeolum. Comments: Redness and swelling noted in the area marked above. Some eye lid debride noted as well. Cardiovascular: Rate and Rhythm: Normal rate and regular rhythm. Heart sounds: Normal heart sounds. Pulmonary: Effort: Pulmonary effort is normal. Breath sounds: Normal breath sounds. Neurological: Mental Status: She is alert. PAST MEDICAL HISTORY Diagnosis Date Bundle branch block Lazy eye Seizure (HCC) Trisomy 21 PAST SURGICAL HISTORY Procedure Laterality Date EYE SURGERY HX HEART CATHETERIZATION HEART SURGERY HX x3 TONSILLECTOMY AND ADENOIDECTOMY ALLERGIES Adhesive Tape (Rosins) MEDICATIONS levonorgestrel (KYLEENA) 17.5 mcg/24 hr (5 yrs) 19.5 mg IUD 1 Each by INTRAUTERINE route as directed. VRAYLAR 3 mg capsule Take 1 tablet by mouth once daily. omeprazole (PRILOSEC) 20 mg capsule Take 1 capsule by mouth once daily. topiramate (TOPAMAX) 25 mg tablet Take 1 tablet by mouth two times a day. takes w/ 100 mg to make 125 mg bid paliperidone ER (INVEGA) 3 mg 24 hr tablet Take by mouth as directed. QUEtiapine (SEROQUEL) 50 mg tablet traZODone (DESYREL) 100 mg tablet triamcinolone acetonide (KENALOG) 0.1 % ointment valACYclovir (VALTREX) 1 gram tablet NYAMYC powder cholecalciferol (VITAMIN D3) 50 mcg (2,000 unit) tablet sodium fluoride (SODIUM FLUORIDE 5000 PLUS) 1.1 % dental cream by DENTAL route. AMMONIUM LACTATE TOPICAL Apply to affected area. topiramate (TOPAMAX) 100 mg tablet Take 100 mg by mouth two times a day. LORazepam (ATIVAN) 0.5 mg tab 0.5 mg. LORazepam (ATIVAN) 1 mg tablet Take 0.5 mg by mouth. melatonin 5 mg tablet 5 mg. Omeprazole Magnesium (PRILOSEC OTC) 20 mg tablet Take 20 mg by mouth. trimethoprim-polymyxin (POLYTRIM) 10,000 unit- 1 mg/mL ophthalmic solution Use 1 Drop in the left eye every 4 hours for [address] (PROTONIX) 20 mg tablet 20 mg. (Patient not taking: Reported on 02/09/2024) No family history on file. Social History Tobacco Use Smoking status: Never Smokeless tobacco: Never Substance Use Topics Alcohol use: Never Drug use: Never ASSESSMENT/PLAN: 1. Blepharitis of left upper eyelid, unspecified type - ICD9: 373.00, ICD10: H01.004 - POLYMYXIN B SULFATE 10,000 UNIT-TRIMETHOPRIM 1 MG/ML EYE DROPS Educated about proper use of medication and supportive therapy. Caregiver was agreeable to this care plan and will follow up if anything changes. Félix Stacy APRN.[facility]11-06-2024 History of Present illness Narrative* Félix Stacy APRN.[facility] - 02/09/2024 4:57 PM EST Images from the original note were not included. Subjective Came into work this morning around 9 am and had a little bit of eye discomfort and seemed to get worse at the day went on. Caregiver noticed eyes watering. Says the left eye bothers her more. She does has a slight cough. Denies any other symptoms at this time. Does have a runny nose as well. The history is provided by the patient. No collar band creaser was used. Eye Problem Review of Systems Constitutional: Negative. Skin: Negative. Objective Physical Exam Constitutional: Appearance: Normal appearance. HENT: Right Ear: Hearing, tympanic membrane, ear canal and external ear normal. Left Ear: Hearing, tympanic membrane, ear canal and external ear normal. Eyes: General: Right eye: No foreign body, discharge or hordeolum. Left eye: No foreign body, discharge or hordeolum. Comments: Redness and swelling noted in the area marked above. Some eye lid debride noted as well. Cardiovascular: Rate and Rhythm: Normal rate and regular rhythm. Heart sounds: Normal heart sounds. Pulmonary: Effort: Pulmonary effort is normal. Breath sounds: Normal breath sounds. Neurological: Mental Status: She is alert. PAST MEDICAL HISTORY Diagnosis Date Bundle branch block Lazy eye Seizure (HCC) Trisomy 21 PAST SURGICAL HISTORY Procedure Laterality Date EYE SURGERY HX HEART CATHETERIZATION HEART SURGERY HX x3 TONSILLECTOMY & ADENOIDECTOMY <AGE 12 ALLERGIES Adhesive Tape (Rosins) MEDICATIONS levonorgestrel (KYLEENA) 17.5 mcg/24 hr (5 yrs) 19.5 mg IUD 1 Each by INTRAUTERINE route as directed. VRAYLAR 3 mg capsule Take 1 tablet by mouth once daily. omeprazole (PRILOSEC) 20 mg capsule Take 1 capsule by mouth once daily. topiramate (TOPAMAX) 25 mg tablet Take 1 tablet by mouth two times a day. takes w/ 100 mg to make 125 mg bid paliperidone ER (INVEGA) 3 mg 24 hr tablet Take by mouth as directed. QUEtiapine (SEROQUEL) 50 mg tablet traZODone (DESYREL) 100 mg tablet triamcinolone acetonide (KENALOG) 0.1 % ointment valACYclovir (VALTREX) 1 gram tablet NYAMYC powder cholecalciferol (VITAMIN D3) 50 mcg (2,000 unit) tablet sodium fluoride (SODIUM FLUORIDE 5000 PLUS) 1.1 % dental cream by DENTAL route. AMMONIUM LACTATE TOPICAL Apply to affected area. topiramate (TOPAMAX) 100 mg tablet Take 100 mg by mouth two times a day. LORazepam (ATIVAN) 0.5 mg tab 0.5 mg. LORazepam (ATIVAN) 1 mg tablet Take 0.5 mg by mouth. melatonin 5 mg tablet 5 mg. Omeprazole Magnesium (PRILOSEC OTC) 20 mg tablet Take 20 mg by mouth. trimethoprim-polymyxin (POLYTRIM) 10,000 unit- 1 mg/mL ophthalmic solution Use 1 Drop in the left eye every 4 hours for [address] (PROTONIX) 20 mg tablet 20 mg. (Patient not taking: Reported on 02/09/2024) No family history on file. Social History Tobacco Use Smoking status: Never Smokeless tobacco: Never Substance Use Topics Alcohol use: Never Drug use: Never ASSESSMENT/PLAN: 1. Blepharitis of left upper eyelid, unspecified type - ICD9: 373.00, ICD10: H01.004 - POLYMYXIN B SULFATE 10,000 UNIT-TRIMETHOPRIM 1 MG/ML EYE DROPS Educated about proper use of medication and supportive therapy. Caregiver was agreeable to this care plan and will follow up if anything changes. Félix Stacy APRN.[facility] NoteHNO ID: [id number] Author: ELISABET AVILES MD Service: ? Author Type: Physician Type: Progress Notes Filed: 10/29/2023 17:14 Note Text: Patient underwent Pap smear and IUD removal and Kyleena IUD insertion today at [facility] without difficulty. Discharged home with routine instructions and follow-up.Elisabet Aviles, [facility] 10-29-2023 History of Present illness Narrative* Elisabet Aviles MD - 10/29/2023 5:13 PM EDT Patient underwent Pap smear and IUD removal and Kyleena IUD insertion today at [facility] without difficulty. Discharged home with routine instructions and follow-up.Elisabet Avilse MD [facility]24 Telephone encounter Note * Telephone Encounter - Curt Rmoan RN - 10/13/2023 2:17 PM EDT Most recent Echo/Cardiology note faxed to PAT. Curt Roman RN [facility]07-10-2024 Miscellaneous Notes* Telephone Encounter - Curt Roman RN - 10/13/2023 2:17 PM EDT Most recent Echo/Cardiology note faxed to PAT. Curt Roman RN [facility] History and physical note * Elisabet Aviles MD - 10/13/2023 12:37 PM EDT Pre-Op History and Physical HPI: The patient is a 33 year old female presenting for pre-operative visit. She is scheduled for IUD removal, Kyleena IUD insertion, for menstrual control on 10/29/23. Procedure discussed along with risks, benefits and complications. Other alternatives discussed for management. Consent form signed? Yes. PAST MEDICAL HISTORY Diagnosis Date Bundle branch block Lazy eye Seizure (HCC) Trisomy 21 PAST SURGICAL HISTORY Procedure Laterality Date EYE SURGERY HX HEART CATHETERIZATION HEART SURGERY HX x3 TONSILLECTOMY & ADENOIDECTOMY Current Outpatient Medications Medication Sig Dispense Refill omeprazole (PRILOSEC) 20 mg capsule Take 1 capsule by mouth once daily. VRAYLAR 3 mg capsule Take 1 tablet by mouth once daily. topiramate (TOPAMAX) 25 mg tablet Take 1 tablet by mouth two times a day. takes w/ 100 mg to make 125 mg bid paliperidone ER (INVEGA) 3 mg 24 hr tablet Take by mouth as directed. QUEtiapine (SEROQUEL) 50 mg tablet traZODone (DESYREL) 100 mg tablet triamcinolone acetonide (KENALOG) 0.1 % ointment valACYclovir (VALTREX) 1 gram tablet NYAMYC powder cholecalciferol (VITAMIN D3) 50 mcg (2,000 unit) tablet sodium fluoride (SODIUM FLUORIDE 5000 PLUS) 1.1 % dental cream by DENTAL route. AMMONIUM LACTATE TOPICAL Apply to affected area. pantoprazole DR (PROTONIX) 20 mg tablet 20 mg. (Patient not taking: Reported on 06/23/2023) topiramate (TOPAMAX) 100 mg tablet Take 100 mg by mouth two times a day. LORazepam (ATIVAN) 0.5 mg tab 0.5 mg. LORazepam (ATIVAN) 1 mg tablet Take 0.5 mg by mouth. melatonin 5 mg tablet 5 mg. Omeprazole Magnesium (PRILOSEC OTC) 20 mg tablet Take 20 mg by mouth. No current facility-administered medications for this visit. ALLERGIES: Adhesive Tape (Rosins) PERSONAL HISTORY: Social History Tobacco Use Smoking status: Never Smokeless tobacco: Never Substance Use Topics Alcohol use: Never Drug use: Never FAMILY HISTORY: No family history on file. REVIEW OF SYMPTOMS: GENERAL: denies fevers or chills ENDOCRINOLOGY: has not been on steroids Cardiology : denies palpitations or chest pain Respiratory: denies SOB or cough Hematology: denies history of prolonged bleeding or easy bruising or VTE Allergy: Denies history of personal or family history of allergy to anesthesia PHYSICAL EXAMINATION: VITALS: There were no vitals taken for this visit. IMPRESSION: AUB, trisomy 21 PLAN: The risks/benefits/alternatives and personal involved for the planned IUD removal and KyleenaIUD insertion were reviewed with the patient. Her questions were answered to her satisfaction and she desires to proceed. Consent was signed. I reviewed with her postop instructions and expectations. I have reviewed and updated past medical and surgical history, medications and allergies Elisabet Aviles M.D. [address]10-2024 History and physical note* Elisabet Aviles MD - 10/13/2023 12:37 PM EDT Pre-Op History and Physical HPI: The patient is a 33 year old female presenting for pre-operative visit. She is scheduled for IUD removal, Kyleena IUD insertion, for menstrual control on 10/29/23. Procedure discussed along with risks, benefits and complications. Other alternatives discussed for management. Consent form signed? Yes. PAST MEDICAL HISTORY Diagnosis Date Bundle branch block Lazy eye Seizure (HCC) Trisomy 21 PAST SURGICAL HISTORY Procedure Laterality Date EYE SURGERY HX HEART CATHETERIZATION HEART SURGERY HX x3 TONSILLECTOMY & ADENOIDECTOMY <AGE 14 Current Outpatient Medications Medication Sig Dispense Refill omeprazole (PRILOSEC) 20 mg capsule Take 1 capsule by mouth once daily. VRAYLAR 3 mg capsule Take 1 tablet by mouth once daily. topiramate (TOPAMAX) 25 mg tablet Take 1 tablet by mouth two times a day. takes w/ 100 mg to make 125 mg bid paliperidone ER (INVEGA) 3 mg 24 hr tablet Take by mouth as directed. QUEtiapine (SEROQUEL) 50 mg tablet traZODone (DESYREL) 100 mg tablet triamcinolone acetonide (KENALOG) 0.1 % ointment valACYclovir (VALTREX) 1 gram tablet NYAMYC powder cholecalciferol (VITAMIN D3) 50 mcg (2,000 unit) tablet sodium fluoride (SODIUM FLUORIDE 5000 PLUS) 1.1 % dental cream by DENTAL route. AMMONIUM LACTATE TOPICAL Apply to affected area. pantoprazole DR (PROTONIX) 20 mg tablet 20 mg. (Patient not taking: Reported on 06/23/2023) topiramate (TOPAMAX) 100 mg tablet Take 100 mg by mouth two times a day. LORazepam (ATIVAN) 0.5 mg tab 0.5 mg. LORazepam (ATIVAN) 1 mg tablet Take 0.5 mg by mouth. melatonin 5 mg tablet 5 mg. Omeprazole Magnesium (PRILOSEC OTC) 20 mg tablet Take 20 mg by mouth. No current facility-administered medications for this visit. ALLERGIES: Adhesive Tape (Rosins) PERSONAL HISTORY: Social History Tobacco Use Smoking status: Never Smokeless tobacco: Never Substance Use Topics Alcohol use: Never Drug use: Never FAMILY HISTORY: No family history on file. REVIEW OF SYMPTOMS: GENERAL: denies fevers or chills ENDOCRINOLOGY: has not been on steroids Cardiology : denies palpitations or chest pain Respiratory: denies SOB or cough Hematology: denies history of prolonged bleeding or easy bruising or VTE Allergy: Denies history of personal or family history of allergy to anesthesia PHYSICAL EXAMINATION: VITALS: There were no vitals taken for this visit. IMPRESSION: AUB, trisomy 21 PLAN: The risks/benefits/alternatives and personal involved for the planned IUD removal and KyleenaIUD insertion were reviewed with the patient. Her questions were answered to her satisfaction and she desires to proceed. Consent was signed. I reviewed with her postop instructions and expectations. I have reviewed and updated past medical and surgical history, medications and allergies Elisabet Aviles M.D. [facility]07-[facility]-2024 NoteHNO ID: [id number] Author: ELISABET AVILES MD Service: ? Author Type: Physician Type: Progress Notes Filed: 10/13/2023 12:49 Note Text: VIRTUAL VISIT PROGRESS NOTE This is a virtual visit using [employer] Zoom Video Visit. It required patient-provider interaction for the medical decision making as documented below. I have communicated my name and active licensure. The patient's identity and physical location were verified at the time of this visit. Either the patient or their legal environmental marketing representative has been informed of the risks and benefits of -- and alternatives to -- treatment through a remote evaluation and consents to proceed with the evaluation remotely. Lia Walters is a 33 year old female seen for follow-up abnormal uterine bleeding with Liletta IUD. Patient has trisomy 21 with multiple cognitive delays. Patient's mother reports that menstruation is a hygiene concern for the patient. Has had 2 Kisha IUDs in the past and did very well and had amenorrhea for the most part with these. Previously has not been warmed in the operating room.. HISTORY REVIEWED (electronic chart updated): PAST MEDICAL HISTORY Diagnosis Date Bundle branch block Lazy eye Seizure (HCC) Trisomy 21 PAST SURGICAL HISTORY Procedure Laterality Date EYE SURGERY HX HEART CATHETERIZATION HEART SURGERY HX x3 TONSILLECTOMY AND ADENOIDECTOMY No family history on file. Social History Tobacco Use Smoking status: Never Smokeless tobacco: Never Substance Use Topics Alcohol use: Never Drug use: Never Current Outpatient Medications Medication Sig paliperidone ER (INVEGA) 3 mg 24 hr tablet Take by mouth as directed. paliperidone ER (INVEGA) 9 mg 24 hr tablet QUEtiapine (SEROQUEL) 50 mg tablet traZODone (DESYREL) 100 mg tablet triamcinolone acetonide (KENALOG) 0.1 % ointment valACYclovir (VALTREX) 1 gram tablet NYAMYC powder cholecalciferol (VITAMIN D3) 50 mcg (2,000 unit) tablet sodium fluoride (SODIUM FLUORIDE 5000 PLUS) 1.1 % dental cream by DENTAL route. AMMONIUM LACTATE TOPICAL Apply to affected area. levonorgestrel (KISHA) 14 mcg/24 hrs (3 yrs) 13.5 mg IUD IUD 1 Each by INTRAUTERINE route as directed. (Patient not taking: Reported on 06/23/2023) risperiDONE (RISPERDAL) 1 mg tablet Take 1 mg by mouth. (Patient not taking: Reported on 06/23/2023) citalopram (CELEXA) 20 mg tablet Take 40 mg by mouth. (Patient not taking: Reported on 06/23/2023) pantoprazole DR (PROTONIX) 20 mg tablet 20 mg. (Patient not taking: Reported on 06/23/2023) topiramate (TOPAMAX) 100 mg tablet Take 100 mg by mouth two times a day. topiramate (TOPAMAX) 25 mg tablet Take 25 mg by mouth. (Patient not taking: Reported on 06/23/2023) LORazepam (ATIVAN) 0.5 mg tab 0.5 mg. LORazepam (ATIVAN) 1 mg tablet Take 0.5 mg by mouth. melatonin 5 mg tablet 5 mg. Omeprazole Magnesium (PRILOSEC OTC) 20 mg tablet Take 20 mg by mouth. No current facility-administered medications for this visit. ALLERGIES Allergen Reactions Adhesive Tape (Maribeth* Rash REVIEW OF SYSTEMS: no new c/o PHYSICAL EXAMINATION: VIDEO EXAM: (if completed, performed via video enabled technology) No exam performed ASSESSMENT: Abnormal uterine bleeding PLAN: Menstrual hygiene is an issue with patient due to multiple cognitive delays and also it is difficult for them to assess pain levels due to limited ability to communicate pain scale. Has done well with IUD in the past and desires to continue with this for menstrual control Patient has had her IUD placed twice previously in the operating room. Risk benefits and alternatives to this were reviewed with the patient's mother who is her legal guardian. Questions were answered to her satisfaction. She desires to proceed. Patient has multiple medical issues. Not a good combined hormonal contraceptive candidate. Does not desire future . Plan to place Kyleena IUD. Decision for surgery today. There are no Patient Instructions on file for this visit. Elisabet Aviles [facility]07-10-2024 History of Present illness Narrative* Elisabet Aviles MD - 10/13/2023 12:18 PM EDT VIRTUAL VISIT PROGRESS NOTE This is a virtual visit using [employer] Zoom Video Visit. It required patient- provider interaction for the medical decision making as documented below. I have communicated my name and active licensure. The patient's identity and physical location wereverified at the time of this visit. Either the patient or their legal environmental marketing representative has been informed of the risks and benefits of -- and alternatives to -- treatment through a remote evaluation andconsents to proceed with the evaluation remotely. Lia Walters is a 33 year old female seen for follow-up abnormal uterine bleeding with Liletta IUD. Patient has trisomy 21 with multiple cognitive delays. Patient's mother reports that menstruation is a hygiene concern for the patient. Has had 2 Kisha IUDs in the past and did very well and had amenorrhea for the most part with these. Previously has not been warmed in the operating room.. HISTORY REVIEWED (electronic chart updated): PAST MEDICAL HISTORY Diagnosis Date Bundle branch block Lazy eye Seizure (HCC) Trisomy 21 PAST SURGICAL HISTORY Procedure Laterality Date EYE SURGERY HX HEART CATHETERIZATION HEART SURGERY HX x3 TONSILLECTOMY & ADENOIDECTOMY <AGE 14 No family history on file. Social History Tobacco Use Smoking status: Never Smokeless tobacco: Never Substance Use Topics Alcohol use: Never Drug use: Never Current Outpatient Medications Medication Sig paliperidone ER (INVEGA) 3 mg 24 hr tablet Take by mouth as directed. paliperidone ER (INVEGA) 9 mg 24 hr tablet QUEtiapine (SEROQUEL) 50 mg tablet traZODone (DESYREL) 100 mg tablet triamcinolone acetonide (KENALOG) 0.1 % ointment valACYclovir (VALTREX) 1 gram tablet NYAMYC powder cholecalciferol (VITAMIN D3) 50 mcg (2,000 unit) tablet sodium fluoride (SODIUM FLUORIDE 5000 PLUS) 1.1 % dental cream by DENTAL route. AMMONIUM LACTATE TOPICAL Apply to affected area. levonorgestrel (KISHA) 14 mcg/24 hrs (3 yrs) 13.5 mg IUD IUD 1 Each by INTRAUTERINE route as directed. (Patient not taking: Reported on 06/23/2023) risperiDONE (RISPERDAL) 1 mg tablet Take 1 mg by mouth. (Patient not taking: Reported on 06/23/2023) citalopram (CELEXA) 20 mg tablet Take 40 mg by mouth. (Patient not taking: Reported on 06/23/2023) pantoprazole DR (PROTONIX) 20 mg tablet 20 mg. (Patient not taking: Reported on 06/23/2023) topiramate (TOPAMAX) 100 mg tablet Take 100 mg by mouth two times a day. topiramate (TOPAMAX) 25 mg tablet Take 25 mg by mouth. (Patient not taking: Reported on 06/23/2023) LORazepam (ATIVAN) 0.5 mg tab 0.5 mg. LORazepam (ATIVAN) 1 mg tablet Take 0.5 mg by mouth. melatonin 5 mg tablet 5 mg. Omeprazole Magnesium (PRILOSEC OTC) 20 mg tablet Take 20 mg by mouth. No current facility-administered medications for this visit. ALLERGIES Allergen Reactions Adhesive Tape (Maribeth* Rash REVIEW OF SYSTEMS: no new c/o PHYSICAL EXAMINATION: VIDEO EXAM: (if completed, performed via video enabled technology) No exam performed ASSESSMENT: Abnormal uterine bleeding PLAN: Menstrual hygiene is an issue with patient due to multiple cognitive delays and also it is difficult for them to assess pain levels due to limited ability to communicate pain scale. Has done well with IUD in the past and desires to continue with this for menstrual control Patient has had her IUD placed twice previously in the operating room. Risk benefits and alternatives to this were reviewed with the patient's mother who is her legal guardian. Questions were answered to her satisfaction. She desires to proceed. Patient has multiple medical issues. Not a good combined hormonal contraceptive candidate. Does not desire future . Plan to place Kyleena IUD. Decision for surgery today. There are no Patient Instructions on file for this visit. \ Elisabet Aviles MD [facility] Telephone encounter Note * Telephone Encounter - Lois Jeffery LPN - 10/01/2023 11:23 AM EDT Attempted to call mother, voicemail is full. Next available date at [facility] Is11/12/23. Patient will need a pre-operative appointment-can be virtual. [facility]06-28-[facility] Miscellaneous Notes* Telephone Encounter - oLis Jeffery LPN - 10/01/2023 11:23 AM EDT Attempted to call mother, voicemail is full. Next available date at [facility] Is11/12/23. Patient will need a pre-operative appointment-can be virtual. * Telephone Encounter - Elisabet Aviles MD - 09/22/2023 2:33 PM EDT Patient's mother Taylor contacted the office due to Lia's menses restarting. This is a quality oflife issue for her and she has a Kisha that has controlled menses in the past. They would like to have this replaced in the operating room. Can do virtual preop if works better. WIll need to check w/anesthesia if ok to do at [facility]. Did do at [facility] in the past. Would try to place Liletta or Kyleena as w ould have longer rage of amenorrhea for her. 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 This is a quality oflife issue for her and she has a Kisha that has controlled menses in the past. They would like to have this replaced in the operating room. Can do virtual preop if works better. WIll need to check w/anesthesia if ok to do at [facility]. Did do at [facility] in the past. Would try to place Liletta or Kyleena as w ould have longer rage of amenorrhea for her. 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 Author Type: Nurse Practitioner Type: Progress Notes Filed: 06/23/2023 11:40 Note Text: CC: Patient presents with: Eye Problem: Possible pink eye in the right started this morning HPI: Lia Walters is a 33 year old female who presents to the office with complaint of eye redness and drainage since this morning. Symptoms are staying the same. Associated symptoms includes eye matted shut. Denies nausea, vomiting , and diarrhea. Treatments tried include nothing so far. with no relief of symptoms. Sick contacts: unknown. History of asthma, frequent episodes of bronchitis, chronic bronchitis, bronchiectasis or COPD: No Smoker: No Seasonal/environmental allergies: No The ROS is otherwise negative. The patient's pmh, medications, allergies, and past visits are reviewed. PHYSICAL EXAM: BP 128/78 Pulse 75 Temp (!) 35.6 ?C (96 ?F) Resp 18 Wt 111.2 kg (245 lb 2.4 oz) SpO2 93% BMI 53.05 kg/m? General appearance: alert, cooperative, pleasant, in no acute distress Head: Normocephalic Eyes: EOM's intact, conjunctiva pink and moist, no icterus, sclera injected PAST MEDICAL HISTORY Diagnosis Date Bundle branch block Lazy eye Seizure (HCC) Trisomy 21 PAST SURGICAL HISTORY Procedure Laterality Date EYE SURGERY HX HEART CATHETERIZATION HEART SURGERY HX x3 TONSILLECTOMY AND ADENOIDECTOMY ALLERGIES Adhesive Tape (Rosins) MEDICATIONS paliperidone ER (INVEGA) 3 mg 24 hr tablet Take by mouth as directed. paliperidone ER (INVEGA) 9 mg 24 hr tablet QUEtiapine (SEROQUEL) 50 mg tablet traZODone (DESYREL) 100 mg tablet triamcinolone acetonide (KENALOG) 0.1 % ointment valACYclovir (VALTREX) 1 gram tablet NYAMYC powder cholecalciferol (VITAMIN D3) 50 mcg (2,000 unit) tablet sodium fluoride (SODIUM FLUORIDE 5000 PLUS) 1.1 % dental cream by DENTAL route. AMMONIUM LACTATE TOPICAL Apply to affected area. topiramate (TOPAMAX) 100 mg tablet Take 100 mg by mouth two times a day. LORazepam (ATIVAN) 0.5 mg tab 0.5 mg. LORazepam (ATIVAN) 1 mg tablet Take 0.5 mg by mouth. melatonin 5 mg tablet 5 mg. Omeprazole Magnesium (PRILOSEC OTC) 20 mg tablet Take 20 mg by mouth. trimethoprim-polymyxin (POLYTRIM) 10,000 unit- 1 mg/mL ophthalmic solution Use 1 Drop in both eyes every 4 hours for 7 days. levonorgestrel (KISHA) 14 mcg/24 hrs (3 yrs) 13.5 mg IUD IUD 1 Each by INTRAUTERINE route as directed. (Patient not taking: Reported on 06/23/2023) risperiDONE (RISPERDAL) 1 mg tablet Take 1 mg by mouth. (Patient not taking: Reported on 06/23/2023) citalopram (CELEXA) 20 mg tablet Take 40 mg by mouth. (Patient not taking: Reported on 06/23/2023) pantoprazole DR (PROTONIX) 20 mg tablet 20 mg. (Patient not taking: Reported on 06/23/2023) topiramate (TOPAMAX) 25 mg tablet Take 25 mg by mouth. (Patient not taking: Reported on 06/23/2023) No family history on file. Social History Tobacco Use Smoking status: Never Smokeless tobacco: Never Substance Use Topics Alcohol use: Never Drug use: Never ASSESSMENT/PLAN: 1. [place] eye disease of both eyes - ICD9: 372.03, ICD10: H10.023 - POLYMYXIN B SULFATE 10,000 UNIT-TRIMETHOPRIM 1 MG/ML EYE DROPS Prescription instructions reviewed with patient caregiver as applicable. Potential red flag symptoms discussed with the patient. Reviewed appropriate action plan to take if red flag symptoms occur. Patient caregiver agreeable to treatment plan. Félix Stacy APRN.[facility]03-20-2024 History of Present illness Narrative* Félix Stacy APRN.[facility] - 06/23/2023 11:23 AM EDT CC: Patient presents with: Eye Problem: Possible pink eye in the right started this morning HPI: Lia Walters is a 33 year old female who presents to the office with complaint of eye redness and drainage since this morning. Symptoms are staying the same. Associated symptoms includes eye matted shut. Denies nausea, vomiting , and diarrhea. Treatments tried include nothing so far. with no relief of symptoms. Sick contacts: unknown. History of asthma, frequent episodes of bronchitis, chronic bronchitis, bronchiectasis or COPD: No Smoker: No Seasonal/environmental allergies: No The ROS is otherwise negative. The patient's pmh, medications, allergies, and past visits are reviewed. PHYSICAL EXAM: BP 128/78 Pulse 75 Temp (!) 35.6 C (96 F) Resp 18 Wt 111.2 kg (245 lb 2.4 oz) SpO2 93% BMI 53.05 kg/m General appearance: alert, cooperative, pleasant, in no acute distress Head: Normocephalic Eyes: EOM's intact, conjunctiva pink and moist, no icterus, sclera injected PAST MEDICAL HISTORY Diagnosis Date Bundle branch block Lazy eye Seizure (HCC) Trisomy 21 PAST SURGICAL HISTORY Procedure Laterality Date EYE SURGERY HX HEART CATHETERIZATION HEART SURGERY HX x3 TONSILLECTOMY & ADENOIDECTOMY <AGE 14 ALLERGIES Adhesive Tape (Rosins) MEDICATIONS paliperidone ER (INVEGA) 3 mg 24 hr tablet Take by mouth as directed. paliperidone ER (INVEGA) 9 mg 24 hr tablet QUEtiapine (SEROQUEL) 50 mg tablet traZODone (DESYREL) 100 mg tablet triamcinolone acetonide (KENALOG) 0.1 % ointment valACYclovir (VALTREX) 1 gram tablet NYAMYC powder cholecalciferol (VITAMIN D3) 50 mcg (2,000 unit) tablet sodium fluoride (SODIUM FLUORIDE 5000 PLUS) 1.1 % dental cream by DENTAL route. AMMONIUM LACTATE TOPICAL Apply to affected area. topiramate (TOPAMAX) 100 mg tablet Take 100 mg by mouth two times a day. LORazepam (ATIVAN) 0.5 mg tab 0.5 mg. LORazepam (ATIVAN) 1 mg tablet Take 0.5 mg by mouth. melatonin 5 mg tablet 5 mg. Omeprazole Magnesium (PRILOSEC OTC) 20 mg tablet Take 20 mg by mouth. trimethoprim-polymyxin (POLYTRIM) 10,000 unit- 1 mg/mL ophthalmic solution Use 1 Drop in both eyes every 4 hours for 7 days. levonorgestrel (KISHA) 14 mcg/24 hrs (3 yrs) 13.5 mg IUD IUD 1 Each by INTRAUTERINE route as directed. (Patient not taking: Reported on 06/23/2023) risperiDONE (RISPERDAL) 1 mg tablet Take 1 mg by mouth. (Patient not taking: Reported on 06/23/2023) citalopram (CELEXA) 20 mg tablet Take 40 mg by mouth. (Patient not taking: Reported on 06/23/2023) pantoprazole DR (PROTONIX) 20 mg tablet 20 mg. (Patient not taking: Reported on 06/23/2023) topiramate (TOPAMAX) 25 mg tablet Take 25 mg by mouth. (Patient not taking: Reported on 06/23/2023) No family history on file. Social History Tobacco Use Smoking status: Never Smokeless tobacco: Never Substance Use Topics Alcohol use: Never Drug use: Never ASSESSMENT/PLAN: 1. [place] eye disease of both eyes - ICD9: 372.03, ICD10: H10.023 - POLYMYXIN B SULFATE 10,000 UNIT-TRIMETHOPRIM 1 MG/ML EYE DROPS Prescription instructions reviewed with patient caregiver as applicable. Potential red flag symptoms discussed with the patient. Reviewed appropriate action plan to take if red flag symptoms occur. Patient caregiver agreeable to treatment plan. Félix Stacy APRN.[facility] documented [facility] Miscellaneous Notes* Nursing - Mamadou Davison RT(R)(CT) - 05/05/2023 11:00 AM EST Patient presented today for CT Cardiac scan with IV contrast. Screening revealed need for iStat to check Creatinine/GFR prior to Contrast injection. Creat resulted High at 1.5 and GFR calculated to 40.5. Discussed with Radiologist and Computer Publisher who decided due to concerns for Kidney function that we would not proceed with CT today. Computer Publisher on site in Radiology recommends evaluation for Renal Disease prior to attempting CT Cardiac with Contrast. [facility] Nurse Note* Nursing - Mamadou Davison RT(R)(CT) - 05/05/2023 11:00 AM EST Patient presented today for CT Cardiac scan with IV contrast. Screening revealed need for iStat to check Creatinine/GFR prior to Contrast injection. Creat resulted High at 1.5 and GFR calculated to 40.5. Discussed with Radiologist and Computer Publisher who decided due to concerns for Kidney function that we would not proceed with CT today. Computer Publisher on site in Radiology recommends evaluation for Renal Disease prior to attempting CT Cardiac with Contrast. [facility] Discharge summary Author Martin Mcpherson [facility] April 22, 2023 6:28pm Note Date/Time April 22, 2023 4 :45pm [facility] Medical Records Department [address] [place] [address] Emergency Department Summary 04/22/23 MR#: [id number] Acct: [id number] Name: LIA WALTERS Rep #:[id number] : 1990 33 From: Martin Mcpherson MD PCP: Dr. Rafy Olsen MD Status:REG E R Location: ED HPI History of Present Illness Chief Complaint: General Illness Informant: patient and legal guardian Narrative Narrative: Patient presents with decreased p.o. intake. For the last 2 or 3 days she has not been eating as much. She is still been drinking. Today did she did not eat or drink as much. But then we found out that patient was given a Coke with a straw and drank that just fine. No known pain. No known fevers or cough. There are 3 or so other residents at her [facility]. They all had a viral type illness 1 or 2 weeks ago. No specific symptom but they were all under the weather. No known influenza or COVID going around. There has been no vomiting. No diarrhea. No coughing. She also may be was just a little sleepy or than normal but evidently she does sometimes fallasleep during workshop and other events normally. History and review of symptoms are significantly limited. Patient has significant Down syndrome and is generally nonverbal. But she does understand things pretty well. [facility] Medical History Down syndrome Fallot tetralogy GERD (gastroesophageal reflux disease) Heart disease Lab test negative for COVID-19 virus Seizures Home Medications citalopram 20 mg tablet 40 mg PO DAILY 07/29/15 [History Last Taken 10/13/18] lorazepam 0.5 mg tablet 0.5 mg PO BID 07/29/15 [History Last Taken 10/13/18] risperidone 4 mg tablet 0.5 mg PO BID 07/29/15 [History Last Taken 10/13/18] topiramate 100 mg tablet 150 mg PO BID 07/29/15 [History Last Taken 10/13/18] melatonin 5 mg tablet 3 mg PO QHS PRN Sleep 02/28/18 [History Last Taken 02/27/18 5 MG] omeprazole 20 mg capsule,delayed release 20 mg PO DAILY 04/08/19 [History Last Taken Unknown] multivitamin (One Daily Multivitamin tablet) 1 tab PO DAILY 04/21/20 [History Last Taken Unknown] acetaminophen 500 mg tablet (Tylenol Extra Strength) 1,000 mg (2 x 500 mg) PO Q6H PRN fever or pain #60 tabs 10/28/20 [Rx Last Taken Unknown] albuterol sulfate 90 mcg/actuation aerosol inhaler (Ventolin HFA) 2 puff inhalation Q4H PRN PRN Wheezing ##1 10/28/20 [Rx Last Taken Unknown] ondansetron HCl 4 mg tablet (Zofran) 4 mg PO Q8H PRN nausea and vomiting #9 tabs105/09/20 [Rx Last Taken Unknown] ammonium lactate 12 % topical cream 1 applic topical QHS 04/22/23 [History Last Taken Unknown] cholecalciferol (vitamin D3) 50 mcg (2,000 unit) tablet 50 mcg PO DAILY 04/22/23[History Last Taken Unknown] lorazepam 1 mg tablet 1 mg PO DAILY 04/22/23 [History Last Taken Unknown] paliperidone 3 mg tablet,extended release 24 hr 12 mg PO Q24H 04/22/23 [History Last Taken Unknown] trazodone 100 mg tablet 100 mg PO QHS 04/22/23 [History Last Taken Unknown] valacyclovir 1 gram tablet 2,000 mg PO BID 04/22/23 [History Last Taken Unknown] Allergy/AdvReac Type Severity Reaction Status Date / Time adhesive tape AdvReac Intermediate Skin Verified 04/22/23 15:29 redness Social History Smoking Status: Never smoker alcohol intake: never ROS ROS ED ROS Narrative Limited review of systems as the patient generally is nonverbal. Constitutional Constitutional ED: Denies chills or fever(s) ENT ENT ED: Denies rhinorrhea Respiratory/Chest Respiratory/Chest: Denies cough Gastrointestinal Gastrointestinal: Denies diarrhea or vomiting Genitourinary Genitourinary ED: Reports other Details: No reported change in urine output. Integumentary Denies rash Hematologic/Lymphatic Hematologic/Lymphatic: Denies easy bleeding, easy bruising or lymphadenopathy Allergic/Immunologic Allergic/Immunologic ED: Denies urticaria EXAM Physical Exam Narrative Exam Narrative: CONSTITUTIONAL: Patient is nontoxic in appearance. The patient looks comfortable. Work of breathing looks normal. She is smiling and pleasant. She reaches out to hold her hand. HEENT: No notable trauma. Mucous membranes are still moist. None of her teeth appear to be tender when tapped with a tongue blade. I have trouble seeing her tonsils due to anatomy. No indication of discomfort with swallowing. No sinus tenderness. EYES: No conjunctival injection. No proptosis. NECK:No JVD. No stridor. No lymphadenopathy is felt but she does have a full neck. CARDIOVASCULAR: Regular rate. Regular rhythm. No notable murmur. No JVD. She isnot tachycardic. RESPIRATORY: No respiratory distress. Breathing is unlabored. No wheezes. No coughing while I am in the room. Saturations are normal at 100% on room air showing no hypoxia. GASTROINTESTINAL: Not distended. Bowel sounds are normal. No tenderness. No guarding. No rebound. No palpable mass. No bruit is heard. I can press in all areas with no indication of discomfort or change in her demeanor. GENITOURINARY: No tenderness over the bladder. No CVA tenderness on either side. MUSCULOSKELETAL: Atraumatic. No peripheral edema. No cord. No tenderness along the deep venous system. No asymmetry. No distended veins. NEUROLOGICAL: Patient is alert and appropriate. No focal deficit noted. SKIN: No noted rashes. No diaphoresis. PSYCHIATRIC: Patient is calm. Mood is appropriate. Const Vital Signs: 04/22/23 15:30 04/22/23 16:27 Temperature 96.4 F L Temperature Source Temporal Pulse Rate 74 Respiratory Rate 18 Respiratory Effort Normal Non-Labored Respiratory Pattern Normal Blood Pressure 109/81 H Blood Pressure Mean 90 Pulse Ox 100 Oxygen Delivery Method Room Air MDM MDM MDM Narrative Medical decision making narrative: Patient's CBC is normal other than a mild nonspecific elevation of the hemoglobin. White count and platelets are normal. Patient's electrolytes show no marked abnormalities. Creatinine is slightly up at 1.22. Patient's liver function test are normal. Patient's glucose is normal. Patient's COVID is negative. Patient's influenza A is negative. Patient's influenza B is negative. Patient's RSV is negative. Patient's rapid strep is negative. I think the patient can go back with her nursing home. They can ensure to encourage p.o. intake. She may have a viral illness like some of the other people where she is just not eating and drinking as much. There is no indication that she is at risk at this time. I did explain that this needs to be watched closely and if she is not drinking for longer it may end up that she comes in the hospital. But at this point there is no need for admission. Thereis no pain or exam findings that would indicate further need for imaging. Lab Data Labs: Laboratory Results - last 24 hr 04/22/23 16:55 WBC 6.3 RBC 5.16 Hgb 16.9 H Hct 50.8 H MCV 98.4 MCH 32.8 H MCHC 33.3 RDW Std Deviation 47.6 H RDW Coeff of William 13.1 Plt Count 171 MPV 10.6 Immature Gran % (Auto) 0.300 Neut % (Auto) 54.5 Lymph % (Auto) 36.4 [place] % (Auto) 6.9 Eos % (Auto) 0.8 Baso % (Auto) 1.1 H Absolute Neuts (auto) 3.4 Absolute Lymphs (auto) 2.28 Nucleated RBC % 0 Sodium 139 Potassium 3.9 Chloride 109 H Carbon Dioxide 24.0 Anion Gap 6 BUN 16 Creatinine 1.22 H Estim Creat Clear Calc 79.51 Est GFR (MDRD) Af Amer 66 Est GFR (MDRD) Non-Af 55 L BUN/Creatinine Ratio 13.1 Glucose 98 Calcium 9.0 Total Bilirubin 0.40 AST 26 ALT 23 Alkaline Phosphatase 89 Total Protein 7.5 Albumin 3.3 Globulin 4.2 Albumin/Globulin Ratio 0.8 L Discharge Plan Triage Chief Complaint: General Illness ED Provider: Martin Mcpherson Dx/Rx/DC Orders Clinical Impression: Decreased oral intake Instructions: Dehydration Prescriptions: No Action multivitamin [One Daily Multivitamin] Tablet 1 tab PO DAILY ondansetron HCl [Zofran] 4 mg tablet 4 mg PO Q8H PRN (Reason: nausea and vomiting) Qty: 9 0RF risperidone 4 MG tablet 0.5 mg PO BID citalopram 20 MG tablet 40 mg PO DAILY lorazepam 0.5 MG tablet 0.5 mg PO BID Patient Comments: QAM & QHS topiramate 100 MG tablet 150 mg PO BID melatonin 5 MG tablet 3 mg PO QHS PRN (Reason: Sleep) omeprazole 20 MG capsule 20 mg PO DAILY albuterol sulfate [Ventolin HFA] 1 INHALER inhaler 2 puff inhalation Q4H PRN PRN (Reason: Wheezing) Qty: 1 0RF Rx Instructions: Dispense with spacer acetaminophen [Tylenol Extra Strength] 500 mg tablet 1,000 mg PO Q6H PRN (Reason: fever or pain) Qty: 60 0RF Rx Instructions: Do not exceed 4000 mg/day ammonium lactate 12 % cream 1 applic TOPICAL QHS lorazepam 1 mg tablet 1 mg PO DAILY Rx Instructions: 3pm paliperidone 3 mg tablet extended release 24hr 12 mg PO Q24H trazodone 100 mg tablet 100 mg PO QHS cholecalciferol (vitamin D3) 50 mcg (2,000 unit) tablet 50 mcg PO DAILY valacyclovir 1 gram tablet 2,000 mg PO BID Primary Care Provider: Rafy Olsen Referrals: Rafy Olsen MD [Primary Care Provider] - 3-5 Days if not improving Disposition Disposition: Home, Self Care Capacity Legal Dredge Captain Reflex Medical hold order details:: IF a medical hold is selected below, a suggested order for a MEDICAL HOLD will reflex upon signing the document. Next of kin: [place] law dictates a PRIORITY LIST for identifying legal decision-maker/legal next of kin in the following order (LNOK): 1st: The patient?s legal guardian, if any 2nd: The patient's spouse (if status is questionable, consult Risk Management) 3rd: The patient?s adult child(aneesh) (majority, if multiple children) 4th: The patient?s parents 5th: The patient?s adult siblings (majority, if multiple children siblings) What to do if you have Problems For any increased pain, shortness of breath, bleeding, nausea or vomiting, chestpain, or any unexpected problems, contact your Primary Care Provider. Call [facility] ([phone]) or report to the closest Emergency Room. Call 911 if necessary. 04/22/231 <Electronically signed by Martin Mcpherson MD> Cosigner Signature (if applicable): CC: Dr. Rafy Olsen MD ~ Signed [facility] Work Phone: Evaluation noteNo assessment information available [facility] Work Phone: Evaluation note* Diagnosis S/P TOF (tetralogy of Fallot) repair Personal history of surgery to heart and great vessels, presenting hazards to health S/P pulmonary valve replacement Heart valve replaced by other means [facility] Diagnosis Congenital heart disease Unspecified congenital anomaly of heart S/P TOF (tetralogy of Fallot) repair Personal history of surgery to heart and great vessels, presenting hazards to health S/P pulmonary valve replacement Heart valve replaced by other means [facility] Diagnosis [place] eye disease of both eyes- Primary [facility] Diagnosis Abnormal uterine bleeding (AUB)- Primary documented in this encounter [facility] note* Diagnosis Blepharitis of left upper eyelid, unspecified type- Primary URI, acute Acute upper respiratory infections of unspecified site documented in this encounter [facility] note* Diagnosis Onset Date Resolution Status Admit Date Acute sinusitis acute October 05, 2024 12:20pm [facility] Work Phone: Hospital Discharge instructionsAdditional Instructions Possible hemoptysis. There is no findings of any major bleeding in the oral airway. Chest x-ray with nothing obvious. Monitor symptoms. If reoccurs and worsens, return to the ED for reevaluation otherwise follow-up with your doctor.[facility] Work Phone: Progress note Author Jesu Baker [facility] Note Date/Time January 08, 2025 1: 28pm [facility] [address], [address] [place] [address] OFFICE VISIT Date of Service: 01/08/25 MR#: [id number] Acct: [id number] Name: LIA WALTERS Rep #: [id number] : 1990 Provider: JEREMY Morrison Age/Sex: 34/F Location: [facility] Status: Signed Intake Vital Signs 11/02/24 16:23 01/08/25 11:58 Height 4 ft 8 in BP 110/62 Position Sitting Respiration 16 Pulse 51 L Temp 97.5 F L Temp Source Temporal Pulse Oximetry (%) 99 Oxygen Delivery Method room air Intake Visit Reasons: CONCERN FOR UTI Chief Complaint: UTI Accompanied by: Caregiver Allergies adhesive tape Adverse Reaction (Intermediate, Verified 01/08/25 12:07) Skin redness Medications ?Medication ?Instructions ?Recorded ?Confirmed ?Type topiramate 100 mg tablet 150 mg PO BID 07/29/1501/08 History melatonin 5 mg tablet 10 mg PO QHS Sleep 02/28/18 01/08/25 History omeprazole 20 mg capsule,delayed 20 mg PO DAILY 01/08/25 History release acetaminophen 500 mg tablet 1,000 mg (2 x 500 mg) PO Q 6H PRN 10/28/20 01/08/25 Rx (Tylenol Extra Strength) fever or pain #60 tabs ammonium lactate 12 % topical cream 1 applic topical Q HS 04/22/23 01/08/25 History cholecalciferol (vitamin D3) 50 100 mcg PO DAILY 04/2201/08/25 History mcg (2,000 unit) tablet cariprazine 3 mg capsule (Vraylar) 3 mg PO DAILY 10/2401/08/25 History clonazepam 0.5 mg tablet 0.25 mg PO BID 04/14/2409/27 History clonazepam 0.5 mg tablet 0.5 mg PO BID 04/14/2401/08 History ipratropium 0.5 mg-albuterol 3 mg 3 ml inhalation Q4HW A.RT 30 days 04/17/24 01/08/25 Rx (2.5 mg base)/3 mL nebulization #180 mL soln ipratropium bromide 21 mcg (0.03 2 spray intranasal BI D-TID PRN 10/05/24 01/08/25 Rx %) nasal spray postnasal drainage #30 mL clonazepam 1 mg tablet 1 mg PO QHS 11/02/24 5 History Nurse's Note: Patient here for concerns for a UTI. Patient caregiver states that she is lethargic and is unstable on her feet. Patient also has low energy. Patient caregiver states that she has a cough and has been getting the hiccups. This has been going on since Wednesday. Patient has the hicciups now for about 15-20 mins. Patient caregiver states she seems to have slown down this summer. [facility] Medical History (Updated 01/08/25 @ 16:10 by Jesu LUNA, PA) Urinalysis requested Fatigue Gastric reflux Non-smoker Sleep apnea Shortness of breath on exertion History of echocardiogram Cardiology follow-up encounter Lab test negative for COVID-19 virus Fallot tetralogy GERD (gastroesophageal reflux disease) Down syndrome Seizures Heart disease Surgical History Hx of tonsillectomy Hx of eye surgery History of open heart surgery Hx of surgical procedure Social History Smoking Status: Never smoker alcohol intake: never HPI HPI Chief Complaint: UTI Details: LIA WALTERS, is a 34 F who presents to the office today for initial evaluationat the [facility] for - patient's caregiver states that Lia has expressed very little energy and is unstable on her feet when walking particularly over the last 3 days, and would like her screening for urinary tract infection (though no complaints of dysuria or urinary frequency or back pain or fever/chills appreciated). Patient's caregiver also states that she has an occasional cough and has been getting the hiccups, though noting overall Lia has slown down over the last several months. No complaints of fever, chills, sweats, shortness of breath/dyspnea on exertion and no changes in urine output routines as far as caregiver is aware; patient otherwise is a poor historian with history of MRDD. No [id number] medications taken to assist. No close contacts with similar complaints as far as caregiver is aware. No other associated symptoms and no other alleviating/aggravating factors. ROS Const Constitutional: No other (As above) Exam Const General: cooperative, healthy appearing and no acute distress Orientation: alert and awake [facility] Head: normal to inspection Ears: external ears normal, TM's normal bilaterally and EAC's normal Nose: external nose normal, nares normal, septum normal and no nasal discharge Face and sinus: normal facial exam, sinuses nontender and face symmetric Mouth: oral mucosae normal, lip normal, oropharynx normal and moist mucous membranes Throat: posterior oropharynx normal, uvula midline and no postnasal drainage Eyes General: appearance normal, both eyes and all related structures Neck Neck: normal visual inspection, no lymphadenopathy, no meningeal signs and supple Chest Chest palpation & inspection: normal inspection of the chest Resp Effort & Inspection: normal respiratory effort, able to speak in complete sentences and no cough (No unsolicited cough during today's exam) Auscultation: Bilateral: Clear to Auscultation Cardio Palpation: normal PMI Rate: bradycardic Rhythm: regular rhythm Heart Sounds: S1 normal and S2 normal Pulses: radial pulses present GI Inspection: normal to inspection Palpation: soft Skin General: no rashes or lesions noted Neuro General: patient alert, patient awake and gait normal Extrem General: normal to inspection Psych Appearance: grossly normal Attitude: cooperative Coding Level of Care Code Off vis,est,level 2 Diagnoses Fatigue R53.83 Urinalysis requested Assessment and Plan Assessment and Plan (1) Fatigue: Status: Acute (2) Urinalysis requested: Status: Acute Plan: Unable to obtain urine sample for POC screening during the time to his urinary office; instructed caregiver to return urine sample should she feel the need to go. Supportive measures as instructed today. Reviewed examination findings with caregiver who acknowledged understanding; instructed to take patient to ED should symptoms only worsen or any other concerns develop. Patient's caregiver states acknowledging understanding all the above. This note was generated with Suliaation software. It may contain incorrectwords, spelling, and punctuation that were not noted in checking the note beforesigning. Orders: Orders POC Urinalysis Dip (Clinic) Today R53.83 - Other fatigue 01/08/25 3890 <Electronically signed by Jesu LUNA> Date _ Jesu LUNA Cosigner Signature: Date (if applicable) CC: ~ [facility] Work Phone: Reason for referral (narrative)No reason for referral information availableWW[facility]UM[facility] Work Phone: Chief Complaint and Reason for Visit Chief Complaint Admit Date CONGESTION, COUGH October 05, 2024 12:20 pm Gi Bleed November 02, 2024 4:23 pm Reason for Visit Admit Date Acute sinusitis October 05, 2024 12:20 pm Chief Complaint URINE SAMPLE Chief Complaint decreased PO intake, increased sleep Chief Complaint decreased PO intake, increased sleep EORDERS- pain, loss of wieght weight loss Chief Complaint Admit Date gi bleed February 21, 2024 2:19pm COUGH, FLU LIKE SYMPTOMS April 13 1:22pm RSV INFECTION W/HYPOXIA, VITALY W/DEHYDRATI ON April 14, 2024 3:57am RSV INFECTION W/HYPOXIA, VITALY W/DEHYDRATI ON April 15, 2024 7:58am RSV INFECTION W/HYPOXIA, VITALY W/DEHYDRATI ON April 16, 2024 12:50pm RSV INFECTION W/HYPOXIA, VITALY W/DEHYDRATI ON April 17, 2024 12:39pm Reason for Visit Admit Date Viral URI with cough April 13, 2024 1 :22pm Hypoxia April 14, 2024 3 :57am Respiratory syncytial virus (RSV) Januar 2024 3:57am Chief Complaint Admit Date CONGESTION, COUGH October 05, 2024 12:20 pm Chief Complaint Admit Date CONGESTION, COUGH October 05, 2024 12:20 pm Gi Bleed November 02, 2024 4:23 pm CONCERN FOR UTI January 08, 2025 11 :56am Reason for Visit Admit Date Acute sinusitis October 05, 2024 12:20 pm Fatigue January 08, 2025 11 :56am Urinalysis requested January 08, 2025 1 1:56am Advance Directives No Advanced Directives Records Found Advance Directive Response Recorded Date/ Time Advance Directives No July 28, 2 016 3:30pm Living Will No October 28, 2020 4:53pm Power of Business Operations Director Yes October 28 4:53pm Advance Directive Response Recorded Date/ Time Advance Directives No July 28, 2 016 2:30pm Living Will No April 22 4:27pm Power of Business Operations Director No April 22, 2023 4:27pm Advance Directive Response Recorded Date/ Time Advance Directives No July 28, 2 016 3:30pm Living Will No April 22 5:27pm Power of Business Operations Director No April 22, 2023 5:27pm Advance Directive Response Recorded Date/ Time Living Will No February 20, 2 024 3:19pm Power of Business Operations Director No February 21, 2024 3:19pm Living Will No April 14 5:44am Power of Business Operations Director No April 14, 2024 5:44am Advance Directives No July 28, 2 016 3:30pm Advance Directive Response Recorded Date/ Time Advance Directives No July 28, 2 016 3:30pm Advance Directive Response Recorded Date/ Time Do you have a Healthcare Power of Business Operations Director? No November 02, 2024 4:45pm Advance Directives No July 28 016 3:30pm Summary Purpose Family History No Family History Records FoundNo Family History Records FoundNo Family History Records Found Additional Source Comments Goals (unrecognized section and content) Goals may be documented in a n alternate sectionGoals may be documented in an alternate sectionGoals may be documented in an alternate sectionGoals may be documented in an alternate sectionGoals may be documented in an alternate sectionGoals may be documented in an alternate sectionGoals may be documented in an alternate sectionGoals may be documented in an alternate sectionGoals may be documented in an alternate sectionGoals may be documented in an alternate sectionGoals may be documented in an alternate section Care Teams (unrecognized sec tion and content) Sporting Goods Sales Manager Relationship Specialty Start Date End Date Rafy Olsen MD [address] [facility] [place], [place] [address] PCP - General Family Medicine 01/05/20 Team Status: Active Member Role Status Dates Dr. Rafy Olsen MD Family Provider Active Dr. Rafy Olsen MD Primary Care Provider Active Team Status: Inactive Member Role Status Dates Dr. Rafy Olsen MD Primary Care Provider Active Dr. Martin Mcpherson MD Emergency Provider Active [employer] Sales Manager Relationship Specialty Start Date End Date Rafy Olsen MD [address] [facility] [address] [place] [address] PCP - General Family Medicine 01/05/20 Team Status: Inactive Member Role Status Dates Dr. Rafy Olsen MD Primary Care Provider Active Dr. Martin Mcpherson MD Attending Provider, Emergency Provider Active Team Status: Inactive Member Role Status Dates Dr. Leonard Lewis MD Attending Provider, Referring Provider Active Dr. Rafy Olsen MD Primary Care Provider Active Team Status: Inactive Member Role Status Dates Dr. Rafy Olsen MD Primary Care Provi carmen, Attending Provider, Referring Provider Active [employer] Sales Manager Relationship Specialty Start Date End Date Rafy Olsen MD [address] [facility] [address] [place] [address] PCP - General Family Medicine 01/10/20 Sporting Goods Sales Manager Relationship Specialty Start Date End Date Rafy Olsen MD [address] [place] [address] PCP - General Family Medicine 01/10/20 Team Status: Inactive Member Role Status Dates Dr. Rafy Olsen MD Primary Care Provider Active Dr. Elisabet Aviles MD Attending Provider, Referring Provider Active [employer] Sales Manager Relationship Specialty Start Date End Date Rafy Olsen MD [address] [place] [address] PCP - General Family Medicine 01/10/20 Sporting Goods Sales Manager Relationship Specialty Start Date End Date Rafy Olsen MD [address] [place] [address] PCP - General Family Medicine 01/10/20 Sporting Goods Sales Manager Relationship Specialty Start Date End Date Rafy Olsen MD [address] [place] [address] PCP - General Family Medicine 01/10/20 Sporting Goods Sales Manager Relationship Specialty Start Date End Date Rafy Olsen MD [address] [place] [address] PCP - General Family Medicine 01/10/20 Team Status: Inactive Member Role Status Dates Dr. Rafy Olsen MD Primary Care Provider Active Start: February 21, 2024 End: February 21, 2024 Dr. Chauncey Garcia DO Attending Provider Active Start: February 21, 2024 End: February 21, 2024 Dr. Chauncey Garcia DO Emergency Provider Active Start: February 21, 2024 End: February 21, 2024 Team Status: Inactive Member Role Status Dates Dr. Rafy Olsen MD Primary Care Provider Active Start: April 13, 2024 End: April 13, 2024 Dr. Rafy Olsen MD Referring Provider Active Start: April 13, 2024 End: April 13, 2024 JEREMY Yu Attending Provider Active Sta rt: April 13, 2024 End: April 13, 2024 Team Status: Inactive Member Role Status Dates Dr. Rafy Olsen MD Primary Care Provider Active Start: April 14, 2024 End: April 17, 2024 Dr. Samy Espinoza DO Emergency Provider Active Start: April 14, 2024 End: April 17, 2024 Dr. Malcolm Best DO Admit Provider Active Start: April 14, 2024 End: April 17, 2024 Dr. Malcolm Best DO Other Provider Active Start: April 14, 2024 End: April 17, 2024 Dr. Ngoc Cruz MD Attending Provider Active Start: April 14, 2024 End: April 17, 2024 Team Status: Active Member Role Status Dates Dr. Rafy Olsen MD Primary Care Provider Active Start: April 15, 2024 Dr. Samy Espinoza DO Emergency Provider Active Start: April 15, 2024 Dr. Malcolm Best DO Admit Provider Active Start: April 15, 2024 Dr. Malcolm Best DO Other Provider Active Start: April 15, 2024 Dr. Ngoc Cruz MD Attending Provider Active Start: April 15, 2024 Dr. Ngoc Cruz MD Other Provider Active Star t: April 15, 2024 Team Status: Active Member Role Status Dates Dr. Rafy Olsen MD Primary Care Provider Active Start: April 16, 2024 Dr. Samy Espinoza DO Emergency Provider Active Start: April 16, 2024 Dr. Malcolm Best DO Admit Provider Active Start: April 16, 2024 Dr. Malcolm Best DO Other Provider Active Start: April 16, 2024 Dr. Ngoc Cruz MD Attending Provider Active Start: April 16, 2024 Dr. Ngoc Cruz MD Other Provider Active Star t: April 16, 2024 Team Status: Active Member Role Status Dates Dr. Rafy Olsen MD Primary Care Provider Active Start: April 17, 2024 Dr. Samy Espinoza DO Emergency Provider Active Start: April 17, 2024 Dr. Malcolm Best DO Admit Provider Active Start: April 17, 2024 Dr. Malcolm Best DO Other Provider Active Start: April 17, 2024 Dr. Ngoc Cruz MD Attending Provider Active Start: April 17, 2024 Dr. Ngoc Cruz MD Other Provider Active Star t: April 17, 2024 Team Status: Inactive Member Role Status Dates Dr. Rafy Olsen MD Primary Care Provider Active Start: June 01, 2024 End: June 01, 2024 MYESHA Brown Attending Provider Active St art: June 01, 2024 End: June 01, 2024 MYESHA Brown Referring Provider Active St art: June 01, 2024 End: June 01, 2024 Team Status: Active Member Role Status Dates Dr. Rafy Olsen MD Primary Care Provider Active Start: June 05, 2024 Dr. Rafy Olsen MD Attending Provider Active Start: June 05, 2024 Dr. Rafy Olsen MD Referring Provider Active Start: June 05, 2024 Team Status: Inactive Member Role Status Dates Dr. Rafy Olsen MD Primary Care Provider Active Start: June 05, 2024 End: June 05, 2024 Dr. Rafy Olsen MD Attending Provider Active Start: June 05, 2024 End: June 05, 2024 Dr. Rafy Olsen MD Referring Provider Active Start: June 05, 2024 End: June 05, 2024 Team Status: Inactive Member Role Status Dates Dr. Rafy Olsen MD Primary Care Provider Active Start: July 27, 2024 End: July 27, 2024 Dr. Rafy Olsen MD Attending Provider Active Start: July 27, 2024 End: July 27, 2024 Dr. Rafy Olsen MD Referring Provider Active Start: July 27, 2024 End: July 27, 2024 Team Status: Inactive Member Role Status Dates Dr. Rafy Olsen MD Primary Care Provider Active Start: August 24, 2024 End: August 24, 2024 Dr. Rafy Olsen MD Attending Provider Active Start: August 24, 2024 End: August 24, 2024 Dr. Rafy Olsen MD Referring Provider Active Start: August 24, 2024 End: August 24, 2024 Team Status: Active Member Role/Relationship Status Dates Dr. Rafy Olsen MD Family Provider Active Dr. Rafy Olsen MD Primary Care Provider Active Team Status: Inactive Member Role/Relationship Status Dates Dr. Rafy Olsen MD Primary Care Provider Active Start: July 27, 2024 End: July 27, 2024 Dr. Rafy Olsen MD Attending Provider Active Start: July 27, 2024 End: July 27, 2024 Dr. Rafy Olsen MD Referring Provider Active Start: July 27, 2024 End: July 27, 2024 Team Status: Inactive Member Role/Relationship Status Dates Dr. Rafy Olsen MD Primary Care Provider Active Start: August 24, 2024 End: August 24, 2024 Dr. Rafy Olsen MD Attending Provider Active Start: August 24, 2024 End: August 24, 2024 Dr. Rafy Olsen MD Referring Provider Active Start: August 24, 2024 End: August 24, 2024 Team Status: Inactive Member Role/Relationship Status Dates Dr. Rafy Olsen MD Primary Care Provider Active Start: October 05, 2024 End: October 05, 2024 Dr. Rafy Olsen MD Referring Provider Active Start: October 05, 2024 End: October 05, 2024 Angelo LUNA PA Attending Provider Active Sta rt: October 05, 2024 End: October 05, 2024 Team Status: Active Member Role/Relationship Status Dates Dr. Rafy Olsen MD Primary Care Provider Active Start: October 05, 2024 Angelo LUNA PA Attending Provider Active Sta rt: October 05, 2024 Angelo LUNA PA Referring Provider Active Sta rt: October 05, 2024 Team Status: Inactive Member Role/Relationship Status Dates Dr. Rafy Olsen MD Primary Care Provider Active Start: October 05, 2024 End: October 05, 2024 Angelo LUNA, PA Attending Provider Active Sta rt: October 05, 2024 End: October 05, 2024 Angelo LUNA, PA Referring Provider Active Sta rt: October 05, 2024 End: October 05, 2024 Team Status: Active Member Role/Relationship Status Dates Dr. Rafy Olsen MD Primary Care Provider Active Team Status: Inactive Member Role/Relationship Status Dates Dr. Rafy Olsen MD Primary Care Provider Active Start: November 02, 2024 End: November 02, 2024 Dr. Butch Bernard DO Emergency Provider Active Start : November 02, 2024 End: November 02, 2024 Team Status: Inactive Member Role/Relationship Status Dates Dr. Rafy Olsen MD Primary Care Provider Active Start: November 02, 2024 End: November 02, 2024 Dr. Butch Bernard DO Attending Provider Active Start : November 02, 2024 End: November 02, 2024 Dr. Butch Bernard DO Emergency Provider Active Start : November 02, 2024 End: November 02, 2024 Team Status: Inactive Member Role/Relationship Status Dates Dr. Rafy Olsen MD Primary Care Provider Active Start: November 09, 2024 End: November 09, 2024 [facility] Attending Provider Active St art: November 09, 2024 End: November 09, 2024 [facility] Referring Provider Active St art: November 09, 2024 End: November 09, 2024 Team Status: Active Member Role/Relationship Status Dates Dr. Rafy Olsen MD Primary care physician Active Team Status: Inactive Member Role/Relationship Status Dates Dr. Rafy Olsen MD Primary care physician Active Start: October 05, 2024 End: October 05, 2024 Dr. Rafy Olsen MD Referring Provider Active Start: October 05, 2024 End: October 05, 2024 JEREMY Yu Attending physician Active St art: October 05, 2024 End: October 05, 2024 Team Status: Inactive Member Role/Relationship Status Dates Dr. Rafy Olsen MD Primary care physician Active Start: October 05, 2024 End: October 05, 2024 JEREMY Yu Attending physician Active St art: October 05, 2024 End: October 05, 2024 JEREMY Yu Referring Provider Active Sta rt: October 05, 2024 End: October 05, 2024 Team Status: Inactive Member Role/Relationship Status Dates Dr. Rafy Olsen MD Primary care physician Active Start: November 02, 2024 End: November 02, 2024 Dr. Butch Bernard DO Attending physician Active Star t: November 02, 2024 End: November 02, 2024 Dr. Butch Bernard DO Emergency Department Physician Active Start: November 02, 2024 End: November 02, 2024 Team Status: Inactive Member Role/Relationship Status Dates Dr. Rafy Olsen MD Primary care physician Active Start: November 09, 2024 End: November 09, 2024 [facility] Attending physician Active S tart: November 09, 2024 End: November 09, 2024 [facility] Referring Provider Active St art: November 09, 2024 End: November 09, 2024 Team Status: Inactive Member Role/Relationship Status Dates Dr. Rafy Olsen MD Primary care physician Active Start: January 08, 2025 End: January 08, 2025 Dr. 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 Procedures CT Cardiac LV Funct RV Struct with IV contrast CHG CT HEART C+ CARDIAC STRUX&MORPH CGEN HRT [place] [address] Referral ID Status Reason Start Date Expiration Date V isits Requested Visits Authorized [id number] Authorized 04/09/2023 07/09/2023 1 1 Reason Comments Eye Problem Possible pink eye in the right started this morning Reason Comments Medication Problem Reason Comments Menstrual Problem Reason Comments Eye Problem Left eye red and irr itated x 1 day Source Comments (unrecognize d section and content) In the event this informatio n is protected by the Federal Confidentiality of Alcohol and Drug Abuse Patient Records regulations: The Federal rules restrict any use of the information to criminally investigate or prosecute any alcohol or drug abuse patient.[facility] the event this information is protected by the Federal Confidentiality of Alcohol and Drug Abuse Patient Records regulations: The Federal rules restrict any use of the information to criminally investigate or prosecute any alcohol or drug abuse patient.[facility] the event this information is protected by the Federal Confidentiality of Alcohol and Drug Abuse Patient Records regulations: The Federal rules restrict any use of the information to criminally investigate or prosecute any alcohol or drug abuse patient.[facility] the event this information is protected by the Federal Confidentiality of Alcohol and Drug Abuse Patient Records regulations: The Federal rules restrict any use of the information to criminally investigate or prosecute any alcohol or drug abuse patient.[facility] the event this information is protected by the Federal Confidentiality of Alcohol and Drug Abuse Patient Records regulations: The Federal rules restrict any use of the information to criminally investigate or prosecute any alcohol or drug abuse patient.[facility] the event this information is protected by the Federal Confidentiality of Alcohol and Drug Abuse Patient Records regulations: The Federal rules restrict any use of the information to criminally investigate or prosecute any alcohol or drug abuse patient.[facility] the event this information is protected by the Federal Confidentiality of Alcohol and Drug Abuse Patient Records regulations: The Federal rules restrict any use of the information to criminally investigate or prosecute any alcohol or drug abuse patient.[facility] INFORMATION SOURCE (unrecogn ized section and content) DATE CREATED AUTHOR 02/11/2024 [facility] DATE CREATED AUTHOR AUTHOR'S ORGANIZ ATION 05/18/2024 [facility] DATE CREATED AUTHOR AUTHOR'S ORGANIZ ATION 01/29/2025 [facility] FOR RECORDS PERTAINING TO PATIENTS WHO ARE [...] BE BASED ON THE PRIMARY CLINICAL RECORDS. [employer] [facility]. provides no warranty or guarantee of the accuracy or completeness of information in this document.
[2025-02-21 18:10] LABS: AST(SGOT) 18 U/L (<=31); Alanine Aminotransfer ALT/SGPT 11 U/L (<=34); Albumin, Serum 3.7 g/dL (3.5-5.0); Alkaline Phosphatase 101 U/L (35-104); Anion Gap 8 (5-15); BUN 24 mg/dL (4-19); BUN/Creat Ratio 18.7 RATIO (10-20); Calcium,Total 8.8 mg/dL (7.6-11.0); Carbon Dioxide 23.7 mmol/L (21.0-32.0); Chloride 107 mmol/L (98-108); Cholesterol 178 mg/dL (<=200); Globulin 3.6 g/dL (2.2-4.2); Glucose 106 mg/dL (70-99); Low Density Lipoprotein Calc. 113 mg/dL; Potassium 4.2 mmol/L (3.3-5.1); Triglycerides 117 mg/dL; Very Low Density Lipoprotein 23 mg/dL (5-40); cholesterol:hdl ratio screen 4.04
== END | disposition home or self-care (01) ==
LOC: MFPLAB 14:56
PROVIDERS: PCP Family Medicine; Visit Provider Family Medicine
DX: E78.5 Hyperlipidemia, unspecified (principal)
CPT/HCPCS: 36415; 80053; 80061